=== PATIENT | male | born 2000 | race Caucasian/White ===

== ENCOUNTER 2024-08-29 04:05 | Emergency (ER) | payer SELFPAY ==
[2024-08-29] VITALS (25 sets, daily range): BP systolic 100–118; BP diastolic 44–55; PULSE 73–84; TEMP 37.7; O2SAT 92–97; BMI 19.8
--- NOTE | 2024-08-29 04:31 | ECG_ITS ---
[facility] Test Date: 2024-08-29 Pat Name: JV PETTY Department: Room: - Gender: Male Impression Printer: : 2000 Requested By: [id number] Order Number: [id number] Reading MD: BELGICA NOEL Measurements Intervals [place] Rate: 77 P: 50 MD: 142 QRS: 80 QRSD: 90 T: 38 QT: 372 QTc: 404 Interpretive Statements 1100 Sinus rhythm 9110 normal ECG No previous ECG available for comparison Electronically Signed On 08-29-2024 7:56:34 EST by BELGICA NOEL
--- NOTE | 2024-08-29 04:35 | ED.GENADUL1 ---
HPI HPI - General Adult General Chief complaint: Dizziness Stated complaint: cough fever bp low Time Seen by Provider: 08/29/24 04:19 Source: patient Mode of arrival: walk-in Limitations: no limitations History of Present Illness HPI narrative: . 24-year-old male to the emergency department with chief complaint of cough, fever, malaise. Symptoms been ongoing since . Reports that he had multiple episodes of near syncope. He reports that his blood pressure has been running lower than normal. 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 Related Data Home Medications ?Medication ?Instructions ?Recorded ?Confirmed carvedilol 25 mg tablet mg 08/29/24 doxazosin 2 mg tablet mg 08/29/24 ferric citrate 210 mg iron tablet 08/29/24 (Auryxia) furosemide 40 mg tablet mg 08/29/24 hydralazine 50 mg tablet mg 08/29/24 losartan 100 mg tablet mg 08/29/24 nifedipine 60 mg tablet,extended mg PO 08/29/24 release 24 hr sevelamer carbonate 800 mg tablet mg 08/29/24 Allergies Allergy/AdvReac Type Severity Reaction Status Date / Time No Known Drug Allergies Allergy Verified 08/29/24 04:13 Opioid HPI Opioid Management Most Recent Opioid Data: No Data to Display Review of Systems ROS Status of ROS 10 or more systems reviewed and unremarkable except as noted in history and below PFSH PFSH Social History Little interest or pleasure in doing things: not at all Feeling down, depressed, or hopeless: not at all Exam Narrative Exam Narrative: VITALS: I have reviewed the triage vital signs. GENERAL: Well developed, well appearing adult male in no acute distress. NEURO: Alert and oriented. Moves all extremities. Face is symmetric and expressive. EYES: PERRL. No scleral icterus or conjunctival injection. No discharge. HENT: Normocephalic, atraumatic. Hearing is grossly intact. Nares grossly patent and without discharge. Mucous membranes moist. NECK: No JVD. Patient moves neck without restriction. CARDIO: Rhythm regular. Normal rate. No murmur, rub, or gallop. Pulses equal bilaterally in the upper and lower extremity. No lower extremity edema. PULM: Lungs clear to auscultation in all momin. No wheezes, rales, or rhonchi. No conversational dyspnea. No splinting, stridor, or accessory muscle use. Dry cough. GI/: Abdomen is soft and non-tender. Normoactive bowel sounds. EXTREMITIES: Symmetric muscle bulk. No joint swelling. No clubbing, cyanosis, or deformity. Fistula. SKIN: Warm and dry. Normal turgor. No rash or lesions appreciated. PSYCH: Mood, affect, and interaction is appropriate to the setting. Constitutional Vital Signs, click to edit/add: Last Vital Signs Temp 99.9 F 08/29/24 04:10 Pulse 77 08/29/24 05:40 Resp 14 08/29/24 05:40 BP 110/52 08/29/24 05:30 Pulse Ox 94 L 08/29/24 05:40 O2 Del Method Room Air 08/29/24 04:10 Course Vital Signs Vital signs: Vital Signs Temperature 99.9 F 08/29/24 04:10 Pulse Rate 79 08/29/24 04:10 Respiratory Rate 18 08/29/24 04:10 Blood Pressure 118/55 08/29/24 04:10 Pulse Oximetry 97 08/29/24 04:10 Oxygen Delivery Method Room Air 08/29/24 04:10 Temperature 99.9 F 08/29/24 04:10 Pulse Rate 77 08/29/24 05:40 Respiratory Rate 14 08/29/24 05:40 Blood Pressure 110/52 08/29/24 05:30 Pulse Oximetry 94 L 08/29/24 05:40 Oxygen Delivery Method Room Air 08/29/24 04:10 Medical Decision Making MDM Narrative Medical decision making narrative: 24-year-old male to the emergency department with chief complaint of flulike illness. Has been ongoing since . He reports that his blood pressure has been running lower than normal. He reports that at dialysis yesterday was in the 90s systolic. He reports this is not typical for him. They did not take fluid off. He has been sick and has not had much intake per his report. 500 cc fluid boluses ordered. Basic labs are ordered. EKG and chest x-ray. COVID and flu testing. Patient agrees with this plan. CBC without major abnormality. Chemistry is reviewed. His renal function is at baseline for him. He has hypocalcemia, a liver function panel was added on to assess albumin level for adjusted calcium. No other major electrolyte abnormality. EKG without evidence of ischemia or arrhythmia. COVID and flu testing are negative. Care was signed out to Dr. Augustine with chest x-ray and adjusted calcium pending. Working diagnosis: Near syncope Flulike illness Medical Records Medical records reviewed: Yes I reviewed the patient's medical records Lab Data Lab results reviewed: Yes I reviewed the patient's lab results Labs: Lab Results 08/29/24 08/29/24 Range/Units 04:20 04:25 WBC 4.1 (4.0-11.0) 10^3/uL RBC 2.80 L (4.70-6.10) 10^6/uL Hgb 8.7 L (14.0-18.0) g/dL Hct 25.6 L (42.0-54.0) % MCV 91.4 (80.0-94.0) fL MCH 31.1 (25.9-34.0) pg MCHC 34.0 (29.9-35.2) g/dL RDW 12.4 (11.0-15.0) % Plt Count 78 L (150-450) 10^3/uL MPV 11.5 (9.5-13.5) fL Neut % (Auto) 48.2 (43.0-75.0) % Lymph % (Auto) 36.3 (20.5-60.0) % [place] % (Auto) 11.7 (1.7-12.0) % Eos % (Auto) 3.4 (0.9-7.0) % Baso % (Auto) 0.2 (0.2-2.0) % Neut # (Auto) 2.0 (1.4-6.5) 10^3/uL Lymph # (Auto) 1.5 (1.2-3.8) 10^3/uL [place] # (Auto) 0.5 (0.3-0.8) 10^3/uL Eos # (Auto) 0.1 (0.0-0.7) 10^3/uL Baso # (Auto) 0.0 (0.0-0.1) 10^3/uL Abs Immat Gran (auto) 0.01 (0.00-0.03) 10^3/uL Imm/Tot Granulo (auto) 0.2 (0.0-0.5) % Sodium 134 L (136-145) mmol/L Potassium 4.0 (3.5-5.1) mmol/L Chloride 98 (98-107) mmol/L Carbon Dioxide 32.2 H (21.0-32.0) mmol/L Anion Gap 7.8 BUN 20.0 H (7.0-18.0) mg/dL Creatinine 8.73 H* (0.70-1.30) mg/dL Est GFR ( Amer) 9 L (>=60 mL/min/1.73m^2) Est GFR (Non-Af Amer) 8 L (>=60 mL/min/1.73m^2) BUN/Creatinine Ratio 2.3 Glucose 98 (74-106) mg/dL Calcium 7.2 L (8.5-10.1) mg/dL Troponin I High Sens 25.6 (4.0-76.1) pg/mL Influenza Type A Ag Negative Influenza Type B Ag Negative SARS-CoV-2 Ag (CV2AG) Negative (NEGATIVE) Discharge Plan Discharge Chief Complaint: Dizziness Clinical Impression: Flu-like symptoms, Near syncope Patient Disposition: Still a Patient Prescriptions / Home Meds: No Action furosemide 40 mg tablet carvedilol 25 mg tablet nifedipine 60 mg tablet extended release 24hr PO hydralazine 50 mg tablet losartan 100 mg tablet doxazosin 2 mg tablet sevelamer carbonate 800 mg tablet Auryxia 210 mg iron tablet Print Language: Cypriot Referrals: Physician,Non-Staff, MD [Primary Care Provider] - 1 week
[2024-08-29 04:46] LABS: Basophils Percent Auto 0.2 % (0.2-2.0); Eosinophils Absolute Auto 0.1 10^3/uL (0.0-0.7); Eosinophils Percent Auto 3.4 % (0.9-7.0); Hematocrit 25.6 % (42.0-54.0); Hemoglobin 8.7 g/dL (14.0-18.0); Immature Granulocytes Abs Auto 0.01 10^3/uL (0.00-0.03); Immature Granulocytes Pct Auto 0.2 % (0.0-0.5); Lymphocytes Absolute Auto 1.5 10^3/uL (1.2-3.8); Lymphocytes Percent Auto 36.3 % (20.5-60.0); Mean Corpuscular Hemoglobin 31.1 pg (25.9-34.0); Mean Corpuscular Volume 91.4 fL (80.0-94.0); Mean Platelet Volume 11.5 fL (9.5-13.5); Monocytes Absolute Auto 0.5 10^3/uL (0.3-0.8); Monocytes Percent Auto 11.7 % (1.7-12.0); Neutrophils Percent Auto 48.2 % (43.0-75.0); Platelet Count 78 10^3/uL (150-450); Red Cell Distribution Width 12.4 % (11.0-15.0); White Blood Count 4.1 10^3/uL (4.0-11.0)
[2024-08-29 04:50] LABS: Influenza Virus A Antigen Negative; Influenza Virus B Antigen Negative; Internal Control Within Normal Limits
[2024-08-29] MEDS: 0.9 % SODIUM CHLORIDE 500 ML IV (04:54)
[2024-08-29 04:56] LABS: Anion Gap 7.8; BUN Creatinine Ratio 2.3; Calcium 7.2 mg/dL (8.5-10.1); Carbon Dioxide 32.2 mmol/L (21.0-32.0); Chloride 98 mmol/L (98-107); Estimated GFR (African America 9 (>=60 mL/min/1.73m^2); Estimated GFR (Non-African Ame 8 (>=60 mL/min/1.73m^2); Glucose 98 mg/dL (74-106); Sodium 134 mmol/L (136-145); Troponin I High Sensitivity 25.6 pg/mL (4.0-76.1)
[2024-08-29 05:18] LABS: Internal Control Within Normal Limits; SARS-CoV-2 Ag NEGATIVE (NEGATIVE)
[2024-08-29 06:42] LABS: Alanine Aminotransferase 34 U/L (16-63); Albumin Globulin Ratio 1.1; Albumin Level 3.5 g/dL (3.4-5.0); Alkaline Phosphatase 199 U/L (46-116); Aspartate Amino Transferase 34 U/L (15-37); Bilirubin Direct 0.1 mg/dL (0.0-0.2); Bilirubin Total 0.3 mg/dL (0.2-1.0); Globulin 3.1 g/dL; Total Protein 6.6 g/dL (6.4-8.2)
[2024-08-29] MEDS: CALCIUM GLUC IN NACL, ISO-OSM 1 GM/50 ML PLAST..BAG IV (07:04)
== END 2024-08-29 07:37 | disposition home or self-care (01) ==
PROVIDERS: Emergency Provider Student in an Organized Health Care Education/Training Program
DX: B34.9 Viral infection, unspecified (principal); J06.9 Acute upper respiratory infection, unspecified; R05.9 Cough, unspecified; E83.51 Hypocalcemia; R50.9 Fever, unspecified
CPT/HCPCS: 36415; 71045; 80048; 80076; 81001; 84484; 85025; 87804; 87811; 93005; 96365; 99285; J0613

== ENCOUNTER 2025-03-25 12:52 | Outpatient (REF) | payer MEDICARE, MEDICAID, SELFPAY ==
--- OUTSIDE RECORDS SUMMARY | 2025-03-25 12:56 | XMS_ITS | Encounter Summary ---
Author Organization [facility] Address [address] [place] [phone] Phone Care Team Providers Care Geometrician Name Role Phone Unavailable Primary Care Provider Unavailabl e Reason for Referral * Imaging (Routine) - Authorized Specialty Diagnoses / Procedures Referred By Jacy kearns Referred To Contact Radiology Diagnoses Pre-transplant evaluation for kidney transplant Procedures XR chest [place] [address] Department [place] [address] Phone: tel: fax: Referral ID Status Reason Start Date Expiration Date Visits Requested Visits Authorized [id number] Authorized Perform Procedure 03/24/2025 04/23/2026 1 1 * Cardiovascular (Routine) - Authorized Specialty Diagnoses / Procedures Referred By Jacy kearns Referred To Contact Diagnoses Pre-transplant evaluation for kidney transplant Procedures ECG 12 [place] [address] Department [place] [address] Phone: tel: fax: Referral ID Status Reason Start Date Expiration Date V isits Requested Visits Authorized [id number] Authorized 03/24/2025 03/24/2026 1 1 Encounter Details Date Type Department Care Team (Late st Contact Info) Description 03/24/2025 Telephone [facility] [address] [phone] Johanny Sparks, JC Social History Tobacco Use Types Packs/Day Years Used Date Smoking Tobacco: Never Passive Smoke Exposure: Current Smokeless Tobacco: Never Alcohol Use Standard Drinks/Week Comments Not Currently 0 (1 standard drink = 0.6 oz pur e alcohol) PHQ-2 Answer Date Recorded Patient Health Questionnaire-2 Score 0 04/01/2024 Hunger Vital Sign Answer Date Recorded Within the past 12 months, y ou worried that your food would run out before you got the money to buy more. Never true 12/30/19 24 Within the past 12 months, t he food you bought just didn't last and you didn't have money to get more. Never true 12/30/2023 Sex and Gender Information Value Date Recorded Sex Assigned at Not on file Legal Sex Male 9:09 AM EDT Gender Identity Not on file Sexual Orientation Not on file documented as of this encounter Miscellaneous Notes * Telephone Encounter - Johanny Sparks RN - 03/24/2025 5:[address] documented in this encounter Plan of Treatment Upcoming Encounters Date Type Department Care Team (Late st Contact Info) Description 03/29/2025 9:30 AM EDT Office Visit [facility] [address] [place] [address] [place] [phone] 03/29/2025 10:00 AM EDT Social Work [facility] [address] [facility] [address] [place] [phone] Crystal Oakes LCSW 03/31/2025 11:00 AM EDT Nurse Only [facility] [address] [place] [address] [place] [phone] 03/31/2025 11:30 AM EDT Office Visit [facility] [address] [facility] [address] [place] [phone] 04/05/2025 Hospital Encounter [facility] [address] [place] [address] [place] [address] Department of Surgery-Transplant [place], [place] [phone] 12/06/2029 6:00 AM EDT [place] [address] Department of Surgery-Transplant [place], [place] [id number] Scheduled Orders Name Type Priority Associated Diagnoses Orde r Schedule HLA Autocrossmatch Panel Lab Routine Pre-transplant evaluation for kidney transplant Expected: 03/24/2025 (Approximate), Expires: 03/24/2026 HLA Transplant Antibody Panel Lab Routine Pre-transplant evaluation for kidney transplant Expected: 03/24/2025 (Approximate), Expires: 03/24/2026 Coagulation Screen Lab Routine Pre-transplant evaluation for kidney transplant End stage renal disease (Multi) Expected: 03/24/2025 (Approximate), Expires: 03/24/2026 Comprehensive Metabolic Panel Lab Routine Pre-transplant evaluation for kidney transplant Expected: 03/24/2025 (Approximate), Expires: 03/24/2026 Urinalysis with Reflex Culture Lab Routine Pre-transplant evaluation for kidney transplant Surgical abdomen Expected: 03/24/2025 (Approximate), Expires: 03/24/2026 Hemoglobin A1C Lab Routine Pre-transplant evaluation for kidney transplant Encounter for screening for diabetes mellitus Expected: 03/24/2025 (Approximate), Expires: 03/24/2026 ECG 12 Lead ECG Routine Pre-transplant evaluation for kidney transplant Expected: 03/24/2025 (Approximate), Expires: 03/24/2026 XR chest 2 views Imaging Routine Pre-transplant evaluation for kidney transplant Expected: 03/24/2025, Expires: 03/24/2026 CBC and Auto Differential Lab Routine Pre-transplant evaluation for kidney transplant Expected: 03/24/2025 (Approximate), Expires: 03/24/2026 Type And Screen Is this order related to or an upcoming surgery? Yes; Where will this surgery/delivery be performed? [facility] What is the date of the surgery? 04/05/2025; Has this patient ever had a transfusion? No; Has t... Lab Routine Pre-transplant evaluation for kidney transplant Expected: 03/24/2025 (Approximate), Expires: 03/24/2026 Scheduled Procedures Name Priority Associated Diagnoses Date/Ti me TRANSPLANT, KIDNEY ESRD (end stage renal disease) (Multi) documented as of this encounter Visit Diagnoses Diagnosis Pre-transplant evaluation for kidney transplant Surgical abdomen Abdominal pain, unspecified site Encounter for screening for diabetes mellitus End stage renal disease (Multi) End stage renal disease documented in this encounter Additional Health Concerns Assessment Noted Time PHQ-9 Depression Total Score: 3 04/01/20 24 11:00 AM EDT A fall risk assessment has been complete d for the patient 12/30/2023 1:13 PM EDT documented as of this encounter
--- OUTSIDE RECORDS SUMMARY | 2025-03-25 12:56 | XMS_ITS | Encounter Summary ---
Author Organization [facility] Address [address] [place] [address] Phone Care Team Providers Care Gluer Machine Operator Name Role Phone Unavailable Primary Care Provider Unavailabl e Encounter Details Date Type Department Care Team (Late st Contact Info) Description 03/23/2025 Telephone [facility] [address] [place] [address] [place] [address] Johanny Sparks, JC Social History Tobacco Use [...] Encounter - Johanny Sparks RN - 03/24/2025 10:11 AM EDT Spoke with Trey on 03/24. We received a living donor kidney offer through [facility]. He was made aware he was identified as the primary recipient. Date of targeted surgery on 04/05. He reports he is feeling great and denies any medical concerns. Reports HD is going well. I let him know we will be working with OSH to coordinate date for pre op and will reach out to him soon with next steps. He expressed understanding. I encouraged him to reach back out to us should any concerns or questions arise. documented in this encounter Plan of Treatment Upcoming Encounters Date Type Department Care Team (Late st Contact Info) Description 03/29/2025 9:30 AM EDT Office Visit [facility] [address] [phone] 03/29/2025 10:00 AM EDT Social Work [facility] [address] [address] Crystal Oakes LCSW 03/31/2025 11:00 AM EDT Nurse Only [place] [address] [place] [address] [phone] 03/31/2025 11:30 AM EDT Office Visit [place] [address] [phone] 04/05/[address] [facility] [address] [place] [address] [place] [address] Department [place] [address] 12/06/2029 6:00 AM EDT [place] [address] Department [place] [address] Scheduled Procedures Name Priority Associated Diagnoses Date/Ti me TRANSPLANT, KIDNEY ESRD (end stage renal disease) (Multi) documented as of this encounter Visit Diagnoses Not on filedocumented in this encounter Additional Health Concerns Assessment Noted Time PHQ-9 Depression Total Score: 3 04/01/20 24 11:00 AM EDT A fall risk assessment has been complete d for the patient 12/30/2023 1:13 PM EDT documented as of this encounter
--- OUTSIDE RECORDS SUMMARY | 2025-03-25 12:56 | XMS_ITS | Encounter Summary ---
Author Organization [facility] Address [address] [place] [address] Phone Care Team Providers Care Legal Secretary Name Role Phone Unavailable Primary Care Provider Unavailabl e Encounter Details Date Type Department Care Team (Late st Contact Info) Description 12/30/2023 Lab Requisition [facility] [address] [place] [phone] [place] [address] Department of Surgery-[place] [phone] End stage renal disease (Multi) Social History Tobacco Use Types Packs/Day Years Used Date Smoking Tobacco: Never Passive Smoke Exposure: Current Smokeless Tobacco: Never Alcohol Use Standard Drinks/Week Comments Not Currently 0 (1 standard drink = 0.6 oz pur e alcohol) PHQ-2 Answer Date Recorded Patient Health Questionnaire-2 Score 0 01/01/2024 Hunger Vital Sign Answer Date Recorded Within [...] on file Sexual Orientation Not on file COVID-19 Exposure Response Date Recorded In the last 10 days, have yo u been in contact with someone who was confirmed or suspected to have Coronavirus/COVID-19? No / Unsure 12/30/2023 9:44 AM EDT documented as of this encounter Functional Status * Over the past 2 weeks, how often have you been bothered by any of the following problems? Question Answer Date of Assessment Author Patient Health Questionnaire -2 Score 0 01/01/2024 8:00 AM RUDYT Aracely Cyr LCSW * How difficult have these problems made it for you to do your work, take care of things at home, or get along with other people? Answer Date of Assessment Author Somewhat difficult 01/01/2024 8:00 AM EDT Aracely Cyr LCSW * Over the last 2 weeks, how often have you been bothered by any of the following problems? Question Answer Date of Assessment Author Feeling nervous, anxious, or on edge 0 01/01/2024 8:00 AM EDT Aracely Cyr LCSW Not being able to stop or co ntrol worrying 0 01/01/2024 8:00 AM EDT Aracely Cyr LCSW Worrying too much about diff erent things 0 01/01/2024 8:00 AM EDT Aracely Cyr LCSW Trouble relaxing 0 01/01/2024 8:00 AM EDT Aracely Meier LCSW Being so restless that it is hard to sit still 0 01/01/2024 8:00 AM Aracely Hansen LCSW Becoming easily annoyed or irritable 0 01/01/2024 8:00 AM EDT Aracely Cyr LCSW Feeling afraid as if somethi ng awful might happen 0 01/01/2024 8:00 AM EDT Aracely Cyr LCSW FAHAD-7 Total Score 0 01/01/2024 8:00 AM Aracely Hansen LCSW * Over the past 2 weeks, how often have you been bothered by any of the following problems? Question Answer Date of Assessment Author Little interest or pleasure in doing things Not at all 01/01/2024 8:00 AM EDT Rashaun Cyr LCSW Feeling down, depressed, or hopeless Not at all 01/01/2024 8:00 AM EDT Aracely Cyr LCSW Trouble falling or staying asleep, or sleeping too much Several days 01/01/2024 8:00 AM RUDYT Aracely Cyr LCSW Feeling tired or having little energy Nearly every day 01/01/2024 8:00 AM EDT Aracely Cyr LCSW Poor appetite or overeating Several days 01/01/2024 8:00 AM EDT Aracely Cyr LCSW Feeling bad about yourself - or that you are a failure or have let yourself or your family down Not at all 01/01/2024 8:00 AM EDT Aracely Cyr LCSW Trouble concentrating on things, such as reading the newspaper or watching television Not at all 01/01/2024 8:00 AM EDT Aracely Cyr LCSW Moving or speaking so slowly that other people could have noticed? Or the opposite - being so fidgety or restless that you have been moving around a lot more than usual. Not at all 01/01/2024 8:00 AM RUDYT Aracely Cyr LCSW Thoughts that you would be better off or hurting yourself in some way Not at all 01/01/2024 8:00 AM EDT Aracely yCr LCSW Patient Health Questionnaire-9 Score 5 01/01/2024 8:00 AM EDT Aracely Cyr LCSW documented as of this encounter Plan of Treatment Upcoming Encounters Date Type Department Care Team (Late st Contact Info) Description 03/29/2025 9:30 AM EDT Office [facility] [address] [phone] 03/29/2025 10:[address] [facility] [address] [address] Crystal Oakes LCSW 03/31/2025 11:00 AM EDT Nurse Only [facility] [address] [facility] [address] [place] [address] 03/31/2025 11:30 AM EDT Office [facility] [address] [facility] [address] [place] [address] 04/05/2025 Hospital Encounter [facility] [address] [place] [address] [place] [address] [facility] Department [place] [address] 12/06/2029 6:00 AM EDT [place] [address] [facility] Department of Surgery-Transplant [place], [place] [phone] Scheduled Procedures Name Priority Associated Diagnoses Date/Ti me TRANSPLANT, KIDNEY ESRD (end stage renal disease) (Multi) documented as of this encounter Procedures Procedure Name Priority Date/Time Associated Diagnosis Comments HLA PRA ANTIBODY SCREEN Routine 12/30/19 12:00 AM EDT End stage renal disease (Multi) HLA DNA TYPE PANEL Routine 12/30/2023 12 :00 AM EDT End stage renal disease (Multi) FLOW AUTOCROSSMATCH Routine 12/30/2023 1 2:00 AM EDT End stage renal disease (Multi) documented in this encounter Results * Flow Autocrossmatch (12/30/2023 12:00 AM EDT) Flow Autocrossmatch 12/31/2023 10:30 AM EDT HLA LAB HLA Results See Attached 12/31/2023 10:30 AM EDT HLA LAB Blood Venous blood specimen / Unknown 12/30/2023 12/30/2023 5:51 PM EDT Narrative HLA LAB - 12/31/2023 10:30 AM EDT Test performed at: [facility], 6th Floor [id number] [place] [id number] us Karis Newby MD LAB BLOOD ORDERABLES Final Result Performing Organization Address [facility] Co de Phone Number HLA LAB [id number] [place] [address] * HLA DNA Type Panel (12/30/2023 12:00 AM EDT) HLA-A,B,C High Resolution Typing 01/07/2024 2:27 PM EDT HLA LAB HLA-DRB1 High Resolution Typing 01/07/2024 2:27 PM EDT HLA LAB HLA-DQB1 High Resolution Typing 01/07/2024 2:27 PM EDT HLA LAB HLA-DPB1 High Resolution Typing 01/07/2024 2:27 PM EDT HLA LAB HLA Results See Attached 01/07/2024 2:27 PM EDT HLA LAB Blood Venous blood specimen / Unknown 12/30/2023 12/30/2023 5:51 PM EDT Narrative HLA LAB - 01/07/2024 2:27 PM EDT Test performed at: [facility], 6th Floor [address] [place] [id number] Karis Newby MD LAB BLOOD ORDERABLES Final Result Performing Organization Address [facility] Co de Phone Number [facility] [address] [place] [address] * HLA PRA Antibody Screen (12/30/2023 12:00 AM EDT) HLA Class I AB Screen, 01/01/2024 8:51 AM EDT HLA LAB HLA Class II AB Screen, 01/01/2024 8:51 AM EDT HLA LAB HLA Results See Attached 01/01/2024 8:51 AM EDT HLA LAB Blood Venous blood specimen / Unknown 12/30/2023 12/30/2023 5:51 PM EDT Narrative HLA LAB - 01/01/2024 8:51 AM EDT Test performed at: [facility], 6th Floor [address] [place] [address] us Karis Newby MD LAB BLOOD ORDERABLES Final Result [facility] [id number] [place] [address] documented in this encounter Visit Diagnoses Diagnosis End stage renal disease (Multi) End stage renal disease documented in this encounter Additional Health Concerns Assessment Noted Time A fall risk assessment has been complete d for the patient 12/30/2023 1:13 PM EDT documented as of this encounter
--- OUTSIDE RECORDS SUMMARY | 2025-03-25 12:56 | XMS_ITS | Encounter Summary ---
Author Organization [facility] Address [address] [place] [address] Phone Care Team Providers Care Enamel Finisher Name Role Phone Unavailable Primary Care Provider Unavailabl e Encounter Details Date Type Department Care Team (Late st Contact Info) Description 03/25/2025 Orders Only [facility] [address] [facility] Nas [address] [place] [address] [place] [address] Department of Surgery-Transplant [place] [id number] ESRD (end stage renal disease) (Multi) (Primary Dx) Social History Tobacco Use Types Packs/Day Years [...] on file documented as of this encounter Plan of Treatment Upcoming Encounters Date Type Department Care Team (Late st Contact Info) Description 03/29/2025 9:30 AM EDT Office Visit [facility] [address] [facility] [address] [place] [address] 03/29/2025 10:00 AM EDT Social Work [facility] [address] [facility] [address] [place] [address] Crystal Oakes LCSW 03/31/2025 11:00 AM EDT Nurse Only [facility] [address] [facility] [address] [place] [address] 03/31/2025 11:30 AM EDT Office Visit [facility] [address] [address] 04/05/2025 Hospital Encounter [facility] [address] [place] [address] [place] [address] Department [place] [address] 12/06/2029 6:00 AM EDT [place] [address] Department [place] [address] Scheduled Procedures Name Priority Associated Diagnoses Date/Ti me TRANSPLANT, KIDNEY ESRD (end stage renal disease) (Multi) documented as of this encounter Goals Goal Patient Goal Type Associated Problems Recent Progress Patient-Stated? Author Autogenerat ed Goal Care Plan Autogenerated Problem No [place] Salmeron documented as of this encounter Visit Diagnoses Diagnosis ESRD (end stage renal disease) (Multi)- Primary End stage renal disease ESRD (end stage renal disease) (Multi)- Primary End stage renal disease documented in this encounter Additional Health Concerns Active Problems Noted Date Diagnosed Date Autogenerated Problem 03/25/2025 Assessment Noted Time PHQ-9 Depression Total Score: 3 04/01/20 11:00 AM EDT A fall risk assessment has been complete d for the patient 12/30/2023 1:13 PM EDT documented as of this encounter
--- OUTSIDE RECORDS SUMMARY | 2025-03-25 12:56 | XMS_ITS | Encounter Summary ---
Author Organization [facility] Address [address] [place] [address] Phone Care Team Providers Care Vrt Mechanic Name Role Phone Unavailable Primary Care Provider Unavailabl e Encounter Details Date Type Department Care Team (Late st Contact Info) Description 01/26/2025 Lab Requisition [facility] [address] [place] [id number] [place] [address] Department of Surgery-[place] [phone] End stage renal disease (Multi) Social History [...] Description 03/29/2025 9:30 AM EDT Office Visit [facility] [address] [facility] [address] [place] [address] 03/29/2025 10:00 AM EDT Social Work [facility] [address] [address] Crystal Oakes LCSW 03/31/2025 11:00 AM EDT Nurse Only [facility] [address] [address] 03/31/2025 11:30 AM EDT Office Visit [facility] [address] [address] 04/05/2025 Hospital Encounter [facility] [address] [place] [address] [place] [address] Department [place] [address] 12/06/2029 6:00 AM EDT [place] [address] Department [place] [address] Scheduled Procedures Name Priority Associated Diagnoses Date/Ti me TRANSPLANT, KIDNEY ESRD (end stage renal disease) (Multi) documented as of this encounter Procedures Procedure Name Priority Date/Time Associated Diagnosis Comments HLA TRANSPLANT ANTIBODY PANEL Routine 01/25/2025 12:00 AM EDT End stage renal disease (Multi) FLOW AUTOCROSSMATCH Routine 01/25/2025 1 2:00 AM EDT End stage renal disease (Multi) documented in this encounter Results * Flow Autocrossmatch (01/25/2025 12:00 AM EDT) Flow Autocrossmatch 01/26/2025 3:48 PM EDT [facility] LAB HLA Results See Attached 01/26/2025 3:48 PM EDT [facility] LAB Blood Venous blood specimen / Unknown 01/25/2025 01/26/2025 9:12 AM EDT Narrative HLA LAB - 01/26/2025 3:48 PM EDT Test performed at: [facility]ocompatibility [facility] Immunogenetics [facility] ElisabethAnthonyTiki [facility], 6th Floor [address] [place], [place] [id number] Karis Newby MD LAB BLOOD ORDERABLES Final Result Performing Organization Address [facility]/ZIP Co de Phone Number [facility] [address] [place], [place] [id number] * HLA Transplant Antibody Panel (01/25/2025 12:00 AM EDT) [facility] HLA Class I SP AB ID, 01/31/2025 5:02 PM EDT [facility] HLA Class II SP AB ID, 01/31/2025 5:02 PM EDT [facility] HLA Results See Attached 01/31/2025 5:02 PM EDT [facility] Blood Venous blood specimen / Unknown 01/25/2025 01/26/2025 9:12 AM EDT Narrative HLA LAB - 01/31/2025 5:02 PM EDT Test performed at: [facility] ElisabethAnthonyT[facility], 6th Floor [address] [place] [address] Karis Newby MD LAB BLOOD ORDERABLES Final Result Performing Organization Address City/[facility]/ZIP Co de Phone Number [facility] [address] [place] [address] documented in this encounter Visit Diagnoses Diagnosis End stage renal disease (Multi) End stage renal disease documented in this encounter Additional Health Concerns Assessment Noted Time PHQ-9 Depression Total Score: 3 04/01/20 24 11:00 AM EDT A fall risk assessment has been complete d for the patient 12/30/2023 1:13 PM EDT documented as of this encounter
--- OUTSIDE RECORDS SUMMARY | 2025-03-25 12:56 | XMS_ITS ---
Author Organization [facility] Address [address] [place] [address] Phone Care Team Providers Care Chlorine Cells Operator Name Role Phone Unavailable Primary Care Provider Unavailabl e Transplant Episode Kidney Candidate [facility] ([place], [place]) - [facility] Center waitlisted on 03/08/2025 Marked as Active on 03/08/2025 Kidney CoordinatorLarissa Ha RN Phone: N/A Fax: N/A Email: N/A Scores Score Value Updated Exceptions/Reas ons CPRA Not available EPTS (Calc) 1 03/25/2025 [place] Organ Diagnosis Organ Primary Contributory Kidney Hypertensive Nephrosclerosis Care Team Name Role Phone Fax Email Larissa Ha RN Kidney Coordinator N/A N/A N/A Sarina Mcdaniel MD Referring Healthcare Facility Administrator [phone] N/A Events Pre-Transplant Referred: 01/06/2023 Evaluation began: 12/30/2023 Committee: 07/08/2024 UNOS qualified: 08/03/2021 Center waitlisted: 03/08/2025 Appointments (02/22/2025 - 04/24/2025) When With Visit Type Description 03/29/2025 Transplant - Connor Oakes Transplant Kidney Social Work EPV 03/29/2025 Transplant Transplant Kidne y Surgeon 03/31/2025 Transplant Transplant Kidne y Nurse Visit 03/31/2025 Transplant Transplant Kidne y Surgeon Dialysis History Dialysis History Start End Type Comments Center [facility] Dialysis Center Information Center Phone Fax Address [facility] [phone] [place] [address]
--- OUTSIDE RECORDS SUMMARY | 2025-03-25 12:56 | XMS_ITS | Encounter Summary ---
Author Organization [facility] Address [address] [place] [address] Phone Care Team Providers Care Reach Truck Operator Name Role Phone Unavailable Primary Care Provider Unavailabl e Encounter Details Date Type Department Care Team (Late st Contact Info) Description 03/11/2025 Lab Requisition [facility] [address] [place] [phone] [place] [address] Department of Surgery-[place] [phone] End stage renal disease (Multi) Social History [...] Description 03/29/2025 9:30 AM EDT Office Visit [facility] [address] [facility] [address] [place] [address] 03/29/2025 10:00 AM EDT Social Work [facility] [address] [address] Crystal Oakes LCSW 03/31/2025 11:00 AM EDT Nurse Only [facility] [address] [address] 03/31/2025 11:30 AM EDT Office Visit [facility] [address] [address] 04/05/2025 Hospital Encounter [facility] [address] [place] [address] [place] [address] Department [place] [address] 12/06/2029 6:00 AM EDT [place] [address] Department [place] [address] Scheduled Procedures Name Priority Associated Diagnoses Date/Ti me TRANSPLANT, KIDNEY ESRD (end stage renal disease) (Multi) documented as of this encounter Procedures Procedure Name Priority Date/Time Associated Diagnosis Comments HLA TRANSPLANT ANTIBODY PANEL Routine 12/29/2024 12:00 AM EDT End stage renal disease (Multi) documented in this encounter Results * HLA Transplant Antibody Panel (12/29/2024 12:00 AM EDT) HLA Class I SP AB ID, 03/11/2025 3:18 PM EDT HLA LAB HLA Class II SP AB ID, HD 03/11/2025 3:18 PM EDT HLA LAB HLA Results See Attached 03/11/2025 3:18 PM EDT HLA LAB Blood Venous blood specimen / Unknown 12/29/2024 03/11/2025 3:13 PM EDT Narrative HLA LAB - 03/11/2025 3:18 PM EDT Test performed at: [facility] Histocompatibility and Immunogenetics Laboratory [facility], 6th Floor [address] [place] [address] us Karis Newby MD LAB BLOOD ORDERABLES Final Result Performing Organization Address City/State/[facility] Co de Phone Number [facility] [phone] [place] [address] documented in this encounter Visit Diagnoses Diagnosis End stage renal disease (Multi) End stage renal disease documented in this encounter Additional Health Concerns Assessment Noted Time PHQ-9 Depression Total Score: 3 04/01/20 24 11:00 AM EDT A fall risk assessment has been complete d for the patient 12/30/2023 1:13 PM EDT documented as of this encounter
--- OUTSIDE RECORDS SUMMARY | 2025-03-25 12:56 | XMS_ITS | Encounter Summary ---
Author Organization [facility] Address [address] [place] [address] Phone Care Team Providers Care Web Content Writer Name Role Phone Unavailable Primary Care Provider Unavailabl e Reason for Visit * Reason Comments Appointment Schedule pre op Encounter Details Date Type Department Care Team (Late st Contact Info) Description 03/25/2025 Telephone [facility] [address] [facility] [address] [place] [address] Lyndsey Contreras Appointment (Schedule pre op) Social History Tobacco Use Types Packs/Day Years [...] Description 03/29/2025 9:30 AM EDT Office Visit [facility] [address] [facility] Nas [address] [place] [address] 03/29/2025 10:00 AM EDT Social Work [facility] [address] [facility] [address] [place] [address] Crystal Oakes LCSW 03/31/2025 11:00 AM EDT Nurse Only [facility] [address] [facility] [address] [place] [address] 03/31/2025 11:30 AM EDT Office Visit [facility] [address] [facility] [address] [place] [address] 04/05/2025 Hospital Encounter [facility] [address] [place] [address] [place] [address] Department [place] [address] 12/06/2029 6:00 AM EDT [place] [address] Department [place] [address] Scheduled Procedures Name Priority Associated Diagnoses Date/Ti me TRANSPLANT, KIDNEY ESRD (end stage renal disease) (Multi) documented as of this encounter Goals Goal Patient Goal Type Associated Problems Recent Progress Patient-Stated? Author Autogenerat ed Goal Care Plan Autogenerated Problem No [place] Salmer[place] documented as of this encounter Visit Diagnoses Not on filedocumented in this encounter Additional Health Concerns Active Problems Noted Date Diagnosed Date Autogenerated Problem 03/25/2025 Assessment Noted Time PHQ-9 Depression Total Score: 3 04/01/20 11:00 AM EDT A fall risk assessment has been complete d for the patient 12/30/2023 1:13 PM EDT documented as of this encounter
--- OUTSIDE RECORDS SUMMARY | 2025-03-25 12:56 | XMS_ITS | Clinical Summary ---
Author Organization [facility] Address [address] [place] [address] Phone Care Team Providers Care Clinical Data Assistant Name Role Phone Unavailable Primary Care Provider Unavailabl e Allergies Active Allergy Reactions Criticality Noted Date Comments Midazolam Agitation 12/30/2023 Medications Coreg 25 mg tablet Take 1 tablet (25 mg) by mouth twice a day. 08/07/2023 Active docusate sodium (Colace) 100 mg capsule Take 1 capsule (100 mg) by mouth twice a day. 01/29/2023 Active doxazosin (Cardura) 2 mg tablet Take 1 tablet (2 mg) by mouth once daily. 04/26/2022 Active Auryxia 210 mg iron tablet Take 2 tablets (420 mg) by mouth 3 times a day. 09/25/2022 Active Lasix 40 mg tablet Take 1 tablet (40 mg) by mouth twice a day. 02/06/2022 Active hydrALAZINE (Apresoline) 50 mg tablet Take 1 tablet (50 mg) by mouth 3 times a day. 04/28/2023 Active losartan (Cozaar) 100 mg tablet Take 1 tablet (100 mg) by mouth once daily. 02/06/2022 Active NIFEdipine XL 60 mg 24 hr tablet Take 2 tablets (120 mg) by mouth once daily in the morning. Take before meals. Active omeprazole (PriLOSEC) [address] capsule Take 1 capsule (20 mg) by mouth once daily. Active polyethylene glycol (Glycolax, Miralax) 17 gram packet Take 17 g by mouth once daily. Active predniSONE (Deltasone) 5 mg tablet Take 1 tablet (5 mg) by mouth once daily. 02/06/2022 Active Renvela 800 mg tablet Take 4 tablets (3,200 mg) by mouth 3 times daily (morning, midday, late afternoon). 11/08/2022 Active Active Problems Problem Noted Date Diagnosed Date ESRD (end stage renal disease) (Multi) Encounters Date Type Department Care Team Description 03/25/2025 Orders Only [facility], [place] [address] [phone] Aftab Galdamez MD ESRD (end stage renal disease) ([facility]) (Primary Dx) 03/25/2025 Telephone [facility] [place] [address] [phone] Lyndsey Contreras Appointment (Schedule pre op) 03/24/2025 Telephone [facility] [place] [address] [phone] Johanny Sparks RN 03/23/2025 Telephone [facility] [place] [address] [phone] Johanny Sparks RN 03/11/2025 [facility] [address] [place] [address] Karis Riggins MD End stage renal disease ([facility]) 03/10/2025 Telephone [facility] [place] [address] [phone] Francoise Rodriguez 03/09/2025 Documentation [facility] [place] [address] [phone] Larissa Ha, RN Next Review 03/08/2025 Documentation [facility] [place] [address] [phone] Corwin Quarles RN 03/08/2025 Documentation [facility] [place] [address] [place] [address] [place] [address] Johanny Sparks, JC 03/08/2025 Documentation [facility] [place] [address] [facility] [address] [place] [address] Connie Pires, JC Waitlist Status Update 03/02/2025 Documentation [facility] [place] [address] [phone] Connie Pires, RN Kidney Eval; Follow-up 02/24/2025 Telephone [facility] [place] [address] [facility] [address] [place] [address] Connie Pires, JC Follow-up; Committee Review 02/17/2025 Documentation [facility] [address] [facility] [address] [place] [address] [employer] (Selection ) 02/17/2025 Documentation [facility] [place] [address] [address] Yuimko Darby, PharmD 01/26/2025 Lab Requisition [facility] [address] [place] [address] Karis Riggins MD End stage renal disease (Multi) 01/25/2025 11:50 AM EDT Nurse Only [facility] [place] [address] [address] 01/25/2025 11:30 AM EDT Social Work [facility] [place] [address] [facility] [address] [place] [address] Mariel Hall LSW 01/25/2025 Documentation [facility] [place] [address] [address] Connie Pires, RN Kidney Eval (Kidney Patient Summary for Selection) 01/25/2025 Orders Only [facility] [place] [address] [place] [address] Larissa Ha, RN Pre-transplant evaluation for kidney transplant; End stage renal disease (Multi); Encounter for therapeutic drug level monitoring; Other specified abnormal findings of blood chemistry 01/25/2025 Travel from Last 3 Months Immunizations Immunization Administration Dates Next Due Hepatitis B vaccine, 18yrs a nd older(HEPLISAV) 01/09/2022,10/10/2021,09/05/2021,2021 Social History Tobacco Use Types Packs/Day Years Used Date Smoking Tobacco: Never Passive Smoke Exposure: Current Smokeless Tobacco: Never Tobacco Cessation:Counseling Given: Not Answered Alcohol Use Standard Drinks/Week Comments Not Currently [...] on file Sexual Orientation Not on file Last Filed Vital Signs Vital Sign Reading Time Taken Comments Blood Pressure 97/50 12/30/2023 1:11 PM EDT Pulse 80 12/30/2023 1:11 PM EDT Temperature 36.6 C (97.9 F) 12/30/2023 1:11 PM EDT Respiratory Rate - - Oxygen Saturation 98% 12/30/2023 1:11 PM EDT Inhaled Oxygen Concentration - - Weight 52.3 kg (115 lb 3.2 oz) 12/30/2023 1:11 P M EDT Height 170.2 cm (5' 7 ) 12/30/2023 1:11 PM EDT Body Mass Index 18.04 12/30/2023 1:11 PM EDT Plan of Treatment Upcoming Encounters Date Type Department Care Team (Late st Contact Info) Description 03/29/2025 9:30 AM EDT Office Visit [facility] [place] [address] [phone] 03/29/2025 10:00 AM EDT Social Work [facility] [place] [address] [phone] Crystal Oakes LCSW 03/31/2025 11:00 AM EDT Nurse Only [facility] [place] [address] [phone] 03/31/2025 11:30 AM EDT Office Visit [facility] [place] [address] [address] 04/05/2025 Hospital Encounter [facility] [place] [address] [place] [address] [place] [address] [place] [address] 12/06/2029 6:00 AM EDT [place] [address] Department [place] [address] Scheduled Procedures Name Priority Associated Diagnoses Date/Ti me TRANSPLANT, KIDNEY ESRD (end stage renal disease) (Multi) Health Maintenance Due Date Last Done Comments Medicare Annual Wellness Visit (AWV) 2002 MMR Vaccines (1 of 1 - Standard series) 2003 HPV Vaccines (1 - Male 3-dose series) 2017 Meningococcal B Vaccine (3 of 3 - Trumenba SCDM 3-Dose Series) 06/27/2018 02/01/2018, 12/26/2017 DTaP/Tdap/Td Vaccines (1 - Tdap) 2024 COVID-19 Vaccine (1 - 2024-25 season) 2025 Influenza Vaccine (#1) 2025 Lipid Panel 01/25/2030 01/25/2025, 12/30/2023 Zoster Vaccines (1 of 2) 2052 Meningococcal Vaccine Aged Out 12/27/2017 No jess preet eligible based on patient's age to complete this topic Pneumococcal Vaccine: Pediatrics and At-Risk Adult Patients Aged Out 12/27/2017 No longer eligible based on patient's age to complete this topic Hepatitis B Vaccines Completed 01/09/2022, 10/10/2021, 09/05/2021, Additional history exists HIV Screening Completed 01/25/2025, 12/30/2023 Hepatitis C Screening Completed 01/25/2025, 024 HIB Vaccines Aged Out No longer eligi ble based on patient's age to complete this topic Hepatitis A Vaccines Aged Out No long er eligible based on patient's age to complete this topic IPV Vaccines Aged Out No longer eligi ble based on patient's age to complete this topic Rotavirus Vaccines Aged Out No longer eligible based on patient's age to complete this topic Goals Goal Patient Goal Type Associated Problems Recent Progress Patient-Stated? Author Autogenerat ed Goal Care Plan Autogenerated Problem No [place] Procedures Procedure Name Priority Date/Time Associated Diagnosis Comments HLA AUTOCROSSMATCH PANEL Routine 01/25/2025 12:16 PM EDT Pre-transplant evaluation for kidney transplant VARICELLA ZOSTER ANTIBODY, IGG Routine 01/25/2025 12:16 PM EDT Pre-transplant evaluation for kidney transplant LIPID PANEL NON-FASTING Routine 01/26/20 12:16 PM EDT Pre-transplant evaluation for kidney transplant End stage renal disease (Multi) SYPHILIS SCREENING WITH REFLEX Routine 01/25/2025 12:16 PM EDT Pre-transplant evaluation for kidney transplant DRUG PROFILE 9, BLOOD W/ REFLEX TO CONFIRMATION Routine 01/25/2025 12:16 PM EDT Pre-transplant evaluation for kidney transplant End stage renal disease (Multi) Encounter for therapeutic drug level monitoring CYTOMEGALOVIRUS IGG Routine 01/25/2025 1 2:16 PM EDT Pre-transplant evaluation for kidney transplant ABORH Routine 01/25/2025 12:16 PM EDT Pre-transplant evaluation for kidney transplant CESAR-RUBIO VIRUS ANTIBODY PANEL Routine 01/25/2025 12:16 PM EDT Pre-transplant evaluation for kidney transplant CREATININE Routine 01/25/2025 12:16 PM EDT Pre-transplant evaluation for kidney transplant NICOTINE AND METABOLITES,S Routine 01/25/2025 12:16 PM EDT Pre-transplant evaluation for kidney transplant HEPATIC FUNCTION PANEL Routine 12:16 PM EDT Pre-transplant evaluation for kidney transplant PHOSPHORUS Routine 01/25/2025 12:16 PM EDT Pre-transplant evaluation for kidney transplant C-PEPTIDE Routine 01/25/2025 12:16 PM EDT Pre-transplant evaluation for kidney transplant HEPATITIS B CORE ANTIBODY, TOTAL Routine 01/25/2025 12:16 PM EDT Pre-transplant evaluation for kidney transplant PROTIME-INR Routine 01/25/2025 12:16 PM EDT Pre-transplant evaluation for kidney transplant End stage renal disease (Multi) AMYLASE Routine 01/25/2025 12:16 PM EDT Pre-transplant evaluation for kidney transplant CBC Routine 01/25/2025 12:16 PM EDT Pre-transplant evaluation for kidney transplant HEMOGLOBIN A1C Routine 01/25/2025 12:16 PM EDT Pre-transplant evaluation for kidney transplant End stage renal disease (Multi) Other specified abnormal findings of blood chemistry HEPATITIS B SURFACE ANTIBODY Routine 01/25/2025 12:16 PM EDT Pre-transplant evaluation for kidney transplant HEPATITIS B SURFACE ANTIGEN Routine 01/25/2025 12:16 PM EDT Pre-transplant evaluation for kidney transplant HEPATITIS C ANTIBODY Routine 01/25/2025 12:16 PM EDT Pre-transplant evaluation for kidney transplant HIV 1/2 ANTIGEN/ANTIBODY SCREEN WIH REFLEX TO CONFIRMATION Routine 01/25/2025 12:16 PM EDT Pre-transplant evaluation for kidney transplant T-SPOT TB Routine 01/25/2025 12:16 PM EDT Pre-transplant evaluation for kidney transplant BLOOD UREA NITROGEN Routine 01/25/2025 1 2:16 PM EDT Pre-transplant evaluation for kidney transplant FLOW AUTOCROSSMATCH Routine 01/25/2025 1 2:00 AM EDT End stage renal disease (Multi) HLA TRANSPLANT ANTIBODY PANEL Routine 01/25/2025 12:00 AM EDT End stage renal disease (Multi) HLA TRANSPLANT ANTIBODY PANEL Routine 12/29/2024 12:00 AM EDT End stage renal disease (Multi) from Last 3 Months Results * HLA Autocrossmatch Panel (01/25/2025 12:16 PM EDT) [facility] HLA Class I SP AB ID, HD 02/01/2025 12:55 PM EDT HLA LAB HLA Class II SP AB ID, HD 02/01/2025 12:55 PM EDT HLA LAB Flow Autocrossmatch 02/01/2025 12:55 PM EDT HLA LAB HLA Results Collection only 02/01/2025 12:55 PM EDT HLA LAB Blood Venous blood specimen / Unknown Venipuncture / Unknown 01/25/2025 12:16 PM EDT 01/25/2025 12:18 PM EDT Narrative HLA LAB - 02/01/2025 12:55 PM EDT Test performed at: [facility] Histocompatibility [facility] Immunogenetics Laboratory [address] [facility], 6th Floor [address] [place] [address] Test performed at: [facility] [address] [facility], 6th Floor [address] [place] [address] David Magana MD LAB BLOOD ORDERABLES Final Resul t Performing Organization Address City/[facility]/ZIP Co de Phone Number [facility] [address] [place] [address] * Syphilis Screen with Reflex (01/25/2025 12:16 PM EDT) [facility] Syphilis Total Ab Nonreactive Nonreactive LAB CHEMISTRY METHOD 01/25/2025 3:51 PM EDT [facility] Comment: No significant level of Treponema pallidum antibody detected. Repeat testing in 2 to 4 weeks may be considered if early infection or incubating syphilis infection is suspected. Blood Venous blood specimen / Unknown Venipuncture / Unknown 01/25/2025 12:16 PM EDT 01/25/2025 2:48 PM EDT us David Magana MD LAB BLOOD ORDERABLES Final Resul t Performing Organization Address City/[facility]/ZIP Co de Phone Number [facility] [address] [phone] * T-Spot TB (01/25/2025 12:16 PM EDT) [facility] T-SPOT. TB Interpretation Negative Negative 01/27/2025 6:42 PM EDT [facility] Comment: A negative test result does not exclude the possibility of exposure to or infection with Mycobacterium tuberculosis (M. tuberculosis). Patients with recent exposure to TB infected individuals exhibiting a negative T-SPOT.TB result should be considered for retesting within 6 weeks or if other relevant clinical symptoms indicate. Results from T-SPOT.TB testing must be used in conjunction with each individual's epidemiological history, current medical status, and results of other diagnostic evaluations. The T-SPOT.TB test is qualitative and results are reported as positive, borderline, or negative, given that the test controls perform as expected. In line with the Centers for Disease Control and Prevention's 2010 recommendation to report quantitative measurements alongside the qualitative result, the laboratory provides spot counts for informational purposes only. The T-SPOT.TB test should not be interpreted as a quantitative test. Panel A Spot Count 1 2024 6:42 PM EDT [facility] Panel B Spot Count 0 2024 6:42 PM EDT [facility] NIL(NEG) Control Spot Count Passed 01/27/2025 6:42 PM EDT [facility] POS Control Spot Count Passed 01/27/2025 6:42 PM EDT [facility] Comment: For additional information, please refer to http://education.BookitNow!/faq/WPT963 (This link is being provided for informational/ educational purposes only.) Blood Venous blood specimen / Unknown Venipuncture / Unknown 01/25/2025 12:16 PM EDT 01/25/2025 2:33 PM EDT us David Magana MD LAB BLOOD ORDERABLES Final Resul t [facility] [address] [facility] [place], [place] [phone] * Nicotine and Metabolites,S (01/25/2025 12:16 PM EDT) [facility] Nicotine Blood Quantitative <5 ng/mL 01/29/2025 9:43 PM EDT [facility] ([facility]) Comment: INTERPRETIVE INFORMATION: Nicotine and Metabolites, Serum or Plasma, Quantitative Methodology: Quantitative Liquid Chromatography-Tandem Mass Spectrometry Positive cutoff: 5 ng/mL For medical purposes only; not valid for forensic use. This test is designed to evaluate recent use of nicotine-containing products. Passive and active exposure cannot be discriminated definitively, although a cutoff of 10 ng/mL cotinine is frequently used for surgery qualification purposes. For smoking cessation programs or compliance testing, the absence of expected drug(s) and/or drug metabolite(s) may indicate non-compliance, inappropriate timing of specimen collection relative to drug administration, poor drug absorption, or limitations of testing. This test cannot distinguish between use of tobacco and purified nicotine products. The concentration value must be greater than or equal to the cutoff to be reported as positive. This test was developed and its performance characteristics determined by [facility]. It has not been cleared or approved by the [place] Food and Drug Administration. This test was performed in a CLIA certified laboratory and is intended for clinical purposes. Performed By: [facility] [address] [place] [address] Expressive Art Therapist: Nate Jaimes MD, PhD CLIA Number: [id number] Cotinine Blood Quantitative <5 ng/mL 01/29/2025 9:43 PM EDT [facility] ([facility]) Blood Venous blood specimen / Unknown Venipuncture / Unknown 01/25/2025 12:16 PM EDT 01/25/2025 4:09 PM EDT us David Magana MD LAB BLOOD ORDERABLES Final Resul t [facility] ([facility]) [address] [place] [address] * Lipid Panel Non-Fasting (01/25/2025 12:16 PM EDT) [facility] Cholesterol 150 0 - 199 mg/dL LAB CHEMISTRY METHOD 01/25/2025 3:09 PM EDT [facility] Comment: Age Desirable Borderline High High 0-19 Y 0 - 169 170 - 199 >/= 200 20-24 Y 0 - 189 190 - 224 >/= 225 >24 Y 0 - 199 200 - 239 >/= 240 All ranges are based on fasting samples. Specific therapeutic targets will vary based on patient-specific cardiac risk. Pediatric guidelines reference:Pediatrics 2011, 128(S5).Adult guidelines reference: NCEP ATPIII Guidelines,AMAURY 2001, 258:2486-97 Venipuncture immediately after or during the administration of Metamizole may lead to falsely low results. Testing should be performed immediately prior to Metamizole dosing. HDL-Cholesterol 32.8 mg/dL LAB CHEMISTRY METHOD 01/25/2025 3:09 PM EDT [facility] Comment: Age Very Low Low Normal High 0-19 Y < 35 < 40 40-45 ---- 20-24 Y ---- < 40 >45 ---- >24 Y ---- < 40 40-60 >60 Cholesterol/HDL Ratio 4.6 LAB CHEMISTRY METHOD 01/25/2025 3:09 PM EDT [facility] Comment: Ref Values Desirable < 3.4 High Risk > 5.0 Non-HDL Cholesterol 117 0 - 149 mg/dL LAB CHEMISTRY METHOD 01/25/2025 3:09 PM EDT [facility] Comment: Age Desiable Borderline High High Very High 0-19 Y 0 - 119 120 - 144 >/= 145 >/= 160 20-24 Y 0 - 149 150 - 189 >/= 190 ---- >24 Y 30 MG/DL ABOVE LDL CHOLESTEROL GOAL Blood Venous blood specimen / Unknown Venipuncture / Unknown 01/25/2025 12:16 PM EDT 01/25/2025 2:48 PM EDT us David Magana MD LAB BLOOD ORDERABLES Final Resul t Performing Organization Address [facility] de Phone Number [facility] [address] [place] [phone] * Hepatitis C Antibody (01/25/2025 12:16 PM EDT) [facility] Hepatitis C Anitbody Nonreactive Nonreactive LAB IMMUNOASSAY METHOD 01/25/2025 5:03 PM EDT [facility] Comment:Results from patient s taking biotin supplements or receiving high-dose biotin therapy should be interpreted with caution due to possible interference with this test. Providers may contact their local laboratory for further information. Blood Venous blood specimen / Unknown Venipuncture / Unknown 01/25/2025 12:16 PM EDT 01/25/2025 2:35 PM EDT us David Magana MD LAB BLOOD ORDERABLES Final Resul t Performing Organization Address [facility] de Phone Number [facility] [id number] [place] [phone] * Cesar-Rubio Virus Antibody Panel (01/25/2025 12:16 PM EDT) Pathologist [facility] EBV VCA, IgG Negative Negative LAB CHEMISTRY METHOD 01/25/2025 6:12 PM EDT [facility] EBV VCA, IgM Negative Negative LAB CHEMISTRY METHOD 01/25/2025 6:12 PM EDT [facility] EBV Early Antigen Antibody, IgG Negative Negative LAB CHEMISTRY METHOD 01/25/2025 6:12 PM EDT [facility] EBV Nuclear Antigen Antibody, IgG Negative Negative LAB CHEMISTRY METHOD 01/25/2025 6:12 PM EDT [facility] Blood Venous blood specimen / Unknown Venipuncture / Unknown 01/25/2025 12:16 PM EDT 01/25/2025 2:48 PM EDT Narrative [facility] - 01/25/2025 6:12 PM EDT EBV INTERPRETATION CHART PRIMARY ACUTE VCA-IGG: +/- VCA-IGM: +/- EA-IGG: +/- NA-IGG: - LATE ACUTE VCA-IGG: + VCA-IGM: +/- EA-IGG: +/- NA-IGG: +/- RECOVERING VCA-IGG: + VCA-IGM: - EA-IGG: + NA-IGG: - PREVIOUS INFECTION VCA-IGG: + VCA-IGM: - EA-IGG: - NA-IGG: +/- us David Magana MD LAB BLOOD ORDERABLES Final Resul t Performing Organization Address City/[facility] Co de Phone Number [facility] [address] [place] [phone] * Hepatitis B Core Antibody, Total (01/25/2025 12:16 PM EDT) Hepatitis B Core Antibody; Total Nonreactive Nonreactive LAB IMMUNOASSAY METHOD 01/25/2025 5:03 PM EDT [facility] Blood Venous blood specimen / Unknown Venipuncture / Unknown 01/25/2025 12:16 PM EDT 01/25/2025 2:35 PM EDT us David Magana MD LAB BLOOD ORDERABLES Final Resul t Performing Organization Address City/[facility] Co de Phone Number [facility] [address] [place] [phone] * Abo/Rh (01/25/2025 12:16 PM EDT) ABO TYPE A 01/25/2025 4:0 9 PM EDT [facility] Rh TYPE POS 01/25/2025 4:0 9 PM EDT [facility] Blood Venous blood specimen / Unknown Venipuncture / Unknown 01/25/2025 12:16 PM EDT 01/25/2025 2:40 PM EDT us David Magana MD LAB BLOOD BANK TEST ORDERABLES F inal Result Performing Organization Address City/[facility]/ZIP Co de Phone Number [facility] [id number] [place] [address] * (ABNORMAL) Creatinine (01/25/2025 12:16 PM EDT) Creatinine 11.84(H) 0.50 - 1.30 mg/dL LAB CHEMISTRY METHOD 01/25/2025 3:09 PM EDT [facility] eGFR 6(L) >60 mL/min/1. 73m*2 LAB CHEMISTRY METHOD 01/25/2025 3:09 PM EDT [facility] Comment: Calculations of estimated GFR are performed using the 2020 CKD-EPI Study Refit equation without the race variable for the IDMS-Traceable creatinine methods. https://jasn.asnjournals.org/content/early/ASN.1328119829 Blood Venous blood specimen / Unknown Venipuncture / Unknown 01/25/2025 12:16 PM EDT 01/25/2025 2:48 PM EDT us David Magana MD LAB BLOOD ORDERABLES Final Resul t Performing Organization Address City/[facility]/ZIP Co de Phone Number [facility] [address] [phone] * Drug Screen 9 Panel, Blood with Reflex to Confirmation (01/25/2025 12:16 PM EDT) Amphetamine Screen, S/P Negative 01/27/2025 10:15 PM EDT [facility] ([facility]) Comment: Presumptively Negative by immunoassay. Testing by mass spectrometry is available on request. Interpretive Information: Amphetamines Screen, S/P Methodology: Immunoassay Positive Cutoff: 20 ng/mL Methamphetamine Screen, S/P Negative 01/27/2025 10:15 PM EDT [facility] ([facility]) Comment: Presumptively Negative by immunoassay. Testing by mass spectrometry is available on request. Interpretive Information: Methamphetamine Screen, S/P Methodology: Immunoassay Positive Cutoff: 20 ng/mL Benzodiazepine Screen, S/P Negative 01/27/2025 10:15 PM EDT [facility] ([facility]) Comment: Presumptively Negative by immunoassay. Testing by mass spectrometry is available on request. Interpretive Information: Benzodiazepines Screen, S/P Methodology: Immunoassay Positive Cutoff: 50 ng/mL Buprenorphine Screen, S/P Negative 01/27/2025 10:15 PM EDT [facility] ([facility] [facility]) Comment: Presumptively Negative by immunoassay. Testing by mass spectrometry is available on request. Interpretive Information: Buprenorphine Screen, S/P Methodology: Immunoassay Positive Cutoff: 1 ng/mL Cannabinoids Screen, S/P Negative 01/27/2025 10:15 PM EDT [facility] ([employer] [place] [employer] [facility]) Comment: Presumptively Negative by immunoassay. Testing by mass spectrometry is available on request. Interpretive Information: Carboxy-THC Screen, S/P Methodology: Immunoassay Positive Cutoff: 20 ng/mL This test does not distinguish between the delta-8 and delta-9 forms of Carboxy-THC or their metabolites. Cocaine Screen Screen, S/P Negative 01/27/2025 10:15 PM EDT [facility] ([employer] [facility]) Comment: Presumptively Negative by immunoassay. Testing by mass spectrometry is available on request. Interpretive Information: Cocaine Screen, S/P Methodology: Immunoassay Positive Cutoff: 20 ng/mL Methadone Screen, S/P Negative 01/27/2025 10:15 PM EDT [facility] ([facility]) Comment: Presumptively Negative by immunoassay. Testing by mass spectrometry is available on request. Interpretive Information: Methadone Screen, S/P Methodology: Immunoassay Positive Cutoff: 25 ng/mL Oxycodone Screen, S/P Negative 01/27/2025 10:15 PM EDT [facility] ([employer] [facility] [employer] [facility]) Comment: Presumptively Negative by immunoassay. Testing by mass spectrometry is available on request. Interpretive Information: Oxycodone/Oxymorphone Screen, S/P Methodology: Immunoassay Positive Cutoff: 20 ng/mL Phencyclidine Screen, S/P Negative 01/27/2025 10:[address] [facility] ([employer] [facility]) Comment: Presumptively Negative by immunoassay. Testing by mass spectrometry is available on request. Interpretive Information: Phencyclidine Screen, S/P Methodology: Immunoassay Positive Cutoff: 10 ng/mL Opiate Screen, S/P Negative 2024 10:[address] [facility] ([employer] [facility]) Comment: Presumptively Negative by immunoassay. Testing by mass spectrometry is available on request. Interpretive Information: Opiates Screen, S/P Methodology: Immunoassay Positive Cutoff: 20 ng/mL Drug Screen Comment S/P See Note 01/27/2025 10:[address] [facility] ([employer] [facility]) Comment: Interpretive Information: Drug Screen with Reflex to Quant S/P Presumptive negative results for drug(s) and/or drug metabolite(s) may indicate non-compliance, inappropriate timing of specimen collection relative to drug administration, poor drug absorption, or limitations of testing. The concentration at which the screening test can detect a drug or metabolite varies within a drug class. For medical purposes only; not valid for forensic use. This test was developed and its performance characteristics determined by [employer]. It has not been cleared or approved by the [place] Food and Drug Administration. This test was performed in a CLIA certified laboratory and is intended for clinical purposes. Performed By: [employer] [address] [place] [id number] Expressive Art Therapist: Nate Jaimes MD, PhD CLIA Number: [id number] Barbiturate Screen, S/P Negative 01/27/2025 10:[address] [facility] ([employer] [facility]) Comment: Presumptively Negative by immunoassay. Testing by mass spectrometry is available on request. Interpretive Information: Barbiturates Screen, S/P Methodology: Immunoassay Positive Cutoff: 50 ng/mL Blood Venous blood specimen / Unknown Venipuncture / Unknown 01/25/2025 12:16 PM EDT 01/25/2025 4:05 PM EDT David Magana MD LAB BLOOD ORDERABLES Final Resul t [facility] ([facility]) [address] [place] [address] * (ABNORMAL) C-Peptide (01/25/2025 12:16 PM EDT) C-Peptide 14.5(H) 0.7 - 3.9 ng/mL LAB IMMUNOASSAY METHOD 01/25/2025 3:35 PM EDT [facility] Blood Venous blood specimen / Unknown Venipuncture / Unknown 01/25/2025 12:16 PM EDT 01/25/2025 2:34 PM EDT us David Magana MD LAB BLOOD ORDERABLES Final Resul t Performing Organization Address [facility] de Phone Number [facility] [address] [place] [address] * HIV 1/2 Antigen/Antibody Screen with Reflex to Confirmation (01/25/2025 12:16 PM EDT) Pathologist [facility] HIV 1/2 Antigen/Antibo dy Screen with Reflex to Confirmation Nonreactive Nonreactive LAB IMMUNOASSAY METHOD 01/25/2025 5:32 PM EDT [facility] Blood Venous blood specimen / Unknown Venipuncture / Unknown 01/25/2025 12:16 PM EDT 01/25/2025 5:32 PM EDT Narrative [facility] - 01/25/2025 5:32 PM EDT HIV Ag/Ab screen is performed using the Siemens AtellHihoCoder HIV Ag/Ab Combo assay which detects the presence of HIV p24 antigen as well as antibodies to HIV-1 (Group M and O) and HIV-2. No laboratory evidence of HIV infection. If acute HIV infection is suspected, consider testing for HIV RNA by PCR (viral load). us David Magana MD LAB BLOOD ORDERABLES Final Resul t Performing Organization Address [facility] Co de Phone Number [facility] [id number] [place] [phone] * (ABNORMAL) Hepatitis B Surface Antibody (01/25/2025 12:16 PM EDT) Pathologist [facility] Hepatitis B Surface Antibody >1,000.0( H) <10.0 mIU/mL LAB IMMUNOASSAY METHOD 01/25/2025 4:49 PM EDT [facility] Comment: Interpretive Criteria: <10 mIU/mL Nonreactive >=10 mIU/mL Reactive Biotin interference may cause falsely decreased results. Patients taking a Biotin dose of up to 5 mg/day should refrain from taking Biotin for 24 hours before sample collection. Providers may contact their local laboratory for further information. Blood Venous blood specimen / Unknown Venipuncture / Unknown 01/25/2025 12:16 PM EDT 01/25/2025 2:35 PM EDT us David Magana MD LAB BLOOD ORDERABLES Final Resul t Performing Organization Address [facility] de Phone Number [facility] [address] [place] [address] * Hepatitis B Surface Antigen (01/25/2025 12:16 PM EDT) Pathologist [facility] Hepatitis B Surface Antigen Nonreactive Nonreactive LAB IMMUNOASSAY METHOD 01/25/2025 4:42 PM EDT [facility] Comment: Biotin interference may cause falsely decreased results. Patients taking a Biotin dose of up to 5 mg/day should refrain from taking Biotin for 24 hours before sample collection. Providers may contact their local laboratory for further information. Blood Venous blood specimen / Unknown Venipuncture / Unknown 01/25/2025 12:16 PM EDT 01/25/2025 2:35 PM EDT us David Magana MD LAB BLOOD ORDERABLES Final Resul t Performing Organization Address [facility] de Phone Number [facility] [address] [place] [phone] * Cytomegalovirus IgG (01/25/2025 12:16 PM EDT) Pathologist [facility] Cytomegalovirus IgG Nonreactive Nonreactive LAB IMMUNOASSAY METHOD 4:57 PM EDT [facility] Blood Venous blood specimen / Unknown Venipuncture / Unknown 01/25/2025 12:16 PM EDT 01/25/2025 2:36 PM EDT us David Magana MD LAB BLOOD ORDERABLES Final Resul t Performing Organization Address [facility]/ZIP Co de Phone Number [facility] [address] [place] [address] * Protime-INR (01/25/2025 12:16 PM EDT) Protime 11.5 9.8 - 12.4 seconds LAB COAGULATION METHOD 01/25/2025 4:38 PM EDT [facility] INR 1.0 0.9 - 1.1 LAB COAGULATION METHOD 01/25/2025 4:38 PM EDT [facility] Blood Venous blood specimen / Unknown Venipuncture / Unknown 01/25/2025 12:16 PM EDT 01/25/2025 4:08 PM EDT David Magana MD LAB BLOOD ORDERABLES Final Resul t Performing Organization Address City/[facility]/ZIP Co de Phone Number [facility] [address] [place] [phone] * (ABNORMAL) CBC (01/25/2025 12:16 PM EDT) WBC 5.6 4.4 - 11.3 x10*3/uL LAB HEMATOLOGY METHOD 01/25/2025 4:32 PM EDT [facility] nRBC 0.0 0.0 - 0.0 /100 WBCs LAB HEMATOLOGY METHOD 01/25/2025 4:32 PM EDT [facility] RBC 3.87(L) 4.50 - 5.90 x10*6/uL LAB HEMATOLOGY METHOD 01/25/2025 4:32 PM EDT [facility] Hemoglobin 12.8(L) 13.5 - 17.5 g/dL LAB HEMATOLOGY METHOD 01/25/2025 4:32 PM EDT [facility] Hematocrit 39.5(L) 41.0 - 52.0 % LAB HEMATOLOGY METHOD 01/25/2025 4:32 PM EDT [facility] MCV 102(H) 80 - 100 fL LAB HEMATOLOGY METHOD 01/25/2025 4:32 PM EDT [facility] MCH 33.1 26.0 - 34.0 pg LAB HEMATOLOGY METHOD 01/25/2025 4:32 PM EDT [facility] MCHC 32.4 32.0 - 36.0 g/dL LAB HEMATOLOGY METHOD 01/25/2025 4:32 PM EDT [facility] RDW 17.1(H) 11.5 - 14.5 % LAB HEMATOLOGY METHOD 01/25/2025 4:32 PM EDT [facility] Platelets 162 150 - 450 x10*3/uL LAB HEMATOLOGY METHOD 01/25/2025 4:32 PM EDT [facility] Blood Venous blood specimen / Unknown Venipuncture / Unknown 01/25/2025 12:16 PM EDT 01/25/2025 4:07 PM EDT us David Magana MD LAB BLOOD ORDERABLES Final Resul t [facility] [address] [place] [address] * Varicella Zoster Antibody, IgG (01/25/2025 12:16 PM EDT) Varicella Zoster, IgG Negative Negative LAB CHEMISTRY METHOD 01/25/2025 6:12 PM EDT [facility] Varicella Zoster, IgG Index 0.4 <=0.8 AI LAB CHEMISTRY METHOD 01/25/2025 6:12 PM EDT [facility] Blood Venous blood specimen / Unknown Venipuncture / Unknown 01/25/2025 12:16 PM EDT 01/25/2025 2:48 PM EDT Narrative [facility] - 01/25/2025 6:12 PM EDT NEGATIVE: No IgG antibodies specific to VZV detected. It is likely that the patient has not had a previous exposure to VZV through infection or vaccination. Alternatively, the patient may have been exposed to VZV but a failure to respond may indicate immunodeficiency. EQUIVOCAL:Equivocal results; obtain additional sample for retesting. POSITIVE: IgG antibody to VZV detected. This may indicate that the patient was exposed to VZV through infection or vaccination. The interpretation of serological tests should take into account the immunological status of the patient. Test results for patients, including immunocompromised patients, neonates, and pediatric patients, reflect their capacity to respond immunologically to the virus as well as their exposure to the pathogen. Patients treated with IVIG may demonstrate altered results in serological assays. us David Magana MD LAB BLOOD ORDERABLES Final Resul t Performing Organization Address City/[facility] Co de Phone Number [facility] [address] [place] [address] * (ABNORMAL) Blood Urea Nitrogen (01/25/2025 12:16 PM EDT) Urea Nitrogen 54(H) 6 - 23 mg/dL LAB CHEMISTRY METHOD 01/25/2025 3:09 PM EDT [facility] Blood Venous blood specimen / Unknown Venipuncture / Unknown 01/25/2025 12:16 PM EDT 01/25/2025 2:48 PM EDT us David Magana MD LAB BLOOD ORDERABLES Final Resul t Performing Organization Address [facility] de Phone Number [facility] [address] [place] [phone] * Phosphorus (01/25/2025 12:16 PM EDT) Phosphorus 3.9 2.5 - 4.9 mg/dL LAB CHEMISTRY METHOD 01/25/2025 3:09 PM EDT [facility] Blood Venous blood specimen / Unknown Venipuncture / Unknown 01/25/2025 12:16 PM EDT 01/25/2025 2:48 PM EDT us David Magana MD LAB BLOOD ORDERABLES Final Resul t Performing Organization Address [facility] Co de Phone Number [facility] [address] [place] [phone] * Hemoglobin A1C (01/25/2025 12:16 PM EDT) Hemoglobin A1C 4.7 See comment % 025 5:01 PM EDT [facility] Estimated Average Glucose 88 Not Established mg/dL 01/25/2025 5:01 PM EDT [facility] Blood Venous blood specimen / Unknown Venipuncture / Unknown 01/25/2025 12:16 PM EDT 01/25/2025 4:07 PM EDT Narrative [facility] - 01/25/2025 5:01 PM EDT Diagnosis of Diabetes-Adults Non-Diabetic: < or = 5.6% Increased risk for developing diabetes: 5.7-6.4% Diagnostic of diabetes: > or = 6.5% us David Magana MD LAB BLOOD ORDERABLES Final Resul t Performing Organization Address [facility] de Phone Number [facility] [address] [place] [address] * Amylase (01/25/2025 12:16 PM EDT) Pathologist [facility] Amylase 100 29 - 103 U/L LAB CHEMISTRY METHOD 01/25/2025 3:09 PM EDT [facility] Blood Venous blood specimen / Unknown Venipuncture / Unknown 01/25/2025 12:16 PM EDT 01/25/2025 2:48 PM EDT us David Magana MD LAB BLOOD ORDERABLES Final Resul t Performing Organization Address [facility] de Phone Number [facility] [address] [place], [place] [phone] * (ABNORMAL) Hepatic Function Panel (01/25/2025 12:16 PM EDT) Albumin 5.2(H) 3.4 - 5.0 g/dL LAB CHEMISTRY METHOD 01/25/2025 3:09 PM EDT [facility] Bilirubin, Total 0.5 0.0 - 1.2 mg/dL LAB CHEMISTRY METHOD 01/25/2025 3:09 PM EDT [facility] Bilirubin, Direct 0.1 0.0 - 0.3 mg/dL LAB CHEMISTRY METHOD 01/25/2025 3:09 PM EDT [facility] Alkaline Phosphatase 282(H) 33 - 120 U/L LAB CHEMISTRY METHOD 01/25/2025 3:09 PM EDT [facility] ALT 18 10 - 52 U/L LAB CHEMISTRY METHOD 01/25/2025 3:09 PM EDT [facility] Comment:Patients treated wit h Sulfasalazine may generate falsely decreased results for ALT. AST 15 9 - 39 U/L LAB CHEMISTRY METHOD 01/25/2025 3:09 PM EDT [facility] Total Protein 8.1 6.4 - 8.2 g/dL LAB CHEMISTRY METHOD 01/25/2025 3:09 PM EDT [facility] Blood Venous blood specimen / Unknown Venipuncture / Unknown 01/25/2025 12:16 PM EDT 01/25/2025 2:48 PM EDT David Magana MD LAB BLOOD ORDERABLES Final Resul t [facility] [address] [place] [address] * HLA Transplant Antibody Panel (01/25/2025 12:00 AM EDT) Only the most recent of2 resultswithin the time period is included. [facility] HLA Class I SP AB ID, 01/31/2025 5:02 PM EDT [facility] HLA Class II SP AB ID, HD 01/31/2025 5:02 PM EDT [facility] HLA Results See Attached 01/31/2025 5:02 PM EDT [facility] Blood Venous blood specimen / Unknown 01/25/2025 01/26/2025 9:12 AM EDT Narrative [facility] - 01/31/2025 5:02 PM EDT Test performed at: [facility] Histocompatibility and Immunogenetics Laboratory [facility], 6th Floor [address] [place] [address] us Karis Newby MD LAB BLOOD ORDERABLES Final Result Performing Organization Address [facility] Co de Phone Number [facility] [address] [place] [address] * Flow [employer] (01/25/2025 12:00 AM EDT) Flow [employer] 01/26/2025 3:48 PM EDT [facility] HLA Results See Attached 01/26/2025 3:48 PM EDT [facility] Blood Venous blood specimen / Unknown 01/25/2025 01/26/2025 9:12 AM EDT Narrative [facility] - 01/26/2025 3:48 PM EDT Test performed at: [facility] Histocompatibility and Immunogenetics Laboratory [facility], 6th Floor [id number] [place] [phone] us Karis Newby MD LAB BLOOD ORDERABLES Final Result Performing Organization Address [facility] de Phone Number [facility] [address] [place] [address] from Last 3 Months Additional Health Concerns Active Problems Noted Date Diagnosed Date Autogenerated Problem 03/25/2025 Insurance MEDICARE PART A AND B MEDICAID [address] [place] [id number] MEDICARE PART A AND B MEDICAID [address] [place] [id number] MEDICARE PART A AND B MEDICAID
--- OUTSIDE RECORDS SUMMARY | 2025-03-25 13:01 | XMS_ITS | CCD ---
Author Organization [facility] CliniSyak Care Team Providers Care Policy Cancellation Clerk Name Role Phone REDD WATTS Attending Unavailable INOCENCIO AVENDANO Referring Unavailable JUAN ALBERTO, INOCENCIO Ybarra Primary Care Unavailable FRACISCO ALANIZ Attending Unavailable TEETEE, HERI Referring Unavailable JUAN ALBERTO, INOCENCIO Ybarra Primary Care Unavailable Inocencio Avendano Primary Care Provider Inocencio Avendano Primary Care Provider [phone] Francisca CARBONE, Nino Primary Care Provider Casey III DO, W. Don Unavailable Jose Ramon Mcdaniel MDna Unavailable [phone] THANHSKE, W. DON Referring Unavailable CRASKE, W. DON Admitting Unavailable KALLASH, MAHMOUD Primary Care Unavailable Inocencio Avendano MD Primary Care Provider Fauser [employer] ENGINEER, Nyoka Helga Unavailable KALLASH, MAHMOUD Admitting Unavailable CRASKE, W. DON Attending Unavailable KALLASH, MAHMOUD Referring Unavailable KALLASH, MAHMOUD Primary Care Unavailable FAUSER, NYOKA HELGA Attending Unavailable WNINOCENCIO VILLALOBOS Primary Care Unavailable FAUSER, NYOKA HELGA Admitting Unavailable CRASKE, W. DON Attending Unavailable FAUSER, NYOKA HELGA Referring Unavailable INOCENCIO AVENDANO Primary Care Unavailable Inocencio Avendano Primary Care Provider Inocencio Avendano Primary Care Provider Inocencio Avendano Primary Care Provider Casey PENA DO, W. Don Unavailable Souleymane Mcdaniel MDapna Unavailable Inocencio Avendano MD Primary Care Provider [phone] Fauser [facility], [place] Helga Unavailable TANO FITZPATRICK Attending Unavailable WNEK, INOCENCIO R Primary Care Unavailable MARY PRICE Attending Unavailable WNEK, INOCENCIO Ybarra Primary Care Unavailable LEEANN DAVIDSON Attending Unavailable WNEK, INOCENCIO R Primary Care Unavailable WNEK, INOCENCIO R Primary Care Unavailable MARILU GONZALEZ Attending Unavailable WNEK, INOCENCIO Ybarra Primary Care Unavailable KAMADANA, SARINA Referring Unavailable WNEK, INOCENCIO R Primary Care Unavailable KAMADANA, SARINA Referring Unavailable JAYNA ANDERSON Admitting Unavailab le WNEK, INOCENCIO MEDEIROS Primary Care Unavailable JAYCE HERMAN Attending Unavailable SYSTEM, PROVIDER NOT IN Referring Unavaila ble AKTRAVIS LUNA Consulting Unavaila ble Unavailable Primary Care Provider Unavailivania Peña III, DO, W. Don Unavailable Fauser [facility], [facility] Helga Unavailable JUAN ALBERTO, Inocencio Ybarra Primary Care Physician [phone] Tanesha Hendrickson Unavailable Unavailable CONNOR ESCOBAR Referring Unavailable NON STAFF Primary Care Provider UnavailBennie Cohen MD Attending Provider Garrett Acosta MD Attending Provider Arturo Piedra MD Attending Provider NO FAMILY, PHYSICIAN Primary Care Provider Unava ilable Garrett Acosta Attending Unavailable NON STAFF Primary Care Unavailable Garrett Acosta Admitting Unavailable Arturo Piedra Attending Unavailable NO FAMILY, PHYSICIAN Primary Care Unavailable Arturo Piedra Admitting Unavailable Allergies Allergy Classification Reported Allergen(s) Allergy Type Date of Onset Reaction(s) Facility Benzodiazepines (5 sources) Midazolam Drug Allergy 8 Other (See Comments) [employer] (20 sources) Midazolam; Translations: [MIDAZOLAM] Drug Allergy 8 Other (See Comments), Agitation [facility]- [place], [place] (1 source) Midazolam Drug Allergy 5 [facility] Repository Medications Current Medications Medication Drug Class(es) Dates Sig (Normalized) Sig (Original) calcium acetate 667 mg oral capsule (17 sources) take 3 capsules by mouth three times daily at mealtime calcium acetate,phosphat bind, (PHOSLO) 667 mg capsule Take 3 (three) capsules (2,001 mg total) by mouth 3 (three) times a day with meals . Active take 3 capsules by [facility] three times daily before mealtime calcium acetate 667 MG TABS Take 3 capsules by mouth 3 times daily (before meals) 0 Active carvedilol 25 mg oral tablet (20 sources) alpha-Adrenergic Serina, beta-Adrenergic Serina Start: 03-15-2025 take 1 tablet by mouth twice daily Carvedilol 25 mg tablet Active 25 MG PO Twice daily March 15, 2025 12:00am Complies with drug therapy Start: 08-07-2023 take 1 tablet by long twice daily Coreg 25 mg tablet Take 1 tablet (25 mg) by mouth twice a day. 08/07/2023 Active Start: 05-01-2023 End: 05-01-2023 carvediloL (COREG) tablet 25 mg Start: 05-01-2023 End: 05-31-2023 take 1 tablet by mouth twice daily carvediloL (COREG) 12.5 MG tablet Take 1 (one) tablet (12.5 mg total) by mouth 2 (two) times a day . 60 tablet 05/01/2023 Active Start: 04-30-2023 End: 05-01-2023 take 12.5 mg by mouth twice daily at mealtime 12.5 mg, Oral, 2 times daily, First dose on Fri04/30/23 at 0900 Give carvedilol with food to reduce risk of hypotension / dizziness. Separate from admin of LEONIDES inhibitors by two hours. Start: 04-23-2023 End: 04-24-2023 take 12.5 mg by mouth twice daily at mealtime 12.5 mg, Oral, 2 times daily, First dose on Fri04/23/23 at 0230 Give carvedilol with food to reduce risk of hypotension / dizziness. Separate from admin of LEONIDES inhibitors by two hours. Start: 05-26-2018 take 1 tablet by long th twice daily carvedilol 3.125 mg oral tablet Take 1 tablet by mouth twice daily. Start Date: 10/30/18 Status: Ordered Repeat number: 1 Start: 05-26-2018 take 2 tablets by mo [facility] twice daily carvedilol (COREG) 3.125 MG tablet Take 6.25 mg by mouth 2 times daily 0 05/26/2018 Active End: 05-01-2023 take 1 tablet by mouth twice daily carvediloL (COREG) 6.25 MG tablet Take 1 (one) tablet (6.25 mg total) by mouth 2 (two) times a day . 0 05/01/2023 Discontinued (Reorder (Suppress CancelRx Message to Pharmacy)) cholecalciferol 0.01 mg oral capsule (7 sources) Vitamin D Start: 08-14-2022 End: 08-13-2023 Vitamin D, Cholecalciferol, 10 MCG (400 UNIT) CAPS Take 0.75 mcg by mouth every 7 days 0 08/14/2022 08/13/2023 Active End: 12-11-2020 take 1 tablet by mouth once daily Cholecalciferol (VITAMIN D3) 5000 units TABS Take 1 tablet by mouth daily 0 12/11/2020 Discontinued (LIST CLEANUP) clonidine 0.2 mg/24 hr transdermal film, extended release (1 source) Start: 10-30-2018 clonidine 0.2 mg/24 hr transdermal film, extended release Refills(s) 0 Start Date: 10/30/18 Status: Ordered Repeat number: 1 clonidine 0.3 mg/24 hr transdermal film, extended release (1 source) Start: 10-30-2018 apply 1 dose transdermal route every week clonidine 0.3 mg/24 hr transdermal film, extended release Place 1 Patch on skin once a week. Start Date: 10/30/18 Status: Ordered Repeat number: 1 D 1000 intl units oral tablet (2 sources) Start: 10-30-2018 take 1 tablet by long th once daily D 1000 intl units oral tablet TAKE 1 TABLET BY MOUTH DAILY Start Date: 10/30/18 Status: Ordered Repeat number: 1 Start: 10-30-2018 take 1 tablet by long th once daily D 1000 intl units oral tablet 1,000 International_Unit = 1 tab(s), Oral, Daily, # 30 tab(s), Refills(s) 0 Start Date: 10/30/18 Status: Ordered Quantity: 30.0 Unit: tab(s) Repeat number: 1 docusate sodium 100 mg oral capsule (20 sources) Start: 01-29-2023 take 1 capsule by mouth twice daily docusate sodium (Colace) 100 mg capsule Take 1 capsule (100 mg) by mouth twice a day. 01/29/2023 Active Start: 10-30-2018 DOCUSATE SOD C AP 100MG 10/30/18 2:27:00 AM EDT, DOCUSATE SOD CAP 100MG Start Date: 10/30/18 Status: Ordered Repeat number: 1 Start: 03-10-2018 take 1 capsule by mo ut once daily docusate sodium (COLACE) 100 MG capsule Take 100 mg by mouth daily 0 03/10/2018 Active doxazosin 4 mg oral tablet (8 sources) alpha-Adrenergic Serina Start: 05-01-2023 End: 05-01-2023 doxazosin (CARDURA) tablet 4 mg Start: 05-01-2023 End: 05-31-2023 take 1 tablet by mouth once daily doxazosin (CARDURA) 4 MG tablet Take 1 (one) tablet (4 mg total) by mouth nightly . 30 tablet 05/01/2023 3:06 PM EDT 05/01/2023 Active Start: 04-26-2022 End: 05-01-2023 take 1 tablet by mouth once daily doxazosin (Cardura) 2 mg tablet Take 1 tablet (2 mg) by mouth once daily. 04/26/2022 Active [id number] 0.3 ml EPINEPHrine 1 mg/ml auto-injector (10 sources) alpha-Adrenergic Agonist, beta-Adrenergic Agonist, Catecholamine EPINEPHrine (EPIPEN) 0.3 mg/0.3 mL AtIn Inject 0.3 mL (0.3 mg total) into the shoulder, thigh, or buttocks once Inject 0.3 mL (0.3 mg total) into the mid-thigh as needed for severe allergic reaction. . Active ergocalciferol 1.25 mg oral capsule (15 sources) Provitamin D2 Compound Start: 07-30-2021 ergocalciferol (ERGOCALCIFEROL) 1,250 mcg (50,000 unit) capsule Take 1 (one) capsule (50,000 Units total) by mouth over 168 hr . 07/30/2021 Active Start: 07-30-2021 End: 09-06-2022 take 1 capsule by mouth every week ergocalciferol (ERGOCALCIFEROL) 1.25 MG (97484 UT) capsule Take 1,250 mcg by mouth once a week 0 07/30/2021 09/06/2022 Discontinued (LIST CLEANUP) furosemide 40 mg oral tablet (20 sources) Loop Diuretic Start: 02-06-2022 End: 04-24-2023 take 1 tablet by mouth twice daily Lasix 40 mg tablet Take 1 tablet (40 mg) by mouth twice a day. 02/06/2022 Active Start: 09-14-2018 End: 05-01-2023 take 1 tablet by mouth once daily Lasix 40 mg Tab 40 mg = 1 tab(s), Oral, Daily, # 30 tab(s), Refills(s) 0 Start Date: 10/30/18 Status: Ordered Quantity: 30.0 Unit: tab(s) Repeat number: 1 Start: 09-14-2018 furosemide (LA SIX) 40 MG tablet Take 60 mg by mouth daily 0 09/14/2018 Active ketoconazole 20 mg/ml medicated shampoo (1 source) Azole Antifungal Start: 12-17-2018 ketoconazole Top 2% Shampoo 1 rebekah, Topical, Once, 120 mL, Refill(s) 0, [facility] Start Date: 12/17/18 Status: Ordered Quantity: 120.0 Unit: mL Repeat number: 1 labetalol (NORMODYNE;TRANDATE) 20 MG/4ML injection syringe (1 source) Start: 12-10-2019 labetalol (NORMODYNE;TRANDATE) 20 MG/4ML injection syringe labetalol (NORMODYNE;TRANDATE) injection syringe 20 mg (2 sources) Start: 12-11-2019 labetalol (NORMODYNE;TRANDATE) injection syringe 20 mg Start: 12-11-2019 labetalol (NOR MODYNE;TRANDATE) injection syringe 20 mg minoxidil 2.5 mg oral tablet (7 sources) Arteriolar Vasodilator Start: 10-09-2018 End: 12-11-2020 take 1 tablet by mouth twice daily minoxidil 2.5 mg oral tablet Take 1 tablet by mouth twice daily. Start Date: 10/30/18 Status: Ordered Repeat number: 1 mycophenolate mofetil 250 mg oral capsule (7 sources) Start: 10-30-2018 take 3 capsules by mouth twice daily mycophenolate mofetil 250 mg oral capsule TAKE 3 CAPSULES BY MOUTH TWICE DAILY Start Date: 10/30/18 Status: Ordered Repeat number: 1 Start: 10-27-2018 End: 12-11-2020 take 1 tablet by mouth twice daily mycophenolate (CELLCEPT) 500 MG tablet Take 500 mg by mouth 2 times daily 0 10/27/2018 12/11/2020 Discontinued (LIST CLEANUP) omeprazole 20 mg delayed release oral capsule (19 sources) Proton Pump Inhibitor take 1 capsule by mouth once daily omeprazole (PRILOSEC) 20 MG capsule Take 1 (one) capsule (20 mg total) by mouth daily . Active Orthotics and shoe lift (1 source) Start: 12-17-2018 Orthotics and shoe lift Orthotics and shoe lift, Evaluate and treat as needed, Print Requisition, Supply Start Date: 12/17/18 Status: Ordered Repeat number: 1 Indications: Unequal limb length (acquired), right tibia; Flat foot [pes planus] (acquired), right foot; Acacia-Bobs or shoe inserts (1 source) Start: 12-24-2018 Acacia-Bobs or shoe inserts Acacia-Bobs or shoe inserts, Evaluate and treat for leg length discrepancy, Print Requisition, Supply Start Date: 12/24/18 Status: Ordered Repeat number: 1 Indications: Unequal limb length (acquired), unspecified tibia and fibula; penicillin v potassium 500 mg oral tablet (12 sources) Start: 09-06-2022 End: 09-16-2022 take 1 tablet by mouth at bedtime penicillin v potassium (VEETID) 500 MG tablet Take 1 tablet by mouth in the morning and at bedtime for 10 days 20 tablet 0 09/06/2022 09/16/2022 Active Start: 10-30-2018 End: 04-23-2023 take 1 tablet by mouth twice daily penicillin V potassium 250 mg Tab TAKE 1 TABLET BY MOUTH TWICE DAILY Start Date: 10/30/18 Status: Ordered Repeat number: 1 End: 03-08-2022 penicillin v potassium (VEET ID) 500 MG tablet Take 250 mg by mouth 2 times daily 0 03/08/2022 Discontinued (LIST CLEANUP) predniSONE 5 mg oral tablet (20 sources) Start: 03-22-2025 take 1 tablet by mouth once daily Prednisone 5 mg tablet Active 5 MG PO Daily March 22, 2025 12:00am Complies with drug therapy Start: 02-06-2022 End: 05-01-2023 take 5 mg by mouth once daily 5 mg, Oral, Daily, First dose on Fri04/30/23 at 0900 Start: 10-23-2018 take 3 tablets by mo [facility] once daily predniSONE 10 mg oral tablet 30 mg = 3 tab(s), TAKE 3 TABLETS BY MOUTH daily on friday, friday and friday Start Date: 10/30/18 Status: Ordered Repeat number: 1 Start: 10-23-2018 take 5 mg by mouth once daily predniSONE (DELTASONE) 10 MG tablet Take 5 mg by mouth daily 0 10/23/2018 Active take 0.5 tablet by [facility] once daily predniSONE (DELTASONE) 10 MG tablet Take 0.5 (one-half) tablet (5 mg total) by mouth daily . Active raNITIdine 150 mg oral tablet (7 sources) Histamine-2 Receptor Antagonist Start: 10-30-2018 take 1 tablet by mouth once daily ranitidine 150 mg oral tablet TAKE 1 TABLET BY MOUTH DAILY Start Date: 10/30/18 Status: Ordered Repeat number: 1 End: 12-11-2020 take 1 tablet by mouth once daily raNITIdine HCl (RANITIDINE 150 MAX STRENGTH PO) Take 1 tablet by mouth daily 0 12/11/2020 Discontinued (LIST CLEANUP) take 1 tablet by long once daily raNITIdine HCl (RANITIDINE 150 MAX STRENGTH PO) Take 1 tablet by mouth daily 0 Active sevelamer carbonate 800 mg oral tablet (4 sources) Phosphate Binder Start: 03-22-2025 take 3 tablets by mouth three to four times daily Sevelamer Carbonate 800 mg tablet Active 2400 MG PO 3 to 4 times per day March 22, 2025 12:00am Complies with drug therapy Start: 04-30-2023 End: 05-01-2023 take 1600 mg by mouth three times daily at mealtime 1,600 mg, Oral, 3 times daily with meals, First dose on Fri04/30/23 at 0800 DO NOT CRUSH OR CHEW. Start: 11-08-2022 take 4 tablets by mo [facility] three times daily Renvela 800 mg tablet Take 4 tablets (3,200 mg) by mouth 3 times daily (morning, midday, late afternoon). 11/08/2022 Active Sucralfate (7 sources) Aluminum Complex Start: 10-30-2018 take 10 mL by mouth four times daily at mealtime Carafate Oral Susp Take 10 mL by mouth 4 times daily with meals. Start Date: 10/30/18 Status: Ordered Repeat number: 1 Start: 08-04-2018 End: 12-11-2020 take 1000 mg by mouth four times daily sucralfate (CARAFATE) 1 GM/10ML suspension Take 1,000 mg by mouth 4 times daily 0 08/04/2018 12/11/2020 Discontinued (LIST CLEANUP) vancomycin 125 mg oral capsule (3 sources) Glycopeptide Antibacterial Start: 04-30-2023 End: 05-11-2023 take 1 capsule by mouth four times daily vancomycin (VANCOCIN) 125 MG capsule Take 1 (one) capsule (125 mg total) by mouth 4 (four) times a day for 10 days . 40 capsule 0 05/01/2023 05/11/2023 Active Completed/Discontinued Medications Medication Drug Class(es) Dates Sig (Normalized) Sig (Original) acetaminophen 325 mg oral tablet (20 sources) Start: 04-23-2023 End: 04-24-2023 take 1 tablet by mouth every four hours as needed for headache and pain 650 mg, Oral, Every 4 hours PRN, headaches, mild pain, fever 100.4 F or greater, infusion related reactions, Starting on Fri04/23/23 at 0111 Start: 03-14-2017 take 225 mg by mouth every four hours as needed acetaminophen (TYLENOL) 160 mg/5 mL solution Take 225 mg by mouth every 4 (four) hours as needed . 03/14/2017 Active aluminum hydroxide 40 mg/ml / magnesium hydroxide 40 mg/ml / simethicone 4 mg/ml oral suspension (2 sources) Start: 04-30-2023 End: 05-01-2023 take 30 mL by mouth every four hours as needed 30 mL, Oral, Every 4 hours PRN, indigestion, Starting on Fri04/30/23 at 0328 Start: 04-23-2023 End: 04-24-2023 take 30 mL by mouth every four hours as needed 30 mL, Oral, Every 4 hours PRN, indigestion, Starting on Fri04/23/23 at 0114 bisacodyl 10 mg rectal suppository (1 source) Stimulant Laxative Start: 04-23-2023 End: 04-24-2023 take 10 mg rectal route once daily as needed for constipation 10 mg, Rectal, Daily PRN, constipation, Starting on Fri04/23/23 at 0114 Try oral medications first for constipation. Try rectal medication if oral meds are ineffective, not tolerated, or not ordered. calcitriol 0.88300 mg oral capsule (2 sources) Vitamin D3 Analog Start: 04-30-2023 End: 05-01-2023 calcitrioL (ROCALTROL) capsu le 0.5 mcg Start: 04-23-2023 End: 04-24-2023 calcitrioL (ROCALTROL) capsu le 0.25 mcg cloNIDine hydrochloride 0.1 mg oral tablet (15 sources) Central alpha-2 Adrenergic Agonist Start: 12-11-2020 End: 12-11-2020 cloNIDine (CATAPRES) tablet 0.1 mg Start: 12-10-2019 End: 12-10-2019 cloNIDine (CATAPRES) tablet 0.2 mg Start: 10-27-2018 End: 04-23-2023 apply 1 dose transdermal route every week cloNIDine (CATAPRES) 0.2 MG/24HR PTWK Place 1 patch onto the skin once a week 0 10/27/2018 01/07/2022 Discontinued (LIST CLEANUP) cyproheptadine hydrochloride 4 mg oral tablet (2 sources) End: 08-16-2021 cyproheptadine (PERIACTIN) 4 mg tablet Take 8 mg by mouth 2 (two) times a day . 0 08/16/2021 Discontinued (Patient's Request) docusate sodium 50 mg / sennosides, detention 8.6 mg oral tablet (1 source) Start: 04-23-2023 End: 04-24-2023 take 1 tablet by mouth twice daily 1 tablet, Oral, 2 times daily, First dose on Fri04/23/23 at 0900 NOT for abdominal surgery patients. &nbsp ;Hold for loose stools. Do Not Crush or Chew if administering orally due to bitter taste. May be crushed if given via tube. doxycycline hyclate 100 mg oral capsule (1 source) Tetracycline-cla ss Drug Start: 10-30-2018 take 1 capsule by mouth once doxycycline hyclate 100 mg Cap 100 mg = 1 cap(s), Oral, q12hr, Take one capsule by mouth every twelve hours for ten days, # 20 cap(s), Refills(s) 0 Start Date: 10/30/18 Status: Ordered Quantity: 20.0 Unit: cap(s) Repeat number: 1 30 ml eculizumab 10 mg/ml injection (2 sources) Complement Inhibitor End: 08-16-2021 eculizumab (Soliris) 10 mg/ml Soln injection Infuse 120 mL into a venous catheter every 14 (fourteen) days . 0 08/16/2021 Discontinued (Patient's Request) 1 ml epoetin ashley 67555 unt/ml injection (4 sources) Erythropoiesis-s timulating Agent Start: 04-30-2023 End: 04-30-2023 epoetin ashley (PROCRIT) 10,000 unit/mL injection - ADS Override Pull Start: 04-30-2023 End: 05-01-2023 epoetin ashley (PROCRIT) injec tion 10,000 Units End: 08-16-2021 inject 2000 [IU] by subcutaneous injection every week epoetin ashley (EPOGEN,PROCRIT) 2,000 unit/mL injection Inject 2,000 Units under the skin once a week . 0 08/16/2021 Discontinued (Patient's Request) 2 ml fentaNYL 0.05 mg/ml injection (2 sources) Opioid Agonist Start: 12-11-2019 End: 12-11-2019 fentaNYL (SUBLIMAZE) injection 50 mcg ferric citrate 1000 mg oral tablet (4 sources) Start: 04-30-2023 End: 05-01-2023 ferric citrate (AURYXIA) tablet 420 mg Start: 04-23-2023 End: 04-24-2023 ferric citrate (AURYXIA) tab let 420 mg Start: 09-25-2022 take 2 tablets by mo uth three times daily Auryxia 210 mg iron tablet Take 2 tablets (420 mg) by mouth 3 times a day. 09/25/2022 Active ferrous sulfate 325 mg oral tablet (3 sources) End: 08-16-2021 take 1 tablet by mouth twice daily ferrous sulfate 325 (65 FE) MG tablet Take 325 mg by mouth 2 (two) times a day . 0 08/16/2021 Discontinued (Patient's Request) take 1 tablet by long th once daily at breakfast ferrous sulfate (IRON 325) 325 (65 Fe) M G tablet Take 325 mg by mouth daily (with breakfast) 0 Active 1 ml heparin sodium, porcine 5000 unt/ml injection (1 source) Unfractionated Heparin, Anti-coagulant Start: 04-23-2023 End: 04-24-2023 inject 5000 [IU] by subcutaneous injection every eight hours 5,000 Units, Subcutaneous, Every 8 hours scheduled, First dose on Fri04/23/23 at 0600 Notify physician if patient refuses. hydrALAZINE hydrochloride 50 mg oral tablet (16 sources) Arteriolar Vasodilator Start: 04-30-2023 hydrALAZINE (APRESOLINE) injection 20 mg Start: 04-28-2023 End: 05-01-2023 take 1 tablet by mouth three times daily hydrALAZINE (Apresoline) 50 mg tablet Take 1 tablet (50 mg) by mouth 3 times a day. 04/28/2023 Active Start: 01-25-2022 End: 04-24-2023 take 25 mg by mouth three times daily 25 mg, Oral, 3 times daily, First dose on Fri04/23/23 at 0230 Start: 12-11-2019 End: 12-11-2019 hydrALAZINE (APRESOLINE) inj ection 20 mg HYDROmorphone hydrochloride 2 mg oral tablet (2 sources) Opioid Agonist Start: 04-23-2023 End: 04-24-2023 take 2-4 mg by mouth every four hours as needed 2-4 mg, Oral, Every 4 hours PRN (may repeat), moderate to severe pain, Starting on Fri04/23/23 at 0115 Initiate with 2 mg oral every 4 hours prn moderate to severe pain. For unrelieved pain, may repeat 2 mg within 60 minutes of initial dose. If pain is RELIEVED after repeat dose, change to 4 mg every 4 hours prn moderate to severe pain. If pain is UNrelieved after repeat dose, or patient requires dose reduction, call physician. Start: 04-23-2023 End: 04-24-2023 take 0.25-0.5 mg intravenously every three hours as needed 0.25-0.5 mg, Intravenous, Every 3 hours PRN (may repeat), moderate to severe pain, Starting on Fri04/23/23 at 0114 Initiate with 0.25 mg IV every 3 hours prn moderate to severe pain. For unrelieved pain, may repeat 0.25 mg within 30 minutes of initial dose. If pain is RELIEVED after repeat dose, change to 0.5 mg every 3 hours prn moderate to severe pain. If pain is UNrelieved after repeat dose, or patient requires dose reduction, call physician. May use IV for breakthrough pain or if unable to tolerate enteral routes. hyoscyamine sulfate 0.125 mg sublingual tablet (20 sources) Start: 04-23-2023 End: 04-24-2023 take 125 ug under the tongue three times daily before mealtime 125 mcg, Sublingual, 3 times daily before meals, First dose on Fri04/23/23 at 0730 Start: 10-30-2018 take 1 tablet by [facility] four times daily as needed for muscle spasms Levsin 0.125 mg oral tablet 0.125 mg = 1 tab(s), Oral, QID, PRN for spasm, # 40 tab(s), Refills(s) 0 Start Date: 10/30/18 Status: Ordered Quantity: 40.0 Unit: tab(s) Repeat number: 1 Start: 03-10-2018 End: 03-08-2022 hyoscyamine (ANASPAZ;LEVSIN) [address] 0.125 mg under the tongue 3 times daily as needed 0 03/10/2018 03/08/2022 Discontinued (LIST CLEANUP) hyoscyamine (LEV SIN/SL) 0.[address] 1 (one) tablet (0.125 mg total) under the tongue 3 (three) times a day before meals Not taking . Active 4 ml labetalol hydrochloride 5 mg/ml cartridge (20 sources) beta-Adrenergic Serina Start: 05-01-2023 End: 05-01-2023 labetaloL (NORMODYNE) injection 10 mg Start: 01-07-2022 labetalol (NOR MODYNE;TRANDATE) injection 10 mg Start: 10-30-2018 take 1 tablet by long twice daily labetalol 200 mg Tab 200 mg = 1 tab(s), Oral, BID, # 60 tab(s), Refills(s) 0 Start Date: 10/30/18 Status: Ordered Quantity: 60.0 Unit: tab(s) Repeat number: 1 Start: 07-11-2018 take 2 tablets by mo [facility] twice daily labetalol (NORMODYNE) 200 MG tablet Take 400 mg by mouth 2 times daily 0 07/11/2018 Active take 400 mg by mouth twice daily labetalol HCl (LABETALOL ORAL) Take 400 mg by mouth 2 (two) times a day . Active losartan potassium 100 mg oral tablet (20 sources) Angiotensin 2 Receptor Serina Start: 04-23-2023 End: 04-24-2023 take 100 mg by mouth once daily 100 mg, Oral, Daily, First dose on Fri04/23/23 at 1200 Start: 02-06-2022 End: 05-01-2023 take 1 tablet by mouth once daily losartan (Cozaar) 100 mg tablet Take 1 tablet (100 mg) by mouth once daily. 02/06/2022 Active Start: 08-10-2018 losartan (COZA AR) 100 MG tablet Take 50 mg by mouth daily 0 08/10/2018 Active Start: 08-10-2018 take 1 tablet by long once daily losartan (COZAAR) 100 MG tablet Take 100 mg by mouth daily 0 08/10/2018 Active take 1 tablet by long once daily losartan (COZAAR) 50 MG tablet Take 1 (one) tablet (50 mg total) by mouth daily . Active magnesium hydroxide 80 mg/ml oral suspension (1 source) Start: 04-23-2023 End: 04-24-2023 take 2400 mg by mouth once daily as needed for constipation 2,400 mg (30 mL), Oral, Daily PRN, constipation, Starting on Fri04/23/23 at 0114 If no bowel movement in 24 hours after Sennosides (SENNA) administration. melatonin 5 mg oral tablet (5 sources) Start: 04-30-2023 End: 05-01-2023 take 5 mg by mouth once daily as needed for sleep 5 mg, Oral, Nightly PRN, Sleep, Starting on Fri04/30/23 at 0328 Start: 04-23-2023 End: 04-24-2023 take 5 mg by mouth once daily as needed for sleep 5 mg, Oral, Nightly PRN, Sleep, Starting on Fri04/23/23 at 0114 If still awake in 1 hour proceed to trazodone (Desyrel) End: 08-16-2021 melatonin 5 mg Tab Take by m outh daily . 0 08/16/2021 Discontinued (Patient's Request) take 5 mg by mouth once daily me latonin 3 MG TABS tablet Take 5 mg by mouth daily 0 Active 2 ml metoclopramide 5 mg/ml prefilled syringe (1 source) Dopamine-2 Receptor Antagonist Start: 12-11-2019 End: 12-11-2019 metoclopramide (REGLAN) injection 10 mg Start: 12-11-2019 End: 12-11-2019 metoclopramide (REGLAN) inje ction 10 mg metOLazone 2.5 mg oral tablet (6 sources) Thiazide-like Diuretic Start: 04-14-2018 End: 12-11-2020 take 1 tablet by mouth once daily metolazone (ZAROXOLYN) 2.5 MG tablet Take 2.5 mg by mouth daily 0 04/14/2018 12/11/2020 Discontinued (LIST CLEANUP) 1 ml morphine sulfate 2 mg/ml prefilled syringe (1 source) Opioid Agonist Start: 04-30-2023 End: 05-01-2023 take 4 mg intravenously every four hours as needed 4 mg, Intravenous, Every 4 hours PRN, moderate to severe pain, Starting on Fri04/30/23 at 0330 naloxone (NARCAN) injection 0.1 mg (2 sources) Start: 04-30-2023 End: 05-01-2023 naloxone (NARCAN) injection 0.1 mg Start: 04-23-2023 End: 04-24-2023 naloxone (NARCAN) injection 0.1 mg 24 hr NIFEdipine 60 mg extended release oral tablet (20 sources) Dihydropyridine Calcium Channel Serina Start: 04-30-2023 End: 05-01-2023 take 60 mg by mouth once daily 60 mg, Oral, Daily, First dose on Fri04/30/23 at 0900 DO NOT CRUSH OR CHEW. Start: 04-23-2023 End: 04-24-2023 take 60 mg by mouth twice daily 60 mg, Oral, 2 times d aily, First dose on Fri04/23/23 at 0230 DO NOT CRUSH OR CHEW. Start: 11-01-2021 take 1 tablet by long at bedtime NIFEdipine (PROCARDIA XL) 30 MG extended release tablet Take 30 mg by mouth in the morning and at bedtime 0 11/01/2021 Active Start: 10-30-2018 NIFEdipine 30 mg oral tablet, extended release Refills(s) 0 Start Date: 10/30/18 Status: Ordered Repeat number: 1 Start: 09-09-2018 End: 12-11-2020 take 4 tablets by mouth once daily NIFEdipine (PROCARDIA XL) 30 MG extended release tablet Take 120 mg by mouth daily 0 09/09/2018 12/11/2020 Discontinued (LIST CLEANUP) take 1 tablet by [facility] twice daily NIFEdipine (PROCARDIA XL) 60 MG 24 hr tablet Take 1 (one) tablet (60 mg total) by mouth 2 (two) times a day . Active take 2 tablets by mo [facility] once daily before mealtime NIFEdipine XL 60 mg 24 hr tablet Take 2 tablets (120 mg) by mouth once daily in the morning. Take before meals. Active nitroglycerin 0.4 mg sublingual tablet (1 source) Nitrate Vasodilator Start: 04-30-2023 End: 05-01-2023 0.4 mg, Sublingual, Every 5 min PRN, chest pain, Starting on Fri04/30/23 at 0328 For chest pain. May give up to 3 doses. Call physician for chest pain unrelieved by Nitroglycerin, or recurrent chest pain. DO NOT CRUSH OR CHEW. ondansetron 4 mg disintegrating oral tablet (2 sources) Serotonin-3 Receptor Antagonist Start: 04-30-2023 End: 05-01-2023 take 1 tablet by mouth every six hours as needed for nausea and vomiting 4 mg, Oral, Every 6 hours PRN, nausea, vomiting, Starting on Fri04/30/23 at 0328 Orally disintegrating tablet: Open blister pack and place tablet on the tongue; tablet is formulated to dissolve on the tongue without water; do not split tablet. Formulation requires tablet remain in sealed package until immediately prior to dose being administered. Start: 12-10-2019 End: 12-10-2019 ondansetron (ZOFRAN) injecti on 4 mg ondansetron (ZOFRAN-ODT) disintegrating tablet 4 mg (1 source) Start: 04-23-2023 End: 04-24-2023 take 1 tablet by mouth every six hours as needed for nausea and vomiting ondansetron (ZOFRAN-ODT) disintegrating tablet 4 mg pantoprazole 40 mg delayed release oral tablet (2 sources) Proton Pump Inhibitor Start: 04-30-2023 End: 05-01-2023 take 40 mg by mouth once daily 40 mg, Oral, Daily, First dose on Fri04/30/23 at 0900 DO NOT CRUSH OR CHEW. Start: 04-23-2023 End: 04-24-2023 pantoprazole (PROTONIX) inje ction 40 mg piperacillin 3000 mg / tazobactam 375 mg injection (1 source) Penicillin-class Antibacterial, beta Lactamase Inhibitor Start: 04-23-2023 End: 04-24-2023 piperacillin-tazobactam (ZOSYN) IVPB 3.375 g (premix) polyethylene glycol 3350 07368 mg powder for oral solution (20 sources) Osmotic Laxative Start: 03-10-2018 End: 03-08-2022 take 17 g by mouth once daily as needed Polyethylene Glycol 3350-GRX POWD Take 17 g by mouth daily as needed 0 03/10/2018 12/11/2020 Discontinued (LIST CLEANUP) promethazine hydrochloride 25 mg oral tablet (12 sources) Phenothiazine Start: 04-30-2023 End: 05-01-2023 take 1 tablet by mouth every six hours as needed for nausea 25 mg, Oral, Every 6 hours PRN, nausea, Starting on Fri04/30/23 at 0328 Start: 04-23-2023 End: 04-24-2023 take 1 tablet by mouth every six hours as needed for nausea 25 mg, Oral, Every 6 hours PRN, nausea, Starting on Fri04/23/23 at 0110 sennosides, detention 8.6 mg oral tablet (2 sources) Start: 04-30-2023 End: 05-01-2023 take 1 tablet by mouth twice daily as needed for constipation 8.6 mg (1 tablet), Oral, 2 times daily PRN, constipation, Starting on Fri04/30/23 at 0328 Start: 04-23-2023 End: 04-24-2023 take 1 tablet by mouth twice daily as needed for constipation 8.6 mg (1 tablet), Oral, 2 times daily PRN, constipation, Starting on Fri04/23/23 at 0114 simethicone 80 mg chewable tablet (12 sources) Start: 04-30-2023 End: 05-01-2023 take 80 mg by mouth four times daily as needed 80 mg, Oral, 4 times daily PRN, flatulence, Starting on Fri04/30/23 at 0327 Start: 04-23-2023 End: 04-24-2023 take 80 mg by mouth four times daily as needed 80 mg, Oral, 4 times daily PRN, flatulence, Starting on Fri04/23/23 at 0110 take 1.2 mL by mouth four times daily as needed simethicone (MYLICON) 40 mg/0.6 mL drops Take 1.2 mL (80 mg total) by mouth 4 (four) times a day as needed . Active take 80 mg by mouth four times daily as needed simethicone (MYLICON) 40 mg/0.6 mL drops Take 80 mg by mouth 4 (four) times a day as needed . 0 Active Simethicone 40 MG/0.6ML LIQD (6 sources) Start: 03-10-2018 End: 12-11-2020 take 80 mg by mouth every six hours as needed Simethicone 40 MG/0.6ML LIQD Take 80 mg by mouth every 6 hours as needed 0 03/10/2018 12/11/2020 Discontinued (LIST CLEANUP) Start: 03-10-2018 take 80 mg by mouth every six hours as needed Simethicone 40 MG/0.6ML LIQD Take 80 mg by mouth every 6 hours as needed 0 03/10/2018 Active Sodium Chloride (5 sources) Start: 04-30-2023 End: 05-01-2023 sodium chloride (PF) (NS) fl ush 5 mL Start: 04-24-2023 End: 04-24-2023 sodium chloride 0.9% (NS) clovis cipriano 200 mL Start: 04-23-2023 End: 04-24-2023 sodium chloride 0.9% (NS) Start: 04-23-2023 End: 04-24-2023 sodium chloride (PF) (NS) fl ush 5 mL Start: 12-11-2019 End: 12-11-2019 0.9 % sodium chloride bolus sodium polystyrene sulfonate 250 mg/ml oral suspension (6 sources) End: 12-11-2020 sodium polystyrene (KAYEXALATE) 15 GM/60ML suspension Take 15 g by mouth once 0 12/11/2020 Discontinued (LIST CLEANUP) traZODone hydrochloride 50 mg oral tablet (1 source) Serotonin Reuptake Inhibitor Start: 04-23-2023 End: 04-24-2023 take 50 mg by mouth once daily as needed for sleep 50 mg, Oral, Nightly PRN, sleep, Starting on Fri04/23/23 at 0114 To be administered 1 hour after melatonin if still awake. & nbsp;May repeat x 1 dose in 30 minutes if still awake. Problems Active Problems Problem Classification Problem Date Documented Date Episodic/Chronic Acquired foot deformities (1 source) Acquired pes planus 12-17-2018 Episodic Chronic kidney disease (14 sources) End stage renal failure on dialysis; Translations: [End stage renal disease] Onset: 08-16-2021 08-16-2021 Chronic Conditions associated with dizziness or vertigo (1 source) Postural dizziness; Translations: [Dizziness and giddiness] Episodic Essential hypertension (10 sources) Benign essential hypertension; Translations: [Essential (primary) hypertension] Chronic Fluid and electrolyte disorders (1 source) Hyperkalemia; Translations: [Hyperkalemia] Onset: 04-22-2023 Episodic Genitourinary symptoms and ill-defined conditions (1 source) History of renal failure; Translations: [History of chronic renal failure] Episodic Headache; including migraine (1 source) Headache; Translations: [Intractable headache, unspecified chronicity pattern, unspecified headache type] Episodic Hypertension with complications and secondary hypertension (3 sources) Hypertensive urgency ; Translations: [Hypertension secondary to other renal disorders] Onset: 04-29-2023 Chronic Noninfectious gastroenteritis (1 source) Noninfective gastroenteritis and colitis, unspecified; Translations: [Noninfective gastroenteritis and colitis, unspecified] Onset: 04-22-2023 Episodic Other acquired deformities (1 source) Scoliosis deformity of spine; Translations: [Scoliosis, unspecified] Chronic Other acquired deformities (1 source) Leg length inequality 12-17-2018 Episodic Other circulatory disease (2 sources) Arteriovenous fistula aneurysm; Translations: [Other specified complication of vascular prosthetic devices, implants and grafts, initial encounter] 10-22-2024 Chronic Other inflammatory condition of skin (1 source) Seborrheic dermatitis of scalp 12-17-2018 Episodic Other non-traumatic joint disorders (2 sources) Knee pain; Translations: [Pain in right knee] Episodic Other non-traumatic joint disorders (1 source) Chronic pain; Translations: [Pain in left shoulder] Episodic Other nutritional; endocrine; and metabolic disorders (1 source) Other symptoms and signs concerning food and fluid intake; Translations: [Other symptoms and signs concerning food and fluid intake] Onset: 04-29-2023 Episodic Other screening for suspected conditions (not mental disorders or infectious disease) (1 source) No current problems or disability 12-23-2013 Episodic Regional enteritis and ulcerative colitis (5 sources) Crohn's disease of ileum; Translations: [Crohn's disease of small intestine without complications] Onset: 04-23-2023 04-23-2023 Chronic Residual codes; unclassified (9 sources) History of cardiovascular surgery; Translations: [Other specified postprocedural states] Onset: 09-18-2021 Episodic Residual codes; unclassified (1 source) Altered mental status; Translations: [Altered mental status, unspecified] Episodic Spondylosis; intervertebral disc disorders; other back problems (1 source) Chronic low back pain; Translations: [Low back pain] Episodic Unclassified (2 sources) kidney eval follow up Onset: 08-09-2024 Past or Other Problems Problem Classification Problem Date Documented Date Episodic/Chronic Abdominal pain (9 sources) Periumbilical pain; Translations: [Periumbilical pain] Onset: 04-22-2023 Episodic Mood disorders (1 source) Mood disorders Onset: 01-01-2024 01-01-2024 Nephritis; nephrosis; renal sclerosis (9 sources) Rapidly progressive glomerulonephritis; Translations: [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] Onset: 08-16-2021 08-16-2021 Episodic Other lower respiratory disease (3 sources) Dyspnea; Translations: [Shortness of breath] Onset: 07-30-2022 Episodic Other lower respiratory disease (2 sources) Shortness of breath; Translations: [Shortness of breath] Onset: 07-30-2022 Episodic Other upper respiratory infections (2 sources) Streptococcal sore throat; Translations: [Streptococcal pharyngitis] Onset: 09-06-2022 Episodic Unclassified (3 sources) Onset: 12-30-2023 12-30-2023 Results Test Name Value Interpretation Reference Range Facility ABO and Rh group panel (Bld) on 01-25-2025 ABO group Nom (Bld) A Normal [facility] Comment on above: Performed By: #### 3 4530-6 #### LUCINA Sotelo ([id number]) [facility] ([facility]) [address] [place], [place] [id number] D Ag Ql (Bld) Positive Normal [facility] Comment on above: Performed By: #### 3 4530-6 #### LUCINA Sotelo ([id number]) [facility] ([facility]) [address] [place] [address]55 Amylaseon 01-25-2025 Amylase [Catalytic activity/Vol] 100 U/L Normal 29-103 [facility] Comment on above: Performed By: #### 1 798-8 #### LUCINA Sotelo ([id number]) [facility] ([facility]) [address] [place] [address] [id number] C peptideon 01-25-2025 C peptide [Mass/Vol] 14.5 ng/mL High 0.7-3.9 [facility] Comment on above: Performed By: #### 1 986-9 #### LUCINA Sotelo ([id number]) [facility] ([facility]) [address] [place] [address] 49946 CBC panel Auto (Bld)on 01-25 Erythrocyte distribution width (RBC) [Ratio] 17.1 % High 11.5-14.5 [facility] Comment on above: Performed By: #### 1 798-8 #### LUCINA Sotelo ([id number]) [facility] ([facility]) [address] [place] [address] 40213 Hematocrit (Bld) [Volume fraction] 39.5 % Low 41.0-52.0 [facility] Comment on above: Performed By: #### 1 798-8 #### LUCINA Sotelo ([id number]) [facility] ([facility]) [address] [place] [address] 74940 Hemoglobin (Bld) [Mass/Vol] 12.8 g/dL Low 13.5-17.5 [facility] Comment on above: Performed By: #### 1 798-8 #### LUCINA Sotelo ([id number]) [facility] ([facility]) [address] [place] [address] 42423 MCH (RBC) [Entitic mass] 33.1 pg Normal 26.0-34.0 [facility] Comment on above: Performed By: #### 1 798-8 #### LUCINA Sotelo ([id number]) [facility] ([facility]) [address] [place] [address] 71561 MCHC (RBC) [Mass/Vol] 32.4 g/dL Normal 32.0-36.0 [facility] Comment on above: Performed By: #### 1 798-8 #### LUCINA Sotelo ([id number]) [facility] ([facility]) [address] [place] [address] 36529 MCV (RBC) [Entitic vol] 102 fL High 80-100 [facility] Comment on above: Performed By: #### 1 798-8 #### LUCINA Sotelo ([id number]) [facility] ([facility]) [address] [place] [address] 00703 Nucleated RBC/100 WBC (Bld) [Ratio] 0.0 /100 WBCs Normal 0.0-0.0 [facility] Comment on above: Performed By: #### 1 798-8 #### LUCINA Sotelo ([id number]) [facility] ([facility]) [address] [place] [address] Platelets (Bld) [#/Vol] 162 x10*3/uL Normal 150-450 [facility] Comment on above: Performed By: #### 1 798-8 #### LUCINA Sotelo ([id number]) [facility] ([facility]) [address] [place] [address] RBC (Bld) [#/Vol] 3.87 x10*6/uL Low 4.50-5.90 [facility] Comment on above: Performed By: #### 1 798-8 #### LUCINA Sotelo ([id number]) [facility] ([facility]) [id number] [place] [address] 61237 WBC (Bld) [#/Vol] 5.6 x10*3/uL Normal 4.4-11.3 [facility] Comment on above: Performed By: #### 1 798-8 #### LUCINA Sotelo ([id number]) [facility] ([facility]) [id number] [place] [address] 52353 Coagulation tissue factor in ducedon 01-25-2025 PT Coag (PPP) [Time] 11.5 s Normal 9.8-12.4 [facility] Comment on above: Performed By: #### 1 798-8 #### LUCINA Sotelo ([id number]) [facility] ([facility]) [id number] [place] [address] 58777 Creatinineon 01-25-2025 Creatinine [Mass/Vol] 11.84 mg/dL High 0.50-1.30 [facility] Comment on above: Performed By: #### 2 160-0 #### LUCINA Sotelo ([id number]) [facility] ([facility]) [id number] [place] [address] 83694 Creatinine [Mass/Vol]on 01-05 Glomerular filtration rate/1.73 sq M.predicted 6 mL/min/1.73m*2 Low >60 [facility] Comment on above: Result Comment: Calc ulations of estimated GFR are performed using the 2020 CKD-EPI Study Refit equation without the race variable for the IDMS-Traceable creatinine methods. https://jasn.asnjournals.org/content/early//ASN.8426180 988 Performed By: #### 2 160-0 #### LUCINA Sotelo ([id number]) [facility] ([facility]) [address] [place] [address] Cytomegalovirus Ab.IgG avidi tyon 01-25-2025 CMV IgG avidity IA [Ratio] Non-Reactive Normal Nonreactive [facility] Comment on above: Performed By: #### 1 798-8 #### LUCINA Sotelo ([id number]) [facility] ([facility]) [address] [place] [address] DRUG PROFILE 9, BLOOD W/ REF ROBERTA TO CONFIRMATIONon 01-25-2025 Amphetamines Screen Ql Negative Normal [facility] Comment on above: Result Comment: Pres umptively Negative by immunoassay. Testing by mass spectrometry is available on request. Interpretive Information: Amphetamines Screen, S/P Methodology: Immunoassay Positive Cutoff: 20 ng/mL Performed By: #### 2 160-0 #### LUCINA Sotelo ([id number]) [facility] ([facility]) [address] [place] [address] Annotation comment [Interpretation] Narrative See Note Normal [facility] Comment on above: Result Comment: Inte rpretive Information: Drug Screen with Reflex to Quant [...] developed and its performance characteristics determined by [facility]. It has not been cleared or approved by the [place] Food and Drug Administration. This test was performed in a CLIA certified laboratory and is intended for clinical purposes. Performed By: [facility] [address] [place] [address] Regional Engineer: Nate Jaimes MD, PhD CLIA Number: [id number] Performed By: #### 2 160-0 #### LUCINA Sotelo ([id number]) [facility] ([facility]) [address] [place] [address] Barbiturates Screen Ql Negative [facility] Comment on above: Result Comment: Pres umptively Negative by immunoassay. Testing by mass spectrometry is available on request. Interpretive Information: Barbiturates Screen, S/P Methodology: Immunoassay Positive Cutoff: 50 ng/mL Performed By: #### 2 160-0 #### LUCINA Sotelo ([id number]) [facility] ([facility]) [address] [place] [address] Benzodiazepines Screen Ql Negative [facility] Comment on above: Result Comment: Pres umptively Negative by immunoassay. Testing by mass spectrometry is available on request. Interpretive Information: Benzodiazepines Screen, S/P Methodology: Immunoassay Positive Cutoff: 50 ng/mL Performed By: #### 2 160-0 #### LUCINA Sotelo ([id number]) [facility] ([facility]) [address] [place] [address] Buprenorphine [Mass/Vol] Negative [facility] Comment on above: Result Comment: Pres umptively Negative by immunoassay. Testing by mass spectrometry is available on request. Interpretive Information: Buprenorphine Screen, S/P Methodology: Immunoassay Positive Cutoff: 1 ng/mL Performed By: #### 2 160-0 #### LUCINA Sotelo ([id number]) [facility] ([facility]) [address] [place] [address] Cannabinoids Screen Ql Negative [facility] Comment on above: Result Comment: Pres umptively Negative by immunoassay. Testing by mass spectrometry is available on request. Interpretive Information: Carboxy-THC Screen, S/P Methodology: Immunoassay Positive Cutoff: 20 ng/mL This test does not distinguish between the delta-8 and delta-9 forms of Carboxy-THC or their metabolites. Performed By: #### 2 160-0 #### LUCINA Sotelo ([id number]) [facility] ([facility]) [address] [place] [address] Cocaine Screen Ql Negative Normal [facility] Comment on above: Result Comment: Pres umptively Negative by immunoassay. Testing by mass spectrometry is available on request. Interpretive Information: Cocaine Screen, S/P Methodology: Immunoassay Positive Cutoff: 20 ng/mL Performed By: #### 2 160-0 #### LUCINA MONTGOMERYER L ([id number]) [facility] ([facility]) [address] [place] [address] Methadone Screen Ql Negative Normal [facility] Comment on above: Result Comment: Pres umptively Negative by immunoassay. Testing by mass spectrometry is available on request. Interpretive Information: Methadone Screen, S/P Methodology: Immunoassay Positive Cutoff: 25 ng/mL Performed By: #### 2 160-0 #### LUCINA BELTRÁNMOTZER L ([id number]) [facility] [place] [address] Methamphetamine Ql Negative Normal [facility] Comment on above: Result Comment: Pres umptively Negative by immunoassay. Testing by mass spectrometry is available on request. Interpretive Information: Methamphetamine Screen, S/P Methodology: Immunoassay Positive Cutoff: 20 ng/mL Performed By: #### 2 160-0 #### LUCINA BELTRÁNMOTZER L ([id number]) [facility] ([facility]) [address] [place] [address] Opiates Screen Ql Negative [facility] Comment on above: Result Comment: Pres umptively Negative by immunoassay. Testing by mass spectrometry is available on request. Interpretive Information: Opiates Screen, S/P Methodology: Immunoassay Positive Cutoff: 20 ng/mL Performed By: #### 2 160-0 #### LUCINA BELTRÁNMOTZER L ([id number]) [facility] ([facility]) [address] [place], [place] [id number] oxyCODONE Ql Negative [facility] Comment on above: Result Comment: Pres umptively Negative by immunoassay. Testing by mass spectrometry is available on request. Interpretive Information: Oxycodone/Oxymorphone Screen, S/P Methodology: Immunoassay Positive Cutoff: 20 ng/mL Performed By: #### 2 160-0 #### LUCINA Sotelo ([id number]) [facility] ([facility]) [address] [place] [address] Phencyclidine Screen Ql Negative Normal [facility] Comment on above: Result Comment: Pres umptively Negative by immunoassay. Testing by mass spectrometry is available on request. Interpretive Information: Phencyclidine Screen, S/P Methodology: Immunoassay Positive Cutoff: 10 ng/mL Performed By: #### 2 160-0 #### LUCINA Sotelo ([id number]) [facility] ([facility]) [address] [place] [address] ESMER-RUBIO VIRUS ANTIBODY PANELon 01-25-2025 EBV capsid IgG IA Qn (S) Negative Normal Negative [facility] Comment on above: Order Comment: EBV I NTERPRETATION CHARTPRIMARY ACUTEVCA-IGG: +/-VCA-IGM: +/-EA-IGG: +/-NA-IGG: -LATE ACUTEVCA-IGG: +VCA-IGM: +/-EA-IGG: +/-NA-IGG: +/-RECOVERINGVCA-IGG: +VCA-IGM: -EA-IGG: +NA-IGG: -PREVIOUS INFECTIONVCA-IGG: +VCA-IGM: -EA-IGG: -NA-IGG: +/- Performed By: #### 1 798-8 #### LUCINA Sotelo ([id number]) [facility] ([facility]) [address] [place] [address] EBV capsid IgM IA Qn (S) Negative Normal Negative [facility] Comment on above: Order Comment: EBV I NTERPRETATION CHARTPRIMARY ACUTEVCA-IGG: +/-VCA-IGM: +/-EA-IGG: +/-NA-IGG: -LATE ACUTEVCA-IGG: +VCA-IGM: +/-EA-IGG: +/-NA-IGG: +/-RECOVERINGVCA-IGG: +VCA-IGM: -EA-IGG: +NA-IGG: -PREVIOUS INFECTIONVCA-IGG: +VCA-IGM: -EA-IGG: -NA-IGG: +/- Performed By: #### 1 798-8 #### LUCINA Sotelo ([id number]) [facility] ([facility]) [address] [place] [address] EBV early IgG Ql (S) Negative Normal Negative [facility] Comment on above: Order Comment: EBV I NTERPRETATION CHARTPRIMARY ACUTEVCA-IGG: +/-VCA-IGM: +/-EA-IGG: +/-NA-IGG: -LATE ACUTEVCA-IGG: +VCA-IGM: +/-EA-IGG: +/-NA-IGG: +/-RECOVERINGVCA-IGG: +VCA-IGM: -EA-IGG: +NA-IGG: -PREVIOUS INFECTIONVCA-IGG: +VCA-IGM: -EA-IGG: -NA-IGG: +/- Performed By: #### 1 798-8 #### LUCINA Sotelo ([id number]) [facility] ([facility]) [address] [place] [address] EBV nuclear Ab Ql (S) Negative Normal Negative [facility] Comment on above: Order Comment: EBV I NTERPRETATION CHARTPRIMARY ACUTEVCA-IGG: +/-VCA-IGM: +/-EA-IGG: +/-NA-IGG: -LATE ACUTEVCA-IGG: +VCA-IGM: +/-EA-IGG: +/-NA-IGG: +/-RECOVERINGVCA-IGG: +VCA-IGM: -EA-IGG: +NA-IGG: -PREVIOUS INFECTIONVCA-IGG: +VCA-IGM: -EA-IGG: -NA-IGG: +/- Performed By: #### 1 798-8 #### LUCINA Sotelo ([id number]) [facility] ([facility]) [address] [place], [place] [id number] FLOW AUTOCROSSMATCHon 2024 FLOW AUTOCROSSMATCH Normal [facility] Comment on above: Order Comment: Test performed at:[facility] HospitalHist[facility] and Immunogenetics LaboratorySt. [facility], [address] [place] [address] Performed By: #### 2 160-0 #### LUCINA Sotelo ([id number]) [facility] ([facility]) [address] [place] [address] HLA RESULTS See Attached Normal [facility] Comment on above: Order Comment: Test performed at:[facility] and Immunogenetics LaboratoryW.[facility], [address] [place] [address] Performed By: #### 2 160-0 #### LUCINA Sotelo ([id number]) [facility] ([facility]) [address] [place] [address] HIV 1+2 Ab+HIV1 p24 Agon HIV 1+2 Ab+HIV1 p24 Ag IA Ql Non-Reactive Normal Nonreactive [facility] Comment on above: Order Comment: HIV A g/Ab screen is performed using the Siemens AtellCytomedix HIV Ag/Ab Combo assay which detects the presence of HIV p24 antigen as well as antibodies to HIV-1 (Group M and O) and HIV-2.No laboratory evidence of HIV infection. If acute HIV infection is suspected, consider testing for HIV RNA by PCR (viral load). Performed By: #### 1 798-8 #### LUCINA Sotelo ([id number]) [facility] ([facility]) [address] [place] [address] HLA AUTOCROSSMATCH PANELon 0 01-25-2025 FLOW AUTOCROSSMATCH Normal [facility] Comment on above: Order Comment: Test performed at:[facility] HospitalHistosteward health care system and Immunogenetics LaboratoryW.[facility], [address] [place], [place] [id number] performed at:[facility] Immunogenetics LaboratoryAnthonySaint [facility]ph[facility], [address] [place] [address] Performed By: #### 2 160-0 #### LUCINA Sotelo ([id number]) [facility] ([facility]) [address] [place] [address] HLA RESULTS Collection only Normal [facility] Comment on above: Order Comment: Test performed at:[facility] Laboratory.[facility], [address] [place] [address]Megg performed at:[facility] Immunogenetics LaboratoryAnthonySaint Alph[facility], [address] [place], [place] [address] Performed By: #### 2 160-0 #### LUCINA MONTGOMERYER L ([id number]) [facility] ([facility]) [address] [place] [address] HLA-A+B+C (class I) Ab (S) Normal [facility] Comment on above: Order Comment: Test performed at:[facility] Immunogenetics LaboratoryAnthonySaint [facility], [address] [place], [place] [address]Test performed at:[facility] Immunogenetics LaboratoryAnthonySaint [facility], [address] [place], [place] [address] Performed By: #### 2 160-0 #### LUCINA Sotelo ([id number]) [facility] ([facility]) [address] [place] [address] HLA-DP+DQ+DR (class II) Ab (S) Normal [facility] Comment on above: Order Comment: Test performed at:[facility] Immunogenetics LaboratoryAnthonySaint [facility], [address] [place] [address]Wxoi performed at:[facility] Immunogen[facility] LaboratoryAnthonySaint [facility], [address] [place], [place] [address] Performed By: #### 2 160-0 #### LUCINA MONTGOMERYER L ([id number]) [facility] ([facility]) [address] [place] [address] HLA TRANSPLANT ANTIBODY HO[place] 01-25-2025 HLA-A+B+C (class I) Ab (S) Normal [facility] Comment on above: Order Comment: Test performed at:[facility] Laboratory.[facility], [address] [place] [address] Performed By: #### 2 160-0 #### LUCINA Sotelo ([id number]) [facility] ([facility]) [address] [place] [address] HLA-DP+DQ+DR (class II) Ab (S) Normal [facility] Comment on above: Order Comment: Test performed at:[facility] HospitalHistocompatibility and Immunogenetics LaboratoryIs[facility], [address] [place] [address] Performed By: #### 2 160-0 #### LUCINA Sotelo ([id number]) [facility] ([facility]) [address] [place] [address] HbA1c (Bld) [Mass fraction]o n 01-25-2025 Average glucose Estimated from glycated hemoglobin (Bld) [Mass/Vol] 88 mg/dL Normal Not Established [facility] Comment on above: Order Comment: Diagn osis of Eydeudpm-WtwesqOgk-Vxqeeezu: < or = 5.6%Increased risk for developing diabetes: 5.7-6.4%Diagnostic of diabetes: > or = 6.5% Performed By: #### 1 798-8 #### LUCINA Sotelo ([id number]) [facility] ([facility]) [address] [place] [address] Hemoglobin A1c/Hemoglobin.to aurelio 01-25-2025 HbA1c (Bld) [Mass fraction] 4.7 % Normal See comment [facility] Comment on above: Order Comment: Diagn osis of Bzfpccir-KnrgjqNdq-Wbhglnke: < or = 5.6%Increased risk for developing diabetes: 5.7-6.4%Diagnostic of diabetes: > or = 6.5% Performed By: #### 1 798-8 #### LUCINA Sotelo ([id number]) [facility] ([facility]) [address] [place] [address] Hepatic function 2000 panelo n 01-25-2025 Albumin BCP dye [Mass/Vol] 5.2 g/dL High 3.4-5.0 [facility] Comment on above: Performed By: #### 2 4325-3 #### LUCINA Sotelo ([id number]) [facility] ([facility]) [address] [place] [address] ALP [Catalytic activity/Vol] 282 U/L High 33-120 [facility] Comment on above: Performed By: #### 2 4325-3 #### LUCINA Sotelo ([id number]) [facility] ([facility]) [address] [place] [address] ALT With P-5'-P [Catalytic activity/Vol] 18 U/L Normal 10-52 [facility] Comment on above: Result Comment: Dalia ents treated with Sulfasalazine may generate falsely decreased results for ALT. Performed By: #### 2 4325-3 #### LUCINA Sotelo ([id number]) [facility] ([facility]) [address] [place] [address] AST With P-5'-P [Catalytic activity/Vol] 15 U/L Normal 9-39 [facility] Comment on above: Performed By: #### 2 4325-3 #### LUCINA Sotelo ([id number]) [facility] ([facility]) [address] [place] [address] Bilirubin [Mass/Vol] 0.5 mg/dL Normal 0.0-1.2 [facility] Comment on above: Performed By: #### 2 5-3 #### LUCINA Sotelo ([id number]) [facility] ([facility]) [address] [place] [address] Bilirubin.direct [Mass/Vol] 0.1 mg/dL Normal 0.0-0.3 [facility] Comment on above: Performed By: #### 2 4325-3 #### LUCINA Sotelo ([id number]) [facility] ([facility]) [address] [place] [address] Protein [Mass/Vol] 8.1 g/dL Normal 6.4-8.2 [facility] Comment on above: Performed By: #### 2 5-3 #### LUCINA Sotelo ([id number]) [facility] ([facility]) [address] [place], [place] [address] Hepatitis B virus core Abon 01-25-2025 HBV core Ab Ql (S) Non-Reactive Normal Nonreactive [facility] Comment on above: Performed By: #### 1 798-8 #### LUCINA Sotelo ([id number]) [facility] ([facility]) [address] [place], [place] [address] Hepatitis B virus surface Ab on 01-25-2025 HBV surface Ab Qn (S) >1000.0 High <10.0 [facility] Comment on above: Result Comment: Inte rpretive Criteria: <10 mIU/mL Nonreactive >=10 mIU/mL Reactive Biotin interference may cause falsely decreased results. Patients taking a Biotin dose of up to 5 mg/day should refrain from taking Biotin for 24 hours before sample collection. Providers may contact their local laboratory for further information. Performed By: #### 1 798-8 #### LUCINA Sotelo ([id number]) [facility] ([facility]) [address] [place], [place] [address] Hepatitis B virus surface Ag on 01-25-2025 HBV surface Ag IA Ql Non-Reactive Normal Nonreactive [facility] Comment on above: Result Comment: Biot in interference may cause falsely decreased results. Patients taking a Biotin dose of up to 5 mg/day should refrain from taking Biotin for 24 hours before sample collection. Providers may contact their local laboratory for further information. Performed By: #### 1 798-8 #### LUCINA Sotelo ([id number]) [facility] ([facility]) [address] [place], [place] [address] Hepatitis C virus Abon 01-25 HCV Ab Ql (S) Non-Reactive Normal Nonreactive [facility] Comment on above: Result Comment: Resu lts from patients taking biotin supplements or receiving high-dose biotin therapy should be interpreted with caution due to possible interference with this test. Providers may contact their local laboratory for further information. Performed By: #### 1 798-8 #### LUCINA Sotelo ([id number]) [facility] ([facility]) [address] [place] [address] LIPID PANEL NON-FASTINGon Cholesterol [Mass/Vol] 150 mg/dL Normal 0-199 [facility] Comment on above: Result Comment: Age Desirable Borderline High High 0-19 [...] be performed immediately prior to Metamizole dosing. Performed By: #### L IPIN #### LUCINA Sotelo ([id number]) [facility] ([facility]) [address] [place] [address] Cholesterol in HDL [Mass/Vol] 32.8 mg/dL Normal [facility] Comment on above: Result Comment: Age Very Low Low Normal High 0-19 Y < 35 < 40 40-45 ---- 20-24 Y ---- < 40 >45 ---- >24 Y ---- < 40 40-60 >60 Performed By: #### L IPIN #### LUCINA Sotelo ([id number]) [facility] ([facility]) [address] [place] [address] CHOLESTEROL/HDL RATIO 4.6 Normal [facility] Comment on above: Result Comment: Ref Values Desirable < 3.4 High Risk > 5.0 Performed By: #### L IPIN #### LUCINA Sotelo ([id number]) [facility] ([facility]) [address] [place] [address] NON-HDL CHOLESTEROL 117 mg/dL Normal 0-149 [facility] Comment on above: Result Comment: Age Desiable Borderline High High Very High 0-19 Y 0 - 119 120 - 144 >/= 145 >/= 160 20-24 Y 0 - 149 150 - 189 >/= 190 ---- >24 Y 30 MG/DL ABOVE LDL CHOLESTEROL GOAL Performed By: #### L IPIN #### LUCINA Sotelo ([id number]) [facility] ([facility]) [address] [place] [address] M. tuberculosis stim IFN-g a nd spot count panel (Bld)on 01-25-2025 Gamma interferon negative control spot count (Bld) [#] Passed [facility] Comment on above: Performed By: #### 2 160-0 #### LUCINA Sotelo ([id number]) [facility] ([facility]) [address] [place] [address]18 M. tuberculosis stim IFN-g CFP10 Ag spot count (Bld) [#] 0 [facility] Comment on above: Performed By: #### 2 160-0 #### LUCINA Sotelo ([id number]) [facility] ([facility]) [address] [place] [address]9959 M. tuberculosis stim IFN-g ESAT-6 Ag spot count (Bld) [#] 1 [facility] Comment on above: Performed By: #### 2 160-0 #### LUCINA Sotelo ([id number]) [facility] ([facility]) [address] [place] [address]1519 M. tuberculosis stim IFN-g Ql (Bld) [Interp] Negative Normal Negative [facility] Comment on above: Result Comment: A negative test result does not [...] not be interpreted as a quantitative test. Performed By: #### 2 160-0 #### LUCINA Sotelo ([id number]) [facility] ([facility]) [address] [place], [place] [address] Mitogen stimulated gamma interferon positive control spot count (Bld) [#] Passed [facility] Comment on above: Result Comment: For additional information, please refer to http://education.SheZoom/faq/ZSS520 (This link is being provided for informational/ educational purposes only.) Performed By: #### 2 160-0 #### LUCINA Sotelo ([id number]) [facility] ([facility]) [address] [place], [place] [address] NICOTINE AND METABOLITES,Son 01-25-2025 Cotinine [Mass/Vol] <5 Normal [facility] Comment on above: Performed By: #### 2 160-0 #### LUCINA Sotelo ([id number]) [facility] ([facility]) [address] [place], [place] [address] Nicotine [Mass/Vol] <5 Normal [facility] Comment on above: Result Comment: INTE RPRETIVE INFORMATION: Nicotine and Metabolites, Serum or Plasma, [...] developed and its performance characteristics determined by [facility]. It has not been cleared or approved by the [place] Food and Drug Administration. This test was performed in a CLIA certified laboratory and is intended for clinical purposes. Performed By: [facility] [address] [place] [address] Regional Engineer: Nate Jaimes MD, PhD CLIA Number: [id number] Performed By: #### 2 160-0 #### LUCINA Sotelo ([id number]) [facility] ([facility]) [address] [place] [address] PT Coag (PPP) [Time]on 01-25 INR Coag (PPP) [Relative time] 1.0 Normal 0.9-1.1 [facility] Comment on above: Performed By: #### 1 798-8 #### LUCINA Sotelo ([id number]) [facility] ([facility]) [address] [place] [address] Phosphateon 01-25-2025 Phosphate [Mass/Vol] 3.9 mg/dL Normal 2.5-4.9 [facility] Comment on above: Performed By: #### 2 777-1 #### LUCINA Sotelo ([id number]) [facility] ([facility]) [address] [place] [address] Treponema pallidum Ab.IgG+Ig Mon 01-25-2025 T. pallidum IgG+IgM IA Ql (S) Non-Reactive Normal Nonreactive [facility] Comment on above: Result Comment: No s ignificant level of Treponema pallidum antibody detected. Repeat testing in 2 to 4 weeks may be considered if early infection or incubating syphilis infection is suspected. Performed By: #### 4 7236-5 #### LUCINA Sotelo ([id number]) [facility] ([facility]) [address] [place] [address] Urea nitrogenon 01-25-2025 Urea nitrogen [Mass/Vol] 54 mg/dL High 6-23 [facility] Comment on above: Performed By: #### 3 094-0 #### LUCINA Sotelo ([id number]) [facility] ([facility]) [address] [place] [address] VZV IgG IA Ql (S)on 01-26-20 25 VARICELLA ZOSTER IGG INDEX 0.4 AI Normal <=0.8 [facility] Comment on above: Order Comment: NEGAT ERICK: No IgG antibodies specific to VZV detected.It is likely that the patient has not had aprevious exposure to VZV through infectionor vaccination. Alternatively, the patient may have beenexposed to VZV but a failure to respond may indicateimmunodeficiency.EQUIVOCAL:Equivocal results; obtain additional sample for retesting.POSITIVE: IgG antibody to VZV detected. This may indicate thatthe patient was exposed to VZV through infection orvaccination. The interpretation of serological tests shouldtake into account the immunological status of the patient. Testresults for patients, including immunocompromised patients, neonates,and pediatric patients, reflect their capacity to respondimmunologically to the virus as well as their exposure to thepathogen. Patients treated with IVIG may demonstrate alteredresults in serological assays. Performed By: #### 2 160-0 #### LUCINA Sotelo ([id number]) [facility] ([facility]) [address] [place] [address] Varicella zoster virus Ab.Ig Tre 01-25-2025 VZV IgG IA Ql (S) Negative Normal Negative [facility] Comment on above: Order Comment: NEGAT ERICK: No IgG antibodies specific to VZV detected.It is likely that the patient has not had aprevious exposure to VZV through infectionor vaccination. Alternatively, the patient may have beenexposed to VZV but a failure to respond may indicateimmunodeficiency.EQUIVOCAL:Equivocal results; obtain additional sample for retesting.POSITIVE: IgG antibody to VZV detected. This may indicate thatthe patient was exposed to VZV through infection orvaccination. The interpretation of serological tests shouldtake into account the immunological status of the patient. Testresults for patients, including immunocompromised patients, neonates,and pediatric patients, reflect their capacity to respondimmunologically to the virus as well as their exposure to thepathogen. Patients treated with IVIG may demonstrate alteredresults in serological assays. Performed By: #### 2 160-0 #### LUCINA Sotelo ([id number]) [facility] ([facility]) [address] [place], [place] [address] HLA TRANSPLANT ANTIBODY [place] 12-29-2024 HLA RESULTS See Attached Normal [facility] Comment on above: Order Comment: Test performed at:[facility] LaboratoryAnthonySaint [facility], [address] [place] [address] Performed By: #### 2 160-0 #### LUCINA Sotelo ([id number]) [facility] ([facility]) [address] [place] [address] HLA-A+B+C (class I) Ab (S) Normal [facility] Comment on above: Order Comment: Test performed at:[facility] Immunogen[facility] LaboratoryAnthony[facility], [address] [place] [address] Performed By: #### 2 160-0 #### LUCINA Sotelo ([id number]) [facility] ([facility]) [address] [place] [address] HLA-DP+DQ+DR (class II) Ab (S) Normal [facility] Comment on above: Order Comment: Test performed at:[facility] LaboratoryAnthony[facility], [address] [place] [address] Performed By: #### 2 160-0 #### LUCINA Sotelo ([id number]) [facility] ([facility]) [address] [place] [address] TRANSTHORACIC ECHO (TTE) [facility] 08-09-2024 TRANSTHORACIC ECHO (TTE) [facility], [address] [place] [address] and TRANSTHORACIC ECHOCARDIOGRAM REPORT Patient Name: JV Fountain Physician: [id number] Ana Cartagena MD Study Date: 08/09/2024 Ordering Provider: [id number] CONNOR NEWBY MRN/PID: [id number] Fellow: Nurse: Date of /Age: 11 2000 Managed Services Consultant: Johanny puckett RDCS Gender assigned at Additional Staff: : Height: 170.18 cm Admit Date: Weight: 52.16 kg Admission Status: Outpatient BSA / BMI: 1.60 m2 / 18.01 kg/m2 Blood Pressure: 103/63 mmHg Department Location: [facility] Non Invasive Study Type: TRANSTHORACIC ECHO (TTE) COMPLETE Diagnosis/ICD: Encounter for other preprocedural examination-Z01.818 Indication: Pre transplant evaluation for kidney transplant CPT Code: Echo Complete w Full Doppler-35206 Patient History: Pertinent History: ESRD, HTN. Study Detail: The following Echo studies were performed: 2D, M-Mode, Doppler and color flow. PHYSICIAN INTERPRETATION: Left Ventricle: Left ventricular ejection fraction is normal, calculated by Feliz's biplane at 66%. There is mild eccentric left ventricular hypertrophy. There are no regional left ventricular wall motion abnormalities. The left ventricular cavity size is normal. There is normal septal and normal posterior left ventricular wall thickness. Spectral Doppler shows a normal pattern of left ventricular diastolic filling. Left Atrium: The left atrium is mildly dilated. Right Ventricle: The right ventricle is normal in size. There is normal right ventricular global systolic function. Right Atrium: The right atrium is normal in size. Aortic Valve: The aortic valve is probably trileaflet. The aortic valve dimensionless index is 0.95. There is no evidence of aortic valve regurgitation. The peak instantaneous gradient of the aortic valve is 13 mmHg. The mean gradient of the aortic valve is 6 mmHg. Mitral Valve: The mitral valve is normal in structure. The peak instantaneous gradient of the mitral valve is 7 mmHg. There is trace mitral valve regurgitation. Tricuspid Valve: The tricuspid valve is structurally normal. There is trace tricuspid regurgitation. The Doppler estimated RVSP is within normal limits at 32.5 mmHg. Pulmonic Valve: The pulmonic valve is structurally normal. There is mild pulmonic valve regurgitation. Pericardium: Trivial to small pericardial effusion. Aorta: The aortic root is normal. Systemic Veins: The inferior vena cava appears normal in size, with IVC inspiratory collapse greater than 50%. In comparison to the previous echocardiogram(s): There are no prior studies on this patient for comparison purposes. No prior echocardiogram available for comparison. CONCLUSIONS: 1. Left ventricular ejection fraction is normal, calculated by Feliz's biplane at 66%. 2. There is normal right ventricular global systolic function. 3. The left atrium is mildly dilated. 4. Right ventricular systolic pressure is within normal limits. 5. No prior echocardiogram available for comparison. QUANTITATIVE DATA SUMMARY: 2D MEASUREMENTS: Normal Ranges: Ao Root d: 2.90 cm (2.0-3.7cm) LAs: 3.41 cm (2.7-4.0cm) RVIDd: 2.58 cm (0.9-3.6cm) IVSd: 0.93 cm (0.6-1.1cm) LVPWd: 0.98 cm (0.6-1.1cm) LVIDd: 5.20 cm (3.9-5.9cm) LVIDs: 3.43 cm LV Mass Index: 118 g/m2 LVEDV Index: 66 ml/m2 LV % FS 34.1 % LEFT ATRIUM: Normal Ranges: LA Vol A4C: 62.4 ml (22+/-6mL/m2) LA Vol A2C: 58.0 ml LA Vol BP: 60.7 ml LA Vol Index A4C: 39.1ml/m2 LA Vol Index A2C: 36.3 ml/m2 LA Vol Index BP: 38.0 ml/m2 LA Area A4C: 20.1 cm2 LA Area A2C: 19.2 cm2 LA Major [place] A4C: 5.5 cm LA [place] A2C: 5.4 cm RIGHT ATRIUM: Normal Ranges: RA Vol A4C: 48.1 ml (8.3-19.5ml) RA Vol Index A4C: 30.1 ml/m2 RA Area A4C: 16.3 cm2 RA Major [place] A4C: 4.7 cm AORTA MEASUREMENTS: Normal Ranges: Ao Sinus, d: 3.20 cm (2.1-3.5cm) Asc Ao, d: 2.70 cm (2.1-3.4cm) LV SYSTOLIC FUNCTION: Normal Ranges: EF-A4C View: 63 % (>=55%) EF-A2C View: 70 % EF-Biplane: 66 % LV EF Reported: 66 % LV DIASTOLIC FUNCTION: Normal Ranges: MV Peak E: 1.35 m/s (0.7-1.2 m/s) MV Peak A: 0.50 m/s (0.42-0.7 m/s) E/A Ratio: 2.70 (1.0-2.2) MV e' 0.130 m/s (>8.0) MV lateral e' 0.16 m/s MV medial e' 0.10 m/s MV A Dur: 107.27 msec E/e' Ratio: 10.42 (<8.0) MV DT: 172 msec (150-240 msec) PulmV Sys Phong: 42.45 cm/s PulmV Wills Phong: 60.20 cm/s PulmV S/D Phong: 0.71 PulmV A Revs Phong: 19.86 cm/s PulmV A Revs Dur: 107.27 msec MITRAL VALVE: Normal Ranges: MV Vmax: 1.31 m/s (<=1.3m/s) MV peak P.9 mmHg (<5mmHg) MV mean P.3 mmHg (<2mmHg) MV VTI: 35.02 cm (10-13cm) MV DT: 172 msec (150-240msec) AORTIC VALVE: Normal Ranges: AoV Vmax: 1.82 m/s (<=1.7m/s) AoV Peak P.3 mmHg (<20mmHg) AoV Mean P.1 mmHg (1.7-11.5mmHg) LVOT Max Phong: 1.81 m/s (<=1.1m/s) AoV V (more content not included)... Normal [facility] Study Interpretation of outs annemarie studyon 01-15-2024 Outside images for comparison or treatment purposes, not interpreted by Radiologists. IMAGING CBC with Diffon 07-13-2023 Abs. Basophil 0.01 k/uL Normal 0.00-0.20 [facility] Comment on above: Performed By: #### C DPSB, LIP #### [facility] [address] [place] [address] Valuer: Aftab So MD Abs.Imm.Granulocyte 0.01 k/uL Normal 0.00-0.30 [facility] Comment on above: Performed By: #### C JERMAINE CP, LIP #### [facility] [address] [place] [address] Valuer: Aftab So MD Abs.Neutrophil (Seg) 5.04 k/uL Normal 2.1-6.5 [facility] Comment on above: Performed By: #### C DP CP, LIP #### [facility] [address] [place], [place] [phone] Valuer: Aftab So MD Basophils/100 WBC (Bld) 0 % Normal 0-2 [facility] Comment on above: Performed By: #### C DP, CP, LIP #### [facility] [address] [place] [phone] Valuer: Aftab So MD Eosinophils (Bld) [#/Vol] 0.05 10*3/uL Normal 0.00-0.40 [facility] Comment on above: Performed By: #### C DP, CP, LIP #### [facility] [address] [place] [address] Valuer: Aftab So MD Eosinophils/100 WBC (Bld) 1 % Normal 0-5 [facility] Comment on above: Performed By: #### C DP, CP, LIP #### [facility] [address] [place] [phone] Valuer: Aftab So MD Erythrocyte distribution width (RBC) [Ratio] 14.8 % Normal 12.1-15.2 [facility] Comment on above: Performed By: #### C DP, CP, LIP #### [facility] [address] [place] [address] Valuer: Aftab So MD Hematocrit (Bld) [Volume fraction] 30.8 % Low 41.0-53.0 [facility] Comment on above: Performed By: #### C DP, CP, LIP #### [facility] [address] [place] [address] Valuer: Aftab So MD Hemoglobin (Bld) [Mass/Vol] 9.8 g/dL Low 13.5-17.5 [facility] Comment on above: Performed By: #### C DP, CP, LIP #### [facility] [address] [place], [place] [phone] Valuer: Aftab So MD Immature granulocytes/100 WBC (Bld) 0 % Normal 0-5 [facility] Comment on above: Performed By: #### C DP, CP, LIP #### [facility] [address] [place] [phone] Valuer: Aftab So MD Lymphocytes (Bld) [#/Vol] 0.82 10*3/uL Low 1.00-4.80 [facility] Comment on above: Performed By: #### C DP, CP, LIP #### [facility] [address] [place] [address] Valuer: Aftab So MD Lymphocytes/100 WBC (Bld) 13 % Normal 13-44 [facility] Comment on above: Performed By: #### C DP, CP, LIP #### [facility] [address] [place] [phone] Valuer: Aftab So MD MCH (RBC) [Entitic mass] 30.2 pg Normal 26.0-34.0 [facility] Comment on above: Performed By: #### C DP, CP, LIP #### [facility] [address] [place] [phone] Valuer: Aftab So MD MCHC (RBC) [Mass/Vol] 31.8 g/dL Normal 31.0-37.0 [facility] Comment on above: Performed By: #### C DP, CP, LIP #### [facility] [address] [place] [address] Valuer: Aftab So MD MCV (RBC) [Entitic vol] 94.8 fL Normal 80.0-100.0 [facility] Comment on above: Performed By: #### C DP, CP, LIP #### [facility] [address] [place] [phone] Valuer: Aftab So MD Monocytes (Bld) [#/Vol] 0.50 10*3/uL Normal 0.00-1.00 [facility] Comment on above: Performed By: #### C DP, CP, LIP #### [facility] [address] [place] [address] Valuer: Aftab So MD Monocytes/100 WBC (Bld) 8 % Normal 5-9 [facility] Comment on above: Performed By: #### C DP, CP, LIP #### [facility] [address] [place] [address] Valuer: Aftab So MD Neutrophil (Seg) 78 % High 39-75 [facility] Comment on above: Performed By: #### C DP, CP, LIP #### [facility] [address] [place] [phone] Valuer: Aftab So MD Platelet mean volume (Bld) [Entitic vol] 9.6 fL Normal 6.0-12.0 [facility] Comment on above: Performed By: #### C DP, CP, LIP #### [facility] [address] [place] [address] Valuer: Aftab So MD Platelets (Bld) [#/Vol] 146 10*3/uL Normal 140-450 [facility] Comment on above: Performed By: #### C DP, CP, LIP #### [facility] [address] [place] [address] Valuer: Aftab So MD RBC (Bld) [#/Vol] 3.25 10*6/uL Low 4.50-5.90 [facility] Comment on above: Performed By: #### C DP, CP, LIP #### [facility] [address] [place] [address] Valuer: Aftab So MD WBC (Bld) [#/Vol] 6.4 10*3/uL Normal 4.5-13.5 [facility] Comment on above: Performed By: #### C DP, CP, LIP #### [facility] [address] [place] [address] Valuer: Aftab So MD Comp Metabolic Profon 2023 Albumin [Mass/Vol] 4.7 g/dL Normal 3.5-5.2 [facility] Comment on above: Performed By: #### C DP, CP, LIP #### [facility] [address] [place] [address] Valuer: Aftab So MD Alkaline Phos 90 U/L Normal 40-129 [facility] Comment on above: Performed By: #### C DP, CP, LIP #### [facility] [address] [place] [address] Valuer: Aftab So MD ALT [Catalytic activity/Vol] 10 U/L Normal 5-41 [facility] Comment on above: Performed By: #### C DP, CP, LIP #### [facility] [address] [place] [address] Valuer: Aftab So MD Anion gap [Moles/Vol] 14 mmol/L Normal 9-17 [facility] Comment on above: Performed By: #### C DP, CP, LIP #### [facility] [address] [place] [address] Valuer: Aftab So MD AST [Catalytic activity/Vol] 10 U/L Normal <40 [facility] Comment on above: Performed By: #### C DP, CP, LIP #### [facility] [address] [place] [address] Valuer: Aftab So MD Bilirubin [Mass/Vol] 0.4 mg/dL Normal 0.3-1.2 [facility] Comment on above: Performed By: #### C DP, CP, LIP #### [facility] [address] [place], [place] [phone] Valuer: Aftab So MD BUN/CRE Ratio 7 Low 9-20 [facility] Comment on above: Performed By: #### C DP, CP, LIP #### [facility] [address] [place], [place] [phone] Valuer: Aftab So MD Calcium [Mass/Vol] 9.4 mg/dL Normal 8.6-10.4 [facility] Comment on above: Performed By: #### C DP, CP, LIP #### [facility] [address] [place], [place] [phone] Valuer: Aftab So MD Chloride [Moles/Vol] 98 mmol/L Normal 98-107 [facility] Comment on above: Performed By: #### C DP, CP, LIP #### [facility] [address] [place], [place] [phone] Valuer: Aftab So MD CO2 [Moles/Vol] 22 mmol/L Normal 20-31 [facility] Comment on above: Performed By: #### C DP, CP, LIP #### [facility] [address] [place], [place] [phone] Valuer: Aftab So MD Creatinine [Mass/Vol] 10.0 mg/dL Critically high 0.7-1.2 [facility] Comment on above: Performed By: #### C DP, CP, LIP #### [facility] [address] [place], [place] [phone] Valuer: Aftab So MD GFR/1.73 sq M.predicted among non-blacks MDRD (S/P/Bld) [Vol rate/Area] 7 mL/min/{1.73_m2} Low >60 [facility] Comment on above: Result Comment: These results are not intended for use in patients <18 years of age. eGFR results are calculated without a race factor using the 2020 CKD-EPI equation. Careful clinical correlation is recommended, particularly when comparing to results calculated using previous equations. The CKD-EPI equation is less accurate in patients with extremes of muscle mass, extra-renal metabolism of creatine, excessive creatine ingestion, or following therapy that affects renal tubular secretion. Performed By: #### C DP CP, LIP #### [facility] [address] [place] [address] Valuer: Aftab So MD Glucose [Mass/Vol] 103 mg/dL High 70-99 [facility] Comment on above: Performed By: #### C DP CP, LIP #### [facility] [address] [place] [address] Valuer: Aftab So MD Potassium [Moles/Vol] 5.5 mmol/L High 3.7-5.3 [facility] Comment on above: Performed By: #### C DP CP, LIP #### [facility] [address] [place] [address] Valuer: Aftab So MD Protein [Mass/Vol] 6.7 g/dL Normal 6.4-8.3 [facility] Comment on above: Performed By: #### C DP CP, LIP #### [facility] [address] [place] [address] Valuer: Aftab So MD Sodium [Moles/Vol] 134 mmol/L Low 135-144 [facility] Comment on above: Performed By: #### C DP CP, LIP #### [facility] [address] [place] [address] Valuer: Aftab So MD Urea nitrogen [Mass/Vol] 67 mg/dL High 6-20 [facility] Comment on above: Performed By: #### C DP, CP, LIP #### [facility] [address] [place] [address] Valuer: Aftab So MD Drug Scr, Abuse, Uron 2023 Amphetamine(s),Ur Negative Normal NEG [facility] Comment on above: Result Comment: (Positive cutoff 1000 ng/mL) Performed By: #### B MP #### [facility] [address] [place] [address] Valuer: Aftab So MD Barbiturate(s),Ur Negative Normal NEG [facility] Comment on above: Result Comment: (Positive cutoff 200 ng/mL) Performed By: #### B MP #### [facility] [address] [place] [address] Valuer: Aftab So MD Benzodiazepine(s) Negative Normal NEG [facility] Comment on above: Result Comment: (Positive cutoff 200 ng/mL) Performed By: #### B MP #### [facility] [address] [place] [address] Valuer: Aftab So MD Cannabinoid(s),Ur Negative Normal NEG [facility] Comment on above: Result Comment: (Positive cutoff 50 ng/mL) Performed By: #### B MP #### [facility] [address] [place] [address] Valuer: Aftab So MD Cocaine Metabolite Negative Normal NEG [facility] Comment on above: Result Comment: (Positive cutoff 300 ng/mL) Performed By: #### B MP #### [facility] [address] [place] [address] Valuer: Aftab So MD Fentanyl, Urine Negative Normal NEG [facility] Comment on above: Result Comment: (Positive cutoff 5 ng/ml) Performed By: #### B MP #### [facility] [address] [place] [address] Valuer: Aftab So MD Interpretive Info Assay provides medic al screening only. The absence of expected drug(s) and/or Normal [facility] Comment on above: Result Comment: meta bolite(s) may indicate diluted or adulterated urine, limitations of testing or timing of collection. Testing for legal purposes should be confirmed by another method. To request confirmation of test result, please call the lab within 7 days of sample submission. Performed By: #### B MP #### [facility] [address] [place] [address] Valuer: Aftab So MD Methadone Ql (U) Negative Normal NEG [facility] Comment on above: Result Comment: (Positive cutoff 300 ng/mL) Performed By: #### B MP #### [facility] [address] [place] [address] Valuer: Aftab So MD Opiate(s), Ur Negative Normal NEG [facility] Comment on above: Result Comment: (Positive cutoff 300 ng/mL) Performed By: #### B MP #### [facility] [address] [place] [address] Valuer: Aftab So MD Oxycodone, Urine Negative Normal NEG [facility] Comment on above: Result Comment: (Positive cutoff 100 ng/mL) Performed By: #### B MP #### [facility] [address] [place] [address] Valuer: Aftab So MD Phencyclidine, Ur Negative Normal NEG [facility] Comment on above: Result Comment: (Positive cutoff 25 ng/mL) Performed By: #### B MP #### [facility] [address] [place] [address] Valuer: Aftab So MD Lipaseon 07-13-2023 Lipase [Catalytic activity/Vol] 44 U/L Normal 13-60 [facility] Comment on above: Performed By: #### C DP, CP, LIP #### [facility] [address] [place], [place] [phone] Valuer: Aftab So MD Urinalysis, Routineon 2023 Bilirubin, SemiQt,Ur Negative Normal NEG [facility] Comment on above: Performed By: #### B MP #### [facility] [address] [place], [place] [phone] Valuer: Aftab So MD Blood, Urine TRACE Abnormal NEG [facility] Comment on above: Performed By: #### B MP #### [facility] [address] [place], [place] [phone] Valuer: Aftab So MD Clarity (U) Clear Normal CLEAR [facility] Comment on above: Performed By: #### B MP #### [facility] [address] [place] [address] Valuer: Aftab So MD Color (U) Yellow Normal YEL [facility] Comment on above: Performed By: #### B MP #### [facility] [address] [place], [place] [phone] Valuer: Aftab So MD Comment Normal [facility] Comment on above: Performed By: #### B MP #### [facility] [address] [place], [place] [phone] Valuer: Aftab So MD Glucose Ql (U) Negative Normal NEG [facility] Comment on above: Performed By: #### B MP #### [facility] [address] [place], [place] [phone] Valuer: Aftab So MD Ketones Ql (U) Negative Normal NEG [facility] Comment on above: Performed By: #### B MP #### [facility] [address] [place], [place] [address] Valuer: Aftab So MD Leukocyte esterase Test strip Ql (U) Negative Normal NEG [facility] Comment on above: Performed By: #### B MP #### [facility] [address] [place] [address] Valuer: Aftab So MD Nitrite,Ur Negative Normal NEG [facility] Comment on above: Performed By: #### B MP #### [facility] [address] [place], [place] [phone] Valuer: Aftab So MD PH,Ur 8.0 Normal 5.0-8.0 [facility] Comment on above: Performed By: #### B MP #### [facility] [address] [place] [address] Valuer: Aftab So MD Protein Ql (U) 3+ mg/dL Abnormal NEG [facility] Comment on above: Performed By: #### B MP #### [facility] [address] [place] [address] Valuer: Aftab So MD Spec. Tolar,Ur 1.015 Normal 1.005-1.030 [facility] Comment on above: Performed By: #### B MP #### [facility] [address] [place] [address] Valuer: Aftab So MD Urobilinogen,Ur Normal Normal 0.0-1.0 [facility] Comment on above: Performed By: #### B MP #### [facility] [address] [place] [address] Valuer: Aftab So MD Urinalysis,Microon 4 ----- Normal [facility] Comment on above: Performed By: #### B MP #### [facility] [address] [place], [place] [phone] Valuer: Aftab So MD Amorphous sediment LM Ql (Urine sed) 1+ Abnormal NONE [facility] Comment on above: Performed By: #### B MP #### [facility] [address] [place] [phone] Valuer: Aftab So MD Bacteria RARE Abnormal NONE [facility] Comment on above: Performed By: #### B MP #### [facility] [address] [place] [phone] Valuer: Aftab So MD Epithelial cells LM Ql (Urine sed) 0 TO 2 Normal [facility] Comment on above: Performed By: #### B MP #### [facility] [address] [place] [phone] Valuer: Aftab So MD Urine RBC's 2 TO 5 Normal 0-2 [facility] Comment on above: Performed By: #### B MP #### [facility] [address] [place] [phone] Valuer: Aftab So MD Urine WBC's 0 TO 2 Normal 0 [facility] Comment on above: Performed By: #### B MP #### [facility] [address] [place] [phone] Valuer: Aftab So MD Renal function 2000 panelOrd ered By: Sara Morris on 05-01-2023 Albumin [Mass/Vol] 3.4 g/dL 3.2 - 5.2 g/dL [facility] Anion gap [Moles/Vol] 12 mmol/L 10 - 20 mmol/L [facility] Calcium [Mass/Vol] 9.1 mg/dL 8.4 - 10. 2 mg/dL [facility] Chloride [Moles/Vol] 104 mmol/L 98 - 10 8 mmol/L [facility] Creatinine [Mass/Vol] 8.52 mg/dL High 0.50 - 1.30 mg/dL [facility] GFR/1.73 sq M.predicted CKD-EPI (S/P/Bld) [Vol rate/Area] 8 Low - PINF [facility] Comment on above: Estimated GFR was ca lculated using the 2020 CKD-EPI creatinine equation. Glucose [Mass/Vol] 97 mg/dL 65 - 99 mg/dL [facility] HCO3 [Moles/Vol] 28 mmol/L 21 - 32 mmol/L [facility] Interpretation and review of laboratory results Abnormal [facility] Phosphate [Mass/Vol] 5.3 mg/dL High 2.7 - 4 .5 mg/dL [facility] Potassium [Moles/Vol] 4.3 mmol/L 3.5 - 5.1 mmol/L [facility] Sodium [Moles/Vol] 140 mmol/L 135 - 145 mmol/L [facility] Urea nitrogen [Mass/Vol] 25 mg/dL 8 - 25 mg/dL [facility] Urea nitrogen/Creatinine [Mass ratio] 2.9 mg/mg Low 10.0 - 20.0 [facility] has implemented the eGFR calculation approach that does not have a coefficient for race that conforms to the NKF-ASN Task Force Recommendations. [facility] CBC Auto Differentialon 04-07 Basophils (Bld) [#/Vol] 0.04 10*3/uL [facility] Basophils/100 WBC (Bld) 0.7 % [facility] Eosinophils (Bld) [#/Vol] 0.05 10*3/uL [facility] Eosinophils/100 WBC (Bld) 0.9 % [facility] Erythrocyte distribution width (RBC) [Entitic vol] 14.7 % 11.6 - 14.8 % [facility] Hematocrit (Bld) [Volume fraction] 29.6 % Low 41.0 - 53.0 % [facility] Hemoglobin (Bld) [Mass/Vol] 9.1 g/dL Low 13.5 - 17.5 g/dL [facility] Immature granulocytes (Bld) [#/Vol] 0.01 10*3/uL [facility] Immature granulocytes/100 WBC (Bld) 0.20 % [facility] Comment on above: The IG parameter is the percentage of metamyelocytes, myelocytes and promyelocytes. An immature granulocyte count (IG) of 1% or more suggests the possibility of infection, an IG count of 3% is very likely related to an infection. Interpretation and review of laboratory results Abnormal [facility] Lymphocytes (Bld) [#/Vol] 1.53 10*3/uL [facility] Lymphocytes/100 WBC (Bld) 26.3 % [facility] MCH (RBC) [Entitic mass] 30.5 pg 26.0 - 34.0 pg [facility] MCHC (RBC) [Mass/Vol] 30.7 g/dL Low 31.0 - 37.0 g/dL [facility] MCV (RBC) [Entitic vol] 99.3 fL 80.0 - 100.0 fL [facility] Monocytes (Bld) [#/Vol] 0.50 10*3/uL [facility] Monocytes/100 WBC (Bld) 8.6 % [facility] Neutrophils (Bld) [#/Vol] 3.69 10*3/uL [facility] Neutrophils/100 WBC (Bld) 63.3 % [facility] Nucleated RBC (Bld) [#/Vol] 0.00 10*3/uL [facility] Nucleated RBC/100 WBC (Bld) [Ratio] 0.0 % [facility] Platelet mean volume (Bld) [Entitic vol] 10.2 fL 9.4 - 12.4 fL [facility] Platelets (Bld) [#/Vol] 135 10*3/uL Low [facility] RBC (Bld) [#/Vol] 2.98 10*6/uL Low [facility] WBC (Bld) [#/Vol] 5.82 10*3/uL [facility] CBC with Diffon 04-30-2023 Abs. Basophil 0.02 k/uL Normal 0.00-0.20 [facility] Comment on above: Performed By: #### LIZA Madrigal CDP, CP #### [facility] [address] [place] [phone] Valuer: Aftab So MD Abs.Imm.Granulocyte 0.00 k/uL Normal 0.00-0.30 [facility] Comment on above: Performed By: #### LIZA Madrigal CDP, CP #### [facility] [address] [place] [phone] Valuer: Aftab So MD Abs.Neutrophil (Seg) 4.28 k/uL Normal 2.1-6.5 [facility] Comment on above: Performed By: #### LIZA Madrigal CDP, CP #### [facility] [address] [place] [address] Valuer: Aftab So MD Basophils/100 WBC (Bld) 0 % Normal 0-2 [facility] Comment on above: Performed By: #### L D, ADY DE JESUS, CP #### [facility] [address] [place] [address] Valuer: Aftab So MD Eosinophils (Bld) [#/Vol] 0.08 10*3/uL Normal 0.00-0.40 [facility] Comment on above: Performed By: #### L Braeden, ADY DE JESUS, CP #### [facility] [address] [place] [phone] Valuer: Aftab So MD Eosinophils/100 WBC (Bld) 1 % Normal 0-5 [facility] Comment on above: Performed By: #### L LIZA Deras CDP, CP #### [facility] [address] [id number] Valuer: Aftab So MD Erythrocyte distribution width (RBC) [Ratio] 14.5 % Normal 12.1-15.2 [facility] Comment on above: Performed By: #### L LIZA Deras CDP, CP #### [facility] [address] [place] [address] Valuer: Aftab So MD Hematocrit (Bld) [Volume fraction] 30.8 % Low 41.0-53.0 [facility] Comment on above: Performed By: #### L LIZA Deras CDP, CP #### [facility] [address] [id number] Valuer: Aftab So MD Hemoglobin (Bld) [Mass/Vol] 9.8 g/dL Low 13.5-17.5 [facility] Comment on above: Performed By: #### L LIZA Deras CDP, CP #### [facility] [address] [place] [address] Valuer: Aftab So MD Immature granulocytes/100 WBC (Bld) 0 % Normal 0-5 [facility] Comment on above: Performed By: #### L LIZA Deras CDP, CP #### [facility] [address] [place] [address] Valuer: Aftab So MD Lymphocytes (Bld) [#/Vol] 1.31 10*3/uL Normal 1.20-5.20 [facility] Comment on above: Performed By: #### LIZA Madrigal CDP, CP #### [facility] [address] [place] [address] Valuer: Aftab So MD Lymphocytes/100 WBC (Bld) 21 % Normal 13-44 [facility] Comment on above: Performed By: #### LIZA Madrigal CDP, CP #### [facility] [address] [place] [address] Valuer: Aftab So MD MCH (RBC) [Entitic mass] 30.2 pg Normal 26.0-34.0 [facility] Comment on above: Performed By: #### L LIZA Deras CDP, CP #### [facility] [address] [place] [address] Valuer: Aftab So MD MCHC (RBC) [Mass/Vol] 31.8 g/dL Normal 31.0-37.0 [facility] Comment on above: Performed By: #### L LIZA Deras CDP, CP #### [facility] [address] [place] [address] Valuer: Aftab So MD MCV (RBC) [Entitic vol] 94.8 fL Normal 80.0-100.0 [facility] Comment on above: Performed By: #### LIZA Madrigal CDP, CP #### [facility] [address] [place] [address] Valuer: Aftab So MD Monocytes (Bld) [#/Vol] 0.52 10*3/uL Normal 0.00-1.00 [facility] Comment on above: Performed By: #### L LIZA Deras CDP, CP #### [facility] [address] [place] [address] Valuer: Aftab So MD Monocytes/100 WBC (Bld) 8 % Normal 5-9 [facility] Comment on above: Performed By: #### LIZA Madrigal CDP, CP #### [facility] [address] [place] [address] Valuer: Aftab So MD Neutrophil (Seg) 69 % Normal 39-75 [facility] Comment on above: Performed By: #### LIZA Madrigal CDP, CP #### [facility] [address] [place] [address] Valuer: Aftab So MD Platelet mean volume (Bld) [Entitic vol] 10.2 fL Normal 6.0-12.0 [facility] Comment on above: Performed By: #### LIZA Madrigal CDP, CP #### [facility] [address] [place] [address] Valuer: Aftab So MD Platelets (Bld) [#/Vol] 134 10*3/uL Low 140-450 [facility] Comment on above: Performed By: #### LIZA Madrigal CDP, CP #### [facility] [address] [place] [address] Valuer: Aftab So MD RBC (Bld) [#/Vol] 3.25 10*6/uL Low 4.50-5.90 [facility] Comment on above: Performed By: #### L LIZA Deras CDP, CP #### [facility] [address] [place], [place] [phone] Valuer: Aftab So MD WBC (Bld) [#/Vol] 6.2 10*3/uL Normal 4.5-13.5 [facility] Comment on above: Performed By: #### L D, LIZA CDP, CP #### [facility] [address] [place], [place] [id number] Valuer: Aftab So MD Comp Metabolic Profon 2022 Albumin [Mass/Vol] 4.5 g/dL Normal 3.5-5.2 [facility] Comment on above: Performed By: #### L Braeden, ADY DE JESUS, CP #### [facility] [address] [place], [place] [phone] Valuer: Aftab So MD Alkaline Phos 72 U/L Normal 40-129 [facility] Comment on above: Performed By: #### L Braeden, ADY DE JESUS, CP #### [facility] [address] [place], [place] [phone] Valuer: Aftab So MD ALT [Catalytic activity/Vol] 7 U/L Normal 5-41 [facility] Comment on above: Performed By: #### L Braeden, ADY DE JESUS, CP #### [facility] [address] [place], [place] [id number] Valuer: Aftab So MD Anion gap [Moles/Vol] 13 mmol/L Normal 9-17 [facility] Comment on above: Performed By: #### L Braeden, ADY DE JESUS, CP #### [facility] [address] [place], [place] [phone] Valuer: Aftab So MD AST [Catalytic activity/Vol] 7 U/L Normal <40 [facility] Comment on above: Performed By: #### L D, LIZA CDP, CP #### [facility] [address] [place], [place] [phone] Valuer: Aftab So MD Bilirubin [Mass/Vol] 0.4 mg/dL Normal 0.3-1.2 [facility] Comment on above: Performed By: #### L LIZA Deras CDP, CP #### [facility] [address] [place], [place] [phone] Valuer: Aftab So MD Calcium [Mass/Vol] 9.2 mg/dL Normal 8.6-10.4 [facility] Comment on above: Performed By: #### L LIZA Deras CDP, CP #### [facility] [address] [place] [address] Valuer: Aftab So MD Chloride [Moles/Vol] 103 mmol/L Normal 98-107 [facility] Comment on above: Performed By: #### L LIZA Deras CDP, CP #### [facility] [address] [place] [address] Valuer: Aftab So MD CO2 [Moles/Vol] 23 mmol/L Normal 20-31 [facility] Comment on above: Performed By: #### L LIZA Deras CDP, CP #### [facility] [address] [place] [address] Valuer: Aftab So MD Creatinine [Mass/Vol] 10.9 mg/dL Critically high 0.7-1.2 [facility] Comment on above: Performed By: #### L LIZA Deras CDP, CP #### [facility] [address] [place] [address] Valuer: Aftab So MD GFR/1.73 sq M.predicted among non-blacks MDRD (S/P/Bld) [Vol rate/Area] 6 mL/min/{1.73_m2} Low >60 [facility] Comment on above: Result Comment: These results are not intended for use in patients <18 years of age. eGFR results are calculated without a race factor using the 2020 CKD-EPI equation. Careful clinical correlation is recommended, particularly when comparing to results calculated using previous equations. The CKD-EPI equation is less accurate in patients with extremes of muscle mass, extra-renal metabolism of creatine, excessive creatine ingestion, or following therapy that affects renal tubular secretion. Performed By: #### LIZA Madrigal CDP, CP #### [facility] [address] [place] [address] Valuer: Aftab So MD Glucose [Mass/Vol] 90 mg/dL Normal 70-99 [facility] Comment on above: Performed By: #### LIZA Madrigal CDP, CP #### [facility] [address] [place], [place] [phone] Valuer: Aftab So MD Potassium [Moles/Vol] 6.0 mmol/L Critically high 3.7-5.3 [facility] Comment on above: Performed By: #### LIZA Madrigal CDP, CP #### [facility] [address] [place] [address] Valuer: Aftab So MD Protein [Mass/Vol] 6.6 g/dL Normal 6.4-8.3 [facility] Comment on above: Performed By: #### LIZA Madrigal CDP, CP #### [facility] [address] [place] [address] Valuer: Aftab So MD Sodium [Moles/Vol] 139 mmol/L Normal 135-144 [facility] Comment on above: Performed By: #### LIZA Madrigal CDP, CP #### [facility] [address] [place], [place] [phone] Valuer: Aftab So MD Urea nitrogen [Mass/Vol] 34 mg/dL High 6-20 [facility] Comment on above: Performed By: #### L D, LIZA, CDP, CP #### [facility] [address] [place] [address] Valuer: Aftab So MD Comprehensive metabolic 2000 panelOrdered By: Mias Rodrigues on 04-30-2023 Albumin [Mass/Vol] 3.5 g/dL 3.2 - 5.2 g/dL [facility] ALP [Catalytic activity/Vol] 69 U/L Low 75 - 270 U/L [facility] ALT [Catalytic activity/Vol] 13 U/L Low 14 - 65 U/L [facility] Anion gap [Moles/Vol] 11 mmol/L 10 - 20 mmol/L [facility] AST [Catalytic activity/Vol] U/L 0-50 U/L U/L [facility] Bilirubin [Mass/Vol] 0.4 mg/dL 0.0 - 1 .3 mg/dL [facility] Calcium [Mass/Vol] 8.8 mg/dL 8.4 - 10. 2 mg/dL [facility] Chloride [Moles/Vol] 109 mmol/L High 98 - 10 8 mmol/L [facility] Creatinine [Mass/Vol] 12.00 mg/dL Critically high 0.50 - 1.30 mg/dL [facility] GFR/1.73 sq M.predicted CKD-EPI (S/P/Bld) [Vol rate/Area] 6 Low - PINF [facility] Comment on above: Estimated GFR was ca lculated using the 2020 CKD-EPI creatinine equation. Glucose [Mass/Vol] 91 mg/dL 65 - 99 mg/dL [facility] HCO3 [Moles/Vol] 26 mmol/L 21 - 32 mmol/L [facility] Interpretation and review of laboratory results Abnormal [facility] Potassium [Moles/Vol] 6.0 mmol/L High 3.5 - 5.1 mmol/L [facility] Protein [Mass/Vol] 6.4 g/dL 6.0 - 8.0 g/dL [facility] Sodium [Moles/Vol] 140 mmol/L 135 - 145 mmol/L [facility] Urea nitrogen [Mass/Vol] 38 mg/dL High 8 - 25 mg/dL [facility] Urea nitrogen/Creatinine [Mass ratio] 3.2 mg/mg Low 10.0 - 20.0 [facility] has implemented the eGFR calculation approach that does not have a coefficient for race that conforms to the NKF-ASN Task Force Recommendations. [facility] Gastrointestinal pathogens D NA and RNA panel MARLEE+non-probe (Stl)Ordered By: Rhea Arboleda on 04-30-2023 Adenovirus 40+41 DNA MARLEE+non-probe Ql (Stl) Not detected Not Detected [facility] Astrovirus subtypes 1-8 RNA MARLEE+non-probe Ql (Stl) Not detected Not Detected [facility] C. cayetanensis DNA MARLEE+non-probe Ql (Stl) Not detected Not Detected [facility] C. coli+jejuni+upsalien sis DNA MARLEE+non-probe Ql (Stl) Not detected Not Detected [facility] C. difficile toxin A+B tcdA+tcdB genes MARLEE+non-probe Ql (Stl) Detected Abnormal Not Detected [facility] Comment on above: Toxigenic C. diffici le detected in stool. Correlation of test results with patient clinical symptoms is suggested. Young children <3 years of age have an asymptomatic carriage rate as high as 40%. NOTE: C.dif is highly contagious and inpatients should be in contact plus isolation. Outpatients should use robust hand-washing and contact precautions until symptoms subside. Cryptosporidium sp DNA MARLEE+non-probe Ql (Stl) Not detected Not Detected [facility] E. coli enteroaggregative Xu plasmid aggR+aatA genes MARLEE+non-probe Ql (Stl) Not detected Not Detected [facility] E. coli enteropathogenic eae gene MARLEE+non-probe Ql (Stl) Not detected Not Detected [facility] E. coli enterotoxigenic ltA+st1a+st1b genes MARLEE+non-probe Ql (Stl) Not detected Not Detected [facility] E. coli stx1+stx2 genes MARLEE+non-probe Ql (Stl) Not detected Not Detected [facility] E. histolytica DNA MARLEE+non-probe Ql (Stl) Not detected Not Detected [facility] G. lamblia DNA MARLEE+non-probe Ql (Stl) Not detected Not Detected [facility] Interpretation and review of laboratory results Abnormal [facility] Norovirus genogroup I+II RNA MARLEE+non-probe Ql (Stl) Not detected Not Detected [facility] P. shigelloides DNA MARLEE+non-probe Ql (Stl) Not detected Not Detected [facility] Rotavirus A RNA MARLEE+non-probe Ql (Stl) Not detected Not Detected [facility] S. enterica+bongori DNA MARLEE+non-probe Ql (Stl) Not detected Not Detected [facility] Sapovirus genogroups I+II+IV+V RNA MARLEE+non-probe Ql (Stl) Not detected Not Detected [facility] Shigella species+EIEC invasion plasmid antigen H ipaH gene MARLEE+non-probe Ql (Stl) Not detected Not Detected [facility] V. cholerae DNA MARLEE+non-probe Ql (Stl) Not detected Not Detected [facility] V. cholerae+parahaemoly ticus+vulnificus DNA MARLEE+non-probe Ql (Stl) Not detected Not Detected [facility] Y. enterocolitica DNA MARLEE+non-probe Ql (Stl) Not detected Not Detected [facility] Results of PCR testi ng for stool pathogens must be taken into clinical context when making treatment decisions. Most gastrointestinal infections due to common bacterial and viral causes are self-limited in nature and do not require antimicrobial therapy. The use of antimicrobial therapy must be carefully weighed against unintended and potentially harmful consequences. The role of antimicrobial therapy depends on the implicated pathogen. In general, antimicrobial agents are only used to treat parasitic infections as well as select bacterial infections. [facility] Lactate Dehydrogenaseon 04-07 LDH [Catalytic activity/Vol] 142 U/L Normal 135-225 [facility] Comment on above: Performed By: #### L LIZA Deras CDP, CP #### [facility] [address] [place] [address] Valuer: Aftab So MD Troponinon 04-30-2023 Troponin, High Sens 26 ng/L High 0-22 [facility] Comment on above: Result Comment: High Sensitivity Troponin values cannot be compared with other Troponin methodologies. Performed By: #### L LIZA Deras CDP, CP #### [facility] [address] [place] [address] Valuer: Aftab So MD Basic Metabolic Profon 04-29 Anion gap [Moles/Vol] 15 mmol/L Normal 9-17 [facility] Comment on above: Performed By: #### B C #### [facility] [address] [place], [place] [phone] Valuer: Aftab So MD BUN/CRE Ratio 3 Low 9-20 [facility] Comment on above: Performed By: #### B C #### [facility] [address] [place], [place] [id number] Valuer: Aftab So MD Calcium [Mass/Vol] 9.5 mg/dL Normal 8.6-10.4 [facility] Comment on above: Performed By: #### B C #### [facility] [address] [place], [place] [id number] Valuer: Aftab So MD Chloride [Moles/Vol] 100 mmol/L Normal 98-107 [facility] Comment on above: Performed By: #### B C #### [facility] [address] [place], [place] [phone] Valuer: Aftab So MD CO2 [Moles/Vol] 24 mmol/L Normal 20-31 [facility] Comment on above: Performed By: #### B C #### [facility] [address] [place], [place] [id number] Valuer: Aftab So MD Creatinine [Mass/Vol] 10.0 mg/dL Critically high 0.7-1.2 [facility] Comment on above: Performed By: #### B C #### [facility] [address] [place], [place] [phone] Valuer: Aftab So MD GFR/1.73 sq M.predicted among non-blacks MDRD (S/P/Bld) [Vol rate/Area] 7 mL/min/{1.73_m2} Low >60 [facility] Comment on above: Result Comment: These results are not intended for use in patients <18 years of age. eGFR results are calculated without a race factor using the 2020 CKD-EPI equation. Careful clinical correlation is recommended, particularly when comparing to results calculated using previous equations. The CKD-EPI equation is less accurate in patients with extremes of muscle mass, extra-renal metabolism of creatine, excessive creatine ingestion, or following therapy that affects renal tubular secretion. Performed By: #### B C #### [facility] [address] [place] [address] Valuer: Aftab So MD Glucose [Mass/Vol] 106 mg/dL High 70-99 [facility] Comment on above: Performed By: #### B C #### [facility] [address] [place], [place] [id number] Valuer: Aftab So MD Potassium [Moles/Vol] 5.6 mmol/L High 3.7-5.3 [facility] Comment on above: Performed By: #### B C #### [facility] [address] [place] [address] Valuer: Aftab So MD Sodium [Moles/Vol] 139 mmol/L Normal 135-144 [facility] Comment on above: Performed By: #### B C #### [facility] [address] [place] [address] Valuer: Aftab So MD Urea nitrogen [Mass/Vol] 30 mg/dL High 6-20 [facility] Comment on above: Performed By: #### B C #### [facility] [address] [place], [place] [id number] Valuer: Aftab So MD CBC with Diffon 04-29-2023 Abs. Basophil 0.01 k/uL Normal 0.00-0.20 [facility] Comment on above: Performed By: #### B C #### [facility] [address] [place], [place] [id number] Valuer: Aftab So MD Abs.Imm.Granulocyte 0.02 k/uL Normal 0.00-0.30 [facility] Comment on above: Performed By: #### B C #### [facility] [address] [place] [address] Valuer: Aftab So MD Abs.Neutrophil (Seg) 4.54 k/uL Normal 2.1-6.5 [facility] Comment on above: Performed By: #### B C #### [facility] [address] [place], [place] [phone] Valuer: Aftab So MD Basophils/100 WBC (Bld) 0 % Normal 0-2 [facility] Comment on above: Performed By: #### B C #### [facility] [address] [place] [address] Valuer: Aftab So MD Eosinophils (Bld) [#/Vol] 0.03 10*3/uL Normal 0.00-0.40 [facility] Comment on above: Performed By: #### B C #### [facility] [address] [place] [address] Valuer: Aftab oS MD Eosinophils/100 WBC (Bld) 1 % Normal 0-5 [facility] Comment on above: Performed By: #### B C #### [facility] [address] [place] [address] Valuer: Aftab So MD Erythrocyte distribution width (RBC) [Ratio] 14.5 % Normal 12.1-15.2 [facility] Comment on above: Performed By: #### B C #### [facility] [address] [place] [address] Valuer: Aftab So MD Hematocrit (Bld) [Volume fraction] 34.6 % Low 41.0-53.0 [facility] Comment on above: Performed By: #### B C #### [facility] [address] [place] [address] Valuer: Aftab So MD Hemoglobin (Bld) [Mass/Vol] 10.9 g/dL Low 13.5-17.5 [facility] Comment on above: Performed By: #### B C #### [facility] [address] [place] [address] Valuer: Aftab So MD Immature granulocytes/100 WBC (Bld) 0 % Normal 0-5 [facility] Comment on above: Performed By: #### B C #### [facility] [address] [place] [address] Valuer: Aftab So MD Lymphocytes (Bld) [#/Vol] 1.13 10*3/uL Low 1.20-5.20 [facility] Comment on above: Performed By: #### B C #### [facility] [address] [place] [address] Valuer: Aftab So MD Lymphocytes/100 WBC (Bld) 18 % Normal 13-44 [facility] Comment on above: Performed By: #### B C #### [facility] [address] [place] [address] Valuer: Aftab So MD MCH (RBC) [Entitic mass] 29.6 pg Normal 26.0-34.0 [facility] Comment on above: Performed By: #### B C #### [facility] [address] [place] [address] Valuer: Aftab So MD MCHC (RBC) [Mass/Vol] 31.5 g/dL Normal 31.0-37.0 [facility] Comment on above: Performed By: #### B C #### [facility] [address] [place] [address] Valuer: Aftab So MD MCV (RBC) [Entitic vol] 94.0 fL Normal 80.0-100.0 [facility] Comment on above: Performed By: #### B C #### [facility] [address] [place], [place] [phone] Valuer: Aftab So MD Monocytes (Bld) [#/Vol] 0.44 10*3/uL Normal 0.00-1.00 [facility] Comment on above: Performed By: #### B C #### [facility] [address] [place] [address] [phone] Valuer: Aftab So MD Monocytes/100 WBC (Bld) 7 % Normal 5-9 [facility] Comment on above: Performed By: #### B C #### [facility] [address] [place] [address] [phone] Valuer: Aftab So MD Neutrophil (Seg) 74 % Normal 39-75 [facility] Comment on above: Performed By: #### B C #### [facility] [address] [place] [address] [phone] Valuer: Aftab So MD Platelet mean volume (Bld) [Entitic vol] 10.3 fL Normal 6.0-12.0 [facility] Comment on above: Performed By: #### B C #### [facility] [address] [place] [address] ([phone] Valuer: Aftab So MD Platelets (Bld) [#/Vol] 166 10*3/uL Normal 140-450 [facility] Comment on above: Performed By: #### B C #### [facility] [address] [place] [address] [phone] Valuer: Aftab So MD RBC (Bld) [#/Vol] 3.68 10*6/uL Low 4.50-5.90 [facility] Comment on above: Performed By: #### B C #### [facility] [address] [place] [address] ([phone] Valuer: Aftab So MD WBC (Bld) [#/Vol] 6.2 10*3/uL Normal 4.5-13.5 [facility] Comment on above: Performed By: #### B C #### [facility] [address] [place], [place] [phone] Valuer: Aftab So MD Lactic Acidon 04-29-2023 Lactate [Moles/Vol] 0.7 mmol/L Normal 0.5-2.2 [facility] Comment on above: Performed By: #### B C #### [facility] [address] [place], [place] [phone] Valuer: Aftab So MD Lipaseon 04-29-2023 Lipase [Catalytic activity/Vol] 35 U/L Normal 13-60 [facility] Comment on above: Performed By: #### B C #### [facility] [address] [place], [place] [phone] Valuer: Aftab So MD Liver Profileon 04-29-2023 Albumin [Mass/Vol] 5.3 g/dL High 3.5-5.2 [facility] Comment on above: Performed By: #### B C #### [facility] [address] [place], [place] [id number] Valuer: Aftab So MD Alkaline Phos 83 U/L Normal 40-129 [facility] Comment on above: Performed By: #### B C #### [facility] [address] [place], [place] [id number] Valuer: Aftab So MD ALT [Catalytic activity/Vol] 8 U/L Normal 5-41 [facility] Comment on above: Performed By: #### B C #### [facility] [address] [place], [place] [id number] Valuer: Aftab So MD AST [Catalytic activity/Vol] 12 U/L Normal <40 [facility] Comment on above: Performed By: #### B C #### [facility] [address] [place], [place] [phone] Valuer: Aftab So MD Bilirubin [Mass/Vol] 0.4 mg/dL Normal 0.3-1.2 [facility] Comment on above: Performed By: #### B C #### [facility] [address] [place], [place] [id number] Valuer: Aftab So MD Bilirubin, Indirect Can not be calculated Normal 0.0-1 .0 [facility] Comment on above: Performed By: #### B C #### [facility] [address] [place], [place] [id number] Valuer: Aftab So MD Bilirubin.indirect [Mass/Vol] mg/dL Normal <0.3 [facility] Comment on above: Performed By: #### B C #### [facility] [address] [place], [place] [id number] Valuer: Aftab So MD Protein [Mass/Vol] 7.5 g/dL Normal 6.4-8.3 [facility] Comment on above: Performed By: #### B C #### [facility] [address] [place], [place] [id number] Valuer: Aftab So MD CBC panel Auto (Bld)on 04-24 Erythrocyte distribution width (RBC) [Entitic vol] 14.6 % 11.6 - 14.8 % [facility] Hematocrit (Bld) [Volume fraction] 29.0 % Low 41.0 - 53.0 % [facility] Hemoglobin (Bld) [Mass/Vol] 9.0 g/dL Low 13.5 - 17.5 g/dL [facility] Interpretation and review of laboratory results Abnormal [facility] MCH (RBC) [Entitic mass] 30.5 pg 26.0 - 34.0 pg [facility] MCHC (RBC) [Mass/Vol] 31.0 g/dL 31.0 - 37.0 g/dL [facility] MCV (RBC) [Entitic vol] 98.3 fL 80.0 - 100.0 fL [facility] Nucleated RBC (Bld) [#/Vol] 0.00 10*3/uL [facility] Nucleated RBC/100 WBC (Bld) [Ratio] 0.0 % [facility] Platelet mean volume (Bld) [Entitic vol] 9.9 fL 9.4 - 12.4 fL [facility] Platelets (Bld) [#/Vol] 143 10*3/uL Low [facility] RBC (Bld) [#/Vol] 2.95 10*6/uL Low [facility] WBC (Bld) [#/Vol] 6.32 10*3/uL [facility] Hemoglobin and Hematocrit pa sixto (Bld)on 04-24-2023 Hematocrit (Bld) [Volume fraction] 30.1 % Low 41.0 - 53.0 % [facility] Hemoglobin (Bld) [Mass/Vol] 9.5 g/dL Low 13.5 - 17.5 g/dL [facility] Interpretation and review of laboratory results Abnormal [facility] Lipaseon 04-24-2023 Lipase [Catalytic activity/Vol] 73 U/L 73 - 393 U/L [facility] Lipase [Catalytic activity/V ol]on 04-24-2023 Interpretation and review of laboratory results Normal [facility] Renal function 2000 panelon 04-24-2023 Albumin [Mass/Vol] 3.6 g/dL 3.2 - 5.2 g/dL [facility] Anion gap [Moles/Vol] 17 mmol/L 10 - 20 mmol/L [facility] Calcium [Mass/Vol] 9.0 mg/dL 8.4 - 10. 2 mg/dL [facility] Chloride [Moles/Vol] 102 mmol/L 98 - 10 8 mmol/L [facility] Creatinine [Mass/Vol] 8.82 mg/dL High 0.50 - 1.30 mg/dL [facility] GFR/1.73 sq M.predicted CKD-EPI (S/P/Bld) [Vol rate/Area] 8 Low - PINF [facility] Comment on above: Estimated GFR was ca lculated using the 2020 CKD-EPI creatinine equation. Glucose [Mass/Vol] 103 mg/dL High 65 - 99 mg/dL [facility] HCO3 [Moles/Vol] 23 mmol/L 21 - 32 mmol/L [facility] Interpretation and review of laboratory results Abnormal [facility] Phosphate [Mass/Vol] 5.9 mg/dL High 2.7 - 4 .5 mg/dL [facility] Potassium [Moles/Vol] 5.0 mmol/L 3.5 - 5.1 mmol/L [facility] Sodium [Moles/Vol] 137 mmol/L 135 - 145 mmol/L [facility] Urea nitrogen [Mass/Vol] 27 mg/dL High 8 - 25 mg/dL [facility] Urea nitrogen/Creatinine [Mass ratio] 3.1 mg/mg Low 10.0 - 20.0 [facility] has implemented the eGFR calculation approach that does not have a coefficient for race that conforms to the NKF-ASN Task Force Recommendations. [facility] APTTon 04-23-2023 aPTT Coag (Bld) [Time] 30 s [facility] Basic metabolic 2000 panelon 04-23-2023 Anion gap [Moles/Vol] 15 mmol/L 10 - 20 mmol/L [facility] Calcium [Mass/Vol] 9.3 mg/dL 8.4 - 10. 2 mg/dL [facility] Chloride [Moles/Vol] 104 mmol/L 98 - 10 8 mmol/L [facility] Creatinine [Mass/Vol] 12.40 mg/dL Critically high 0.50 - 1.30 mg/dL [facility] GFR/1.73 sq M.predicted CKD-EPI (S/P/Bld) [Vol rate/Area] 5 Low - PINF [facility] Comment on above: Estimated GFR was ca lculated using the 2020 CKD-EPI creatinine equation. Glucose [Mass/Vol] 129 mg/dL High 65 - 99 mg/dL [facility] HCO3 [Moles/Vol] 25 mmol/L 21 - 32 mmol/L [facility] Interpretation and review of laboratory results Abnormal [facility] Potassium [Moles/Vol] 5.2 mmol/L High 3.5 - 5.1 mmol/L [facility] Sodium [Moles/Vol] 139 mmol/L 135 - 145 mmol/L [facility] Urea nitrogen [Mass/Vol] 35 mg/dL High 8 - 25 mg/dL [facility] Urea nitrogen/Creatinine [Mass ratio] 2.8 mg/mg Low 10.0 - 20.0 [facility] has implemented the eGFR calculation approach that does not have a coefficient for race that conforms to the NKF-ASN Task Force Recommendations. [facility] CBC Auto Differentialon 04-06 Basophils (Bld) [#/Vol] 0.06 10*3/uL [facility] Basophils/100 WBC (Bld) 0.8 % [facility] Eosinophils (Bld) [#/Vol] 0.06 10*3/uL [facility] Eosinophils/100 WBC (Bld) 0.8 % [facility] Erythrocyte distribution width (RBC) [Entitic vol] 14.5 % 11.6 - 14.8 % [facility] Hematocrit (Bld) [Volume fraction] 28.6 % Low 41.0 - 53.0 % [facility] Hemoglobin (Bld) [Mass/Vol] 8.8 g/dL Low 13.5 - 17.5 g/dL [facility] Immature granulocytes (Bld) [#/Vol] 0.02 10*3/uL [facility] Immature granulocytes/100 WBC (Bld) 0.30 % [facility] Comment on above: The IG parameter is the percentage of metamyelocytes, myelocytes and promyelocytes. An immature granulocyte count (IG) of 1% or more suggests the possibility of infection, an IG count of 3% is very likely related to an infection. Interpretation and review of laboratory results Abnormal [facility] Lymphocytes (Bld) [#/Vol] 2.38 10*3/uL [facility] Lymphocytes/100 WBC (Bld) 30.9 % [facility] MCH (RBC) [Entitic mass] 30.0 pg 26.0 - 34.0 pg [facility] MCHC (RBC) [Mass/Vol] 30.8 g/dL Low 31.0 - 37.0 g/dL [facility] MCV (RBC) [Entitic vol] 97.6 fL 80.0 - 100.0 fL [facility] Monocytes (Bld) [#/Vol] 0.68 10*3/uL [facility] Monocytes/100 WBC (Bld) 8.8 % [facility] Neutrophils (Bld) [#/Vol] 4.50 10*3/uL [facility] Neutrophils/100 WBC (Bld) 58.4 % [facility] Nucleated RBC (Bld) [#/Vol] 0.00 10*3/uL [facility] Nucleated RBC/100 WBC (Bld) [Ratio] 0.0 % [facility] Platelet mean volume (Bld) [Entitic vol] 10.3 fL 9.4 - 12.4 fL [facility] Platelets (Bld) [#/Vol] 176 10*3/uL [facility] RBC (Bld) [#/Vol] 2.93 10*6/uL Low [facility] ealt WBC (Bld) [#/Vol] 7.70 10*3/uL [facility] [Mass/Vol]on 04-23-2023 Interpretation and review of laboratory results Normal [facility] CRP, Inflammationon 04-23-20 CRP [Mass/Vol] mg/L NINF - 10.0 mg/L [facility] ESR Westergren method (Bld) [Velocity]Ordered By: Va Leonard on 04-23-2023 ESR (Bld) [Velocity] [facility] Interpretation and review of laboratory results Normal [facility] HbA1c (Bld) [Mass fraction]O rdered By: Christopher Dang on 04-23-2023 Average glucose Estimated from glycated hemoglobin (Bld) [Mass/Vol] 103 mg/dL 68 - 114 mg/dL [facility] Interpretation and review of laboratory results Normal [facility] Normal: 4.0% - 5.6% Increased risk for diabetes: 5.7% - 6.4% Diabetes: >= 6.5% Pediatrics: No established reference range Estimated average glucose: 68-114 mg/dL [facility] Hemoglobin [id number] By: Anette Dang on 04-23-2023 HbA1c (Bld) [Mass fraction] 5.2 % 4.0 - 5.6 % [facility] Hemoglobin and Hematocrit pa sixto (Bld)on 04-23-2023 Hematocrit (Bld) [Volume fraction] 29.2 % Low 41.0 - 53.0 % [facility] Hemoglobin (Bld) [Mass/Vol] 9.0 g/dL Low 13.5 - 17.5 g/dL [facility] Interpretation and review of laboratory results Abnormal [facility] Hepatic function 2000 panelo n 04-23-2023 Albumin [Mass/Vol] 3.7 g/dL 3.2 - 5.2 g/dL [facility] ALP [Catalytic activity/Vol] 74 U/L Low 75 - 270 U/L [facility] ALT [Catalytic activity/Vol] 15 U/L 14 - 65 U/L [facility] AST [Catalytic activity/Vol] 6 U/L 0-50 U/L [facility] Bilirubin [Mass/Vol] 0.3 mg/dL 0.0 - 1 .3 mg/dL [facility] Bilirubin.conjugated [Mass/Vol] 0.1 mg/dL 0.0 - 0.4 mg/dL [facility] Interpretation and review of laboratory results Abnormal [facility] Protein [Mass/Vol] 6.7 g/dL 6.0 - 8.0 g/dL [facility] INR Coag (PPP) [Relative chacho e]on 04-23-2023 Interpretation and review of laboratory results Abnormal [facility] PT Coag (PPP) [Time] 16.1 s High [facility] During the induction phase of oral anticoagulation, the INR may not reflect the anticoagulation status of the patient. Therapeutic ranges for INR's are: Most clinical situations: INR 2.0-3.0 Mechanical Prosthetic Valve: INR 2.5-3.5 Critical: INR >5.0 [facility] Lipid 1996 panelon Cholesterol [Mass/Vol] 96 mg/dL Low 100 - 199 mg/dL [facility] Comment on above: National Cholesterol Education Program Guidelines: Cholesterol Desirable: <200 mg/dL Borderline High: 200-239 mg/dL High: greater than or equal to 240 mg/dL Cholesterol in HDL [Mass/Vol] 28 mg/dL Low 40 - 59 mg/dL [facility] Comment on above: National Cholesterol Education Program Guidelines: HDL Cholesterol Low: <40 mg/dL Near Optimal: 40-59 mg/dL High: greater than or equal to 60 mg/dL Cholesterol in LDL [Mass/Vol] 51 mg/dL 10 - 130 mg/dL [facility] Comment on above: National Cholesterol Education Program Guidelines: LDL Cholesterol Optimal: <100 mg/dL Near Optimal/above Optimal: 100-129 mg/dL Borderline High: 130-159 mg/dL High: 160-189 mg/dL Very High: greater than or equal to 190 mg/dL Cholesterol non HDL [Mass/Vol] 68 mg/dL [facility] Comment on above: National Cholesterol Education Program Guidelines: NON HDL Cholesterol Desirable: <130 mg/dL Borderline High: 130-159 mg/dL High: 160-189 mg/dL Very High: > or = 190 mg/dL Cholesterol.total/Ch olesterol in HDL [Mass ratio] 3.4 {ratio} ratio [facility] Comment on above: Males Cholesterol/HD L Ratio: Average risk: 5.0 1/2 average risk: 3.4 2 x average risk: 9.6 Interpretation and review of laboratory results Abnormal [facility] Triglyceride [Mass/Vol] 86 mg/dL 30 - 150 mg/dL [facility] Comment on above: National Cholesterol Education Program Guidelines: Triglyceride Normal: <150 mg/dL Borderline High: 150-199 mg/dL High: 200-499 mg/dL Very High: greater than or equal to 500 mg/dL Magnesiumon 04-23-2023 Magnesium [Mass/Vol] 2.7 mg/dL High 1.6 - 2 .4 mg/dL [facility] Magnesium [Mass/Vol]on 04-23 Interpretation and review of laboratory results Abnormal [facility] No Panel Informationon 04-23 [facility] PT/INRon 04-23-2023 INR Coag (PPP) [Relative time] 1.3 {INR} High 0.8 - 1.1 [facility] Phosphate [Mass/Vol]Ordered By: Misa Rodrigues on 04-23-2023 Interpretation and review of laboratory results Abnormal [facility] PhosphorusOrdered By: Misa Rodrigues on 04-23-2023 Phosphate [Mass/Vol] 6.6 mg/dL High 2.7 - 4 .5 mg/dL [facility] TSH DL <= 0.005 mIU/L Qnon 1 Interpretation and review of laboratory results Normal [facility] TSH Qn 1.68 m[IU]/L [facility] aPTT Coag (Bld) [Time]on Interpretation and review of laboratory results Normal [facility] Therapeutic range fo r APTT's is 68 - 104 seconds [facility] Basic Metabolic Profon 04-22 Anion gap [Moles/Vol] 14 mmol/L Normal 03-23 [facility] Comment on above: Performed By: #### B MP #### [facility] [address] [place] [address] Valuer: Aftab So MD BUN/CRE Ratio 3 Low 03-26 [facility] Comment on above: Performed By: #### B MP #### [facility] [address] [place] [address] Valuer: Aftab So MD Calcium [Mass/Vol] 10.0 mg/dL Normal 8.6-10.4 [facility] Comment on above: Performed By: #### B MP #### [facility] [address] [place], [place] [id number] Valuer: Aftab So MD Chloride [Moles/Vol] 97 mmol/L Low 98-107 [facility] Comment on above: Performed By: #### B MP #### [facility] [address] [place], [place] [id number] Valuer: Aftab So MD CO2 [Moles/Vol] 25 mmol/L Normal 20-31 [facility] Comment on above: Performed By: #### B MP #### [facility] [address] [place], [place] [id number] Valuer: Aftab So MD Creatinine [Mass/Vol] 11.5 mg/dL Critically high 0.7-1.2 [facility] Comment on above: Performed By: #### B MP #### [facility] [address] [place] [address] Valuer: Aftab So MD GFR/1.73 sq M.predicted among non-blacks MDRD (S/P/Bld) [Vol rate/Area] 6 mL/min/{1.73_m2} Low >60 [facility] Comment on above: Result Comment: These results are not intended for use in patients <18 years of age. eGFR results are calculated without a race factor using the 2020 CKD-EPI equation. Careful clinical correlation is recommended, particularly when comparing to results calculated using previous equations. The CKD-EPI equation is less accurate in patients with extremes of muscle mass, extra-renal metabolism of creatine, excessive creatine ingestion, or following therapy that affects renal tubular secretion. Performed By: #### B MP #### [facility] [address] [place] [address] Valuer: Aftab So MD Glucose [Mass/Vol] 118 mg/dL High 70-99 [facility] Comment on above: Performed By: #### B MP #### [facility] [address] [place] [address] Valuer: Aftab So MD Potassium [Moles/Vol] 4.7 mmol/L Normal 3.7-5.3 [facility] Comment on above: Performed By: #### B MP #### [facility] [address] [place] [address] Valuer: Aftab So MD Sodium [Moles/Vol] 136 mmol/L Normal 135-144 [facility] Comment on above: Performed By: #### B MP #### [facility] [address] [place] [address] Valuer: Aftab So MD Urea nitrogen [Mass/Vol] 32 mg/dL High 6-20 [facility] Comment on above: Performed By: #### B MP #### [facility] [address] [place] [address] Valuer: Aftab So MD CBC with Diffon 04-22-2023 Abs. Basophil 0.01 k/uL Normal 0.00-0.20 [facility] Comment on above: Performed By: #### B MP #### [facility] [address] [place] [address] Valuer: Aftab So MD Abs.Imm.Granulocyte 0.01 k/uL Normal 0.00-0.30 [facility] Comment on above: Performed By: #### B MP #### [facility] [address] [place] [address] Valuer: Aftab So MD Abs.Neutrophil (Seg) 8.00 k/uL High 2.1-6.5 [facility] Comment on above: Performed By: #### B MP #### [facility] [address] [place] [address] Valuer: Aftab So MD Basophils/100 WBC (Bld) 0 % Normal 0-2 [facility] Comment on above: Performed By: #### B MP #### [facility] [address] [place], [place] [id number] Valuer: Aftab So MD Eosinophils (Bld) [#/Vol] 0.04 10*3/uL Normal 0.00-0.40 [facility] Comment on above: Performed By: #### B MP #### [facility] [address] [place], [place] [id number] Valuer: Aftab So MD Eosinophils/100 WBC (Bld) 0 % Normal 0-5 [facility] Comment on above: Performed By: #### B MP #### [facility] [address] [place], [place] [id number] Valuer: Aftab So MD Erythrocyte distribution width (RBC) [Ratio] 14.3 % Normal 12.1-15.2 [facility] Comment on above: Performed By: #### B MP #### [facility] [address] [place], [place] [id number] Valuer: Aftab So MD Hematocrit (Bld) [Volume fraction] 34.5 % Low 41.0-53.0 [facility] Comment on above: Performed By: #### B MP #### [facility] [address] [place], [place] [id number] Valuer: Aftab So MD Hemoglobin (Bld) [Mass/Vol] 10.9 g/dL Low 13.5-17.5 [facility] Comment on above: Performed By: #### B MP #### [facility] [address] [place], [place] [id number] Valuer: Aftab So MD Immature granulocytes/100 WBC (Bld) 0 % Normal 0-5 [facility] Comment on above: Performed By: #### B MP #### [facility] [address] [place] [address] Valuer: Aftab So MD Lymphocytes (Bld) [#/Vol] 1.37 10*3/uL Normal 1.20-5.20 [facility] Comment on above: Performed By: #### B MP #### [facility] [address] [place] [address] Valuer: Aftab So MD Lymphocytes/100 WBC (Bld) 14 % Normal 13-44 [facility] Comment on above: Performed By: #### B MP #### [facility] [address] [place] [address] Valuer: Aftab So MD MCH (RBC) [Entitic mass] 29.5 pg Normal 26.0-34.0 [facility] Comment on above: Performed By: #### B MP #### [facility] [address] [place] [address] Valuer: Aftab So MD MCHC (RBC) [Mass/Vol] 31.6 g/dL Normal 31.0-37.0 [facility] Comment on above: Performed By: #### B MP #### [facility] [address] [place] [address] Valuer: Aftab So MD MCV (RBC) [Entitic vol] 93.2 fL Normal 80.0-100.0 [facility] Comment on above: Performed By: #### B MP #### [facility] [address] [place] [address] Valuer: Aftab So MD Monocytes (Bld) [#/Vol] 0.49 10*3/uL Normal 0.00-1.00 [facility] Comment on above: Performed By: #### B MP #### [facility] [address] [place] [address] Valuer: Aftab So MD Monocytes/100 WBC (Bld) 5 % Normal 5-9 [facility] Comment on above: Performed By: #### B MP #### [facility] [address] [place] [address] Valuer: Aftab So MD Neutrophil (Seg) 81 % High 39-75 [facility] Comment on above: Performed By: #### B MP #### [facility] [address] [place] [address] Valuer: Aftab So MD Platelet mean volume (Bld) [Entitic vol] 10.6 fL Normal 6.0-12.0 [facility] Comment on above: Performed By: #### B MP #### [facility] [address] [place] [address] Valuer: Aftab So MD Platelets (Bld) [#/Vol] 201 10*3/uL Normal 140-450 [facility] Comment on above: Performed By: #### B MP #### [facility] [address] [place] [address] Valuer: Aftab So MD RBC (Bld) [#/Vol] 3.70 10*6/uL Low 4.50-5.90 [facility] Comment on above: Performed By: #### B MP #### [facility] [address] [place] [address] Valuer: Aftab So MD WBC (Bld) [#/Vol] 9.9 10*3/uL Normal 4.5-13.5 [facility] Comment on above: Performed By: #### B MP #### [facility] [address] [place] [address] Valuer: Aftab So MD CT ABDOMEN PELVIS WO CONTRAS Ton 04-22-2023 CT ABDOMEN PELVIS WO CONTRAST EXAMINATION: CT ABDOMEN PELVIS WO CONTRAST, 04/22/2023 2:03 PM PDT HISTORY: mid abdominal pain COMPARISON: None. TECHNIQUE: CT scan of the abdomen and pelvis was performed without IV contrast. CT dose reduction technique was used, including Automated Exposure Control. FINDINGS: Lung: No significant finding. Liver: No significant finding. Gallbladder: No significant finding. Spleen: No significant finding. Pancreas: No significant finding. Adrenal glands: No significant finding. Kidneys, ureters and bladder: No renal/urinary tract calculi. Circumferential bladder wall thickening. Bowel: Noncontrast exam. Normal appendix is visualized. The terminal ileum appears thickened and edematous with adjacent small amount of free peritoneal fluid, for example series 2 image 67 through 81 Peritoneum/retroperitoneu m: As above. Lymph nodes: No significant finding. Vessels: No significant finding. Body wall: No significant finding. Reproductive: No significant finding. Bones: No significant finding. IMPRESSION: Noncontrasted exam with suspected terminal ileitis and associated free peritoneal fluid in the pelvis. Visualized normal appearing appendix. Bladder wall thickening, correlate for cystitis. Interpreted by: Ramon Cain MD Signed by: Ramon aCin MD 04/22/23 Final result Normal [facility] Comp Metabolic Profon 2022 Albumin [Mass/Vol] 4.8 g/dL Normal 3.5-5.2 [facility] Comment on above: Performed By: #### B MP #### [facility] [address] [place] [address] Valuer: Aftab So MD Alkaline Phos 77 U/L Normal 40-129 [facility] Comment on above: Performed By: #### B MP #### [facility] [address] [place] [address] Valuer: Aftab So MD ALT [Catalytic activity/Vol] 9 U/L Normal 5-41 [facility] Comment on above: Performed By: #### B MP #### [facility] [address] [place] [address] Valuer: Aftab So MD Anion gap [Moles/Vol] 16 mmol/L Normal 9-17 [facility] Comment on above: Performed By: #### B MP #### [facility] [address] [place], [place] [id number] Valuer: Aftab So MD AST [Catalytic activity/Vol] 9 U/L Normal <40 [facility] Comment on above: Performed By: #### B MP #### [facility] [address] [place], [place] [id number] Valuer: Aftab So MD Bilirubin [Mass/Vol] 0.3 mg/dL Normal 0.3-1.2 [facility] Comment on above: Performed By: #### B MP #### [facility] [address] [place] [address] Valuer: Aftab So MD BUN/CRE Ratio 3 Low 9-20 [facility] Comment on above: Performed By: #### B MP #### [facility] [address] [place] [address] Valuer: Aftab So MD Calcium [Mass/Vol] 9.5 mg/dL Normal 8.6-10.4 [facility] Comment on above: Performed By: #### B MP #### [facility] [address] [place], [place] [id number] Valuer: Aftab So MD Chloride [Moles/Vol] 96 mmol/L Low 98-107 [facility] Comment on above: Performed By: #### B MP #### [facility] [address] [place] [address] Valuer: Aftab So MD CO2 [Moles/Vol] 23 mmol/L Normal 20-31 [facility] Comment on above: Performed By: #### B MP #### [facility] [address] [place], [place] [id number] Valuer: Aftab So MD Creatinine [Mass/Vol] 11.1 mg/dL Critically high 0.7-1.2 [facility] Comment on above: Performed By: #### B MP #### [facility] [address] [place], [place] [id number] Valuer: Aftab So MD GFR/1.73 sq M.predicted among non-blacks MDRD (S/P/Bld) [Vol rate/Area] 6 mL/min/{1.73_m2} Low >60 [facility] Comment on above: Result Comment: These results are not intended for use in patients <18 years of age. eGFR results are calculated without a race factor using the 2020 CKD-EPI equation. Careful clinical correlation is recommended, particularly when comparing to results calculated using previous equations. The CKD-EPI equation is less accurate in patients with extremes of muscle mass, extra-renal metabolism of creatine, excessive creatine ingestion, or following therapy that affects renal tubular secretion. Performed By: #### B MP #### [facility] [address] [place], [place] [id number] Valuer: Aftab So MD Glucose [Mass/Vol] 100 mg/dL High 70-99 [facility] Comment on above: Performed By: #### B MP #### [facility] [address] [place], [place] [id number] Valuer: Aftab So MD Potassium [Moles/Vol] 6.2 mmol/L Critically high 3.7-5.3 [facility] Comment on above: Performed By: #### B MP #### [facility] [address] [place], [place] [id number] Valuer: Aftab So MD Protein [Mass/Vol] 7.1 g/dL Normal 6.4-8.3 [facility] Comment on above: Performed By: #### B MP #### [facility] [address] [place] [address] Valuer: Aftab So MD Sodium [Moles/Vol] 135 mmol/L Normal 135-144 [facility] Comment on above: Performed By: #### B MP #### [facility] [address] [place] [address] Valuer: Aftab So MD Urea nitrogen [Mass/Vol] 30 mg/dL High - [facility] Comment on above: Performed By: #### B MP #### [facility] [address] [place] [address] Valuer: Aftab So MD Outside [facility] Correspo ndenceon 01-23-2023 Outside [facility] Correspondence [id number]:12 7 Normal [facility] Telephoneon 12-17-2022 Telephone [phone] Anette Petty 2000 M Date Provider Department Center 12/17/2022 NICHOLE BURNETT None No family history on file Normal [facility] RAD - MISCon 09-14-2022 RAD - MIS [id number]:12 7 Normal [facility] Cult, Bloodon 09-12-2022 Cult, Blood Specimen Description .BLOOD Special Requests 20ML LFA Culture NO GROWTH 6 DAYS Report Status FINAL 09/12/2022 [facility] Comment on above: Performed By: #### B MP #### [facility] [address] [place] [address] Valuer: Aftab So MD Cult,Bloodon 09-12-2022 Cult,Blood Specimen Description .BLOOD Special Requests 20ML LAC Culture NO GROWTH 6 DAYS Report Status FINAL 09/12/2022 [facility] Comment on above: Performed By: #### B C #### [facility] [address] [place] [address] Valuer: Aftab So MD COVID-19, Rapidon 09-06-2022 SARS-CoV-2 (COVID-19) RdRp gene MARLEE+probe Ql (Resp) Not detected Not Detected [facility] Comment on above: Rapid NAAT: The specimen is NEGATIVE for SARS-CoV-2, the novel coronavirus associated with COVID-19. The ID NOW COVID-19 assay is designed to detect the virus that causes COVID-19 in patients with signs and symptoms of infection who are suspected of COVID-19. An individual without symptoms of COVID-19 and who is not shedding SARS-CoV-2 virus would expect to have a negative (not detected) result in this assay. Negative results should be treated as presumptive and, if inconsistent with clinical signs and symptoms or necessary for patient management, should be tested with an alternative molecular assay. Negative results do not preclude SARS-CoV-2 infection and should not be used as the sole basis for patient management decisions. Fact sheet for Healthcare Providers: https://www.fda.gov/media/486761/download Fact sheet for Patients: https://www.fda.gov/media/176823/download Methodology: Isothermal Nucleic Acid Amplification Specimen Description .NASOPHARYNGEAL SWAB [facility] Flu A/B Ag Detectionon 09-06 Flu A Ag Detection Negative Normal NEG [facility] Comment on above: Result Comment: for Influenza A Antigen Performed By: #### B MP #### [facility] [address] [place] [address] Valuer: Aftab So MD Flu B Ag Detection Negative Normal NEG [facility] Comment on above: Result Comment: for Influenza B Antigen. Performed By: #### B MP #### [facility] [address] [place] [address] Valuer: Aftab So MD Rapid influenza A/B antigens on 09-06-2022 FLUAV Ag Ql (Unsp spec) Negative NEGATIVE [facility] Comment on above: for Influenza A Anti gen FLUBV Ag Ql (Unsp spec) Negative NEGATIVE [facility] Comment on above: for Influenza B Anti gen. [facility] [id number] 09-06-2022 SARS-CoV-2 (COVID-19) RNA MARLEE+probe Ql (Unsp spec) Not detected Normal NOTIDT [facility] Comment on above: Result Comment: Rapid NAAT: The specimen is NEGATIVE for SARS-CoV-2, the novel coronavirus associated with COVID-19. The ID NOW COVID-19 assay is designed to detect the virus that causes COVID-19 in patients with signs and symptoms of infection who are suspected of COVID-19. An individual without symptoms of COVID-19 and who is not shedding SARS-CoV-2 virus would expect to have a negative (not detected) result in this assay. Negative results should be treated as presumptive and, if inconsistent with clinical signs and symptoms or necessary for patient management, should be tested with an alternative molecular assay. Negative results do not preclude SARS-CoV-2 infection and should not be used as the sole basis for patient management decisions. Fact sheet for Healthcare Providers: https://www.fda.gov/media/594083/download Fact sheet for Patients: https://www.fda.gov/media/354035/download Methodology: Isothermal Nucleic Acid Amplification Performed By: #### B MP #### [facility] [address] [place] [address] Valuer: Aftab So MD Strep Gr A Direct Agon 09-06 Strep Gr A Direct Ag Positive Abnormal NEG [facility] Comment on above: Result Comment: for Group A Streptococci Performed By: #### B MP #### [facility] [address] [place] [address] Valuer: Aftab So MD Source .THROAT SWAB Normal [facility] Comment on above: Performed By: #### B MP #### [facility] [address] [place] [address] Valuer: Aftab So MD Strep Screen Group A Throato n 09-06-2022 Interpretation and review of laboratory results Abnormal [facility] S. pyogenes Ag Ql (Throat) Positive Abnormal NEGATIVE [facility] Comment on above: for Group A Streptoc occi Source .THROAT SWAB [facility] XR CHEST (2 VW)on 09-06-2022 XR CHEST (2 VW) EXAM: XR CHEST (2 VW ) HISTORY: Reason for exam:->fever COMPARISON: 07/30/2022 IMPRESSION: FINDINGS/IMPRESSION: 1. Normal sized heart. 2. Clear lungs. Interpreted by: Walter Champion Jr., MD Signed by: Walter Champion Jr., MD 09/06/22 Final result [facility] FINDINGS/IMPRESSION: 1. Normal sized heart. 2. Clear lungs. [facility] RIS CONSOLIDATED EXAM: XR CHEST (2 VW ) HISTORY: Reason for exam:->fever COMPARISON: 07/30/2022 [facility] RIS CONSOLIDATED Walter Champion Jr., MD - 09/06/2022 EXAM: XR CHEST (2 VW) HISTORY: Reason for exam:->fever COMPARISON: 07/30/2022 IMPRESSION: FINDINGS/IMPRESSION: 1. Normal sized heart. 2. Clear lungs. [employer] Work Phone: Radiology Study observation (narrative) [employer] Phone: XR CHEST (2 VW)Ordered By: Braeden Champion on 09-06-2022 [employer] Phone: RAD - MISCon 08-03-2022 RAD - MISC [id number]:12 7 Normal [facility] XR CHEST (2 VW)on 07-30-2022 XR CHEST (2 VW) EXAM: XR CHEST (2 VW ) HISTORY: Shortness of breath COMPARISON: Portable chest 03/08/2022 IMPRESSION: FINDINGS/IMPRESSION: 1. Normal sized heart. 2. Clear lungs. Interpreted by: Walter Champion Jr., MD Signed by: Walter Champion Jr., MD 07/30/22 Final result [facility] FINDINGS/IMPRESSION: 1. Normal sized heart. 2. Clear lungs. [facility] RIS CONSOLIDATED EXAM: XR CHEST (2 VW ) HISTORY: Shortness of breath COMPARISON: Portable chest 03/08/2022 PN RIS CONSOLIDATED Walter Champion Jr., MD - 07/30/2022 EXAM: XR CHEST (2 VW) HISTORY: Shortness of breath COMPARISON: Portable chest 03/08/2022 IMPRESSION: FINDINGS/IMPRESSION: 1. Normal sized heart. 2. Clear lungs. [employer] Work Phone: Radiology Study observation (narrative) [employer] Phone: XR CHEST (2 VW)Ordered By: Braeden Champion on 07-30-2022 [employer] Work Phone: Telephoneon 07-16-2022 Telephone [phone] Anette Petty 2000 M Date Provider Department Center 07/16/2022 TAI LAINEZ TXP None No family history on file Reason for Visit and Comments: Referral - Kidney Txp [[id number]] Normal [facility] Outside Hospital Correspo ndenceon 06-15-2022 Outside [facility] Correspondence [id number]:12 7 Normal [facility] RAD - MISCon 03-16-2022 RAD - MISC [id number]#[id number]:12 7 Normal [facility] Basic Metabolic Panelon 09-0 Anion gap [Moles/Vol] 12 mmol/L 9 - 17 mmol/L [employer] Calcium [Mass/Vol] 10.1 mg/dL 8.6 - 10. 4 mg/dL [employer] Chloride [Moles/Vol] 98 mmol/L 98 - 10 7 mmol/L [employer] CO2 [Moles/Vol] 28 mmol/L 20 - 31 mmol/L [employer] Creatinine [Mass/Vol] 5.75 mg/dL Critically high 0.7 - 1.2 mg/dL [employer] GFR Non- Pediatric GFR requires additional information. Refer to NKDEP website for calculator. 60 - PINF mL/min [facility] GFR/1.73 sq M.predicted MDRD (S/P/Bld) [Vol rate/Area] [facility] Comment on above: Average GFR for <20 years old not available. Chronic Kidney Disease: <60 mL/min/1.73sq m Kidney failure: <15 mL/min/1.73sq m eGFR calculated using average adult body mass. Additional eGFR calculator available at: http://www.[employer]/multiple_crcl_2012.htm Glucose [Mass/Vol] 144 mg/dL High 70 - 99 mg/dL [facility] Potassium [Moles/Vol] 3.5 mmol/L Low 3.7 - 5.3 mmol/L [facility] Sodium [Moles/Vol] 138 mmol/L 135 - 144 mmol/L [facility] Urea nitrogen (BldV) [Mass/Vol] 37 mg/dL High 6 - 20 mg/dL [facility] Urea nitrogen/Creatinine (Bld) [Mass ratio] 6 Low 9 - 20 [facility] Brain Natriuretic Peptideon 03-08-2022 Natriuretic peptide B (Bld) [Mass/Vol] 388 pg/mL High NINF - 300 pg/mL [facility] Comment on above: An age-independent cutoff point of 300 pg/ml has a 98% negative predictive value excluding acute heart failure. CBC with Auto Differentialon 03-08-2022 Absolute Eos # 0.20 [facility] Absolute Lymph # 1.20 [facility] Absolute [place] # 0.50 [facility] RS [facility] Basophils (Bld) [#/Vol] 0.00 10*3/uL [facility] Basophils/100 WBC (Bld) 1 % 0 - 2 % [facility] Differential Type YES [facility] Eosinophils/100 WBC (Bld) 3 % 0 - 5 % [facility] Hematocrit (Bld) [Volume fraction] 36.1 % Low 41 - 53 % [facility] Hemoglobin (Bld) [Mass/Vol] 11.9 g/dL Low 13.5 - 17.5 g/dL [facility] Interpretation and review of laboratory results Abnormal [facility] Lymphocytes/100 WBC (Bld) 16 % 13 - 44 % [facility] MCH (RBC) [Entitic mass] 30.2 pg 26 - 34 pg [facility] MCHC (RBC) [Mass/Vol] 32.9 g/dL 31 - 37 g/dL [facility] MCV (RBC) [Entitic vol] 91.6 fL 80 - 100 fL [facility] Monocytes/100 WBC (Bld) 7 % 5 - 9 % [facility] Platelet distribution width (Bld) [Ratio] 15.7 % High 12.1 - 15.2 % [facility] Platelets (Bld) [#/Vol] 157 10*3/uL [facility] RBC (Bld) [#/Vol] 3.94 10*6/uL Low 4.5 - 5.9 m/uL [facility] Segmented neutrophils/100 WBC (Bld) 73 % 39 - 75 % [facility] Segs Absolute 5.50 [facility] WBC (Bld) [#/Vol] 7.4 10*3/uL [facility] No Panel Informationon 03-08 Interpretation and review of laboratory results Abnormal [facility] XR CHEST PORTABLEon 03-08-20 22 Negative chest. [facility] RIS CONSOLIDATED EXAM: XR CHEST TESFAYE BLE HISTORY: Reason for exam:->Shortness of breath 21-year-old male shortness of breath. Dialysis patient. COMPARISON: Chest 11/03/2021. TECHNIQUE: AP portable chest 1105 hours. FINDINGS: Heart size normal. Lungs clear. Bony thorax and upper abdomen normal. [facility] RIS CONSOLIDATED Walter Champion Jr., MD - 03/08/2022 EXAM: XR CHEST PORTABLE HISTORY: Reason for exam:->Shortness of breath 21-year-old male shortness of breath. Dialysis patient. COMPARISON: Chest 11/03/2021. TECHNIQUE: AP portable chest 1105 hours. FINDINGS: Heart size normal. Lungs clear. Bony thorax and upper abdomen normal. IMPRESSION: Negative chest. [facility] [employer] Work Phone: Radiology Study observation (narrative) [facility] [employer] Work Phone: XR CHEST PORTABLEOrdered By: Walter Champion on 03-08-2022 [facility] [employer] Work Phone: CBC with Auto Differentialon 01-07-2022 Absolute Eos # 0.10 [facility] Absolute Lymph # 1.20 [facility] SECO URS [facility] Absolute [place] # 0.60 [facility] [employer] Basophils (Bld) [#/Vol] 0.10 10*3/uL [facility] Basophils/100 WBC (Bld) 1 % 0 - 2 % [facility] Differential Type YES [facility] Eosinophils/100 WBC (Bld) 2 % 0 - 5 % [facility] Hematocrit (Bld) [Volume fraction] 41.3 % 41 - 53 % [facility] Hemoglobin (Bld) [Mass/Vol] 13.5 g/dL 13.5 - 17.5 g/dL [facility] Interpretation and review of laboratory results Abnormal [facility] Lymphocytes/100 WBC (Bld) 16 % 13 - 44 % [facility] MCH (RBC) [Entitic mass] 29.7 pg 26 - 34 pg [facility] MCHC (RBC) [Mass/Vol] 32.7 g/dL 31 - 37 g/dL [facility] MCV (RBC) [Entitic vol] 90.9 fL 80 - 100 fL [facility] Monocytes/100 WBC (Bld) 8 % 5 - 9 % [facility] Platelet distribution width (Bld) [Ratio] 15.5 % High 12.1 - 15.2 % [facility] Platelets (Bld) [#/Vol] 198 10*3/uL [facility] RBC (Bld) [#/Vol] 4.55 10*6/uL 4.5 - 5.9 m/uL [facility] [employer] Segmented neutrophils/100 WBC (Bld) 73 % 39 - 75 % [facility] Segs Absolute 5.60 [facility] WBC (Bld) [#/Vol] 7.6 10*3/uL [facility] CT HEAD WO CONTRASTon 2021 No acute intracranial abnormality. [facility] CONSOLIDATED EXAM: CT HEAD WO CON TRAST COMPARISON: 12/10/2019. CLINICAL INFORMATION: Hypertensive episode, altered mental status. TECHNIQUE: Axial noncontrast images were obtained through the brain and reconstructed using brain and bone algorithms with sagittal and coronal reconstructions. Dose reduction techniques were achieved by using automated exposure control and/or adjustment of mA and/or kV according to patient size and/or use of iterative reconstruction technique. FINDINGS: BRAIN: No intracranial hemorrhage. No extra-axial collection. No mass or mass effect. No midline shift. Zamudio-white matter differentiation is preserved. CSF: Ventricles and sulci appropriate for age. Cavum septum pellucidum again noted, normal variant. ORBITS: Visualized orbital structures are unremarkable. SINUSES AND MASTOID AIR CELLS: Paranasal sinuses are clear. Mastoid air cells are clear. BONES: No acute osseous abnormality. SOFT TISSUES: Unremarkable. [facility] CONSOLIDATED Eric Hager MD - 01/07/2022 EXAM: CT HEAD WO CONTRAST COMPARISON: 12/10/2019. CLINICAL INFORMATION: Hypertensive episode, altered mental status. TECHNIQUE: Axial noncontrast images were obtained through the brain and reconstructed using brain and bone algorithms with sagittal and coronal reconstructions. Dose reduction techniques were achieved by using automated exposure control and/or adjustment of mA and/or kV according to patient size and/or use of iterative reconstruction technique. FINDINGS: BRAIN: No intracranial hemorrhage. No extra-axial collection. No mass or mass effect. No midline shift. Zamudio-white matter differentiation is preserved. CSF: Ventricles and sulci appropriate for age. Cavum septum pellucidum again noted, normal variant. ORBITS: Visualized orbital structures are unremarkable. SINUSES AND MASTOID AIR CELLS: Paranasal sinuses are clear. Mastoid air cells are clear. BONES: No acute osseous abnormality. SOFT TISSUES: Unremarkable. IMPRESSION: No acute intracranial abnormality. [facility] Work Phone: Radiology Study observation (narrative) [facility] Work Phone: CT HEAD WO CONTRASTOrdered B y: Eric Hager on 01-07-2022 [employer] Work Phone: Comprehensive Metabolic Pane israel 01-07-2022 Albumin [Mass/Vol] 5 g/dL 3.5 - 5.2 g/dL [employer] ALP (Bld) [Catalytic activity/Vol] 133 U/L High 40 - 129 U/L [employer] [facility] ALT [Catalytic activity/Vol] 8 U/L 5 - 41 U/L [employer] [facility] Anion gap [Moles/Vol] 11 mmol/L 9 - 17 mmol/L [employer] [facility] AST [Catalytic activity/Vol] 11 U/L <40 [employer] Bilirubin [Mass/Vol] 0.47 mg/dL 0.30 - 1.20 mg/dL [employer] [facility] Calcium [Mass/Vol] 10.1 mg/dL 8.6 - 10. 4 mg/dL [employer] [facility] Chloride [Moles/Vol] 96 mmol/L Low 98 - 10 7 mmol/L [employer] [facility] CO2 [Moles/Vol] 30 mmol/L 20 - 31 mmol/L [employer] [facility] Creatinine [Mass/Vol] 3.56 mg/dL High 0.70 - 1.20 mg/dL [employer] Free PSA/Total PSA [Mass fraction] 7.8 g/dL 6.4 - 8.3 g/dL [facility] [employer] GFR Non- Pediatric GFR requires additional information. Refer to NKDEP website for calculator. >60 mL/min [employer] GFR/1.73 sq M.predicted MDRD (S/P/Bld) [Vol rate/Area] [facility] [employer] Comment on above: Average GFR for <20 years old not available. Chronic Kidney Disease: <60 mL/min/1.73sq m Kidney failure: <15 mL/min/1.73sq m eGFR calculated using average adult body mass. Additional eGFR calculator available at: http://www.[employer]Stuff.com/multiple_crcl_2012.htm Glucose [Mass/Vol] 103 mg/dL High 70 - 99 mg/dL [employer] Interpretation and review of laboratory results Abnormal [facility] Potassium [Moles/Vol] 4.2 mmol/L 3.7 - 5.3 mmol/L [facility] Sodium [Moles/Vol] 137 mmol/L 135 - 144 mmol/L [facility] Urea nitrogen (BldV) [Mass/Vol] 20 mg/dL 6 - 20 mg/dL [facility] [employer] Urea nitrogen/Creatinine (Bld) [Mass ratio] 6 Low [facility] EKG Rhythm Stripon [facility] US HEMODIALYSIS ACCESSon HEMODIALYSIS ACCESS Patient Info Name: JV PETTY Age: 21 years : 2000 Gender: Male Exam Date: 10/18/2021 1:19 PM Patient Status: Outpatient Morning Show Host: Michelle Locke, CARLOS, RDMS (AB), RVT Referring Physician: BOWEN BAR ; Indications N18.6 - End stage renal disease Procedure Description 81231 Duplex scan of hemodialysis access using B-mode, color, and spectral Doppler. Conclusions * Patent arteriovenous fistula in the right upper extremity. Measurements listed below. Measurements Name Value Flow Volume Arterial Inflow 1,323 ml/min AVF Prox Outflow 143 ml/min AVF Mid Outflow 1,294 ml/min AVF Distal Outflow 1,450 ml/min Measurements Name Value Velocity Inflow Artery Velocity 269 cm/s AVF Anastomosis Velocity 474 cm/s AVF Prox Velocity 520 cm/s AVF Mid Velocity 104 cm/s AVF Distal Velocity 126 cm/s Measurements Name Value AP Inflow Artery AP 5.3 mm AVF Anastomosis AP 6.9 mm AVF Prox AP 3.2 mm AVF Mid AP 7.2 mm AVF Distal AP 7.5 mm Measurements Name Value Depth AVF Prox Depth 3.7 mm AVF Mid Depth 2.4 mm AVF Distal Depth 3.9 mm Access: Fistula Inflow Artery: Brachial Outflow Vein: Cephalic Laterality: Right Risk Factors Patient has a history of hypertension and tobacco use-previous. . Report Signatures Finalized by Chandan Barnhart MD on 10/18/2021 02:46 PM [facility] HEMODIALYSIS ACCESS Patient Info Name: JV PETTY Age: 21 years : 2000 Gender: Male Exam Date: 10/18/2021 1:19 PM Patient Status: Outpatient Morning Show Host: Michelle Locke, CARLOS, RDMS (AB), RVT Referring Physician: BOWEN BAR ; Indications N18.6 - End stage renal disease Procedure Description 64744 Duplex scan of hemodialysis access using B-mode, color, and spectral Doppler. Conclusions * Patent arteriovenous fistula in the right upper extremity. Measurements listed below. Measurements Name Value Flow Volume Arterial Inflow 1,323 ml/min AVF Prox Outflow 143 ml/min AVF Mid Outflow 1,294 ml/min AVF Distal Outflow 1,450 ml/min Measurements Name Value Velocity Inflow Artery Velocity 269 cm/s AVF Anastomosis Velocity 474 cm/s AVF Prox Velocity 520 cm/s AVF Mid Velocity 104 cm/s AVF Distal Velocity 126 cm/s Measurements Name Value AP Inflow Artery AP 5.3 mm AVF Anastomosis AP 6.9 mm AVF Prox AP 3.2 mm AVF Mid AP 7.2 mm AVF Distal AP 7.5 mm Measurements Name Value Depth AVF Prox Depth 3.7 mm AVF Mid Depth 2.4 mm AVF Distal Depth 3.9 mm Access: Fistula Inflow Artery: Brachial Outflow Vein: Cephalic Laterality: Right Risk Factors Patient has a history of hypertension and tobacco use-previous. . Report Signatures Finalized by Chandan Barnhart MD on 10/18/2021 02:46 PM Dictated by: CHANDAN BARNHART on FriOct 18, 2021 2:50:04 PM EDT Transcribed by: CHANDAN BARNHART on FriOct 18, 2021 2:50:04 PM EDT Finalized by: CHANDAN BARNHART on FriOct 18, 2021 2:50:04 PM EDT Normal [facility] COVID-19, MOLECULARon 2021 SARS-CoV-2 (COVID-19) RNA MARLEE+probe Ql (Unsp spec) Not detected Normal Not Detected [facility] Comment on above: Result Comment: This test was performed under the FDA's Emergency Use Authorization (EUA). Testing was performed using the Marcie SARS-CoV-2 RT-PCR assay on the [employer] Marcie 6800 System. This test has not been approved for use in asymptomatic patients and its performance in this patient population has not been evaluated. Negative results do not rule out the presence of SARS-CoV-2/COVID-19. Fact sheets for this EUA can be found at the following links: For Healthcare Providers: https://www.fda.gov/media/727470/download For Patients: https://www.fda.gov/media/315226/download Performed By: #### L [id number] #### [facility] [address] [place] [address] Clifford Blunt M.D. [id number] PREOPERATIVE MAPPING FOR HEMODIALYSIS ACCESS;BILATERALon 08-16-2021 US PREOPERATIVE MAPPING FOR HEMODIALYSIS ACCESS;BILATERAL Patient Info Name: JV PETTY Age: 21 years : 2000 Gender: Male Exam Date: 08/16/2021 12:07 PM Patient Status: Outpatient Morning Show Host: Edilia North RDMS, RVT Referring Physician: NINO ESPINOSA ; Indications - CKD (chronic kidney disease) stage 4, GFR 15-29 ml/min ([facility]) N18.4 - Chronic kidney disease, stage 4 (severe) Procedure Description 20663 Duplex scan of arterial inflow and venous outflow for preoperative vessel assessment prior to creation of hemodialysis access using B-mode, color and spectral Doppler ; bilateral study. Conclusions * RIGHT. * Right upper extremity arteries and veins are patent with measurements as listed. * The right brachial artery measures 3.0 mm distal at the elbow and 3.8 mm prox. in the upper arm. The right mid brachial artery velocity is 124 cm/sec. * The right radial artery measures 2.2 mm prox at the elbow and 1.9 mm distal at the wrist. The right radial artery mid velocity is 83 cm/sec. * LEFT. * Left upper extremity arteries and veins are patent with measurements as listed. * The left brachial artery measures 3.2 mm distal at the elbow and 3.3 mm prox. in the upper arm. The velocity of the mid left brachial artery is 125 cm/sec. * The left radial artery measures 1.7 mm prox at the elbow and 1.9 mm distal at the wrist. The left radial artery mid velocity is 62 cm/sec. Recommendations * Adequately sized bilateral basilic veins for a primary AVF creation. Measurements Name Value Right Vein AP Right Prox Arm Basilic AP 4.8 mm Right Distal Arm Basilic AP 4.5 mm Measurements Name Value Right Vein AP Right Prox Arm Cephalic AP 3.7 mm Right Distal Arm Cephalic AP 2.9 mm Right Prox Forearm Cephalic AP 1.8 mm Right Distal Forearm Cephalic AP 1.7 mm Name Value Left Vein AP Left Prox Arm Basilic AP 4.6 mm Left Distal Arm Basilic AP 4.1 mm Name Value Left Vein AP Left Prox Arm Cephalic AP 0.8 mm Left Distal Arm Cephalic AP 1.3 mm Left Prox Forearm Cephalic AP 1.1 mm Left Distal Forearm Cephalic AP 1.2 mm Risk Factors Patient has a history of hypertension. CKD stage 4. port right. . Report Signatures Finalized by Chanadn Barnhart MD on 08/16/2021 01:42 PM [facility] PREOPERATIVE MAPPING FOR HEMODIALYSIS ACCESS;BILATERAL Patient Info Name: JV PETTY Age: 21 years : 2000 Gender: Male Exam Date: 08/16/2021 12:07 PM Patient Status: Outpatient Morning Show Host: Edilia North RDMS, RVT Referring Physician: NINO ESPINOSA ; Indications - CKD (chronic kidney disease) stage 4, GFR 15-29 ml/min ([facility]) N18.4 - Chronic kidney disease, stage 4 (severe) Procedure Description 49325 Duplex scan of arterial inflow and venous outflow for preoperative vessel assessment prior to creation of hemodialysis access using B-mode, color and spectral Doppler ; bilateral study. Conclusions * RIGHT. * Right upper extremity arteries and veins are patent with measurements as listed. * The right brachial artery measures 3.0 mm distal at the elbow and 3.8 mm prox. in the upper arm. The right mid brachial artery velocity is 124 cm/sec. * The right radial artery measures 2.2 mm prox at the elbow and 1.9 mm distal at the wrist. The right radial artery mid velocity is 83 cm/sec. * LEFT. * Left upper extremity arteries and veins are patent with measurements as listed. * The left brachial artery measures 3.2 mm distal at the elbow and 3.3 mm prox. in the upper arm. The velocity of the mid left brachial artery is 125 cm/sec. * The left radial artery measures 1.7 mm prox at the elbow and 1.9 mm distal at the wrist. The left radial artery mid velocity is 62 cm/sec. Recommendations * Adequately sized bilateral basilic veins for a primary AVF creation. Measurements Name Value Right Vein AP Right Prox Arm Basilic AP 4.8 mm Right Distal Arm Basilic AP 4.5 mm Measurements Name Value Right Vein AP Right Prox Arm Cephalic AP 3.7 mm Right Distal Arm Cephalic AP 2.9 mm Right Prox Forearm Cephalic AP 1.8 mm Right Distal Forearm Cephalic AP 1.7 mm Name Value Left Vein AP Left Prox Arm Basilic AP 4.6 mm Left Distal Arm Basilic AP 4.1 mm Name Value Left Vein AP Left Prox Arm Cephalic AP 0.8 mm Left Distal Arm Cephalic AP 1.3 mm Left Prox Forearm Cephalic AP 1.1 mm Left Distal Forearm Cephalic AP 1.2 mm Risk Factors Patient has a history of hypertension. CKD stage 4. port right. . Report Signatures Finalized by Chandan Barnhart MD on 08/16/2021 01:42 PM Dictated by: CHANDAN BARNHART on Teri Aug 16, 2021 1:42:53 PM EST Transcribed by: CHANDAN BARNHART on Teri Aug 16, 2021 1:42:53 PM EST Finalized by: CHANDAN BARNHART on [facility] Aug 16, 2021 1:42:53 PM EST Normal [facility] Renal Function Panelon 08-01 Albumin [Mass/Vol] 3.6 g/dL Normal 3.4-5.2 [facility] Calcium [Mass/Vol] 8.9 mg/dL Normal 8-10.5 [facility] Chloride [Moles/Vol] 101 mmol/L Normal 98-110 [facility] CO2 [Moles/Vol] 29 mmol/L Normal 21-30 [facility] Creatinine [Mass/Vol] 5.93 mg/dL Critically high 0.5-1.[address] [facility] Glucose [Mass/Vol] 101 mg/dL Normal 60-115 [facility] Phosphate [Mass/Vol] 6.2 mg/dL High 2.5-4.7 [facility] Potassium [Moles/Vol] 4.8 mmol/L Normal 3.6-4.[address] [facility] Sodium [Moles/Vol] 136 mmol/L Normal 135-145 [facility] Urea nitrogen [Mass/Vol] 49 mg/dL Critically high 5-[address] [facility] Renal Function Panelon 07-31 Albumin [Mass/Vol] 3.5 g/dL Normal 3.4-5.2 [facility] Calcium [Mass/Vol] 8.9 mg/dL Normal 8-10.5 [facility] Chloride [Moles/Vol] 101 mmol/L Normal 98-110 [facility] CO2 [Moles/Vol] 27 mmol/L Normal 21-30 [facility] Creatinine [Mass/Vol] 4.59 mg/dL Critically high 0.5-1.[address] [facility] Glucose [Mass/Vol] 101 mg/dL Normal 60-115 [facility] Phosphate [Mass/Vol] 5.9 mg/dL High 2.5-4.7 [facility] Potassium [Moles/Vol] 4.7 mmol/L Normal 3.6-4.[address] [facility] Sodium [Moles/Vol] 136 mmol/L Normal 135-145 [facility] Urea nitrogen [Mass/Vol] 34 mg/dL High 5-[address] [facility] Hepatitis B Surface Ab, Toni ton 07-30-2021 Hep B Surface Ab Result Negative Normal [facility] Hepatitis B Surface Ab, Quant <8.[address] [facility] HepB Surface Ab Interpretation Individual is not considered immune to HBV infection. Normal [facility] Hepatitis Profileon 07-30-19 Hepatitis A Ab, IgM Negative Normal [facility] Hepatitis B Core Ab Negative Normal [facility] Hepatitis B Surface, Ag Negative Normal NEG [facility] Hepatitis C Antibody Negative Normal [facility] Renal Function Panelon 07-30 Albumin [Mass/Vol] 3.5 g/dL Normal 3.4-5.2 [facility] Calcium [Mass/Vol] 8.6 mg/dL Normal 8-10.5 [facility] Chloride [Moles/Vol] 99 mmol/L Normal 98-110 [facility] CO2 [Moles/Vol] 29 mmol/L Normal 21-30 [facility] Creatinine [Mass/Vol] 6.68 mg/dL Critically high 0.5-1.[address] [facility] Glucose [Mass/Vol] 105 mg/dL Normal 60-115 [facility] Phosphate [Mass/Vol] 7.1 mg/dL High 2.5-4.7 [facility] Potassium [Moles/Vol] 4.5 mmol/L Normal 3.6-4.9 [facility] Sodium [Moles/Vol] 135 mmol/L Normal 135-145 [facility] Urea nitrogen [Mass/Vol] 67 mg/dL Critically high 5-[address] [facility] Renal Function Panelon 07-29 Albumin [Mass/Vol] 3.5 g/dL Normal 3.4-5.2 [facility] Calcium [Mass/Vol] 8.7 mg/dL Normal 8-10.5 [facility] Chloride [Moles/Vol] 99 mmol/L Normal 98-110 [facility] CO2 [Moles/Vol] 26 mmol/L Normal -30 [facility] Creatinine [Mass/Vol] 6.09 mg/dL Critically high 0.5-1.2 [facility] Glucose [Mass/Vol] 103 mg/dL Normal 60-115 [facility] Phosphate [Mass/Vol] 6.8 mg/dL High 2.5-4.7 [facility] Potassium [Moles/Vol] 4.7 mmol/L Normal 3.6-4.[address] [facility] Sodium [Moles/Vol] 134 mmol/L Low 135-145 [facility] Urea nitrogen [Mass/Vol] 56 mg/dL Critically high 5-[address] [facility] Renal Function Panelon 07-28 Albumin [Mass/Vol] 3.5 g/dL Normal 3.4-5.2 [facility] Calcium [Mass/Vol] 8.8 mg/dL Normal 8-10.5 [facility] Chloride [Moles/Vol] 98 mmol/L Normal 98-110 [facility] CO2 [Moles/Vol] 27 mmol/L Normal 21-30 [facility] Creatinine [Mass/Vol] 6.92 mg/dL Critically high 0.5-1.2 [facility] Glucose [Mass/Vol] 108 mg/dL Normal 60-115 [facility] Phosphate [Mass/Vol] 7.6 mg/dL High 2.5-4.7 [facility] Potassium [Moles/Vol] 4.6 mmol/L Normal 3.6-4.[address] [facility] Sodium [Moles/Vol] 132 mmol/L Low 135-145 [facility] Urea nitrogen [Mass/Vol] 76 mg/dL Critically high 5-[address] [facility] XR CHEST - PA AND LATERALon 07-28-2021 XR CHEST - PA AND LATERAL REASON FOR EXAM: requirement for new dialysis patient TECHNIQUE: XR CHEST - PA AND LATERAL COMPARISON: November 2018. FINDINGS: TUBES/LINES: Dialysis catheter at the [facility] [place]. LUNGS/PLEURA: Normal lung volumes. Lungs clear. No pneumothorax. Trace effusions. HEART AND MEDIASTINUM: Normal BONES AND SOFT TISSUES: Normal. UPPER ABDOMEN: Normal. IMPRESSION: 1. Dialysis catheter in satisfactory position. 2. Trace effusions. Interpreted by: Samy Echavarria DO Signed by: Samy Echavarria DO on 07/28/2021 5:35 AM Normal [facility] K Priorityon 07-27-2021 Potassium [Moles/Vol] 5.3 mmol/L High 3.6-4.[address] [facility] Phosphoruson 07-27-2021 Phosphorus Requested test cance lled by physician/unit Normal 2.5-4.[address] [facility] Renal Function Panelon 07-27 Albumin [Mass/Vol] 3.4 g/dL Normal 3.4-5.2 [facility] Calcium [Mass/Vol] 8.6 mg/dL Normal 8-10.5 [facility] Chloride [Moles/Vol] 104 mmol/L Normal 98-110 [facility] CO2 [Moles/Vol] 21 mmol/L Normal 21-30 [facility] Creatinine [Mass/Vol] 6.81 mg/dL Critically high 0.5-1.[address] [facility] Glucose [Mass/Vol] 139 mg/dL High 60-115 [facility] Phosphate [Mass/Vol] 8.1 mg/dL High 2.5-4.7 [facility] Comment on above: Result Comment: Spec imen hemolyzed, interpret with caution Potassium [Moles/Vol] 5.7 mmol/L High 3.6-4.[address] [facility] Comment on above: Result Comment: Spec imen hemolyzed, interpret with caution Sodium [Moles/Vol] 133 mmol/L Low 135-145 [facility] Urea nitrogen [Mass/Vol] 89 mg/dL Critically high 5-[address] [facility] Comment on above: Result Comment: Spec imen hemolyzed, interpret with caution APTTon 07-26-2021 aPTT Coag (Bld) [Time] 30 s Normal 24-[address] [facility] Comment on above: Performed By: #### A PTT #### Performed at [employer], [facility], [place] [address] CBC Auto Diff Reflex Manualo n 07-26-2021 Absolute Basophils 0.0 10*3/uL Normal [facility] Absolute Eosinophils 0.2 10*3/uL Normal [facility] Absolute Immature Granulocytes 0.0 10*3/uL Normal [facility] Absolute Lymphocytes 2.0 10*3/uL Normal [facility] Absolute Monocytes 0.6 10*3/uL Normal [facility] Absolute Neutrophils 5.1 10*3/uL Normal [facility] Automated Absolute Neutrophil 5.1 10*3/mm3 Normal [facility] Comment on above: Result Comment: Auto mated Absolute Neutrophil Count (ANC) is directly measured using a hematology instrument. ANC determined from manual differential cell count may differ. No [facility] reference range has been validated for this assay. Basophil 0.6 % Normal 0.2-1.[address] [facility] Comment No reference range established for absolute counts. Normal [facility] Differential Type Automated Normal [facility] Eosinophil 1.9 % Normal 0.2-8.[address] [facility] Immature Granulocytes 0.3 % Normal [facility] Lymphocyte 25.6 % Normal 9.0-51.[address] [facility] MCH 29.9 pg Normal 26.0-34.[address] [facility] MCHC 33.5 % Normal 31.0-37.[address] [facility] MCV 89.3 fL Normal 80.0-100.[address] [facility] Monocyte 7.2 % Normal 4.0-13.[address] [facility] MPV 10.4 fL Normal 9.3-13.[address] [facility] Neutrophil 64.4 % Normal 40.8-78.[address] [facility] Platelet Count 175 10*3/uL Normal 142-508 [facility] RBC 3.8 10*6/uL Low 4.5-5.[address] [facility] RDW 13.1 % Normal 10-14.[address] [facility] WBC 7.9 10*3/uL Normal 4.5-13.[address] [facility] Coag Source B[place] 2021 Coag Source PIV Normal [facility] Comment on above: Performed By: #### S COAGB ####Performed at [address] [address] Ferritinon 07-26-2021 Ferritin [Mass/Vol] 274 ng/mL Normal 31-294 [facility] Fibrinogenon 07-26-2021 Fibrinogen 388 mg/dL Normal 170-[address] [facility] Comment on above: Performed By: #### F IBR ####Performed at [facility], [address] [place] [id number] IR TUNNELLED CVC PLACEMENT 5 YEARS OLD AND OLDERon 07-26-2021 IR TUNNELLED CVC PLACEMENT 5 YEARS OLD AND OLDER For all OUTPATIENT orders please call [phone] in addition to placing order. The on-call interventional radiologist must be contacted regarding scheduling of ALL EMERGENT and AFTER-HOURS and WEEKEND procedure requests. RADIOLOGIST WILL REVIEW AND PROTOCOL THE PROCEDURE NEEDED. STUDY: IR TUNNELLED CVC PLACEMENT 5 YEARS OLD AND OLDER 07/26/2021 2:57 PM REASON FOR EXAM: Jv has CKD stage 4-5. he is planned to start dialysis this weekend. . PROCEDURE: Tunneled right internal jugular hemodialysis catheter placement PREOPERATIVE DIAGNOSIS: CKD POSTOPERATIVE DIAGNOSIS: Same ANESTHESIA: Provided by the anesthesiology service. LOCAL ANESTHESIA: 1% lidocaine with epinephrine. SOCCER COMMENTATOR: Lety Kurtz. ASSISTANTS: Addie Tomlin. SPECIMENS: None. ESTIMATED BLOOD LOSS: Less than 5 mLs. COMPLICATIONS: None. COMPARISON IMAGING: Chest radiograph 11/08/2018. TECHNIQUE/FINDINGS: The potential benefits and risks of the procedure were described in detail to the patient's parent and written informed consent was obtained. The site was marked, and a timeout was performed per protocol. The right neck was prepped and draped in the usual sterile fashion. All elements of maximum sterile barrier technique were utilized. Ultrasound evaluation of the right internal jugular vein confirmed the presence of a patent, normal-appearing vessel. The skin was infiltrated with lidocaine and a small incision was made. Under direct sonographic visualization, a 18-gauge needle was advanced into the vessel. A J-wire and subsequently the peel-away sheath was advanced under fluoroscopic observation. The wire tip was positioned at the superior cavoatrial junction and was removed and measured for length. Next, the skin overlying the right upper chest wall was infiltrated with lidocaine and a small incision was made. The catheter was tunneled through the right upper chest wall to the incision in the neck. The catheter was then placed through the peel-away sheath. The catheter tip position in the right atrium near the superior cavoatrial junction was confirmed with fluoroscopy. The catheter was flushed and locked with 1000 unit/ml heparin in each lumen. The catheter was sutured to the skin. The neck incision was closed with a single absorbable suture and covered with Dermabond. Insertion checklist was completed in real-time and interventions occurred as needed. Line position is confirmed and this line is ready for use. SECUREMENT: 3-0 Prolene at the catheter insertion site. CATHETER: 12.5-S[place] Arabian 24-cm hemodialysis catheter IMPRESSION: Placement of a tunneled hemodialysis catheter via the right internal jugular vein. The line is ready for use. I, Lety Kurtz, have supervised the procedure and/or image review, and agree with the above interpretation and report. Interpreted by: Lety Kurtz MD Sweeney, Ashley, MD Signed by: Lety Kurtz MD on 07/26/2021 4:28 PM [address] [facility] Iron and TIBCon 07-26-2021 Iron Unable to perform du e to hemolysis, please recollect. Normal 65-[address] [facility] Iron Saturation Unable to perform du e to hemolysis, please recollect. Normal 15-[address] [facility] TIBC Unable to perform du e to hemolysis, please recollect. Normal 250-[address] [facility] K Priorityon 07-26-2021 Potassium [Moles/Vol] 5.3 mmol/L High 3.6-4.[address] [facility] Potassium [Moles/Vol] 5.7 mmol/L High 3.6-4.[address] [facility] Comment on above: Result Comment: No v isible hemolysis LYT,GLU,BUN,CREA,CA,MG,PHOSo n 07-26-2021 Calcium [Mass/Vol] 5.3 mg/dL Critically low 8-10.5 [facility] Chloride [Moles/Vol] 118 mmol/L High 98-110 [facility] CO2 [Moles/Vol] 14 mmol/L Low 21-30 [facility] Creatinine [Mass/Vol] 4.16 mg/dL Critically high 0.5-1.[address] [facility] Glucose [Mass/Vol] 88 mg/dL Normal 60-115 [facility] Magnesium [Mass/Vol] 1.3 mg/dL Low 1.5-2.4 [facility] Phosphate [Mass/Vol] 3.8 mg/dL Normal 2.5-4.7 [facility] Potassium [Moles/Vol] 3.8 mmol/L Normal 3.6-4.9 [facility] Sodium [Moles/Vol] 136 mmol/L Normal 135-145 [facility] Urea nitrogen [Mass/Vol] 56 mg/dL Critically high 5-[address] [facility] Calcium [Mass/Vol] 8.8 mg/dL Normal 8-10.5 [facility] Chloride [Moles/Vol] 103 mmol/L Normal 98-110 [facility] CO2 [Moles/Vol] 22 mmol/L Normal 21-30 [facility] Creatinine [Mass/Vol] 6.28 mg/dL Critically high 0.5-1.[address] [facility] Glucose [Mass/Vol] 95 mg/dL Normal 60-115 [facility] Magnesium [Mass/Vol] 2.3 mg/dL Normal 1.5-2.4 [facility] Phosphate [Mass/Vol] 6.5 mg/dL High 2.5-4.7 [facility] [facility] Potassium [Moles/Vol] 4.7 mmol/L Normal 3.6-4.9 [facility] Sodium [Moles/Vol] 133 mmol/L Low 135-145 [facility] Urea nitrogen [Mass/Vol] 83 mg/dL Critically high 5-[address] [facility] PTH with Calciumon 2 Calcium [Mass/Vol] 8.8 mg/dL Normal 8-10.5 [facility] Parathyroid Hormone 134 pg/mL High 10-65 [facility] Potassiumon 07-26-2021 Potassium [Moles/Vol] 6.5 mmol/L Critically high 3.6-4.[address] [facility] Prothrombin Timeon 2 INR Coag (PPP) [Relative time] 1.0 {INR} Normal [facility] Comment on above: Result Comment: INR value is best utilized in evaluation of patients on warfarin therapy. Performed By: #### P T ####Performed at [address] [address] PT Coag (PPP) [Time] 13.1 s Normal 12.4-14.7 [facility] Comment on above: Performed By: #### P T ####Performed at [address] [address] Rapid SARS-COV-2, Molecular, POCTon 07-26-2021 SARS-CoV-2 (COVID-19) RNA MARLEE+probe Ql (Unsp spec) Normal NODT [facility] Comment on above: Result Comment: Not Detected A result of Not Detected from patients with symptom onset beyond the acute phase of infection should be treated as presumptive and, if clinically indicated, confirmed with an alternative assay. Renal Function Panelon 07-26 Albumin [Mass/Vol] 3.5 g/dL Normal 3.4-5.2 [facility] Calcium [Mass/Vol] 8.8 mg/dL Normal 8-10.5 [facility] Chloride [Moles/Vol] 104 mmol/L Normal 98-110 [facility] CO2 [Moles/Vol] 24 mmol/L Normal 21-30 [facility] Creatinine [Mass/Vol] 6.26 mg/dL Critically high 0.5-1.[address] [facility] Glucose [Mass/Vol] 115 mg/dL Normal 60-115 [facility] Phosphate [Mass/Vol] 6.1 mg/dL High 2.5-4.7 [facility] Comment on above: Result Comment: Spec imen hemolyzed, interpret with caution Potassium [Moles/Vol] 6.2 mmol/L Critically high 3.6-4.[address] [facility] Comment on above: Result Comment: Spec imen hemolyzed, interpret with caution Sodium [Moles/Vol] 133 mmol/L Low 135-145 [facility] Urea nitrogen [Mass/Vol] 83 mg/dL Critically high 5-[address] [facility] Comment on above: Result Comment: Spec imen hemolyzed, interpret with caution Urinalysis, Completeon 07-26 Appearance (U) Clear Normal [facility] Bilirubin Ql (U) Negative Normal NEG [facility] Glucose Ql (U) Negative Normal NEG [facility] Ketones Ql (U) Negative Normal NEG [facility] Leukocyte esterase Test strip Ql (U) Negative Normal NEG [facility] Microscopic, Urine Microscopic Normal [facility] Nitrite Ql (U) Negative Normal NEG [facility] Occult Blood Negative Normal NEG [facility] pH (U) 6.0 [pH] Normal 4.5-8.[address] [facility] Protein Ql (U) > or = [address] Ab[address] [facility] Specific Tolar, Urine 1.009 Normal 1.007-1.[address] [facility] Specimen Color Straw Normal [facility] Urobilinogen (U) [Mass/Vol] Negative Normal <1.[address] [facility] Source Clean catch midstrea m urine Normal [facility] Vitamin D 25 Hydroxyon 07-26 Vitamin D 25 Hydroxy 11 ng/mL Low 30-120 [facility] Comment on above: Result Comment: (NOTE) <21 ng/mL considered deficient 21-29 ng/mL considered insufficient 30-120 ng/mL considered sufficient >120 ng/mL considered high Ranges are based on Endocrine Society criteria. Vitamin D 25 Hydroxy Duplicate Order Normal 30-[address] [facility] Comment on above: Performed By: #### A PTT #### Performed at [employer], [place] [address] POCT Urinalysis, Strip Onlyo n 07-19-2021 Appearance (U) Clear Normal [facility] Bilirubin, Urine Strip Negative Normal NEG [facility] Glucose, Urine Strip Negative Normal NEG [facility] Ketone, Urine Strip Negative Normal NEG [facility] Leukocyte esterase, Ur Strip Negative Normal NEG [facility] Nitrite, Urine Strip Negative Normal NEG [facility] Occult blood, Urine Strip Trace, Intact Abnormal NEG [facility] pH, Urine Strip 5.5 Normal 4.5-8.0 [facility] Protein, Urine Strip > or = 300 Abnormal NEG [facility] Specific Tolar, Urine Strip 1.020 Normal 1.007-1.[address] [facility] Specimen Color Yellow Normal [facility] Urobilinogen 0.2 Flo U/dL Normal <1.1 [facility] CBC Auto DifferentialOrdered By: Arturo Etienne on 12-11-2020 Absolute Eos # 0.10 [employer] [facility] Work Phone: Absolute Immature Granulocyte NOT REPORTED [employer] Work Phone: Absolute Lymph # 1.80 [employer] [facility] Work Phone: Absolute [place]ave # 0.60 [employer] [facility] Work Phone: Basophils (Bld) [#/Vol] 0.00 10*3/uL [employer] Work Phone: Basophils/100 WBC (Bld) 1 % 0 - 2 % [employer] Work Phone: Differential Type YES [employer] [facility] Work Phone: Eosinophils/100 WBC (Bld) 1 % 0 - 5 % [employer] Work Phone: Hematocrit (Bld) [Volume fraction] 35.3 % Low 41 - 53 % [employer] Work Phone: Hemoglobin.gastroint estinal spec 1 Ql (Stl) 12.1 g/dL Low 13.5 - 17.5 g/dL [employer] Phone: Immature Granulocytes NOT REPORTED 0 % [employer] Work Phone: Interpretation and review of laboratory results Abnormal [employer] Phone: Lymphocytes/100 WBC (Bld) 22 % 13 - 44 % [employer] Work Phone: MCH (RBC) [Entitic mass] 31.5 pg 25 - 35 pg [employer] Phone: MCHC (RBC) [Mass/Vol] 34.4 g/dL 31 - 37 g/dL [employer] Phone: MCV (RBC) [Entitic vol] 91.3 fL 78 - 102 fL [employer] Work Phone: Monocytes/100 WBC (Bld) 7 % 5 - 9 % [employer] Phone: NRBC Automated NOT REPORTED per 100 WBC [employer] [facility] Work Phone: Platelet distribution width (Bld) [Ratio] 13.1 % 12.1 - 15.2 % [employer] Phone: Platelet Estimate NOT REPORTED [employer] Phone: Platelet mean volume (Bld) [Entitic vol] NOT REPORTED 6.0 - 12.0 fL [employer] Phone: Platelets (Bld) [#/Vol] 199 10*3/uL [employer] Phone: RBC (Bld) [#/Vol] 3.86 10*6/uL Low 4.5 - 5.9 m/uL [employer] Phone: RBC (Bld) [#/Vol] NOT REPORTED [employer] Phone: Segmented neutrophils/100 WBC (Bld) 69 % 39 - 75 % [employer] Work Phone: Segs Absolute 5.70 [employer] Work Phone: WBC (Bld) [#/Vol] 8.3 10*3/uL [employer] Phone: WBC (Bld) [#/Vol] NOT REPORTED [employer] Phone: [employer] Phone: Comprehensive Metabolic Pane lOrdered By: Arturo Etienne on 12-11-2020 Albumin [Mass/Vol] 4.5 g/dL 3.5 - 5.2 g/dL [employer] Phone: Albumin/Globulin Ratio NOT REPORTED [employer] Phone: ALP (Bld) [Catalytic activity/Vol] 98 U/L 40 - 129 U/L [employer] Phone: ALT [Catalytic activity/Vol] 14 U/L 5 - 41 U/L [employer] Phone: Anion gap [Moles/Vol] 12 mmol/L 9 - 17 mmol/L [employer] Phone: AST [Catalytic activity/Vol] 21 U/L <40 [employer] Phone: Bilirubin [Mass/Vol] 0.11 mg/dL Low 0.30 - 1.20 mg/dL [employer] Phone: Calcium [Mass/Vol] 9.3 mg/dL 8.6 - 10. 4 mg/dL [employer] Phone: Chloride [Moles/Vol] 104 mmol/L 98 - 10 7 mmol/L [employer] Phone: CO2 [Moles/Vol] 23 mmol/L 20 - 31 mmol/L [employer] Phone: Creatinine [Mass/Vol] 3.2 mg/dL High 0.70 - 1.20 mg/dL [employer] Phone: Free PSA/Total PSA [Mass fraction] 7.3 g/dL 6.4 - 8.3 g/dL [employer] Phone: GFR NOT REPORTED >60 mL/min [employer] Phone: GFR Non- Pediatric GFR requires additional information. Refer to NKDEP website for calculator. >60 mL/min [employer] Phone: GFR/1.73 sq M.predicted MDRD (S/P/Bld) [Vol rate/Area] [employer] Phone: Comment on above: Average GFR for <20 years old not available. Chronic Kidney Disease: <60 mL/min/1.73sq m Kidney failure: <15 mL/min/1.73sq m eGFR calculated using average adult body mass. Additional eGFR calculator available at: http://www.Atieva/multiple_crcl_2012.htm GFR/1.73 sq M.predicted MDRD (S/P/Bld) [Vol rate/Area] NOT REPORTED [employer] Phone: Glucose [Mass/Vol] 132 mg/dL High 70 - 99 mg/dL [employer] Phone: Interpretation and review of laboratory results Abnormal [employer] Phone: Potassium [Moles/Vol] 4.3 mmol/L 3.7 - 5.3 mmol/L [employer] Phone: Sodium [Moles/Vol] 139 mmol/L 135 - 144 mmol/L [employer] Phone: Urea nitrogen (BldV) [Mass/Vol] 58 mg/dL High 6 - 20 mg/dL [employer] Phone: Urea nitrogen/Creatinine (Bld) [Mass ratio] 18 [employer] Phone: [employer] Phone: LipaseOrdered By: Arturo haas on 12-11-2020 Lipase [Catalytic activity/Vol] 50 U/L 13 - 60 U/L [facility] Work Phone: [facility] Work Phone: Microscopic UrinalysisOrdere d By: Arturo Etienne on 12-11-2020 - [facility] Work Phone: Amorphous, UA NOT REPORTED None [facility] Work Phone: Bacteria, UA NOT REPORTED None [facility] Work Phone: Casts UA NOT REPORTED /LPF [facility] Work Phone: Crystals, UA NOT REPORTED None /HPF [facility] Work Phone: Epithelial Cells UA 0 TO 2 /HPF [facility] Work Phone: Mucus, UA NOT REPORTED None [facility] Work Phone: Other Observations UA NOT REPORTED NOT REQ. [facility] Work Phone: RBC, UA 0 TO 2 [facility] Work Phone: Renal Epithelial, UA NOT REPORTED 0 /HPF [facility] Work Phone: Trichomonas, UA NOT REPORTED None [facility] Work Phone: WBC, UA NOT REPORTED 0 /HPF [facility] Work Phone: Yeast, UA NOT REPORTED None [facility] Work Phone: [facility] Work Phone: UrinalysisOrdered By: Tabatha Etienne on 12-11-2020 Bilirubin Urine Negative NEGATIVE [facility] Work Phone: Color, UA YELLOW YELLOW [facility] Work Phone: Glucose, Ur Negative NEGATIVE [facility] Work Phone: Interpretation and review of laboratory results Abnormal [facility] Work Phone: Ketones Ql (U) Negative NEGATIVE [facility] Work Phone: Leukocyte esterase Test strip Ql (U) Negative NEGATIVE [employer] Work Phone: Nitrite, Urine Negative NEGATIVE [employer] Work Phone: pH, UA 5.0 [employer] Work Phone: Protein, UA 2+ Abnormal NEGATIVE [employer] Work Phone: Specific Tolar, UA 1.020 [employer] Phone: Turbidity UA CLEAR CLEAR [employer] Work Phone: Urinalysis Comments [employer] Work Phone: Urine Hgb TRACE Abnormal NEGATIVE [employer] Phone: Urobilinogen, Urine Normal Normal [employer] Work Phone: [employer] Work Phone: No Panel InformationOrdered By: Ranjan Augustin on 11-24-2020 No acute bilateral k nee abnormality or prominent degenerative change. [employer] Work Phone: EXAM: XR KNEE RIGHT (MIN 4 VIEWS), XR KNEE LEFT (MIN 4 VIEWS) HISTORY: M25.561 M25.562. Pain in both knees, unspecified chronicity. COMPARISON: None. TECHNIQUE: Erect AP, lateral, oblique, and patellar views of both knees. FINDINGS: No fracture, dislocation, or significant degenerative change is seen. No joint effusion or calcification is apparent. No erosive or destructive changes are seen. Residual epiphyseal densities are present. No focal soft tissue swelling is seen. There are overlying artifactual densities present bilaterally. [employer] Work Phone: [place], [facility] Incoming Radiant Results From [employer] - 11/24/2020 4:05 PM EDT EXAM: XR KNEE RIGHT (MIN 4 VIEWS), XR KNEE LEFT (MIN 4 VIEWS) HISTORY: M25.561 M25.562. Pain in both knees, unspecified chronicity. COMPARISON: None. TECHNIQUE: Erect AP, lateral, oblique, and patellar views of both knees. FINDINGS: No fracture, dislocation, or significant degenerative change is seen. No joint effusion or calcification is apparent. No erosive or destructive changes are seen. Residual epiphyseal densities are present. No focal soft tissue swelling is seen. There are overlying artifactual densities present bilaterally. IMPRESSION: No acute bilateral knee abnormality or prominent degenerative change. [employer] Phone: [employer] Phone: XR SHOULDER LEFT (MIN 2 VIEW S)Ordered By: Ranjan Augustin on 11-24-2020 No bilateral shoulde r acute abnormality or prominent degenerative change. [employer] Phone: EXAM: XR SHOULDER LE FT (3 VIEWS), XR SHOULDER RIGHT (3 VIEWS): HISTORY: M25.512. G89.29. M 25.511. bilateral chronic shoulder pain. COMPARISON: None. TECHNIQUE: AP, external rotation, and scapular Y views of both shoulders. FINDINGS: No fracture or dislocation is seen. No prominent degenerative changes noted. No bursal or soft tissue calcifications are apparent. Residual proximal humeral epiphyseal densities are present and appear symmetrical. [employer] Phone: [place], pn Incoming Radiant Results From [employer] - 11/24/2020 4:05 PM EDT EXAM: XR SHOULDER LEFT (3 VIEWS), XR SHOULDER RIGHT (3 VIEWS): HISTORY: M25.512. G89.29. M 25.511. bilateral chronic shoulder pain. COMPARISON: None. TECHNIQUE: AP, external rotation, and scapular Y views of both shoulders. FINDINGS: No fracture or dislocation is seen. No prominent degenerative changes noted. No bursal or soft tissue calcifications are apparent. Residual proximal humeral epiphyseal densities are present and appear symmetrical. IMPRESSION: No bilateral shoulder acute abnormality or prominent degenerative change. [employer] Phone: [employer] Phone: XR SPINE ENTIRE (2-3 VIEWS)O rdered By: Ranjan Augustin on 11-24-2020 No acute cervical, dorsal, or lumbar osseous abnormality or degenerative change. Mild lumbar curvature of 5 degrees is present without prominent scoliotic curvature. [employer] Phone: EXAM: XR SPINE ENTIR E (2-3 VIEWS) HISTORY: M41.9. Scoliosis, unspecified scoliosis-type, unspecified spinal region. Chronic low back pain, unspecified back pain laterally. M54.5. G89.29. COMPARISON: None. TECHNIQUE: Erect AP and lateral views of the cervical, dorsal, and lumbar spine with 7 images. FINDINGS: No fracture or subluxation is seen. No prominent degenerative changes are noted. Dorsal pedicles appear intact. There is a mild lumbar tilted curvature, convex left of 5 degrees from superior endplate of T11 to the inferior endplate of L4. Prominent scoliotic curvature is not suggested. There is mild straightening of the cervical curve. Lumbar curve appears maintained. [employer] Phone: [place], [facility] Incoming Radiant Results From [employer] - 11/24/2020 4:17 PM EDT EXAM: XR SPINE ENTIRE (2-3 VIEWS) HISTORY: M41.9. Scoliosis, unspecified scoliosis-type, unspecified spinal region. Chronic low back pain, unspecified back pain laterally. M54.5. G89.29. COMPARISON: None. TECHNIQUE: Erect AP and lateral views of the cervical, dorsal, and lumbar spine with 7 images. FINDINGS: No fracture or subluxation is seen. No prominent degenerative changes are noted. Dorsal pedicles appear intact. There is a mild lumbar tilted curvature, convex left of 5 degrees from superior endplate of T11 to the inferior endplate of L4. Prominent scoliotic curvature is not suggested. There is mild straightening of the cervical curve. Lumbar curve appears maintained. IMPRESSION: No acute cervical, dorsal, or lumbar osseous abnormality or degenerative change. Mild lumbar curvature of 5 degrees is present without prominent scoliotic curvature. [employer] Phone: [employer] Phone: POCT Urinalysis, Strip Onlyo n 08-30-2020 Appearance (U) Clear Normal [facility] Bilirubin, Urine Strip Negative Normal NEG [facility] Glucose, Urine Strip Negative [facility] Ketone, Urine Strip Negative Normal NEG [facility] Leukocyte esterase, Ur Strip Negative Normal NEG [facility] Nitrite, Urine Strip Negative Normal NEG [facility] Occult blood, Urine Strip Trace, Lysed Abnormal NEG [facility] pH, Urine Strip 5.5 Normal 4.5-8.0 [facility] Protein, Urine Strip Trace Abnormal NEG [facility] Specific Tolar, Urine Strip 1.015 Normal 1.007-1.[address] [facility] Specimen Color Yellow Normal [facility] Urobilinogen 0.2 Flo U/dL Normal <1.1 [facility] CBC Auto Differentialon -0 -2019 Basophils (Bld) [#/Vol] 0.10 10*3/uL [place] Basophils/100 WBC (Bld) 1 % 0 - 2 % [place] Differential Type YES [place] Eosinophils (Bld) [#/Vol] 0.20 10*3/uL [place] Eosinophils/100 WBC (Bld) 3 % 0 - 5 % [place] Erythrocyte distribution width (RBC) [Ratio] 13.2 % 12.1 - 15.2 % [place] Hematocrit (Bld) [Volume fraction] 36.7 % Low 41 - 53 % [place] Hemoglobin (Bld) [Mass/Vol] 12.4 g/dL Low 13.5 - 17.5 g/dL [place] Interpretation and review of laboratory results Abnormal [place] Lymphocytes (Bld) [#/Vol] 2.00 10*3/uL [place] Lymphocytes/100 WBC (Bld) 24 % 13 - 43 % [place] MCH (RBC) [Entitic mass] 31.1 pg 25 - 35 pg [place] MCHC (RBC) [Mass/Vol] 33.7 g/dL 31 - 37 g/dL [place] MCV (RBC) [Entitic vol] 92.3 fL 78 - 102 fL [place] Monocytes (Bld) [#/Vol] 0.80 10*3/uL [place] Monocytes/100 WBC (Bld) 10 % High 5 - 9 % [place] Platelet mean volume (Bld) [Entitic vol] NOT REPORTED 6 - 12 fL [place] Platelets (Bld) [#/Vol] NOT REPORTED [place] Platelets (Bld) [#/Vol] 211 10*3/uL [place] RBC (Bld) [#/Vol] 3.97 10*6/uL Low 4.5 - 5.9 m/uL [place] RBC morphology finding Nom (Bld) NOT REPORTED [place] Segmented neutrophils/100 WBC (Bld) 62 % 41 - 76 % [place] Segs Absolute 5.30 [place] WBC (Bld) [#/Vol] NOT REPORTED per 100 WBC [place] WBC (Bld) [#/Vol] 8.4 10*3/uL [place] WBC Morphology NOT REPORTED [place], [place] CT Head WO Contraston 2019 [place], pn Incoming Radiant Results From [employer] - 12/10/2019 11:37 PM EDT EXAMINATION: CT HEAD WO CONTRAST HISTORY: Has a code stroke or stroke alert been called?->No COMPARISON: October 30, 2018 TECHNIQUE: CT examination of the head without IV contrast. Dose reduction techniques were achieved by using automated exposure control and/or adjustment of mA and/or kV according to patient size and/or use of iterative reconstruction technique. FINDINGS: Cavum septum pellucidum demonstrated. The structures of the posterior fossa and supratentorial space are otherwise developmentally normal. Zamudio/white matter differentiation is preserved throughout. No evident skull fracture, hemorrhage or acute ischemia. No midline shift or mass. Normal size of the ventricles and sulci for age. Normal orbits. Pneumatized portions of the skull are clear. IMPRESSION: 1. No acute intracranial abnormality. 2. Cavum septum pellucidum noted. [place] EXAMINATION: CT HEAD WO CONTRAST HISTORY: Has a code stroke or stroke alert been called?->No COMPARISON: October 30, 2018 TECHNIQUE: CT examination of the head without IV contrast. Dose reduction techniques were achieved by using automated exposure control and/or adjustment of mA and/or kV according to patient size and/or use of iterative reconstruction technique. FINDINGS: Cavum septum pellucidum demonstrated. The structures of the posterior fossa and supratentorial space are otherwise developmentally normal. Zamudio/white matter differentiation is preserved throughout. No evident skull fracture, hemorrhage or acute ischemia. No midline shift or mass. Normal size of the ventricles and sulci for age. Normal orbits. Pneumatized portions of the skull are clear. [place] 1. No acute intracra nial abnormality. 2. Cavum septum pellucidum noted. [place] Comprehensive Metabolic Pane israel 12-10-2019 Albumin [Mass/Vol] 3.9 g/dL 3.2 - 4.5 g/dL [place] Albumin/Globulin [Mass ratio] NOT REPORTED [place] ALP [Catalytic activity/Vol] 141 U/L 52 - 171 U/L [place] ALT [Catalytic activity/Vol] 12 U/L 5 - 41 U/L [place] Anion gap [Moles/Vol] 8 mmol/L Low 9 - 17 mmol/L [place] AST [Catalytic activity/Vol] 20 U/L <40 [place] Bilirubin Ql (U) 0.17 mg/dL Low 0.3 - 1.2 mg/dL [place] Bun/Cre Ratio 13 [place] Calcium [Mass/Vol] 9.4 mg/dL 8.4 - 10. 2 mg/dL [place] Chloride [Moles/Vol] 108 mmol/L High 98 - 10 7 mmol/L [place] CO2 [Moles/Vol] 23 mmol/L 20 - 31 mmol/L [place] Creatinine [Mass/Vol] 1.56 mg/dL High 0.7 - 1.2 mg/dL [place] GFR NOT REPORTED >60 mL/min [place] GFR Non- Pediatric GFR requires additional information. Refer to NKDEP website for calculator. >60 mL/min [place] GFR/1.73 sq M predicted among non-blacks MDRD (S/P/Bld) [Vol rate/Area] [place] Comment on above: Average GFR for <20 years old not available. Chronic Kidney Disease: <60 mL/min/1.73sq m Kidney failure: <15 mL/min/1.73sq m eGFR calculated using average adult body mass. Additional eGFR calculator available at: http://www.Atieva/multiple_crcl_2012.htm GFR/1.73 sq M predicted among non-blacks MDRD (S/P/Bld) [Vol rate/Area] NOT REPORTED [place] Glucose [Mass/Vol] 88 mg/dL 60 - 100 mg/dL [place] Interpretation and review of laboratory results Abnormal [place] Potassium [Moles/Vol] 5.2 mmol/L High 3.6 - 4.9 mmol/L [place] Protein [Mass/Vol] 6.5 g/dL 6 - 8 g/dL [place] Sodium [Moles/Vol] 139 mmol/L 135 - 144 mmol/L [place] Urea nitrogen [Mass/Vol] 21 mg/dL High 5 - 18 mg/dL [place] Otheron 12-10-2019 Immature granulocytes (Bld) [#/Vol] NOT REPORTED [place] Vital Signs Date Time Vital Sign Value Performing Clinician Faci lity 03-22-2025 14:50-0400 Diastolic blood pressure 62 mm[Hg] [facility] 03-22-2025 14:50-0400 Heart rate 63 /min [facility] 03-22-2025 14:50-0400 Respiratory rate 16 /min [facility] 03-22-2025 14:50-0400 SaO2% (BldA) [Mass fraction] 97 % [facility] 03-22-2025 14:50-0400 Systolic blood pressure 116 mm[Hg] [facility] 03-22-2025 14:10-0400 Inhaled oxygen flow rate 2 L/min [facility] 03-22-2025 13:13-0400 Body height 175.26 cm [facility] 03-22-2025 13:13-0400 Body weight 58.96 kg [facility] 03-15-2025 12:46-0400 Body height 175.26 cm [facility] 03-15-2025 12:46-0400 Body mass index (BMI) [Ratio] 19.2 kg/m2 [facility] 03-15-2025 12:46-0400 Body temperature 98.2 [degF] [facility] 03-15-2025 12:46-0400 Body weight 58.96 kg [facility] 03-15-2025 12:46-0400 Diastolic blood pressure 62 mm[Hg] [facility] 03-15-2025 12:46-0400 Heart rate 76 /min [facility] 03-15-2025 12:46-0400 Respiratory rate 16 /min [facility] [facility] 03-15-2025 12:46-0400 SaO2% (BldA) [Mass fraction] 98 % [facility] 03-15-2025 12:46-0400 Systolic blood pressure 108 mm[Hg] [facility] 12-30-2023 13:11-0400 Body height 170.2 cm Liliana Padilla MD Work Phone: [facility] 12-30-2023 13:11-0400 Body mass index (BMI) [Ratio] 18.04 kg/m2 Liliana Padilla MD Work Phone: [facility] 12-30-2023 13:11-0400 Body temperature 97.9 [degF] Liliana Padilla MD Work Phone: [facility] 12-30-2023 13:11-0400 Body weight 52.25 kg Liliana Padilla MD Work Phone: [facility] 12-30-2023 13:11-0400 Diastolic blood pressure 50 mm[Hg] Liliana Padilla MD Work Phone: [facility] 12-30-2023 13:11-0400 Heart rate 80 /min Liliana Padilla MD Work Phone: [facility] 12-30-2023 13:11-0400 SaO2% (BldA) [Mass fraction] 98 % Liliana Padilla MD Work Phone: [facility] 12-30-2023 13:11-0400 Systolic blood pressure 97 mm[Hg] Liliana Padilla MD Work Phone: [facility] 12-30-2023 13:10-0400 Body height 170.2 cm Eleanor Tatum MD Work Phone: [facility] 12-30-2023 13:10-0400 Body mass index (BMI) [Ratio] 18.04 kg/m2 Eleanor Tatum MD Work Phone: [facility] 12-30-2023 13:10-0400 Body temperature 97.9 [degF] Eleanor Tatum MD Work Phone: [facility] 12-30-2023 13:10-0400 Body weight 52.25 kg Eleanor Tatum MD Work Phone: [facility] 12-30-2023 13:10-0400 Diastolic blood pressure 50 mm[Hg] Eleanor Tatum MD Work Phone: [facility] 12-30-2023 13:10-0400 Heart rate 80 /min Eleanor Tatum MD Work Phone: [facility] 12-30-2023 13:10-0400 SaO2% (BldA) [Mass fraction] 98 % Eleanor Tatum MD Work Phone: [facility] 12-30-2023 13:10-0400 Systolic blood pressure 97 mm[Hg] Eleanor Tatum MD Work Phone: [facility] 05-01-2023 08:39-0400 Respiratory rate 18 /min Jayce Herman MD Work Phone: [facility] 05-01-2023 07:24-0400 Body temperature 99.39 [degF] Jayce Herman MD Work Phone: [facility] 05-01-2023 07:24-0400 Diastolic blood pressure 100 mm[Hg] Jayce Herman MD Work Phone: [facility] 05-01-2023 07:24-0400 Heart rate 88 /min Jayce Herman MD Work Phone: [facility] 05-01-2023 07:24-0400 SaO2% (BldA) [Mass fraction] 95 % Jayce Herman MD Work Phone: [facility] 05-01-2023 07:24-0400 Systolic blood pressure 187 mm[Hg] Jayce Herman MD Work Phone: [facility] 04-30-2023 14:00-0400 Body height 175.3 cm Jayce Herman MD Work Phone: [facility] 04-30-2023 14:00-0400 Body mass index (BMI) [Ratio] 18.95 kg/m2 Jayce Herman MD Work Phone: [facility] 04-30-2023 14:00-0400 Body weight 58.2 kg Jayce Herman MD Work Phone: [facility] 04-24-2023 15:00-0400 Diastolic blood pressure 76 mm[Hg] Brian Dietz MD Work Phone: [facility] 04-24-2023 15:00-0400 Systolic blood pressure 149 mm[Hg] Brian Dietz MD Work Phone: [facility] 04-24-2023 12:23-0400 Body temperature 98.49 [degF] Brian Dietz MD Work Phone: [facility] 04-24-2023 12:23-0400 Heart rate 71 /min Brian Dietz MD Work Phone: [facility] 04-24-2023 12:23-0400 Respiratory rate 16 /min Brian Dietz MD Work Phone: [facility] 04-24-2023 12:23-0400 SaO2% (BldA) [Mass fraction] 94 % Brian Dietz MD Work Phone: [facility] 04-23-2023 01:23-0400 Body height 175.3 cm Brian Dietz MD Work Phone: [facility] 04-23-2023 01:23-0400 Body mass index (BMI) [Ratio] 18.43 kg/m2 Brian Dietz MD Work Phone: [facility] 04-23-2023 01:23-0400 Body weight 56.6 kg Brian Dietz MD Work Phone: [facility] 09-06-2022 13:56-0500 Body height 170.2 cm Marilu Gonzalez MD Work Phone: [facility] 09-06-2022 13:56-0500 Body mass index (BMI) [Ratio] 21.18 kg/m2 Marilu Gonzalez MD Work Phone: [facility] 09-06-2022 13:56-0500 Body temperature 98.6 [degF] Marilu Gonzalez MD Work Phone: [facility] [employer] 09-06-2022 13:56-0500 Body weight 61.33 kg Marilu Gonzalez MD Work Phone: [facility] 09-06-2022 13:56-0500 Diastolic blood pressure 69 mm[Hg] Marilu Gonzalez MD Work Phone: [facility] [employer] 09-06-2022 13:56-0500 Heart rate 90 /min Marilu Gonzalez MD Work Phone: [facility] [employer] 09-06-2022 13:56-0500 Respiratory rate 18 /min Marilu Gonzalez MD Work Phone: [facility] [employer] 09-06-2022 13:56-0500 SaO2% (BldA) [Mass fraction] 99 % Marilu Gonzalez MD Work Phone: [facility] [employer] 09-06-2022 13:56-0500 Systolic blood pressure 136 mm[Hg] Marilu Gonzalez MD Work Phone: [facility] [employer] 03-08-2022 12:34-0400 Diastolic blood pressure 85 mm[Hg] Tano Fitzpatrick MD Work Phone: [facility] [employer] 03-08-2022 12:34-0400 Heart rate 75 /min Tano Fitzpatrick MD Work Phone: [facility] [employer] 03-08-2022 12:34-0400 Respiratory rate 16 /min Tano Fitzpatrick MD Work Phone: [facility] [employer] 03-08-2022 12:34-0400 SaO2% (BldA) [Mass fraction] 100 % Tano Fitzpatrick MD Work Phone: [facility] [employer] 03-08-2022 12:34-0400 Systolic blood pressure 133 mm[Hg] Tano Fitzpatrick MD Work Phone: [facility] [employer] 03-08-2022 10:52-0400 Body height 170.2 cm Tano Fitzpatrick MD Work Phone: [facility] [employer] 03-08-2022 10:52-0400 Body mass index (BMI) [Ratio] 20.83 kg/m2 Tano Fitzpatrick MD Work Phone: [facility] [employer] 03-08-2022 10:52-0400 Body temperature 98.1 [degF] Tano Fitzpatrick MD Work Phone: [facility] [employer] 03-08-2022 10:52-0400 Body weight 60.33 kg Tano Fitzpatrick MD Work Phone: [facility] [employer] 02-08-2022 13:47-0400 Diastolic blood pressure 81 mm[Hg] Mary Price MD Work Phone: [facility] 02-08-2022 13:47-0400 SaO2% (BldA) [Mass fraction] 93 % Mary Price MD Work Phone: [facility] [employer] 02-08-2022 13:47-0400 Systolic blood pressure 139 mm[Hg] Mary Price MD Work Phone: [facility] [employer] 02-08-2022 13:43-0400 Respiratory rate 20 /min Mary Price MD Work Phone: [facility] 02-08-2022 13:36-0400 Body height 167.6 cm Mary Price MD Work Phone: [facility] [employer] 02-08-2022 13:36-0400 Body mass index (BMI) [Ratio] 24.21 kg/m2 Mary Price MD Work Phone: [facility] [employer] 02-08-2022 13:36-0400 Body temperature 98.01 [degF] Mary Price MD Work Phone: [facility] [employer] 02-08-2022 13:36-0400 Body weight 68.04 kg Mary Price MD Work Phone: [facility] [employer] 02-08-2022 13:36-0400 Heart rate 73 /min Mary Price MD Work Phone: [facility] [employer] 01-07-2022 14:00-0400 Diastolic blood pressure 86 mm[Hg] Marilu Gonzalez MD Work Phone: [facility] [employer] 01-07-2022 14:00-0400 Heart rate 75 /min Marilu Gonzalez MD Work Phone: [facility] [employer] 01-07-2022 14:00-0400 Respiratory rate 16 /min Marilu Gonzalez MD Work Phone: [facility] 01-07-2022 14:00-0400 SaO2% (BldA) [Mass fraction] 99 % Marilu Gonzalez MD Work Phone: [facility]ITAL[facility] [employer]) [facility] 01-07-2022 14:00-0400 Systolic blood pressure 149 mm[Hg] Marilu Gonzalez MD Work Phone: [facility] 01-07-2022 13:17-0400 Body temperature 98.6 [degF] Marilu Gonzalez MD Work Phone: [facility] 09-18-2021 12:45-0400 Body height 172.7 cm Nyoka Fauser [employer] Work Phone: [facility] 09-18-2021 12:45-0400 Body mass index (BMI) [Ratio] 19.01 kg/m2 Nyoka Fauser [employer] Work Phone: [facility] 09-18-2021 12:45-0400 Body weight 56.7 kg Nyoka Fauser [employer] Work Phone: [facility] 09-18-2021 12:45-0400 Diastolic blood pressure 95 mm[Hg] Nyoka Fauser [employer] Work Phone: [facility] 09-18-2021 12:45-0400 Heart rate 79 /min Nyoka Fauser [employer] Work Phone: [facility] 09-18-2021 12:45-0400 Systolic blood pressure 159 mm[Hg] Nyoka Fauser [employer] Work Phone: [facility] 08-16-2021 13:28-0500 Diastolic blood pressure 68 mm[Hg] Elisabeth Fioreske III, DO Work Phone: [facility] 08-16-2021 13:28-0500 Systolic blood pressure 113 mm[Hg] WTiki Wadee III, DO Work Phone: [facility] 08-16-2021 13:19-0500 Body height 172.7 cm Elisabeth Peña III, DO Work Phone: [facility] 08-16-2021 13:19-0500 Body mass index (BMI) [Percentile] Per age and sex 2.91 % Elisabeth Peña III, DO Work Phone: [facility] 08-16-2021 13:19-0500 Body mass index (BMI) [Ratio] 18.4 kg/m2 Elisabeth Peña III, DO Work Phone: [facility] 08-16-2021 13:19-0500 Body weight 54.88 kg Elisabeth Peña III, DO Work Phone: [facility] 08-16-2021 13:19-0500 Heart rate 89 /min Elisabeth Peña III, DO Work Phone: [facility] 12-11-2020 23:42-0400 Diastolic blood pressure 100 mm[Hg] Arturo Etienne DO Work Phone: [employer] Work Phone: 12-11-2020 23:42-0400 Systolic blood pressure 182 mm[Hg] Arturo Etienne DO Work Phone: [employer] Work Phone: 12-11-2020 22:48-0400 Heart rate 57 /min Arturo Etienne DO Work Phone: [employer] Work Phone: 12-11-2020 22:48-0400 Respiratory rate 18 /min Arturo Etienne DO Work Phone: [employer] Work Phone: 12-11-2020 22:48-0400 SaO2% (BldA) [Mass fraction] 100 % Arturo Etienne DO Work Phone: [employer] Phone: 12-11-2020 22:16-0400 Body temperature 98.1 [degF] Arturo Etienne DO Work Phone: [employer] Phone: 12-11-2020 22:16-0400 Body weight 58.06 kg Arturo Jaimie TERRY Work Phone: [employer] Work Phone: 12-11-2019 03:06-0400 BP Diastolic 99 mm[Hg] [employer] [place] , [place] 12-11-2019 03:06-0400 BP Systolic 158 mm[Hg] [employer] [place] , [place] 12-11-2019 03:06-0400 Pulse (Heart Rate) 78 /min [facility] [employer] [place], [place] 12-11-2019 03:06-0400 Pulse Oximetry 98 % [facility] [employer] , [place] 12-11-2019 03:06-0400 Respiratory Rate 12 /min [facility] [address] [place], [place] 12-10-2019 22:29-0400 Body Temperature 98.2 [degF] [facility], [place] 12-10-2019 22:29-0400 Body weight 56.34 kg [facility] [address] [facility], [place] Encounters Encounter Date Encounter Type Care Provider Facility Start: 03-22-2025 End: 03-22-2025 Admission to same day surgery center Arturo Piedra MD -Interventional Radiology Work Phone: Start: 03-22-2025 End: 03-22-2025 ambulatory NON STAFF [facility] Work Phone: Start: 03-16-2025 End: 03-16-2025 Departed Referred Garrett Acosta MD -[facility] Work Phone: Start: 03-16-2025 End: 03-16-2025 ambulatory NON STAFF [facility] Work Phone: Start: 03-15-2025 End: 03-15-2025 ambulatory NON STAFF [facility] Work Phone: Start: 03-15-2025 End: 03-15-2025 Patient encounter procedure Arturo Piedra MD -[facility] Work Phone: Start: 01-28-2025 Non-patient / Non-visit Garrett Acosta MD -[facility] Work Phone: Start: 01-25-2025 End: 01-25-2025 ambulatory [facility] Start: 12-28-2024 Non-patient / Non-visit Bennie granger MD -[facility] Work Phone: Start: 12-27-2024 End: 12-28-2024 Pre-admission assessment Paul Carroll [facility] Start: 10-22-2024 End: 10-22-2024 Transcribe Orders Lynsey Ha [facility] Work Phone: [facility] Comment on above: 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) Start: 08-09-2024 End: 08-09-2024 ambulatory [facility] Start: 08-09-2024 End: 08-09-2024 Encounter for other preprocedural examination [facility] Start: 04-01-2024 End: 04-01-2024 ambulatory [facility] Start: 01-15-2024 End: 01-15-2024 Subsequent hospital visit by physician Rad External Film EF RAD EXTERNAL [employer] Comment on above: Arrived Start: 12-30-2023 End: 12-30-2023 Office outpatient new 60 minutes Liliana Padilla MD Work Phone: [facility] Comment on above: Pre-transplant evalu ation for kidney transplant (Primary Dx) ESRD (end stage zeb l disease) (Multi) (Primary Dx) Start: 12-30-2023 End: 12-30-2023 Patient encounter status Liliana Padilla MD Work Phone: [facility] Work Phone: Start: 07-13-2023 End: 07-13-2023 Emergency department patient visit LEEANN LETY [facility] Start: 04-30-2023 End: 05-01-2023 Evaluation and management of inpatient Generic [facility] Work Phone: [facility] Start: 04-29-2023 End: 04-30-2023 Emergency department patient visit MARY PRICE [facility] Start: 04-23-2023 End: 04-24-2023 Subsequent hospital visit by physician Generic [facility] Work Phone: [facility] Start: 04-22-2023 End: 04-23-2023 [facility] Start: 02-06-[facility]23 ambulatory Facility[facility] Start: 09-06-2022 End: 09-06-2022 Emergency department patient visit [facility] Start: 09-06-2022 End: 09-06-2022 Emergency department patient visit Marilu Gonzalez MD Work Phone: [facility] ED Comment on above: Acute streptococcal pharyngitis (Primary Dx) Start: 07-30-2022 End: 08-02-2022 ambulatory [facility] Start: 07-30-2022 End: 08-01-2022 Subsequent hospital visit by physician [facility] Additional Xray At [facility] Radiology Comment on above: Shortness of breath Start: 03-08-2022 End: 03-08-2022 Emergency department patient visit Tano Fitzpatrick MD Work Phone: [facility] ED Comment on above: Shortness of breath (Primary Dx); Chronic renal failure, stage 5 (HCC) Start: 02-08-2022 End: 02-08-2022 Emergency department patient visit Mary Price MD Work Phone: [facility] ED Comment on above: Postural dizziness w ith near syncope (Primary Dx) Start: 01-07-2022 End: 01-07-2022 Emergency department patient visit Marilu Gonzalez MD Work Phone: [facility] ED Comment on above: Episode of hypertens ion (Primary Dx); Altered mental status, unspecified altered mental status type Start: 10-18-2021 End: 10-18-2021 ambulatory [facility] Start: 09-18-2021 End: 09-18-2021 ambulatory [facility] Start: 09-18-2021 End: 09-18-2021 Postop follow up visit related to original px Bowen Bar [employer] Work Phone: [facility] Comment on above: S/P arteriovenous (A V) fistula creation; Hypertension, unspecified type; ESRD (end stage renal disease) on dialysis (HCC) Start: 08-27-2021 End: 08-27-2021 ambulatory [facility] Start: 08-16-2021 End: 08-16-2021 Office outpatient new 45 minutes Nino Espinosa MD Work Phone: [facility] Comment on above: ESRD (end stage zeb l disease) on dialysis (HCC) (Primary Dx); RPGN (rapidly progressive glomerulonephritis) Start: 08-16-2021 End: 08-16-2021 Orders Only Lauren Benitez RN [facility] Comment on above: Encounter for prepro cedure screening laboratory testing for COVID-19 (Primary Dx) ESRD (end stage zeb l disease) on dialysis (HCC) (Primary Dx); RPGN (rapidly progressive glomerulonephritis); Essential hypertension, benign Start: 08-16-2021 Patient encounter status Lauren Benitez RN [facility] Start: 07-27-2021 Chart abstracting Nunu Souza RN O [facility] Start: 12-11-2020 End: 12-12-2020 Emergency department patient visit Arturo Etienne DO Work Phone: [facility] ED Comment on above: Periumbilical abdomi nal pain (Primary Dx) Start: 11-24-2020 End: 11-26-2020 Subsequent hospital visit by physician [facility] Additional Xray At [facility] Rad[facility] Comment on above: Pain in both knees, unspecified chronicity Chronic left shoulde r pain Scoliosis, unspecifi ed scoliosis type, unspecified spinal region; Chronic low back pain, unspecified back pain laterality, unspecified whether sciatica present Start: 12-10-2019 End: 12-11-2019 Emergency department patient visit Tano Fitzpatrick Work Phone: [facility] ED Comment on above: Intractable headache , unspecified chronicity pattern, unspecified headache type (Primary Dx); Hypertensive urgency; History of chronic renal failure Start: 10-30-2018 End: 10-30-2018 Patient encounter procedure FRACISCO CORBIN [facility] Start: 12-12-2017 End: 12-12-2017 Patient encounter procedure REDD M STEFANIE [facility] Procedures Date Procedure Procedure Detail Performing Clinician Start: 03-22-2025 Angiography Start: 04-01-2024 Follow-up visit Follow-up CONNOR ALLEN Start: 01-15-2024 Study Interpretation of outside study Connor Newby MD Work Phone: Start: 12-30-2023 Lipid 1996 panel - S veronica or Plasma Liliana Padilla MD Work Phone: Start: 05-01-2023 Renal function panel May Torres [employer] Work Phone: Start: 04-30-2023 Iadna-dna/rna gi pth gn multiplex probe tq 6-11 Sheree Coates MD Work Phone: Start: 04-30-2023 Comprehensive metabo lic panel Jayna Anderson MD Work Phone: Start: 04-24-2023 Renal function panel Oral Dover MD Work Phone: Start: 04-24-2023 Assay of lipase Brian Dietz MD Work Phone: Start: 04-23-2023 Blood count hematocrit Teagan Jha [employer] Work Phone: Start: 04-23-2023 Basic metabolic pane l calcium total Clifford Jackson Creasap MD Work Phone: Start: 04-23-2023 Lipid panel Clifford Ramirez MD Work Phone: Start: 09-06-2022 Iaadiadoo influenza Nas Gonzalez MD Work Phone: Start: 09-06-2022 COVID-19, RAPID Marilu Gonzalez MD Work Phone: Start: 09-06-2022 Radiologic exam ches t 2 views Marilu Gonzalez MD Work Phone: Start: 07-30-2022 Radiologic exam ches t 2 views Sarina Mcdaniel MD Work Phone: Start: 03-08-2022 Radiologic exam ches t single view Tano Fitzpatrick MD Work Phone: Start: 03-08-2022 Ecg routine ecg w/le ast 12 lds w/i&r Tano Fitzpatrick MD Work Phone: Start: 03-08-2022 Basic metabolic pane l calcium total Tano Fitzpatrick MD Work Phone: Start: 01-07-2022 Ct head/brain w/o co ntrast material Marilu Gonzalez MD Work Phone: Start: 01-07-2022 Comprehensive metabo lic panel Marilu Gonzalez MD Work Phone: Start: 01-07-2022 Rhythm ecg 1-3 leads w/interpretation & report Unknown Provider Result Start: 07-26-2021 Blood count hemoglobin Start: 12-11-2020 Urinalysis microscopic only Arturo Etienne DO Work Phone: Start: 12-11-2020 Urnls dip stick/tabl et rgnt auto w/o microscopy Arturo Etienne DO Work Phone: Start: 12-11-2020 Ecg routine ecg w/le ast 12 lds w/i&r Arturo Etienne DO Work Phone: Start: 12-11-2020 End: 12-11-2020 Comprehensive metabolic panel Arturo E Jaimie DO Work Phone: Start: 11-24-2020 End: 11-24-2020 Radiologic exam knee complete 4/more views Ranjan Augustin MD Work Phone: Start: 02-09-2020 Microalbumin [Mass/v olume] in Urine by Test strip Bowen Willamsr [employer] Work Phone: Start: 12-10-2019 Ct head/brain w/o co ntrast material Veselin Nanette Work Phone: Start: 12-10-2019 Blood count complete auto&auto difrntl wbc Veselin Nanette Work Phone: Start: 12-10-2019 Comprehensive metabo lic panel Veselin Nanette Work Phone: Plan of Treatment Date Care Activity Detail Author Start: 2052 Zoster Vaccines (1 of 2) Zoste r Vaccines (1 of 2) [facility] Start: 12-06-2029 Evaluation and manag ement of inpatient 12/06/2029 6:00 AM EDT [place] [id number] Department [place] [address] [facility] Work Phone: Start: 12-29-2028 Lipid panel Lipid Panel [facility] Start: 03-22-2025 [facility] Start: 03-07-2025 Influenza vaccination Influenz a Vaccine (Season Ended) [facility] Start: 05-01-2024 Urine screening for protein eGFR - Kidney Disease [facility] Start: 04-01-2024 End: 04-01-2024 Social Work 04/01/2024 10:00 AM EDT Social Work [facility] [address] [place] [id number] Aracely Cyr LCSW [facility] Start: 03-07-2024 COVID-19 Vaccine ( season) COVID-19 Vaccine ( season) [facility] Start: 03-07-2024 Influenza vaccination [facility] Start: 02-05-2024 End: 02-05-2024 Patient encounter procedure [facility] Start: 01-29-2024 End: 01-29-2024 Patient encounter procedure 01/29/2024 11:00 AM EDT Appointment [facility] [address] [place] [id number] [facility] Start: 01-20-2024 End: 01-20-2024 Nutrition therapy 01/20/2024 11:00 AM EDT Nutrition [facility] [address] [place] [facility] [address] [place] [address] Savanah Ruvalcaba, LAWANDA, LD [facility] Start: 03-07-2023 COVID-19 Vaccine ( season) COVID-19 Vaccine ( season) [facility] Start: 03-07-2022 Influenza vaccination Flu vaccine (# 1) [facility] Start: 02-04-2022 Influenza vaccination Flu vaccine (# 1) [facility] Start: 12-11-2021 Creatinine measurement Creatinine mo [facility] [employer] Phone: Start: 12-11-2021 Potassium monitoring Potassium monit [facility] [employer] Phone: Start: 10-19-2021 End: 09-18-2022 Ultrasound hemodialysis access Ultrasound hemodialysis access Vascular Ultrasound Routine S/P arteriovenous (AV) fistula creation ESRD (end stage renal disease) on dialysis (HCC) Expected: 10/19/2021, Expires: 09/18/2022 [employer] Work Phone: Comment on above: Expected: 10/19/2021 , Expires: 09/18/2022 Start: 10-18-2021 End: 10-18-2021 Follow-up encounter 10/18/2021 Follow-Up Cardiology Bowen Bar, SMALL [employer] ENGINEER [address] [place] [address] [facility] Start: 10-18-2021 End: 10-18-2021 Patient encounter procedure 10/18/2021 Appointment Cardiology Bowen Bar, [employer] ENGINE[employer] [address], [place] [id number] [facility] Start: 08-28-2021 End: 08-16-2022 Basic metabolic 2000 panel - Serum or Plasma Basic metabolic panel Lab Routine ESRD (end stage renal disease) on dialysis (HCC) RPGN (rapidly progressive glomerulonephritis) Essential hypertension, benign Expected: 08/28/2021, Expires: 08/16/2022 [facility] Comment on above: Expected: 08/28/2021 , Expires: 08/16/2022 Start: 08-28-2021 End: 08-16-2022 Complete blood count with white cell differential, manual CBC and differential Lab Routine ESRD (end stage renal disease) on dialysis (HCC) RPGN (rapidly progressive glomerulonephritis) Essential hypertension, benign Expected: 08/28/2021, Expires: 08/16/2022 [facility] Comment on above: Expected: 08/28/2021 , Expires: 08/16/2022 Start: 08-28-2021 End: 08-16-2022 INR in Platelet poor plasma by Coagulation assay PT/INR Lab Routine ESRD (end stage renal disease) on dialysis (HCC) RPGN (rapidly progressive glomerulonephritis) Essential hypertension, benign Expected: 08/28/2021, Expires: 08/16/2022 [facility] Work Phone: Comment on above: Expected: 08/28/2021 , Expires: 08/16/2022 Start: 08-28-2021 Subsequent hospital visit by physician 08/28/2021 Hospital Encounter Elisabeth Peña III, DO [address] [place] [address] [facility] Start: 08-24-2021 End: 08-16-2022 SARS-CoV-2 (COVID-19) RdRp gene [Presence] in Respiratory specimen by MARLEE with probe detection COVID-19, Molecular Microbiology Routine Encounter for preprocedure screening laboratory testing for COVID-19 Expected: 08/24/2021, Expires: 08/16/2022 [facility] Work Phone: Comment on above: Expected: 08/24/2021 , Expires: 08/16/2022 Start: 08-24-2021 End: 08-24-2021 Patient encounter procedure 08/24/2021 Office Visit Lab Elisabeth Peña III, DO [address] [place] [address] [facility] Start: 08-06-2021 End: 08-06-2021 Patient encounter procedure [facility] Start: 2021 DTaP/Tdap/Td vaccine (1 - Tdap) DTaP/Tdap/Td vaccine (1 - Tdap) [facility] [employer] Start: 2021 Hepatitis B vaccine (1 of 3 - Risk Recombivax 3-dose series) Hepatitis B vaccine (1 of 3 - Risk Recombivax 3-dose series) [facility] Start: 2021 Urine screening for protein CKD: Urine Protein Screening [facility] Start: 03-07-2021 Influenza vaccination [employer] Start: 02-08-2021 Microalbumin measure ment, urine, quantitative Urine Microalbumin [facility] Start: 12-09-2020 Creatinine measurement Creatinine mo [employer] Phone: Start: 12-09-2020 Potassium monitoring Potassium monit [employer] Phone: Start: 2020 Hepatitis C screening Hepatitis C Sc reening [facility] Start: 03-07-2020 Influenza vaccination Flu vacc ine (Season Ended) [employer] Start: 10-31-2019 Creatinine measurement Creatinine mo [employer] Start: 10-31-2019 Potassium monitoring Potassium monit [facility] [place], [place] Start: 2018 Meningococcal (ACWY) vaccine (2 - 2-dose series) Meningococcal (ACWY) vaccine (2 - 2-dose series) [place] Start: 02-21-2018 Pneumococcal Vaccine : Ped or At-Risk (2 of 4 - PPSV23) Pneumococcal Vaccine: Ped or At-Risk (2 of 4 - PPSV23) [facility] Start: 2017 HIV screening [facility] Start: 2017 HPV Vaccines (1 - Ma le 3-dose series) HPV Vaccines (1 - Male 3-dose series) [facility] Start: 2015 Varicella vaccination Varicell a Vaccines (1 of 2 - 13+ 2-dose series) [facility] Start: 2014 COVID-19 Vaccine (1) COVID-19 Vaccin e (1) [facility] Work Phone: Start: 2014 Depression Screen Depression Screen [facility] Start: 2014 Depression screening using PHQ-9 (Patient Health Questionnaire 9) score [facility] Start: 2013 HPV vaccine (1 - Mal e 2-dose series) HPV vaccine (1 - Male 2-dose series) [facility] Start: 2013 Vaccination for rita n papillomavirus [facility] Start: 2012 Microalbumin measure ment, urine, quantitative Urine Microalbumin [facility] Start: 2012 Urine screening for protein Urine (micro)albumin/creatini ne ratio - Kidney Disease [facility] Start: 2009 DTaP/Tdap/Td vaccine (1 - Tdap) DTaP/Tdap/Td vaccine (1 - Tdap) [place] Start: 2009 DTaP/Tdap/Td Vaccine s (1 - Tdap) DTaP/Tdap/Td Vaccines (1 - Tdap) [facility] Start: 2008 Pneumococcal Vaccine : Ped or At-Risk (1 of 4 - PCV13) Pneumococcal Vaccine: Ped or At-Risk (1 of 4 - PCV13) [facility] Start: 2007 COVID-19 Vaccine (1) COVID-19 Vaccin e (1) [facility] Start: 2006 Hearing Screening (#1) Hearing Maritza pardo (#1) [facility] Start: 2005 History and physical examination, annual for health maintenance Wellness Visit [facility] Start: 2005 Medicare Wellness Visit Medicare Wel lness Visit [facility] Start: 2005 Well Child Visit (WC V) - Annual Well Child Visit (WCV) - Annual [facility] Start: 2003 Hepatitis A vaccine (1 of 2 - 2-dose series) Hepatitis A vaccine (1 of 2 - 2-dose series) [place] Start: 2003 Measles,Mumps,Rubell a (MMR) vaccine (1 of 2 - Standard series) Measles,Mumps,Rubella (MMR) vaccine (1 of 2 - Standard series) [place] Start: 2003 MMR Vaccines (1 of 1 - Standard series) MMR Vaccines (1 of 1 - Standard series) [facility] Start: 2003 Varicella vaccine (1 of 2 - 2-dose childhood series) Varicella vaccine (1 of 2 - 2-dose childhood series) [facility] [employer] Start: 2002 COVID-19 Vaccine (#1) COVID-19 Vacci ne (#1) [facility] [employer] Start: 2002 Polio vaccine (1 of 3 - 4-dose series) Polio vaccine (1 of 3 - 4-dose series) [place] Start: 2002 Hepatitis B vaccine (1 of 3 - 3-dose primary series) Hepatitis B vaccine (1 of 3 - 3-dose primary series) [place] Start: 2002 Hepatitis C screening Hepatitis C sc shyla [employer] Phone: Start: 2002 Medicare Annual Well ness Visit Medicare Annual Wellness Visit (AWV) [facility] Start: 2002 Tetanus vaccination Tetanus: Every 1 0yrs [facility] End: 01-07-2022 Culture, Blood 1 [employer] Phone: Comment on above: One Time for 1 Occur rences starting 01/07/2022 until 01/07/2022 End: 09-06-2022 Culture, Blood 1 [employer] Work Phone: Comment on above: One Time for 1 Occur rences starting 09/06/2022 until 09/06/2022 End: 01-07-2022 Culture, Blood 2 [employer] Work Phone: Comment on above: One Time for 1 Occur rences starting 01/07/2022 until 01/07/2022 End: 09-06-2022 Culture, Blood 2 [employer] Work Phone: Comment on above: One Time for 1 Occur rences starting 09/06/2022 until 09/06/2022 EKG 12 lead [employer] [place] EKG 12 Lead EKG 12 Lead ECG STAT 03/08/2022 11:17 AM EDT [employer] Work Phone: FISTULA ARTERIOVENOUS FISTULA AR TERIOVENOUS ESRD (end stage renal disease) on dialysis (HCC) RPGN (rapidly progressive glomerulonephritis) [facility] Main OR End: 04-23-2023 Gastrointestinal pathogens DNA and RNA panel - Stool by MARLEE with non-probe detection Stool/GI PCR Panel Microbiology Routine Once for 1 Occurrences starting 04/23/2023 until 04/23/2023 [facility] Work Phone: Comment on above: Once for 1 Occurrenc es starting 04/23/2023 until 04/23/2023 Patient Education Fistulogram Kn [facility] Work Phone: End: 01-07-2022 POCT Blood Occult Stool POCT Blood Occult Stool Point of Care Testing STAT One Time for 1 Occurrences starting 01/07/2022 until 01/07/2022 [employer] Work Phone: Comment on above: One Time for 1 Occur rences starting 01/07/2022 until 01/07/2022 End: 12-11-2020 US ABDOMEN COMPLETE US ABDOMEN COMPLETE Imaging Routine Once for 1 Occurrences starting 12/11/2020 until 12/11/2020 [employer] Work Phone: Comment on above: Once for 1 Occurrenc es starting 12/11/2020 until 12/11/2020 Immunizations Immunization Date Immunization Notes Care Provider Tejinder lutz 12-27-2017 meningococcal vaccin e of unknown formulation and unknown serogroups Tano Nanette [place], [place] Payers Date Payer Category Payer Self-pay 2023 Unknown [employer] GISE[employer] [id number] 2023-Present [address] [place] [address] [id number] 2022 Medicare [id number]. [id number] 2022 Medicare [id number] 2021 Medicaid [id number]. [id number] 2014 Unknown [id number] 2014 Unknown [employer] [facility] MEDICAID xxxxxxxxxxx 2014-Present [phone] CLAIMS DEPARTMENT [address] [place] [address] xxxxxxxxxxx [id number] 2014 Unknown [id number] 2002 Unknown [id number] [id number]0 2002 Unknown [id number] 2.16.840.1.480057.3.579.2.903 2002 Unknown [id number] 2.16.840.1.064286.3.579.2.903 2002 Unknown [id number] 2.16.840.1.614660.3.579.2.903 2002 Unknown [id number] 2.16.840.1.547110.3.579.2.356 2002 Unknown [id number] 2.16.840.1.602082.3.579.2.174 2002 Unknown [id number] 2.16.840.1.360158.3.579.2.174 2002 Unknown [id number] 2.16.840.1.867713.3.579.2.174 2002 Unknown [id number] 2.16.840.1.672505.3.579.2.174 2002 Unknown [id number] 2.16.840.1.662681.3.579.2.174 2002 Unknown [id number] 2.16.840.1.356497.3.579.2.174 2002 Unknown [id number] 2.16.840.1.780868.3.579.2.903 2002 Unknown [id number] 2.16.840.1.924971.3.579.2.1245 2002 Unknown [id number] 2.16.840.1.447170.3.579.2.1245 2002 Unknown [id number] 2.16.840.1.413906.3.579.2.1245 2002 Unknown [id number] 2.16.840.1.046489.3.579.2.1245 2002 Unknown [id number] 2.16.840.1.589706.3.579.2.1245 1983 Unknown [id number] 2.16.840.1.867079.3.579.2.479 1983 Unknown [id number] 2.16.840.1.708312.3.579.2.479 Unknown [id number] Unknown [id number] 2.16.840.1.701587.3.579.2.531 Unknown [id number] 2.16.840.1.519884.3.579.2.531 Social History Date Type Detail Facility Start: 12-10-2019 End: 03-22-2025 Tobacco smoking status NHIS Never smoker [facility] Start: 12-10-2019 End: 09-06-2022 Alcohol intake Current non-drinker of alcohol (finding) [employer] Start: 2002 Sex Assigned At Not on file [employer] Start: 01-05-2024 End: 01-15-2024 Exposure to SARS-CoV-2 (event) Unable to assess [employer] Start: 12-10-2019 End: 02-05-2022 Tobacco use and exposure Never used [employer] Start: 09-08-2021 End: 12-30-2023 Exposure to SARS-CoV-2 (event) Not sure [employer] Tobacco smoking stat [facility] Tobacco smoking consumption unknown [facility] Start: 08-16-2021 End: 04-30-2023 Alcohol intake Lifetime non-drinker (finding) [facility] Start: 08-16-2021 End: 09-06-2022 History SDOH Alcohol Frequency 1 [facility] Start: 09-06-2022 History SDOH Alcohol Std Drinks 0 [facility] [employer] Work Phone: Start: 04-30-2023 End: 12-30-2023 History of Social function [facility] Start: 04-30-2023 End: 12-30-2023 Tobacco use panel [facility] Start: 10-18-2021 Gender identity Identifies as male gender (finding) [facility] Start: 10-18-2021 Sexual orientation Heterosexual (finding) [facility] History of tobacco use Passive smoker [facility] Work Phone: Start: 12-30-2023 Alcoholic beverage intake Ex-drinker (finding) [facility] Work Phone: (I/We) worried michelle er (my/our) food would run out before (I/we) got money to buy more. Never true [facility] Work Phone: Tobacco Household tobacc o concerns: No. [facility] Tobacco smoking status [facility] Start: 06-06-2011 Sex Male (finding) [facility] Start: 2002 Sex Assigned At Male [facility] Medical Equipment Procedure Code Equipment Code Equipment Origin al Text Equipment Identifier Dates Hemostat 2 X 4in Surg[employer]el Snow [employer] - Sn/[id number] Start: 08-28-2021 Kit 14.5fr 24cm Cath Std Hemodialysis [employer] - [id number], [id number] FDA Start: 10-19-2021 Clinical Notes 12-11-2020 to 03-15-2025 Note Date & Type Note Facility 03-15-2025 Evaluation note Diagnosis Onset Date Resolution S/P arteriovenous (AV) fistula creation acute March 15, 2025 12:03pm [facility] Work Phone: 1(351) 132-255406-25-2024 History of Present illness Narrative* Eleanor Tatum MD - 12/30/2023 1:00 PM EDT Images from the original note were not included. Chief Complaint: Patient presents for kidney transplant evaluation History of Present Illness: Jv Petty is a 23 y.o. male presents with ESRD from HTN. He is accompanied to clinic today by his mother and 2 younger brothers. He is currently on dialysisand has been for the past couple years via right upper extremity AV fistula. Gets dialysis Friday and Fridays and has no issues with it. Is making a small amount of urine. He appears thin on exam. States he is able to walk into clinic without issue. However states he is not able to walk up a flight of stairs secondary to fatigue. Denies any chest pain or shortness of breath. Denies any open wounds or history of diabetes. During our interview today, although the patient appeared interested, his mother who was is presentas his support was sleeping throughout the interview. When the younger children became disruptive during the interview it was the patient who redirected them. The mother intermittently woke up throughout the discussion but had no involvement. Hemodialysis: Via right upper extremity AV fistula. Friday, Friday, Friday. ROS: oliguric, no urinary retention/hematuria/recurrent UTIs/nephrolithiasis. Disease Etiology: hypertensive nephropathy. Disease Complications: dyslipidemia and hypertension. Past Medical History: Hypertension End-stage renal disease Past Surgical History: Right upper extremity AV fistula Review of Systems: Cardiac: Denies chest pain, palpitations : Normal urine output. Denies history of gross hematuria, nephrolithiasis, urinary retention, or recurrent UTIs. Vascular: Denies personal or familial history of DVT/PE. No active claudication or non-healing LE wounds. Functional Status: Cannot walk up a flight of stairs Transfusions: Yes. Prior transplant: Not applicable Family History: Mother: Knee disease and hypertension Physical Exam: Gen: A+OX3; NAD-cachectic and poor hygiene on exam HEENT: PERRL, sclera anicteric, MMM Cardiac: RRR Chest: Normal inspiratory effort Abdomen: S/NT/ND. Ext: No LE edema Vascular: 2+ palpable femoral pulses Psychiatric: Normal mood, affect Assessment/Plan: - The patient is a possible candidate for kidney transplantation. - Routine age/gender based screening -Genetic testing -Recommend nutrition eval for malnutrition -I am concerned about his psychosocial stability and support. Although family was present, there was minimal engagement. Do not believe mother would be able to serve as a support. Appreciate psych and social evaluation. Transplant Education: I had a discussion with this patient regarding 1 year graft and patient survival statistics following renal transplantation for both living and donor allograft recipients. [facility] to National data readily available for review on https://www.SRTR.org. The patient also had attended the kidney transplant education class provided by the transplant institute. The difference between allograft function was discussed comparing living donor, KDPI 0-85%, and >85% kidneys. Further discussion included: -The transplant selection committee process. -The need for lifelong immunosuppressive therapy, and the side effects of these medications including the risk of infections, cancer, and lymphoma. -The wait list time approximately is 5 years or more for donor transplants and the statistical superiority of a living donor. -Using identified donors with risk criteria for transmission of infection -The possibility of utilizing donors with known HCV antibody and/or JEANNIE positivity and post-transplant treatment/surveillance protocol -Potential transmission of infectious disease from any donors, as well as living donors. -The possibility of transmission of tumors and infections via the transplanted organ. -The inability to completely test for all potential harmful tumors or infectious agents. -The possibility of listing at multiple locations. Surgical complications including need for reoperation(s) including but not limited to: -Bleeding. -Repair of leaks. -Control of infection. -Blood clots in the transplant vessels. -Possible kidney transplant removal. The medical complications including but not limited to: -. -Cardiac. -Pulmonary. -Infectious. -Neurologic. -Other Complications. We also discussed how the kidney transplant could function: -Non-function and possible kidney transplant removal within the first 3 to 6 months. -Delayed graft function (dialysis needed after transplant). -The potential of recurrence of kidney disease leading to kidney transplant graft loss. Time Attestation: I spent 60 minutes with the patient, over 50 minutes in counseling and education as outlined above. documented in this [facility] Work Phone: 1(142) 955-999806-25-2024 History of Present illness Narrative* Liliana Padilla MD - 12/30/2023 12:30 PM EDT Transplant Nephrology Evaluation : Jv Petty is a 23 y.o. came for Kidney transplant Evaluation . History in detail : Mr. Powell is a 23-year-old male with a history of ESRD secondary to hypertension been on dialysis since that 2 and half years at [facility] order [facility] through right upper extremity AV fistula. His primary assistant professor of economics is Violeta Silveira . -He was diagnosed with hypertension at the time when he had kidney failure and underwent 2 biopsieswhich are inconclusive at [facility]. He did genetic testing which was also inconclusive. -Been on dialysis through right upper extremity AV fistula at in center no history of kidney stones, he got transfusion of the blood 1 year ago ,otherwise barely urinates little bit. His dry weight is around 53 kg. -Denied any psychiatric issues. -Denied any recent hospitalizations -Denied any coronary artery disease or stroke Past Medical History : History of hypertension and kidney failure Surgical History: History of fistula placement Family HX: Mom have kidney failure secondary to hypertension. But genetic testing was negative Social Connections: Not on file Lives with his mom and his brothers. No potential living donors. He is a high school graduate. Denied any drinking alcohol or cigarette use or drug use. He is currently on Social Security PROBLEM LIST: Active Problems: There are no active Hospital Problems. ALLERGIES: Allergies Allergen Reactions Versed [Midazolam] Agitation CURRENT MEDICATIONS: Scheduled medications Continuous medications PRN medications OBJECTIVE: VITALS: Visit Vitals BP 97/50 Pulse 80 Temp 36.6 C (97.9 F) (Temporal) Ht 1.702 m (5' 7 ) Wt 52.3 kg (115 lb 3.2 oz) SpO2 98% BMI 18.04 kg/m Smoking Status Never BSA 1.57 m General: No distress Mucosa moist AI, AC, AF HEENT: PEERLA CVS: S1 S2 no murmurs RESP: Lungs clear to auscultation ABDO: Soft, non-tender Neuro: A + O x 3 Skin: No rash Extremities: No edema, right upper extremity AV fistula with good thrill LABS: No lab exists for component: SODIUM , POTASSIUM , CHLORIDE , BICARBONATE , MAGNESIUM , PHOSPHOROUS @[email or web address]@ ASSESSMENT AND PLAN: Jv Petty is a 23 y.o. male with a history of ESRD secondary to hypertension been on dialysis since that 2 and half years at will order [facility] through right upper extremity AV fistula. His primary assistant professor of economics is Violeta Silveira . -Seems to be a good candidate for kidney transplant evaluation -Karnofsky score is a greater than 80. -His blood pressures are soft he will need dialysis unit records to evaluate for any hypotension -Need biopsy reports and genetic testing to evaluate any potential recurrence of the disease -Will get standard echocardiogram and stress test. -Will discuss in the committee for further evaluation process After reviewing the records on [facility] , -he does not qualify for GFR modification I had a discussion with this patient regarding 1 year graft and patient survival statistics following renal transplantation for both living and donor allograft recipients. [facility] data compared to National data readily available for review on https://www.SRTR.org. The patient also had attended the kidney transplant education class provided by the transplant institute. Further discussion included: -The transplant selection committee process. -The need for lifelong immunosuppressive therapy, and the side effects of these medications including the risk of infections, cancer, and lymphoma. -The wait list time approximately is 5 years or more for donor transplants and the statistical superiority of a living donor. -The patient was re-educated regarding the responsibilities of being listed on the transplant waitlist. - Patient encouraged to avoid blood transfusion unless it's deemed a medically necessary. -Educated patient on the current allocation policy per [facility] regarding kidney and/or kidney-pancreas/pancreas transplant. - Education covered the need for monthly serum samples to be drawn and sent to the [facility] while actively listed. - The patient was told to inform the Pre Transplant office if there are any changes in their medical condition, demographics, insurance coverage ( including medication coverage) and or dialysis units. - The patient was reminded to fax test results of studies that were obtained outside [facility] facility. - Using identified donors with risk criteria for transmission of infection -Potential transmission of infectious disease from any donors, as well as living donors. -The possibility of transmission of tumors and infections via the transplanted organ. -The inability to completely test for all potential harmful tumors or infectious agents. -The possibility of listing at multiple locations. Surgical complications including need for reoperation(s) including but not limited to: -Bleeding. -Repair of leaks. -Control of infection. -Possible kidney transplant removal. The medical complications including but not limited to: -. -Cardiac. -Pulmonary. -Infectious. -Neurologic. -Other Complications. We also discussed how the kidney transplant could function: -Non-function and possible kidney transplant removal within the first 3 to 6 months. -Delayed graft function (dialysis needed after transplant). -The potential of recurrence of kidney disease leading to kidney transplant graft loss. Thank you for consulting : Randy Jacinto MD Notes created by Eloisa -Please excuse the Typos . documented in this [facility] Work Phone: [phone]) 245-870406-25-2024 Instructions* Patient Instructions* Carmen Do RN - 12/30/2023 12:30 PM EDT Thank You for coming to [facility] [place]. You are currently in evaluation for kidney transplant. In order to be eligible to be placed on the wait list you must complete certain tests and appointments. The following tests/appointments will be scheduled for you: -EKG -Echocardiogram -Stress test -Chest x-ray -Financial counselor phone consultation -Nutrition Consultation Please call [phone] with any questions or if you need assistance. Carmen Do RN Pre-KidneyTransplant Coordinator documented in this [facility] Work Phone: [phone]) 591-914110-26-2023 History of Present illness Narrative* Travis Bey MD - 05/01/2023 1:59 PM EDT [facility]OLOGY [facility] Patient Name: Jv Petty Admit Date: [id number] MR #: [id number] : 2000 Perpetual Assessment: Jv Petty is a 22 y.o. male on hospital day 1 admitted for We are asked to evaluate and manage . Impression and Plan: 1. ESRD: HD at [place] under direction of Dr Sarina Mcdaniel on MWF schedule. Inpatient EDW: 57.5 Tolerated HD well yesterday Plan for HD tomorrow. Access: right upper arm AVF. The patient denies any recent complications with this access. 2. HTN - Uncontrolled here and in the outpatient setting in part due to noncompliance with anti-hypertensives and runs out of refills, calls have been made to pharmacy on his behalf to help with auto-refills and coordination of medications. -Increase Coreg to 25mg BID and doxazosin to 4mg at bedtime. Continue hydralazine 50mg TID, Losartan 100mg daily, and nifedipine 60mg daily -Patient is near euvolemic at this time. Patient is compliant with he dialysis treatments and does have appropriate IDWG. 3. Anemia - Hgb prior to admit at outpatient HD was 10.3 on 04/16/2023 - Receives Venofer and PARIS per protocol at outpatient HD - Will provide PARIS needed during this hospitalization, Goal Hgb for ESRD 04-16 4. Secondary hyperparathyroidism - outpatient HD medications: Patient will continue on Calcitriol 0.5mcg with his dialysis treatments -continue with Auryxia 2 tablet with meals and Renvela 2 tablets with meals, adjusting as needed for goal phos 3.0-5.5 in ESRD. We have ordered periodic checks of phosphorous level. 5. Protein calorie malnutrition -Patients with ESRD are at risk. We have ordered an oral nutritional supplement three times a day. 6. Abdominal pain: CT finding of terminal ileitis prior to hospitalization. Stool cx with C. Diff. Being discharged on Po vancomycin. Unfortunately colonoscopy not being undertaken for further evaluation. Please arrange for outpatient evaluation by GI for colonoscopy and biopsies (for evaluation if necessary) Subjective: No events overnight. Doing well. Review of Systems: ROS otherwise reviewed and negative Physical Examination: Vitals: Vitals: 05/01/23 0509 05/01/23 0558 05/01/23 0724 05/01/23 0839 BP: (!) 179/102 (!) 179/103 (!) 187/100 Pulse: 79 84 88 Resp: 14 16 18 Temp: 98.7 F (37.1 C) 99.4 F (37.4 C) TempSrc: Oral Oral SpO2: 94% 95% Weight: Height: Intake/Output last 3 shifts:No intake or output data in the 24 hours ending 05/01/23 1359No intake/output data recorded. General: No acute distress HEENT: Anicteric Neck: Supple CV: Regular rate, no murmurs or rubs. No lower extremity edema Lungs: CTA B Abd: Soft, nontender, bowel sounds present Extr: good LE perfusion, no cyanosis Neuro: No myoclonus, alert and oriented x 3 Skin : No new rashes Dialysis access: AVF + Results/Medications Reviewed 05/01/23 1:59 PM: Laboratory, Microbiology, Pathology, Radiology, Cardiology, Medications and Transcriptions reviewed Scheduled Meds: calcitrioL 0.5 mcg Oral Once per day on Fri carvediloL 12.5 mg Oral BID doxazosin 2 mg Oral Nightly epoetin 10,000 Units Intravenous Once per day on Fri ferric citrate 420 mg Oral TID with meals furosemide 40 mg Oral Daily hydrALAZINE 50 mg Oral TID losartan 100 mg Oral Daily with lunch NIFEdipine 60 mg Oral Daily pantoprazole 40 mg Oral Daily predniSONE 5 mg Oral Daily sevelamer 1,600 mg Oral TID with meals sodium chloride (PF) 5 mL Intravenous Q8H LEIGH ANN vancomycin 125 mg Oral 4x daily Continuous Infusions: sodium chloride 0.9 % Results from last 7 days Lab Units 04/30/23 0435 WBC K/mcL 5.82 HGB g/dL 9.1* HCT % 29.6* PLT K/mcL 135* Results from last 7 days Lab Units 05/01/23 0757 04/30/23 0435 SODIUM mmol/L 140 140 POTASSIUM mmol/L 4.3 6.0* CHLORIDE mmol/L 104 109* BICARB mmol/L 28 26 BUN mg/dL 25 38* CREATININE mg/dL 8.52* 12.00* EGFR mL/min/1.73 m2 8* 6* GLUCOSE mg/dL 97 91 CALCIUM mg/dL 9.1 8.8 PHOSPHORUS mg/dL 5.3* -- Potential limitations of the note: Parts of this note were created by dictation via voice recognition software ([email or web address]). The completed note was reviewed for accuracy. However, there may be subtle errors that were not found during the review. If such errors are discovered, or if there are any questions or concerns regarding the recommendations/plan of care, please contact the author of the note prior to undertaking the recommendations/plan of care. * Cassia Ha, JC - 04/30/2023 5:46 PM EDT Hemodialysis x 3 hours completed. Pt tolerated tx well. Fluid balance -500ml. Dickens pulled. Hemostasis achieved. Dressing applied. Pre wt: 58.1kg Post wt: 57.5kg * Ranjan Carlos RD - 04/30/2023 12:04 PM EDT Nutrition Care Initial Assessment Reason for visit: Nursing Referral for PO Nutrition Diagnosis: Inadequate oral intake related to abdominal pain as evidenced by clear liquids. 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 Weight hx: fluid+- Wt Readings from Last 5 Encounters: 04/30/23 58.2 kg (128 lb 4.9 oz) 04/23/23 56.6 kg (124 lb 12.5 oz) 01/15/23 61.2 kg (135 lb) 10/18/21 56.2 kg (124 lb) (7 %, Z= -1.51)* 09/18/21 56.7 kg (125 lb) (8 %, Z= -1.43)* * Growth percentiles are based on CDC (Boys, 2-20 Years) data. Current diet order: clear liquids Recent intake: 25%. Current intake does not meet estimated needs. Patient/family comments: receptive to try nutritional supplements Difficulty Chewing/Swallowing: No Skin Integrity: Intact GI Function: abdominal pain Physical Appearance: ANNABELLE Labs: Recent Labs 04/30/23 0435 NA 140 K 6.0* BICARB 26 CL 109* GLUCOSE 91 BUN 38* CREATININE 12.00* Scheduled Meds: calcitrioL 0.5 mcg Oral Once per day on Fri carvediloL 12.5 mg Oral BID docusate sodium 100 mg Oral Daily docusate sodium 100 mg Oral Daily doxazosin 2 mg Oral Nightly epoetin 10,000 Units Intravenous Once per day on Fri ferric citrate 420 mg Oral TID with meals furosemide 40 mg Oral Daily hydrALAZINE 50 mg Oral TID losartan 100 mg Oral Daily with lunch NIFEdipine 60 mg Oral Daily pantoprazole 40 mg Oral Daily predniSONE 5 mg Oral Daily sevelamer 1,600 mg Oral TID with meals sodium chloride (PF) 5 mL Intravenous Q8H LEIGH ANN Continuous Infusions: sodium chloride 0.9 % Estimated Energy Needs Total Energy Estimated Needs: 2000kcal Method for Estimating Needs: 35kcal/kg Total Protein Estimated Needs: 80gm Method for Estimating Needs: 1.4gm/kg Ed MS Breanna, RDN, LD Dietitian Office documented in this [id number] Hospital course Narrative* Jayce Herman MD - 05/01/2023 1:07 PM EDT [facility] -- [facility] Jv Petty Admitted: 04/30/2023 Discharge Date: 05/01/23 PCP Handoff Recommended Outpatient Testing None Results Pending At Discharge None Clinical Summary Jv Petty is a 22 y.o. male patient of Inocencio villalobos MD with history of ESRD on HD, HTN,who presented to [facility] with abdominal pain. Abdominal pain Recent Terminal ileitis: Patient transferred from [facility] with recurrent abdominal pain he was just discharged 04/24 with the same where CT w/o shows suspected terminal ileitis and associated free peritoneal fluid in the pelvis, Seen by gastroenterology C. difficile infection, presenting with heavy diarrhea which resolved on the quickly second day of presentation after 2 doses of vancomycin, had no bowel movement since 16 hours, no vomiting tolerating diet, no abdominal pain. Treating for 10 days of vancomycin but possible colonization too. Cannotwithdraw antibiotics either as the patient presenting with diarrhea and he has positive C. difficile test ESRD on HD MWF: Nephrology consult HTN, uncontrolled Continue home meds and compliance with medication, Cardura was added by nephrology, provided at on discharge Anemia of CKD: Discharge Medications Discharge Medications New Medications Details doxazosin 2 MG tablet Commonly known as: CARDURA Take 1 (one) tablet (2 mg total) by mouth nightly . Quantity: 30 tablet vancomycin 125 MG capsule Commonly known as: VANCOCIN Take 1 (one) capsule (125 mg total) by mouth 4 (four) times a day for 10 days . Quantity: 40 capsule Medications To Continue Details acetaminophen 160 mg/5 mL solution Commonly known as: TYLENOL Take 225 mg by mouth every 4 (four) hours as needed . calcium acetate(phosphat bind) 667 mg capsule Commonly known as: PHOSLO Take 3 (three) capsules (2,001 mg total) by mouth 3 (three) times a day with meals . carvediloL 6.25 MG tablet Commonly known as: COREG Take 1 (one) tablet (6.25 mg total) by mouth 2 (two) times a day . docusate sodium 100 MG capsule Commonly known as: COLACE Take 1 (one) capsule (100 mg total) by mouth daily . EPINEPHrine 0.3 mg/0.3 mL Atin Commonly known as: EPIPEN Inject 0.3 mL (0.3 mg total) into the shoulder, thigh, or buttocks once Inject 0.3 mL (0.3 mg total) into the mid-thigh as needed for severe allergic reaction. . ergocalciferol 1,250 mcg (50,000 unit) capsule Commonly known as: ERGOCALCIFEROL Take 1 (one) capsule (50,000 Units total) by mouth over 168 hr . furosemide 40 MG tablet Commonly known as: LASIX Take 1 (one) tablet (40 mg total) by mouth 40 mg in am; 40 mg in pm . hydrALAZINE 25 MG tablet Commonly known as: APRESOLINE Take 1 (one) tablet (25 mg total) by mouth 3 (three) times a day Reasons: high blood pressure. hyoscyamine 0.125 mg SL tablet Commonly known as: LEVSIN/SL Place 1 (one) tablet (0.125 mg total) under the tongue 3 (three) times a day before meals Not taking . LABETALOL ORAL Take 400 mg by mouth 2 (two) times a day . losartan 50 MG tablet Commonly known as: COZAAR Take 1 (one) tablet (50 mg total) by mouth daily . NIFEdipine 60 MG 24 hr tablet Commonly known as: PROCARDIA XL Take 1 (one) tablet (60 mg total) by mouth 2 (two) times a day . omeprazole 20 MG capsule Commonly known as: PRILOSEC Take 1 (one) capsule (20 mg total) by mouth daily . polyethylene glycol 17 gram powder Commonly known as: MIRALAX Take 17 (seventeen) g by mouth daily as needed . predniSONE 10 MG tablet Commonly known as: DELTASONE Take 0.5 (one-half) tablet (5 mg total) by mouth daily . promethazine 25 MG tablet Commonly known as: PHENERGAN Take 1 (one) tablet (25 mg total) by mouth every 6 (six) hours as needed for nausea . simethicone 40 mg/0.6 mL drops Commonly known as: MYLICON Take 1.2 mL (80 mg total) by mouth 4 (four) times a day as needed . Physician(s) Follow Up: No follow-up provider specified. Condition at Discharge: Stable Disposition: Home I reviewed discharge recommendations with the patient in person. Patient instructions, including activity, were given to the patient/family at discharge. On day of discharge I saw Jv Petty and spent: > 30 minutes on discharge. Completed by: Jayce Herman on 05/01/23, 1:07 PM documented in this [id number] Note* Plan of Care - Subhash Gaona RN - 05/01/2023 1:22 AM EDT Problem: Actual or potential alteration in health Goal: Absence of healthcare acquired conditions Outcome: Partially Met Goal: Knowledge of Interdisciplinary Plan of Care Outcome: Partially Met Goal: Knowledge of Enviroment Outcome: Partially Met Problem: Pain Goal: Manage acute pain Outcome: Partially Met Goal: Manage chronic pain Outcome: Partially Met Goal: Reduced pain sensation Outcome: Partially Met Goal: Achievement of comfort function goal Outcome: Partially Met [id number] Miscellaneous Notes* Plan of Care - Subhash Gaona RN - 05/01/2023 1:22 AM EDT Problem: Actual or potential alteration in health Goal: Absence of healthcare acquired conditions Outcome: Partially Met Goal: Knowledge of Interdisciplinary Plan of Care Outcome: Partially Met Goal: Knowledge of Enviroment Outcome: Partially Met Problem: Pain Goal: Manage acute pain Outcome: Partially Met Goal: Manage chronic pain Outcome: Partially Met Goal: Reduced pain sensation Outcome: Partially Met Goal: Achievement of comfort function goal Outcome: Partially Met * Sign Off Note - Teagan Jha CNP - 04/30/2023 5:39 PM EDT Gastroenterology Sign-Off Discharge Medications: Antibiotics vancomycin 125 mg p.o. 4 times daily for 10 days total Diet N/A Follow-up Procedures/Testing: N/A Follow-up Imaging: N/A Follow-up Labs: N/A Follow-up Appointment: As needed. * Quick Note - Teagan Jha CNP - 04/30/2023 2:44 PM EDT Stool PCR positive for C. difficile, start vancomycin 125 mg p.o. 4 times daily for 10 days. * Plan of Care - Karyn Christiansen RN - 04/30/2023 9:12 AM EDT POC reviewed and continues Problem: Actual or potential alteration in health Goal: Absence of healthcare acquired conditions Outcome: Partially Met Goal: Knowledge of Interdisciplinary Plan of Care Outcome: Partially Met Goal: Knowledge of Enviroment Outcome: Partially Met Problem: Pain Goal: Manage acute pain Outcome: Partially Met Goal: Manage chronic pain Outcome: Partially Met Goal: Reduced pain sensation Outcome: Partially Met Goal: Achievement of comfort function goal Outcome: Partially Met * Plan of Care - Subhash Gaona RN - 04/30/2023 2:21 AM EDT Problem: Actual or potential alteration in health Goal: Absence of healthcare acquired conditions 04/30/2023221 by Subhash Gaona, RN Outcome: Partially Met 04/30/2023220 by Subhash Gaona, JC Outcome: Partially Met Goal: Knowledge of Interdisciplinary Plan of Care 04/30/2023221 by Subhash Gaona RN Outcome: Partially Met 04/30/2023220 by Subhash Gaona RN Outcome: Partially Met Goal: Knowledge of Enviroment 04/30/2023221 by Subhash Gaona RN Outcome: Partially Met 04/30/2023220 by Subhash Gaona RN Outcome: Partially Met documented in this [id number] Note* Sign Off Note - Teagan Jha CNP - 04/30/2023 5:39 PM EDT Gastroenterology Sign-Off Discharge Medications: Antibiotics vancomycin 125 mg p.o. 4 times daily for 10 days total Diet N/A Follow-up Procedures/Testing: N/A Follow-up Imaging: N/A Follow-up Labs: N/A Follow-up Appointment: As needed. [id number] Note* Quick Note - Teagan Jha CNP - 04/30/2023 2:44 PM EDT Stool PCR positive for C. difficile, start vancomycin 125 mg p.o. 4 times daily for 10 days. [id number] Consult note* Travis Bey MD - 04/30/2023 11:56 AM EDT NEPHROLOGY CONSULTATION [facility] Patient Name: Jv Petty MR #: [id number] : 2000 Requesting physician: Dr. Katie CARBONE Reason for consult: ESRD on hemodialysis Impression/Plan: 1. ESRD: HD at [place] under direction of Dr Sarina Mcdaniel on MWF schedule. Inpatient EDW: 57.5 Next iHD is planned: Today per his chronic orders. Access: right upper arm AVF. The patient denies any recent complications with this access. 2. HTN - Uncontrolled in the outpatient setting in part due to noncompliance with anti- hypertensives and runs out of refills, calls have been made to pharmacy on his behalf to help with auto-refills and coordination of medications. -Currently he is on Coreg 12.5mg BID, hydralazine 50mg TID, Losartan 100mg daily, nifedipine 60mg daily, we will add Cardura 2mg at bedtime as he is on this in the OP setting. -Volume status: -Patient is near euvolemic at this time. Patient is compliant with he dialysis treatments and does have appropriate fluid gains. 3. Anemia - Hgb prior to admit at outpatient HD was 10.3 on 04/16/2023 - Receives Venofer and PARIS per protocol at outpatient HD - Will provide PARIS needed during this hospitalization, Goal Hgb for ESRD 10-11 4. Secondary hyperparathyroidism - outpatient HD medications: Patient will continue on Calcitriol 0.5mcg with his dialysis treatments -continue with Auryxia 2 tablet with meals and Renvela 2 tablets with meals, adjusting as needed for goal phos 3.0-5.5 in ESRD. We have ordered periodic checks of phosphorous level. 5. Protein calorie malnutrition -Patients with ESRD are at risk. We have ordered an oral nutritional supplement three times a day. 6. Abdominal pain: management per primary team. GI has been consulted. Patient was recently seen byGI who made the recommendation for colonoscopy Previous finding of terminal ileitis. History of Presenting Illness: Jv Petty is a 22 y.o. male on hospital day 0 with a history of ESRD on HD, anemia of CKD, dysphonia, HTN, terminal ileitis. Who presented to outlying ER ([place]) with complaints of worsening abdominal pain. Patient was transferred to [place] for further evaluation of his abdominal pain. Wehave been consulted for ESRD on HD. 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, on HD since 2018 Helicobacter pylori gastritis Hyperphosphatemia Hypertension Hypotension Immunocompromised (HCC) Malnutrition (HCC) BMI 18.43 on 04/23/2023 Respiratory failure (HCC) Secondary hyperparathyroidism (HCC) Septic shock (HCC) Terminal ileitis (HCC) 04/2023 Past Surgical History: Procedure Laterality Date CV IR INTERVENTIONAL RADIOLOGY N/A 10/19/2021 DIALYSIS CATHETER REPLACEMENT TUNNELED/NONTUNNELED; Surgeon: Maddie Hancock MD CV IR INTERVENTIONAL RADIOLOGY N/A 02/05/2022 DIALYSIS CATHETER REMOVAL; Surgeon: Kailash Lackey PA-C CV IR INTERVENTIONAL RADIOLOGY N/A 06/13/2022 FISTULA INTERVENTION; Surgeon: Caden Davsion, CV IR INTERVENTIONAL RADIOLOGY N/A 01/15/2023 Fistulagram w/Intervention; Surgeon: Merrill Escobar MD; Location DIALYSIS CATHETER PLACEMENT/ANNMARIE CATH Right 10/19/2021 replacement FISTULA ARTERIOVENOUS Right 08/28/2021 FISTULA ARTERIOVENOUS-RIGHT UPPER ARM CEPHALIC VEIN A-V FISTULA; Surgeon: Elisabeth Peña III, DO RENAL BIOPSY 12/18/2017 temporary dialysis catheter Right UPPER GASTROINTESTINAL ENDOSCOPY 2018 with biopsy X 2 Family History: Family History Problem Relation Age of Onset Asthma Mother Other (CKD) Mother stage 3 Heart disease Father Diabetes Maternal Grandmother Sleep apnea Maternal Grandmother Diabetes Maternal Grandfather Other (blood clots) Maternal Grandfather Other (blood clots) Paternal Grandmother Other (blood clots) Paternal Grandfather Heart disease Brother Tracheoesophageal fistual Brother [] Unable to obtain due to ventilated and/or neurologic status Social History Socioeconomic History Marital status: Single Occupational History Occupation: Disabled Tobacco Use Smoking status: Never Smokeless tobacco: Never Vaping Use Vaping Use: Never used Substance and Sexual Activity Alcohol use: Never Drug use: Never [] Unable to obtain due to ventilated and/or neurologic status Living Arrangements: Family members Support Systems: Parent Home Medications: Outpatient Medications as of 04/30/2023 Medication Sig carvediloL (COREG) 6.25 MG tablet Take 1 (one) tablet (6.25 mg total) by mouth 2 (two) times a day . furosemide (LASIX) 40 MG tablet Take 1 (one) tablet (40 mg total) by mouth 40 mg in am; 40 mg in pm. hydrALAZINE (APRESOLINE) 25 MG tablet Take 1 (one) tablet (25 mg total) by mouth 3 (three) times a day Reasons: high blood pressure. hyoscyamine (LEVSIN/SL) 0.[address] 1 (one) tablet (0.125 mg total) under the tongue 3(three) times a day before meals Not taking . labetalol HCl (LABETALOL ORAL) Take 400 mg by mouth 2 (two) times a day . losartan (COZAAR) 50 MG tablet Take 1 (one) tablet (50 mg total) by mouth daily . NIFEdipine (PROCARDIA XL) 60 MG 24 hr tablet Take 1 (one) tablet (60 mg total) by mouth 2 (two) times a day . omeprazole (PRILOSEC) 20 MG capsule Take 1 (one) capsule (20 mg total) by mouth daily . predniSONE (DELTASONE) 10 MG tablet Take 0.5 (one-half) tablet (5 mg total) by mouth daily . acetaminophen (TYLENOL) 160 mg/5 mL solution Take 225 mg by mouth every 4 (four) hours as needed . calcium acetate,phosphat bind, (PHOSLO) 667 mg capsule Take 3 (three) capsules (2,001 mg total) by mouth 3 (three) times a day with meals . docusate sodium (COLACE) 100 MG capsule Take 1 (one) capsule (100 mg total) by mouth daily . EPINEPHrine (EPIPEN) 0.3 mg/0.3 mL AtIn Inject 0.3 mL (0.3 mg total) into the shoulder, thigh, or buttocks once Inject 0.3 mL (0.3 mg total) into the mid- thigh as needed for severe allergic reaction.. ergocalciferol (ERGOCALCIFEROL) 1,250 mcg (50,000 unit) capsule Take 1 (one) capsule (50,000 Units total) by mouth over 168 hr . polyethylene glycol (MIRALAX) 17 gram powder Take 17 (seventeen) g by mouth daily as needed . promethazine (PHENERGAN) 25 MG tablet Take 1 (one) tablet (25 mg total) by mouth every 6 (six) hours as needed for nausea . simethicone (MYLICON) 40 mg/0.6 mL drops Take 1.2 mL (80 mg total) by mouth 4 (four) times a day asneeded . Current Hospital Medications: Scheduled Meds: calcitrioL 0.5 mcg Oral Once per day on Fri carvediloL 12.5 mg Oral BID docusate sodium 100 mg Oral Daily docusate sodium 100 mg Oral Daily doxazosin 2 mg Oral Nightly epoetin 10,000 Units Intravenous Once per day on Fri ferric citrate 420 mg Oral TID with meals furosemide 40 mg Oral Daily hydrALAZINE 50 mg Oral TID losartan 100 mg Oral Daily with lunch NIFEdipine 60 mg Oral Daily pantoprazole 40 mg Oral Daily predniSONE 5 mg Oral Daily sevelamer 1,600 mg Oral TID with meals sodium chloride (PF) 5 mL Intravenous Q8H LEIGH ANN Continuous Infusions: sodium chloride 0.9 % PRN Meds:.aluminum-magnesium hydroxide-simethicone, melatonin, morphine injection, nalOXone ANDNotify physician AND naloxone, nitroGLYCERIN, ondansetron, promethazine, senna, simethicone, Saline lock IV AND sodium chloride (PF) AND sodium chloride (PF) AND sodium chloride 0.9 % sodium chloride 0.9 % Allergies: I have reviewed the patient's allergies. Midazolam Review of Systems: [x] CV, Resp, GI, Neuro, and all other systems reviewed and negative other than listed in HPI. [] Unable to obtain due to intubation and/or neurologic status. Objective Findings: Vitals:BP (!) 179/92 Pulse 92 Temp 98.2 F (36.8 C) (Oral) Resp 18 Ht 5' 9 Wt 58.2 kg (128 lb 4.9 oz) SpO2 94% BMI 18.95 kg/m Intake/Output last 3 shifts:No intake or output data in the 24 hours ending 04/30/23 1156No intake/output data recorded. Physical Examination: General: Age appropriate, NAD. HEENT: Normocephalic, no scleral icterus. Neck: No JVD. Heart: Regular, no murmur, no rub/gallop. Lungs: Clear to ascultation, no rales/wheezing/rhonchi. Good chest wall excursion. Abdomen: Soft, nontender, no supra-public fullness or tenderness. Extremities: No clubbing/cyanosis, no edema. Skin: Warm, dry, normal turgor, no rash, no bruise, no petichiae. Neuro: No myoclonus or tremor. Psych: Normal affect. Dialysis Access: [x] AVF right upper arm +thrill and bruit Results/Medications Reviewed: 04/30/23 11:56 AM: Laboratory, Microbiology, Pathology, Radiology, Cardiology, Medications and Transcriptions reviewed Laboratory: Results from last 7 days Lab Units 04/30/23 0435 04/24/23 0853 04/24/23 0017 WBC K/mcL 5.82 6.32 -- HGB g/dL 9.1* 9.0* 9.5* HCT % 29.6* 29.0* 30.1* PLT K/mcL 135* 143* -- Results from last 7 days Lab Units 04/30/23 0435 04/24/23 0853 SODIUM mmol/L 140 137 POTASSIUM mmol/L 6.0* 5.0 CHLORIDE mmol/L 109* 102 BICARB mmol/L 26 23 BUN mg/dL 38* 27* CREATININE mg/dL 12.00* 8.82* EGFR mL/min/1.73 m2 6* 8* GLUCOSE mg/dL 91 103* CALCIUM mg/dL 8.8 9.0 PHOSPHORUS mg/dL -- 5.9* Urinalysis Comments: Thank you for allowing us to participate in the care of this patient. We will continue to follow. Please call if questions or concerns arise. Potential limitations of the note: Parts of this note were created by dictation via voice recognition software ([email or web address]). The completed note was reviewed for accuracy. However, there may be subtle errors that were not found during the review. If such errors are discovered, or if there are any questions or concerns regarding the recommendations/plan of care, please contact the author of the note prior to undertaking the recommendations/plan of care. [id number] Consult note* Travis Bey MD - 04/30/2023 11:56 AM EDT NEPHROLOGY CONSULTATION NOTE [facility] Patient Name: Jv Petty MR #: [id number] : 2000 Requesting physician: Dr. Katie CARBONE Reason for consult: ESRD on hemodialysis Impression/Plan: 1. ESRD: HD at [place] under direction of Dr Sarina Mcdaniel on MWF schedule. Inpatient EDW: 57.5 Next iHD is planned: Today per his chronic orders. Access: right upper arm AVF. The patient denies any recent complications with this access. 2. HTN - Uncontrolled in the outpatient setting in part due to noncompliance with anti- hypertensives and runs out of refills, calls have been made to pharmacy on his behalf to help with auto-refills and coordination of medications. -Currently he is on Coreg 12.5mg BID, hydralazine 50mg TID, Losartan 100mg daily, nifedipine 60mg daily, we will add Cardura 2mg at bedtime as he is on this in the OP setting. -Volume status: -Patient is near euvolemic at this time. Patient is compliant with he dialysis treatments and does have appropriate fluid gains. 3. Anemia - Hgb prior to admit at outpatient HD was 10.3 on 04/16/2023 - Receives Venofer and PARIS per protocol at outpatient HD - Will provide PARIS needed during this hospitalization, Goal Hgb for ESRD 10-11 4. Secondary hyperparathyroidism - outpatient HD medications: Patient will continue on Calcitriol 0.5mcg with his dialysis treatments -continue with Auryxia 2 tablet with meals and Renvela 2 tablets with meals, adjusting as needed for goal phos 3.0-5.5 in ESRD. We have ordered periodic checks of phosphorous level. 5. Protein calorie malnutrition -Patients with ESRD are at risk. We have ordered an oral nutritional supplement three times a day. 6. Abdominal pain: management per primary team. GI has been consulted. Patient was recently seen byGI who made the recommendation for colonoscopy Previous finding of terminal ileitis. History of Presenting Illness: Jv Petty is a 22 y.o. male on hospital day 0 with a history of ESRD on HD, anemia of CKD, dysphonia, HTN, terminal ileitis. Who presented to outlying ER ([place]) with complaints of worsening abdominal pain. Patient was transferred to [facility] for further evaluation of his abdominal pain. Wehave been consulted for ESRD on HD. 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, on HD since 2018 Helicobacter pylori gastritis Hyperphosphatemia Hypertension Hypotension Immunocompromised (HCC) Malnutrition (HCC) BMI 18.43 on 04/23/2023 Respiratory failure (HCC) Secondary hyperparathyroidism (HCC) Septic shock (HCC) Terminal ileitis (HCC) 04/2023 Past Surgical History: Procedure Laterality Date CV IR INTERVENTIONAL RADIOLOGY N/A 10/19/2021 DIALYSIS CATHETER REPLACEMENT TUNNELED/NONTUNNELED; Surgeon: Maddie Hancock MD CV IR INTERVENTIONAL RADIOLOGY N/A 02/05/2022 DIALYSIS CATHETER REMOVAL; Surgeon: Kailash Lackey PA-C CV IR INTERVENTIONAL RADIOLOGY N/A 06/13/2022 FISTULA INTERVENTION; Surgeon: Caden Davison, CV IR INTERVENTIONAL RADIOLOGY N/A 01/15/2023 Fistulagram w/Intervention; Surgeon: Merrill Escobar MD; Location DIALYSIS CATHETER PLACEMENT/ANNMARIE CATH Right 10/19/2021 replacement FISTULA ARTERIOVENOUS Right 08/28/2021 FISTULA ARTERIOVENOUS-RIGHT UPPER ARM CEPHALIC VEIN A-V FISTULA; Surgeon: Elisabeth Peña III, DO RENAL BIOPSY 12/18/2017 temporary dialysis catheter Right UPPER GASTROINTESTINAL ENDOSCOPY 2018 with biopsy X 2 Family History: Family History Problem Relation Age of Onset Asthma Mother Other (CKD) Mother stage 3 Heart disease Father Diabetes Maternal Grandmother Sleep apnea Maternal Grandmother Diabetes Maternal Grandfather Other (blood clots) Maternal Grandfather Other (blood clots) Paternal Grandmother Other (blood clots) Paternal Grandfather Heart disease Brother Tracheoesophageal fistual Brother [] Unable to obtain due to ventilated and/or neurologic status Social History Socioeconomic History Marital status: Single Occupational History Occupation: Disabled Tobacco Use Smoking status: Never Smokeless tobacco: Never Vaping Use Vaping Use: Never used Substance and Sexual Activity Alcohol use: Never Drug use: Never [] Unable to obtain due to ventilated and/or neurologic status Living Arrangements: Family members Support Systems: Parent Home Medications: Outpatient Medications as of 04/30/2023 Medication Sig carvediloL (COREG) 6.25 MG tablet Take 1 (one) tablet (6.25 mg total) by mouth 2 (two) times a day . furosemide (LASIX) 40 MG tablet Take 1 (one) tablet (40 mg total) by mouth 40 mg in am; 40 mg in pm. hydrALAZINE (APRESOLINE) 25 MG tablet Take 1 (one) tablet (25 mg total) by mouth 3 (three) times a day Reasons: high blood pressure. hyoscyamine (LEVSIN/SL) 0.[address] 1 (one) tablet (0.125 mg total) under the tongue 3(three) times a day before meals Not taking . labetalol HCl (LABETALOL ORAL) Take 400 mg by mouth 2 (two) times a day . losartan (COZAAR) 50 MG tablet Take 1 (one) tablet (50 mg total) by mouth daily . NIFEdipine (PROCARDIA XL) 60 MG 24 hr tablet Take 1 (one) tablet (60 mg total) by mouth 2 (two) times a day . omeprazole (PRILOSEC) 20 MG capsule Take 1 (one) capsule (20 mg total) by mouth daily . predniSONE (DELTASONE) 10 MG tablet Take 0.5 (one-half) tablet (5 mg total) by mouth daily . acetaminophen (TYLENOL) 160 mg/5 mL solution Take 225 mg by mouth every 4 (four) hours as needed . calcium acetate,phosphat bind, (PHOSLO) 667 mg capsule Take 3 (three) capsules (2,001 mg total) by mouth 3 (three) times a day with meals . docusate sodium (COLACE) 100 MG capsule Take 1 (one) capsule (100 mg total) by mouth daily . EPINEPHrine (EPIPEN) 0.3 mg/0.3 mL AtIn Inject 0.3 mL (0.3 mg total) into the shoulder, thigh, or buttocks once Inject 0.3 mL (0.3 mg total) into the mid- thigh as needed for severe allergic reaction.. ergocalciferol (ERGOCALCIFEROL) 1,250 mcg (50,000 unit) capsule Take 1 (one) capsule (50,000 Units total) by mouth over 168 hr . polyethylene glycol (MIRALAX) 17 gram powder Take 17 (seventeen) g by mouth daily as needed . promethazine (PHENERGAN) 25 MG tablet Take 1 (one) tablet (25 mg total) by mouth every 6 (six) hours as needed for nausea . simethicone (MYLICON) 40 mg/0.6 mL drops Take 1.2 mL (80 mg total) by mouth 4 (four) times a day asneeded . Current Hospital Medications: Scheduled Meds: calcitrioL 0.5 mcg Oral Once per day on Fri carvediloL 12.5 mg Oral BID docusate sodium 100 mg Oral Daily docusate sodium 100 mg Oral Daily doxazosin 2 mg Oral Nightly epoetin 10,000 Units Intravenous Once per day on Fri ferric citrate 420 mg Oral TID with meals furosemide 40 mg Oral Daily hydrALAZINE 50 mg Oral TID losartan 100 mg Oral Daily with lunch NIFEdipine 60 mg Oral Daily pantoprazole 40 mg Oral Daily predniSONE 5 mg Oral Daily sevelamer 1,600 mg Oral TID with meals sodium chloride (PF) 5 mL Intravenous Q8H LEIGH ANN Continuous Infusions: sodium chloride 0.9 % PRN Meds:.aluminum-magnesium hydroxide-simethicone, melatonin, morphine injection, nalOXone ANDNotify physician AND naloxone, nitroGLYCERIN, ondansetron, promethazine, senna, simethicone, Saline lock IV AND sodium chloride (PF) AND sodium chloride (PF) AND sodium chloride 0.9 % sodium chloride 0.9 % Allergies: I have reviewed the patient's allergies. Midazolam Review of Systems: [x] CV, Resp, GI, Neuro, and all other systems reviewed and negative other than listed in HPI. [] Unable to obtain due to intubation and/or neurologic status. Objective Findings: Vitals:BP (!) 179/92 Pulse 92 Temp 98.2 F (36.8 C) (Oral) Resp 18 Ht 5' 9 Wt 58.2 kg (128 lb 4.9 oz) SpO2 94% BMI 18.95 kg/m Intake/Output last 3 shifts:No intake or output data in the 24 hours ending 04/30/23 1156No intake/output data recorded. Physical Examination: General: Age appropriate, NAD. HEENT: Normocephalic, no scleral icterus. Neck: No JVD. Heart: Regular, no murmur, no rub/gallop. Lungs: Clear to ascultation, no rales/wheezing/rhonchi. Good chest wall excursion. Abdomen: Soft, nontender, no supra-public fullness or tenderness. Extremities: No clubbing/cyanosis, no edema. Skin: Warm, dry, normal turgor, no rash, no bruise, no petichiae. Neuro: No myoclonus or tremor. Psych: Normal affect. Dialysis Access: [x] AVF right upper arm +thrill and bruit Results/Medications Reviewed: 04/30/23 11:56 AM: Laboratory, Microbiology, Pathology, Radiology, Cardiology, Medications and Transcriptions reviewed Laboratory: Results from last 7 days Lab Units 04/30/23 0435 04/24/23 0853 04/24/23 0017 WBC K/mcL 5.82 6.32 -- HGB g/dL 9.1* 9.0* 9.5* HCT % 29.6* 29.0* 30.1* PLT K/mcL 135* 143* -- Results from last 7 days Lab Units 04/30/23 0435 04/24/23 0853 SODIUM mmol/L 140 137 POTASSIUM mmol/L 6.0* 5.0 CHLORIDE mmol/L 109* 102 BICARB mmol/L 26 23 BUN mg/dL 38* 27* CREATININE mg/dL 12.00* 8.82* EGFR mL/min/1.73 m2 6* 8* GLUCOSE mg/dL 91 103* CALCIUM mg/dL 8.8 9.0 PHOSPHORUS mg/dL -- 5.9* Urinalysis Comments: Thank you for allowing us to participate in the care of this patient. We will continue to follow. Please call if questions or concerns arise. Potential limitations of the note: Parts of this note were created by dictation via voice recognition software ([email or web address]). The completed note was reviewed for accuracy. However, there may be subtle errors that were not found during the review. If such errors are discovered, or if there are any questions or concerns regarding the recommendations/plan of care, please contact the author of the note prior to undertaking the recommendations/plan of care. * Teagan Jha CNP - 04/30/2023 9:20 AM EDTAssociated Order(s): IP CONSULT TO GASTROENTEROLOGY Gastroenterology Inpatient Consult 04/30/2023 Teagan Jha CNP [facility] Patient: Jv Petty Date of : 2000 (22 y.o.) Referring Provider: Refer to consult order in electronic medical record PCP: Inocencio Avendano MD SUBJECTIVE: Chief Complaint/Reason for Consult: Abdominal pain ASSESSMENT/PLAN: 22 y.o. male with history of rapidly progressive glomerulonephritis and ESRD on HD Fri, Fri, Fri; HYPERTENSION, anemia presented to ER yesterday with recurrent abdominal pain and diarrhea. Generalized abdominal pain, ? Terminal ileitis on recent CT- Diarrhea- Abdominal pain is resolved this morning, diarrhea ongoing Denies any upper GI symptoms such as nausea, vomiting, epigastric pain Obtain stool studies PCR/C. Difficile, stool studies were not completed during last visit PPI p.o. daily for prophylaxis while on prednisone and history of gastritis CT abdomen pelvis noncontrast from 1 week ago completed at [facility] show suspected terminal ileitis andassociated free peritoneal fluid in the pelvis Was treated with antibiotics during hospitalization, did not discharge home on any antibiotics, stool PCR not completed Never had a colonoscopy, denies any known family history of colon cancer or inflammatory bowel disease. Denies any blood in the stool, hemoglobin 9.1, 6 days ago hemoglobin 9, 9.5 Tolerating clear liquid diet, denies any current abdominal pain or tenderness ongoing diarrhea, will wait for stool studies. Patient will need colonoscopy, work-up to determine inpatient versus outpatient Will discuss with Dr Quezada and update with further recommendations or plans for endoscopy. History of Present Illness: Jv Petty is a 22 y.o. male with history of rapidly progressive glomerulonephritis and ESRD onHD Fri, Fri, Fri; HYPERTENSION, anemia presented to ER yesterday with abdominal pain and diarrhea. Friday night started with a dull abdominal pain which worsened as well as diarrhea onset Friday and p ersisted until coming to the emergency room late yesterday evening. No leukocytosis denies fever orchills. GI consulted for abdominal pain and diarrhea. Stool studies not completed last admission due to diarrhea symptoms resolved. On antibiotics during last visit, but denies any recent travel or kn own sick contacts. Diarrhea episodes about 8-10 times a day, loose watery, denies any blood or mucus in the stool. He has never had a colonoscopy. Denies any family history of colon cancer or inflammatory bowel disease. Discharged from the hospital 6 days ago after being admitted for similar complaints, was transferred [facility], noncontrast noncontrast noncontrast CT abdomen and pelvis completed there showed suspected terminal ileitis and associated free peritoneal fluid in the pelvis. He was tr eated with IV antibiotics his symptoms improved, he was discharged home 04/24, recommended colonoscopy as outpatient. 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, on HD since 2018 Helicobacter pylori gastritis Hyperphosphatemia Hypertension Hypotension Immunocompromised (HCC) Malnutrition (HCC) BMI 18.43 on 04/23/2023 Respiratory failure (HCC) Secondary hyperparathyroidism (HCC) Septic shock (HCC) Terminal ileitis (HCC) 04/2023 Past Surgical History: Procedure Laterality Date CV IR INTERVENTIONAL RADIOLOGY N/A 10/19/2021 DIALYSIS CATHETER REPLACEMENT TUNNELED/NONTUNNELED; Surgeon: Maddie Hancock MD CV IR INTERVENTIONAL RADIOLOGY N/A 02/05/2022 DIALYSIS CATHETER REMOVAL; Surgeon: Kailash Lackey PA-C CV IR INTERVENTIONAL RADIOLOGY N/A 06/13/2022 FISTULA INTERVENTION; Surgeon: Caden Davison CV IR INTERVENTIONAL RADIOLOGY N/A 01/15/2023 Fistulagram w/Intervention; Surgeon: Merrill Escobar MD; Location DIALYSIS CATHETER PLACEMENT/ANNMARIE CATH Right 10/19/2021 replacement FISTULA ARTERIOVENOUS Right 08/28/2021 FISTULA ARTERIOVENOUS-RIGHT UPPER ARM CEPHALIC VEIN A-V FISTULA; Surgeon: Elisabeth Peña III, DO RENAL BIOPSY 12/18/2017 temporary dialysis catheter Right UPPER GASTROINTESTINAL ENDOSCOPY 2018 with biopsy X 2 Family History Problem Relation Age of Onset Asthma Mother Other (CKD) Mother stage 3 Heart disease Father Diabetes Maternal Grandmother Sleep apnea Maternal Grandmother Diabetes Maternal Grandfather Other (blood clots) Maternal Grandfather Other (blood clots) Paternal Grandmother Other (blood clots) Paternal Grandfather Heart disease Brother Tracheoesophageal fistual Brother Social History Tobacco Use Smoking Status Never Smokeless Tobacco Never Additional History Comments: None Allergies: Midazolam Current HOME Medications: Outpatient Medications Marked as Taking for the 04/30/23 encounter (Hospital Encounter): carvediloL (COREG) 6.25 MG tablet, Take 1 (one) tablet (6.25 mg total) by mouth 2 (two) times a day. furosemide (LASIX) 40 MG tablet, Take 1 (one) tablet (40 mg total) by mouth 40 mg in am; 40 mg in pm . hydrALAZINE (APRESOLINE) 25 MG tablet, Take 1 (one) tablet (25 mg total) by mouth 3 (three) times aday Reasons: high blood pressure. hyoscyamine (LEVSIN/SL) 0.125 mg SL tablet, Place 1 (one) tablet (0.125 mg total) under the tongue 3 (three) times a day before meals Not taking . labetalol HCl (LABETALOL ORAL), Take 400 mg by mouth 2 (two) times a day . losartan (COZAAR) 50 MG tablet, Take 1 (one) tablet (50 mg total) by mouth daily . NIFEdipine (PROCARDIA XL) 60 MG 24 hr tablet, Take 1 (one) tablet (60 mg total) by mouth 2 (two) times a day . omeprazole (PRILOSEC) 20 MG capsule, Take 1 (one) capsule (20 mg total) by mouth daily . predniSONE (DELTASONE) 10 MG tablet, Take 0.5 (one-half) tablet (5 mg total) by mouth daily . Current HOSPITAL Medications: aluminum-magnesium hydroxide-simethicone (MAALOX PLUS) 200-200-20 mg/5 mL suspension 30 mL, 30 mL, Oral, Q4H PRN calcitrioL (ROCALTROL) capsule 0.5 mcg, 0.5 mcg, Oral, Once per day on Fri carvediloL (COREG) tablet 12.5 mg, 12.5 mg, Oral, BID docusate sodium (COLACE) capsule 100 mg, 100 mg, Oral, Daily docusate sodium (COLACE) capsule 100 mg, 100 mg, Oral, Daily doxazosin (CARDURA) tablet 2 mg, 2 mg, Oral, Nightly epoetin ashley (PROCRIT) injection 10,000 Units, 10,000 Units, Intravenous, Once per day on Fri ferric citrate (AURYXIA) tablet 420 mg, 420 mg, Oral, TID with meals furosemide (LASIX) tablet 40 mg, 40 mg, Oral, Daily hydrALAZINE (APRESOLINE) tablet 50 mg, 50 mg, Oral, TID losartan (COZAAR) tablet 100 mg, 100 mg, Oral, Daily with lunch melatonin Tab 5 mg, 5 mg, Oral, Nightly PRN morphine injection 4 mg, 4 mg, Intravenous, Q4H PRN naloxone (NARCAN) injection 0.1 mg, 0.1 mg, Intravenous, PRN AND Notify physician, , , Until Discontinued AND naloxone (NARCAN) injection 0.4 mg, 0.4 mg, Intravenous, PRN NIFEdipine (ADALAT CC) 24 hr tablet 60 mg, 60 mg, Oral, Daily nitroGLYCERIN (NITROSTAT) SL tablet 0.4 mg, 0.4 mg, Sublingual, Q5 Min PRN ondansetron (ZOFRAN-ODT) disintegrating tablet 4 mg, 4 mg, Oral, Q6H PRN pantoprazole (PROTONIX) EC tablet 40 mg, 40 mg, Oral, Daily predniSONE (DELTASONE) tablet 5 mg, 5 mg, Oral, Daily promethazine (PHENERGAN) tablet 25 mg, 25 mg, Oral, Q6H PRN senna (SENOKOT) tablet 8.6 mg, 1 tablet, Oral, BID PRN sevelamer (RENVELA) tablet 1,600 mg, 1,600 mg, Oral, TID with meals simethicone (MYLICON) chewable tablet 80 mg, 80 mg, Oral, 4x Daily PRN Saline lock IV, , , Continuous AND sodium chloride (PF) (NS) flush 5 mL, 5 mL, Intravenous, PRNAND sodium chloride (PF) (NS) flush 5 mL, 5 mL, Intravenous, Q8H LEIGH ANN AND sodium chloride 0.9% (NS), 0-150 mL/hr, Intravenous, PRN OBJECTIVE: Physical Examination: BP (!) 179/92 Pulse 92 Temp 98.2 F (36.8 C) (Oral) Resp 18 Ht 5' 9 Wt 58.2 kg (128 lb 4.9 oz) SpO2 94% BMI 18.95 kg/m General Appearance: Alert, chronically ill appearing, no acute distress HEENT: Head- Normocephalic, atraumatic. Eyes: No scleral icterus, normal conjunctive. Ears: Normal appearance, hearing intact. Nares: Normal pink mucosa, no exudate. Throat: Mucus membranes moist, noerythema. Neck: Supple, trachea midline. Cardiovascular: Regular rate and rhythm Respiratory: Respirations unlabored on room air Abdomen: Soft, flat, non distended, active bowel sounds, non- tender to palpation Extremities: No clubbing, cyanosis or edema. Musculoskeletal: No joint deformity, swelling or tenderness Neurological: Alert and oriented, no focal deficits, grossly normal motor and sensory Skin: Normal color and turgor, no jaundice or rashes. Psych: Normal mood and affect. Laboratory and Additional Data Reviewed: Reviewed 04/30/23 11:00 AM: Laboratory, Radiology, Medications, and Transcriptions Please note: Portions of this chart may have been created with Melon [email or web address] voice recognition software. Occasional wrong-word or sound-like substitutions may have occurred due to inherent limitations of the voice recognition software. Please read the chart carefully and recognize, using context, where the substitutions have occurred. Associated attestation - Spencer Quezada MD - 04/30/2023 5:48 PM EDT I personally interviewed and examined the patient. I review Psychiatric nurse practitioner consultationreport and agree with her documented history physical exam assessment and plan. 22 y.o. male with history of rapidly progressive glomerulonephritis and ESRD on HD Mon, Wed, Fri; HYPERTENSION, anemia presented to ER yesterday with recurrent abdominal pain and diarrhea. Abdominal pain is resolved this morning, diarrhea ongoing Denies any upper GI symptoms such as nausea, vomiting, epigastric pain CT abdomen pelvis noncontrast from 1 week ago completed at [facility] show suspected terminal ileitis andassociated free peritoneal fluid in the pelvis Was treated with antibiotics during hospitalization, did not discharge home on any antibiotics, stool PCR not completed Never had a colonoscopy, denies any known family history of colon cancer or inflammatory bowel disease. Denies any blood in the stool, hemoglobin 9.1, 6 days ago hemoglobin 9, 9.5 Patient had stool test for C. difficile which came out positive will treat it. No need for any colonoscopy. * Nichole Torres CNP - 04/30/2023 6:57 AM EDTAssociated Order(s): IP CONSULT TO NEPHROLOGY NEPH[facility]OLOGY CONSULTATION [facility] Patient Name: Jv Petty MR #: [id number] : 2000 Requesting physician: Dr. Katie CARBONE Reason for consult: ESRD on hemodialysis Impression/Plan: 1. ESRD: HD at [place] under direction of Dr Sarina Mcdaniel on MWF schedule. Inpatient EDW: 57.5 Next iHD is planned: Today per his chronic orders. Access: right upper arm AVF. The patient denies any recent complications with this access. 2. HTN - Uncontrolled -BP is noted to be elevated, upon review with OP setting he tends to be noncompliance with anti-hypertensives and runs out of refills, calls have been made to pharmacy on his behalf to help with auto-refills and coordination of medications. -Currently he is on Coreg 12.5mg BID, Apresoline 50mg TID, Losartan 100mg daily, nifedipine 60mg daily, we will add Cardura 2mg at bedtime as he is on this in the OP setting. -Volume status: -Patient is near euvolemic at this time. Patient is compliant with he dialysis treatments and does have appropriate fluid gains. 3. Anemia - Hgb prior to admit at outpatient HD was 10.3 on 04/16/2023 - Receives Venofer and PARIS per protocol at outpatient HD - Will provide PARIS needed during this hospitalization, Goal Hgb for ESRD 10-11 4. Secondary hyperparathyroidism - outpatient HD medications: Patient will continue on Calcitriol 0.5mcg with his dialysis treatments -continue with Auryxia 2 tablet with meals and Renvela 2 tablets with meals, adjusting as needed for goal phos 3.0-5.5 in ESRD. We have ordered periodic checks of phosphorous level. 5. Protein calorie malnutrition -Patients with ESRD are at risk. We have ordered an oral nutritional supplement three times a day. 6. Abdominal pain: management per primary team. GI has been consulted. Patient was recently seen byGI who made the recommendation for colonoscopy History of Presenting Illness: Jv Petty is a 22 y.o. male on hospital day 0 with a history of ESRD on HD, anemia of CKD, dysphonia, HTN, terminal ileitis. Who presented to outlying ER ([place]) with complaints of worsening abdominal pain. Patient was transferred to [facility] for further evaluation of his abdominal pain. Wehave been consulted for ESRD on HD. 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, on HD since 2018 Helicobacter pylori gastritis Hyperphosphatemia Hypertension Hypotension Immunocompromised (HCC) Malnutrition (HCC) BMI 18.43 on 04/23/2023 Respiratory failure (HCC) Secondary hyperparathyroidism (HCC) Septic shock (HCC) Terminal ileitis (HCC) 04/2023 Past Surgical History: Procedure Laterality Date CV IR INTERVENTIONAL RADIOLOGY N/A 10/19/2021 DIALYSIS CATHETER REPLACEMENT TUNNELED/NONTUNNELED; Surgeon: Maddie Hancock MD CV IR INTERVENTIONAL RADIOLOGY N/A 02/05/2022 DIALYSIS CATHETER REMOVAL; Surgeon: Kailash Lackey PA-C CV IR INTERVENTIONAL RADIOLOGY N/A 06/13/2022 FISTULA INTERVENTION; Surgeon: Caden Davison CV IR INTERVENTIONAL RADIOLOGY N/A 01/15/2023 Fistulagram w/Intervention; Surgeon: Merrill Escobar MD; Location DIALYSIS CATHETER PLACEMENT/ANNMARIE CATH Right 10/19/2021 replacement FISTULA ARTERIOVENOUS Right 08/28/2021 FISTULA ARTERIOVENOUS-RIGHT UPPER ARM CEPHALIC VEIN A-V FISTULA; Surgeon: Elisabeth Peña III, DO RENAL BIOPSY 12/18/2017 temporary dialysis catheter Right UPPER GASTROINTESTINAL ENDOSCOPY 2018 with biopsy X 2 Family History: Family History Problem Relation Age of Onset Asthma Mother Other (CKD) Mother stage 3 Heart disease Father Diabetes Maternal Grandmother Sleep apnea Maternal Grandmother Diabetes Maternal Grandfather Other (blood clots) Maternal Grandfather Other (blood clots) Paternal Grandmother Other (blood clots) Paternal Grandfather Heart disease Brother Tracheoesophageal fistual Brother [] Unable to obtain due to ventilated and/or neurologic status Social History Socioeconomic History Marital status: Single Occupational History Occupation: Disabled Tobacco Use Smoking status: Never Smokeless tobacco: Never Vaping Use Vaping Use: Never used Substance and Sexual Activity Alcohol use: Never Drug use: Never [] Unable to obtain due to ventilated and/or neurologic status Living Arrangements: Family members Support Systems: Parent Home Medications: Outpatient Medications as of 04/30/2023 Medication Sig carvediloL (COREG) 6.25 MG tablet Take 1 (one) tablet (6.25 mg total) by mouth 2 (two) times a day . furosemide (LASIX) 40 MG tablet Take 1 (one) tablet (40 mg total) by mouth 40 mg in am; 40 mg in pm. hydrALAZINE (APRESOLINE) 25 MG tablet Take 1 (one) tablet (25 mg total) by mouth 3 (three) times a day Reasons: high blood pressure. hyoscyamine (LEVSIN/SL) 0.[address] 1 (one) tablet (0.125 mg total) under the tongue 3(three) times a day before meals Not taking . labetalol HCl (LABETALOL ORAL) Take 400 mg by mouth 2 (two) times a day . losartan (COZAAR) 50 MG tablet Take 1 (one) tablet (50 mg total) by mouth daily . NIFEdipine (PROCARDIA XL) 60 MG 24 hr tablet Take 1 (one) tablet (60 mg total) by mouth 2 (two) times a day . omeprazole (PRILOSEC) 20 MG capsule Take 1 (one) capsule (20 mg total) by mouth daily . predniSONE (DELTASONE) 10 MG tablet Take 0.5 (one-half) tablet (5 mg total) by mouth daily . acetaminophen (TYLENOL) 160 mg/5 mL solution Take 225 mg by mouth every 4 (four) hours as needed . calcium acetate,phosphat bind, (PHOSLO) 667 mg capsule Take 3 (three) capsules (2,001 mg total) by mouth 3 (three) times a day with meals . docusate sodium (COLACE) 100 MG capsule Take 1 (one) capsule (100 mg total) by mouth daily . EPINEPHrine (EPIPEN) 0.3 mg/0.3 mL AtIn Inject 0.3 mL (0.3 mg total) into the shoulder, thigh, or buttocks once Inject 0.3 mL (0.3 mg total) into the mid- thigh as needed for severe allergic reaction.. ergocalciferol (ERGOCALCIFEROL) 1,250 mcg (50,000 unit) capsule Take 1 (one) capsule (50,000 Units total) by mouth over 168 hr . polyethylene glycol (MIRALAX) 17 gram powder Take 17 (seventeen) g by mouth daily as needed . promethazine (PHENERGAN) 25 MG tablet Take 1 (one) tablet (25 mg total) by mouth every 6 (six) hours as needed for nausea . simethicone (MYLICON) 40 mg/0.6 mL drops Take 1.2 mL (80 mg total) by mouth 4 (four) times a day asneeded . Current Hospital Medications: Scheduled Meds: carvediloL 12.5 mg Oral BID docusate sodium 100 mg Oral Daily docusate sodium 100 mg Oral Daily epoetin 10,000 Units Intravenous Once per day on Fri furosemide 40 mg Oral Daily hydrALAZINE 50 mg Oral TID losartan 100 mg Oral Daily with lunch NIFEdipine 60 mg Oral Daily pantoprazole 40 mg Oral Daily predniSONE 5 mg Oral Daily sevelamer 1,600 mg Oral TID with meals sodium chloride (PF) 5 mL Intravenous Q8H LEIGH ANN Continuous Infusions: sodium chloride 0.9 % PRN Meds:.aluminum-magnesium hydroxide-simethicone, melatonin, morphine injection, nalOXone ANDNotify physician AND naloxone, nitroGLYCERIN, ondansetron, promethazine, senna, simethicone, Saline lock IV AND sodium chloride (PF) AND sodium chloride (PF) AND sodium chloride 0.9 % sodium chloride 0.9 % Allergies: I have reviewed the patient's allergies. Midazolam Review of Systems: [x] CV, Resp, GI, Neuro, and all other systems reviewed and negative other than listed in HPI. [] Unable to obtain due to intubation and/or neurologic status. Objective Findings: Vitals:BP (!) 160/89 Pulse 95 Temp 99.2 F (37.3 C) (Oral) Resp 14 Ht 5' 9 Wt 58.2 kg (128 lb 4.9 oz) SpO2 94% BMI 18.95 kg/m Intake/Output last 3 shifts:No intake or output data in the 24 hours ending 04/30/23 0658No intake/output data recorded. Physical Examination: General: Age appropriate, NAD. HEENT: Normocephalic, no scleral icterus. Neck: No JVD. Heart: Regular, no murmur, no rub/gallop. Lungs: Clear to ascultation, no rales/wheezing/rhonchi. Good chest wall excursion. Abdomen: Soft, nontender, no supra-public fullness or tenderness. Extremities: No clubbing/cyanosis, no edema. Skin: Warm, dry, normal turgor, no rash, no bruise, no petichiae. Neuro: No myoclonus or tremor. Psych: Normal affect. Dialysis Access: [x] AVF right upper arm +thrill and bruit Results/Medications Reviewed: 04/30/23 6:58 AM: Laboratory, Microbiology, Pathology, Radiology, Cardiology, Medications and Transcriptions reviewed Laboratory: Results from last 7 days Lab Units 04/30/23 0435 04/24/23 0853 04/24/23 0017 WBC K/mcL 5.82 6.32 -- HGB g/dL 9.1* 9.0* 9.5* HCT % 29.6* 29.0* 30.1* PLT K/mcL 135* 143* -- Results from last 7 days Lab Units 04/30/235 04/24/23 0853 SODIUM mmol/L 140 137 POTASSIUM mmol/L 6.0* 5.0 CHLORIDE mmol/L 109* 102 BICARB mmol/L 26 23 BUN mg/dL 38* 27* CREATININE mg/dL 12.00* 8.82* EGFR mL/min/1.73 m2 6* 8* GLUCOSE mg/dL 91 103* CALCIUM mg/dL 8.8 9.0 PHOSPHORUS mg/dL -- 5.9* Urinalysis Comments: Thank you for allowing us to participate in the care of this patient. We will continue to follow. Please call if questions or concerns arise. Potential limitations of the note: Parts of this note were created by dictation via voice recognition software ([email or web address]). The completed note was reviewed for accuracy. However, there may be subtle errors that were not found during the review. If such errors are discovered, or if there are any questions or concerns regarding the recommendations/plan of care, please contact the author of the note prior to undertaking the recommendations/plan of care. documented in this [id number] Consult note* Teagan Jha CNP - 04/30/2023 9:20 AM EDTAssociated Order(s): IP CONSULT TO GASTROENTEROLOGY Gastroenterology Inpatient Consult 04/30/2023 Teagan Jha CNP [facility] Patient: Jv Petty Date of : 2000 (22 y.o.) Referring Provider: Refer to consult order in electronic medical record PCP: Inocencio Avendano MD SUBJECTIVE: Chief Complaint/Reason for Consult: Abdominal pain ASSESSMENT/PLAN: 22 y.o. male with history of rapidly progressive glomerulonephritis and ESRD on HD Fri, Fri, Fri; HYPERTENSION, anemia presented to ER yesterday with recurrent abdominal pain and diarrhea. Generalized abdominal pain, ? Terminal ileitis on recent CT- Diarrhea- Abdominal pain is resolved this morning, diarrhea ongoing Denies any upper GI symptoms such as nausea, vomiting, epigastric pain Obtain stool studies PCR/C. Difficile, stool studies were not completed during last visit PPI p.o. daily for prophylaxis while on prednisone and history of gastritis CT abdomen pelvis noncontrast from 1 week ago completed at [facility] show suspected terminal ileitis andassociated free peritoneal fluid in the pelvis Was treated with antibiotics during hospitalization, did not discharge home on any antibiotics, stool PCR not completed Never had a colonoscopy, denies any known family history of colon cancer or inflammatory bowel disease. Denies any blood in the stool, hemoglobin 9.1, 6 days ago hemoglobin 9, 9.5 Tolerating clear liquid diet, denies any current abdominal pain or tenderness ongoing diarrhea, will wait for stool studies. Patient will need colonoscopy, work-up to determine inpatient versus outpatient Will discuss with Dr Quezada and update with further recommendations or plans for endoscopy. History of Present Illness: Jv Petty is a 22 y.o. male with history of rapidly progressive glomerulonephritis and ESRD onHD Fri, Fri, Fri; HYPERTENSION, anemia presented to ER yesterday with abdominal pain and diarrhea. Friday night started with a dull abdominal pain which worsened as well as diarrhea onset Friday and p ersisted until coming to the emergency room late yesterday evening. No leukocytosis denies fever orchills. GI consulted for abdominal pain and diarrhea. Stool studies not completed last admission due to diarrhea symptoms resolved. On antibiotics during last visit, but denies any recent travel or kn own sick contacts. Diarrhea episodes about 8-10 times a day, loose watery, denies any blood or mucus in the stool. He has never had a colonoscopy. Denies any family history of colon cancer or inflammatory bowel disease. Discharged from the hospital 6 days ago after being admitted for similar complaints, was transferred from [facility], noncontrast noncontrast noncontrast CT abdomen and pelvis completed there showed suspected terminal ileitis and associated free peritoneal fluid in the pelvis. He was tr eated with IV antibiotics his symptoms improved, he was discharged home 04/24, recommended colonoscopy as outpatient. 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, on HD since 2018 Helicobacter pylori gastritis Hyperphosphatemia Hypertension Hypotension Immunocompromised (HCC) Malnutrition (HCC) BMI 18.43 on 04/23/2023 Respiratory failure (HCC) Secondary hyperparathyroidism (HCC) Septic shock (HCC) Terminal ileitis (HCC) 04/2023 Past Surgical History: Procedure Laterality Date CV IR INTERVENTIONAL RADIOLOGY N/A 10/19/2021 DIALYSIS CATHETER REPLACEMENT TUNNELED/NONTUNNELED; Surgeon: Maddie Hancock MD CV IR INTERVENTIONAL RADIOLOGY N/A 02/05/2022 DIALYSIS CATHETER REMOVAL; Surgeon: Kailash Lackey PA-C CV IR INTERVENTIONAL RADIOLOGY N/A 06/13/2022 FISTULA INTERVENTION; Surgeon: Caden Davison CV IR INTERVENTIONAL RADIOLOGY N/A 01/15/2023 Fistulagram w/Intervention; Surgeon: Merrill Escobar MD; Location DIALYSIS CATHETER PLACEMENT/ANNMARIE CATH Right 10/19/2021 replacement FISTULA ARTERIOVENOUS Right 08/28/2021 FISTULA ARTERIOVENOUS-RIGHT UPPER ARM CEPHALIC VEIN A-V FISTULA; Surgeon: Elisabeth Peña III, DO RENAL BIOPSY 12/18/2017 temporary dialysis catheter Right UPPER GASTROINTESTINAL ENDOSCOPY 2018 with biopsy X 2 Family History Problem Relation Age of Onset Asthma Mother Other (CKD) Mother stage 3 Heart disease Father Diabetes Maternal Grandmother Sleep apnea Maternal Grandmother Diabetes Maternal Grandfather Other (blood clots) Maternal Grandfather Other (blood clots) Paternal Grandmother Other (blood clots) Paternal Grandfather Heart disease Brother Tracheoesophageal fistual Brother Social History Tobacco Use Smoking Status Never Smokeless Tobacco Never Additional History Comments: None Allergies: Midazolam Current HOME Medications: Outpatient Medications Marked as Taking for the 04/30/23 encounter (Hospital Encounter): carvediloL (COREG) 6.25 MG tablet, Take 1 (one) tablet (6.25 mg total) by mouth 2 (two) times a day. furosemide (LASIX) 40 MG tablet, Take 1 (one) tablet (40 mg total) by mouth 40 mg in am; 40 mg in pm . hydrALAZINE (APRESOLINE) 25 MG tablet, Take 1 (one) tablet (25 mg total) by mouth 3 (three) times aday Reasons: high blood pressure. hyoscyamine (LEVSIN/SL) 0.125 mg SL tablet, Place 1 (one) tablet (0.125 mg total) under the tongue 3 (three) times a day before meals Not taking . labetalol HCl (LABETALOL ORAL), Take 400 mg by mouth 2 (two) times a day . losartan (COZAAR) 50 MG tablet, Take 1 (one) tablet (50 mg total) by mouth daily . NIFEdipine (PROCARDIA XL) 60 MG 24 hr tablet, Take 1 (one) tablet (60 mg total) by mouth 2 (two) times a day . omeprazole (PRILOSEC) 20 MG capsule, Take 1 (one) capsule (20 mg total) by mouth daily . predniSONE (DELTASONE) 10 MG tablet, Take 0.5 (one-half) tablet (5 mg total) by mouth daily . Current HOSPITAL Medications: aluminum-magnesium hydroxide-simethicone (MAALOX PLUS) 200-200-20 mg/5 mL suspension 30 mL, 30 mL, Oral, Q4H PRN calcitrioL (ROCALTROL) capsule 0.5 mcg, 0.5 mcg, Oral, Once per day on Fri carvediloL (COREG) tablet 12.5 mg, 12.5 mg, Oral, BID docusate sodium (COLACE) capsule 100 mg, 100 mg, Oral, Daily docusate sodium (COLACE) capsule 100 mg, 100 mg, Oral, Daily doxazosin (CARDURA) tablet 2 mg, 2 mg, Oral, Nightly epoetin ashley (PROCRIT) injection 10,000 Units, 10,000 Units, Intravenous, Once per day on Fri ferric citrate (AURYXIA) tablet 420 mg, 420 mg, Oral, TID with meals furosemide (LASIX) tablet 40 mg, 40 mg, Oral, Daily hydrALAZINE (APRESOLINE) tablet 50 mg, 50 mg, Oral, TID losartan (COZAAR) tablet 100 mg, 100 mg, Oral, Daily with lunch melatonin Tab 5 mg, 5 mg, Oral, Nightly PRN morphine injection 4 mg, 4 mg, Intravenous, Q4H PRN naloxone (NARCAN) injection 0.1 mg, 0.1 mg, Intravenous, PRN AND Notify physician, , , Until Discontinued AND naloxone (NARCAN) injection 0.4 mg, 0.4 mg, Intravenous, PRN NIFEdipine (ADALAT CC) 24 hr tablet 60 mg, 60 mg, Oral, Daily nitroGLYCERIN (NITROSTAT) SL tablet 0.4 mg, 0.4 mg, Sublingual, Q5 Min PRN ondansetron (ZOFRAN-ODT) disintegrating tablet 4 mg, 4 mg, Oral, Q6H PRN pantoprazole (PROTONIX) EC tablet 40 mg, 40 mg, Oral, Daily predniSONE (DELTASONE) tablet 5 mg, 5 mg, Oral, Daily promethazine (PHENERGAN) tablet 25 mg, 25 mg, Oral, Q6H PRN senna (SENOKOT) tablet 8.6 mg, 1 tablet, Oral, BID PRN sevelamer (RENVELA) tablet 1,600 mg, 1,600 mg, Oral, TID with meals simethicone (MYLICON) chewable tablet 80 mg, 80 mg, Oral, 4x Daily PRN Saline lock IV, , , Continuous AND sodium chloride (PF) (NS) flush 5 mL, 5 mL, Intravenous, PRNAND sodium chloride (PF) (NS) flush 5 mL, 5 mL, Intravenous, Q8H LEIGH ANN AND sodium chloride 0.9% (NS), 0-150 mL/hr, Intravenous, PRN OBJECTIVE: Physical Examination: BP (!) 179/92 Pulse 92 Temp 98.2 F (36.8 C) (Oral) Resp 18 Ht 5' 9 Wt 58.2 kg (128 lb 4.9 oz) SpO2 94% BMI 18.95 kg/m General Appearance: Alert, chronically ill appearing, no acute distress HEENT: Head- Normocephalic, atraumatic. Eyes: No scleral icterus, normal conjunctive. Ears: Normal appearance, hearing intact. Nares: Normal pink mucosa, no exudate. Throat: Mucus membranes moist, noerythema. Neck: Supple, trachea midline. Cardiovascular: Regular rate and rhythm Respiratory: Respirations unlabored on room air Abdomen: Soft, flat, non distended, active bowel sounds, non- tender to palpation Extremities: No clubbing, cyanosis or edema. Musculoskeletal: No joint deformity, swelling or tenderness Neurological: Alert and oriented, no focal deficits, grossly normal motor and sensory Skin: Normal color and turgor, no jaundice or rashes. Psych: Normal mood and affect. Laboratory and Additional Data Reviewed: Reviewed 04/30/23 11:00 AM: Laboratory, Radiology, Medications, and Transcriptions Please note: Portions of this chart may have been created with [email or web address] [email or web address] voice recognition software. Occasional wrong-word or sound-like substitutions may have occurred due to inherent limitations of the voice recognition software. Please read the chart carefully and recognize, using context, where the substitutions have occurred. Associated attestation - Spencer Quezada MD - 04/30/2023 5:48 PM EDT I personally interviewed and examined the patient. I review Psychiatric nurse practitioner consultationreport and agree with her documented history physical exam assessment and plan. 22 y.o. male with history of rapidly progressive glomerulonephritis and ESRD on HD Mon, Wed, Fri; HYPERTENSION, anemia presented to ER yesterday with recurrent abdominal pain and diarrhea. Abdominal pain is resolved this morning, diarrhea ongoing Denies any upper GI symptoms such as nausea, vomiting, epigastric pain CT abdomen pelvis noncontrast from 1 week ago completed at [facility] show suspected terminal ileitis andassociated free peritoneal fluid in the pelvis Was treated with antibiotics during hospitalization, did not discharge home on any antibiotics, stool PCR not completed Never had a colonoscopy, denies any known family history of colon cancer or inflammatory bowel disease. Denies any blood in the stool, hemoglobin 9.1, 6 days ago hemoglobin 9, 9.5 Patient had stool test for C. difficile which came out positive will treat it. No need for any colonoscopy. [facility] Work Phone: [phone] Note* Plan of Care - Karyn Christiansen RN - 04/30/2023 9:12 AM EDT POC reviewed and continues Problem: Actual or potential alteration in health Goal: Absence of healthcare acquired conditions Outcome: Partially Met Goal: Knowledge of Interdisciplinary Plan of Care Outcome: Partially Met Goal: Knowledge of Enviroment Outcome: Partially Met Problem: Pain Goal: Manage acute pain Outcome: Partially Met Goal: Manage chronic pain Outcome: Partially Met Goal: Reduced pain sensation Outcome: Partially Met Goal: Achievement of comfort function goal Outcome: Partially Met [id number] Consult note* Nichole Torres CNP - 04/30/2023 6:57 AM EDTAssociated Order(s): IP CONSULT TO NEPHROLOGY NEPHROLOGY CONSULTATION [facility] Patient Name: Jv Petty MR #: [id number] : 2000 Requesting physician: Dr. Katie CARBONE Reason for consult: ESRD on hemodialysis Impression/Plan: 1. ESRD: HD at [place] under direction of Dr Sarina Mcdaniel on MWF schedule. Inpatient EDW: 57.5 Next iHD is planned: Today per his chronic orders. Access: right upper arm AVF. The patient denies any recent complications with this access. 2. HTN - Uncontrolled -BP is noted to be elevated, upon review with OP setting he tends to be noncompliance with anti-hypertensives and runs out of refills, calls have been made to pharmacy on his behalf to help with auto-refills and coordination of medications. -Currently he is on Coreg 12.5mg BID, Apresoline 50mg TID, Losartan 100mg daily, nifedipine 60mg daily, we will add Cardura 2mg at bedtime as he is on this in the OP setting. -Volume status: -Patient is near euvolemic at this time. Patient is compliant with he dialysis treatments and does have appropriate fluid gains. 3. Anemia - Hgb prior to admit at outpatient HD was 10.3 on 04/16/2023 - Receives Venofer and PARIS per protocol at outpatient HD - Will provide PARIS needed during this hospitalization, Goal Hgb for ESRD 10-11 4. Secondary hyperparathyroidism - outpatient HD medications: Patient will continue on Calcitriol 0.5mcg with his dialysis treatments -continue with Auryxia 2 tablet with meals and Renvela 2 tablets with meals, adjusting as needed for goal phos 3.0-5.5 in ESRD. We have ordered periodic checks of phosphorous level. 5. Protein calorie malnutrition -Patients with ESRD are at risk. We have ordered an oral nutritional supplement three times a day. 6. Abdominal pain: management per primary team. GI has been consulted. Patient was recently seen byGI who made the recommendation for colonoscopy History of Presenting Illness: Jv Petty is a 22 y.o. male on hospital day 0 with a history of ESRD on HD, anemia of CKD, dysphonia, HTN, terminal ileitis. Who presented to [facility] ER ([place]) with complaints of worsening abdominal pain. Patient was transferred to [facility] for further evaluation of his abdominal pain. Wehave been consulted for ESRD on HD. 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, on HD since 2018 Helicobacter pylori gastritis Hyperphosphatemia Hypertension Hypotension Immunocompromised (HCC) Malnutrition (HCC) BMI 18.43 on 04/23/2023 Respiratory failure (HCC) Secondary hyperparathyroidism (HCC) Septic shock (HCC) Terminal ileitis (HCC) 04/2023 Past Surgical History: Procedure Laterality Date CV IR INTERVENTIONAL RADIOLOGY N/A 10/19/2021 DIALYSIS CATHETER REPLACEMENT TUNNELED/NONTUNNELED; Surgeon: Maddie Hancock MD CV IR INTERVENTIONAL RADIOLOGY N/A 02/05/2022 DIALYSIS CATHETER REMOVAL; Surgeon: Kailash Lackey PA-C CV IR INTERVENTIONAL RADIOLOGY N/A 06/13/2022 FISTULA INTERVENTION; Surgeon: Caden Davison CV IR INTERVENTIONAL RADIOLOGY N/A 01/15/2023 Fistulagram w/Intervention; Surgeon: Merrill Escobar MD; Location DIALYSIS CATHETER PLACEMENT/ANNMARIE CATH Right 10/19/2021 replacement FISTULA ARTERIOVENOUS Right 08/28/2021 FISTULA ARTERIOVENOUS-RIGHT UPPER ARM CEPHALIC VEIN A-V FISTULA; Surgeon: Elisabeth Peña III, DO RENAL BIOPSY 12/18/2017 temporary dialysis catheter Right UPPER GASTROINTESTINAL ENDOSCOPY 2018 with biopsy X 2 Family History: Family History Problem Relation Age of Onset Asthma Mother Other (CKD) Mother stage 3 Heart disease Father Diabetes Maternal Grandmother Sleep apnea Maternal Grandmother Diabetes Maternal Grandfather Other (blood clots) Maternal Grandfather Other (blood clots) Paternal Grandmother Other (blood clots) Paternal Grandfather Heart disease Brother Tracheoesophageal fistual Brother [] Unable to obtain due to ventilated and/or neurologic status Social History Socioeconomic History Marital status: Single Occupational History Occupation: Disabled Tobacco Use Smoking status: Never Smokeless tobacco: Never Vaping Use Vaping Use: Never used Substance and Sexual Activity Alcohol use: Never Drug use: Never [] Unable to obtain due to ventilated and/or neurologic status Living Arrangements: Family members Support Systems: Parent Home Medications: Outpatient Medications as of 04/30/2023 Medication Sig carvediloL (COREG) 6.25 MG tablet Take 1 (one) tablet (6.25 mg total) by mouth 2 (two) times a day . furosemide (LASIX) 40 MG tablet Take 1 (one) tablet (40 mg total) by mouth 40 mg in am; 40 mg in pm. hydrALAZINE (APRESOLINE) 25 MG tablet Take 1 (one) tablet (25 mg total) by mouth 3 (three) times a day Reasons: high blood pressure. hyoscyamine (LEVSIN/SL) 0.[address] 1 (one) tablet (0.125 mg total) under the tongue 3(three) times a day before meals Not taking . labetalol HCl (LABETALOL ORAL) Take 400 mg by mouth 2 (two) times a day . losartan (COZAAR) 50 MG tablet Take 1 (one) tablet (50 mg total) by mouth daily . NIFEdipine (PROCARDIA XL) 60 MG 24 hr tablet Take 1 (one) tablet (60 mg total) by mouth 2 (two) times a day . omeprazole (PRILOSEC) 20 MG capsule Take 1 (one) capsule (20 mg total) by mouth daily . predniSONE (DELTASONE) 10 MG tablet Take 0.5 (one-half) tablet (5 mg total) by mouth daily . acetaminophen (TYLENOL) 160 mg/5 mL solution Take 225 mg by mouth every 4 (four) hours as needed . calcium acetate,phosphat bind, (PHOSLO) 667 mg capsule Take 3 (three) capsules (2,001 mg total) by mouth 3 (three) times a day with meals . docusate sodium (COLACE) 100 MG capsule Take 1 (one) capsule (100 mg total) by mouth daily . EPINEPHrine (EPIPEN) 0.3 mg/0.3 mL AtIn Inject 0.3 mL (0.3 mg total) into the shoulder, thigh, or buttocks once Inject 0.3 mL (0.3 mg total) into the mid- thigh as needed for severe allergic reaction.. ergocalciferol (ERGOCALCIFEROL) 1,250 mcg (50,000 unit) capsule Take 1 (one) capsule (50,000 Units total) by mouth over 168 hr . polyethylene glycol (MIRALAX) 17 gram powder Take 17 (seventeen) g by mouth daily as needed . promethazine (PHENERGAN) 25 MG tablet Take 1 (one) tablet (25 mg total) by mouth every 6 (six) hours as needed for nausea . simethicone (MYLICON) 40 mg/0.6 mL drops Take 1.2 mL (80 mg total) by mouth 4 (four) times a day asneeded . Current Hospital Medications: Scheduled Meds: carvediloL 12.5 mg Oral BID docusate sodium 100 mg Oral Daily docusate sodium 100 mg Oral Daily epoetin 10,000 Units Intravenous Once per day on Fri furosemide 40 mg Oral Daily hydrALAZINE 50 mg Oral TID losartan 100 mg Oral Daily with lunch NIFEdipine 60 mg Oral Daily pantoprazole 40 mg Oral Daily predniSONE 5 mg Oral Daily sevelamer 1,600 mg Oral TID with meals sodium chloride (PF) 5 mL Intravenous Q8H LEIGH ANN Continuous Infusions: sodium chloride 0.9 % PRN Meds:.aluminum-magnesium hydroxide-simethicone, melatonin, morphine injection, nalOXone ANDNotify physician AND naloxone, nitroGLYCERIN, ondansetron, promethazine, senna, simethicone, Saline lock IV AND sodium chloride (PF) AND sodium chloride (PF) AND sodium chloride 0.9 % sodium chloride 0.9 % Allergies: I have reviewed the patient's allergies. Midazolam Review of Systems: [x] CV, Resp, GI, Neuro, and all other systems reviewed and negative other than listed in HPI. [] Unable to obtain due to intubation and/or neurologic status. Objective Findings: Vitals:BP (!) 160/89 Pulse 95 Temp 99.2 F (37.3 C) (Oral) Resp 14 Ht 5' 9 Wt 58.2 kg (128 lb 4.9 oz) SpO2 94% BMI 18.95 kg/m Intake/Output last 3 shifts:No intake or output data in the 24 hours ending 04/30/23 0658No intake/output data recorded. Physical Examination: General: Age appropriate, NAD. HEENT: Normocephalic, no scleral icterus. Neck: No JVD. Heart: Regular, no murmur, no rub/gallop. Lungs: Clear to ascultation, no rales/wheezing/rhonchi. Good chest wall excursion. Abdomen: Soft, nontender, no supra-public fullness or tenderness. Extremities: No clubbing/cyanosis, no edema. Skin: Warm, dry, normal turgor, no rash, no bruise, no petichiae. Neuro: No myoclonus or tremor. Psych: Normal affect. Dialysis Access: [x] AVF right upper arm +thrill and bruit Results/Medications Reviewed: 04/30/23 6:58 AM: Laboratory, Microbiology, Pathology, Radiology, Cardiology, Medications and Transcriptions reviewed Laboratory: Results from last 7 days Lab Units 04/30/235 04/24/23 0853 04/24/23 0017 WBC K/mcL 5.82 6.32 -- HGB g/dL 9.1* 9.0* 9.5* HCT % 29.6* 29.0* 30.1* PLT K/mcL 135* 143* -- Results from last 7 days Lab Units 04/30/2343404/24/23 0853 SODIUM mmol/L 140 137 POTASSIUM mmol/L 6.0* 5.0 CHLORIDE mmol/L 109* 102 BICARB mmol/L 26 23 BUN mg/dL 38* 27* CREATININE mg/dL 12.00* 8.82* EGFR mL/min/1.73 m2 6* 8* GLUCOSE mg/dL 91 103* CALCIUM mg/dL 8.8 9.0 PHOSPHORUS mg/dL -- 5.9* Urinalysis Comments: Thank you for allowing us to participate in the care of this patient. We will continue to follow. Please call if questions or concerns arise. Potential limitations of the note: Parts of this note were created by dictation via voice recognition software ([email or web address] [email or web address]). The completed note was reviewed for accuracy. However, there may be subtle errors that were not found during the review. If such errors are discovered, or if there are any questions or concerns regarding the recommendations/plan of care, please contact the author of the note prior to undertaking the recommendations/plan of care. [id number] History and physical note* Jayna Anderson MD - 04/30/2023 3:23 AM EDT [facility] Patient Name: Jv Petty : 2000 MR #: [id number] Admit Date: 04/30/2023 Physicians: nIocencio Avendano MD (Family); System, Provider Not In (Referring) Jv Petty is a 22 y.o. male patient of Inocnecio Avendano MD with history of ESRD on HD, HTN,who presented to [facility] with abdominal pain. Abdominal pain Recent Terminal ileitis: Patient transferred from [facility] with recurrent abdominal pain he was just discharged 04/24 with the same where CT w/o shows suspected terminal ileitis and associated free peritoneal fluid in the pelvis, Both surgical and GI srvices saw him colonoscopy was recommended Will GI consult ESRD on HD MWF: Nephrology consult HTN: Continue home meds Anemia of CKD: Recheck CBC in AM Residence prior to admission: house or apartment Was patient transferred from outlying hospital or ED yes -- care site [place] ED Quality Measures DVT Prophylaxis: heparin subcutaneous Dodge Catheter: absent Medication Reconciliation: Verified Risk variables present on admission: Chronic Kidney Disease. Please see assessment and plan for further details. Estimated Date of Discharge greater than 2 midnights Code Status Full Code; code status verified on 04/30/2023 with patient (capacity intact) Chief Complaint abdominal pain History of Present Illness Jv Petty is a 22 y.o. male patient of [facility], Inocencio Medeiros MD with history of ESRD on HD, HTN,who presented to [facility] with abdominal pain. He was transferred from [facility] for GI consultation He was just discharged 04-24, admitted for the same He said he felt ok for 3 days or so but Friday pain recurrent epigastric pain rated 7/10 associated with nausea and one episode of loose stool. No fever, he had diminished po intake to avoid pain Couldn't see any work up done in [facility]. At thetime of my evaluation, he is sleeping in bed, no pain. 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, on HD since 2017 Helicobacter pylori gastritis Hyperphosphatemia Hypertension Hypotension Immunocompromised (HCC) Malnutrition (HCC) BMI 18.43 on 04/23/2023 Respiratory failure (HCC) Secondary hyperparathyroidism (HCC) Septic shock (HCC) Terminal ileitis (HCC) 04/2023 Past Surgical History Past Surgical History: Procedure Laterality Date CV IR INTERVENTIONAL RADIOLOGY N/A 10/19/2021 DIALYSIS CATHETER REPLACEMENT TUNNELED/NONTUNNELED; Surgeon: Maddie Hancock MD CV IR INTERVENTIONAL RADIOLOGY N/A 02/05/2022 DIALYSIS CATHETER REMOVAL; Surgeon: Kailash Lackey PA-C CV IR INTERVENTIONAL RADIOLOGY N/A 06/13/2022 FISTULA INTERVENTION; Surgeon: Cadne Davison CV IR INTERVENTIONAL RADIOLOGY N/A 01/15/2023 Fistulagram w/Intervention; Surgeon: Merrill Escobar MD; Location DIALYSIS CATHETER PLACEMENT/ANNMARIE CATH Right 10/19/2021 replacement FISTULA ARTERIOVENOUS Right 08/28/2021 FISTULA ARTERIOVENOUS-RIGHT UPPER ARM CEPHALIC VEIN A-V FISTULA; Surgeon: Elisabeth Peña III, DO RENAL BIOPSY 12/18/2017 temporary dialysis catheter Right UPPER GASTROINTESTINAL ENDOSCOPY 2017 with biopsy X 2 Family History Family History Problem Relation Age of Onset Asthma Mother Other (CKD) Mother stage 3 Heart disease Father Diabetes Maternal Grandmother Sleep apnea Maternal Grandmother Diabetes Maternal Grandfather Other (blood clots) Maternal Grandfather Other (blood clots) Paternal Grandmother Other (blood clots) Paternal Grandfather Heart disease Brother Tracheoesophageal fistual Brother Social History Social History Tobacco Use Smoking Status Never Smokeless Tobacco Never Social History Substance and Sexual Activity Alcohol Use Never Social History Substance and Sexual Activity Drug Use Never Allergy Information I have reviewed the patient's allergies. Midazolam Home Medications Home medications were reviewed. Review Of Systems All relevant systems have been reviewed and are negative except as noted in HPI or below Physical Examination BP (!) 196/118 Pulse 89 Temp 98.7 F (37.1 C) (Oral) Resp 14 Ht 5' 9 Wt 58.2 kg (128 lb 4.9 oz) SpO2 97% BMI 18.95 kg/m General Appearance: somnolent; chronically ill appearing; in mild acute distress HEENT: Head- normocephalic; Eyes- EOMI, sclera anicteric; Throat- mucous membranes moist Cardiovascular: regular rate and rhythm; normal S1, S2; no murmurs, rubs, clicks or gallops; peripheral edema absent Respiratory: lungs clear to auscultation; without wheezes, rales or rhonchi; on room air Abdomen: soft, mild generalized tender, non-distended no rigidity or rebound Neurological: oriented x 3; normal speech; no focal findings or movement disorder noted Musculoskeletal: no significant deformity or tenderness to palpation Skin: normal coloration Psych: normal mood and affect [id number] History and physical note* Jayna Anderson MD - 04/30/2023 3:23 AM EDT [facility] Patient Name: Jv Petty : 2000 MR #: [id number] Admit Date: 04/30/2023 Physicians: Inocencio Avendano MD (Family); System, Provider Not In (Referring) Jv Petty is a 22 y.o. male patient of Inocencoi Avendano MD with history of ESRD on HD, HTN,who presented to [facility] with abdominal pain. Abdominal pain Recent Terminal ileitis: Patient transferred from [facility] with recurrent abdominal pain he was just discharged 04/24 with the same where CT w/o shows suspected terminal ileitis and associated free peritoneal fluid in the pelvis, Both surgical and GI srvices saw him colonoscopy was recommended Will GI consult ESRD on HD MWF: Nephrology consult HTN: Continue home meds Anemia of CKD: Recheck CBC in AM Residence prior to admission: house or apartment Was patient transferred from outlying hospital or ED yes -- care site [place] ED Quality Measures DVT Prophylaxis: heparin subcutaneous Dodge Catheter: absent Medication Reconciliation: Verified Risk variables present on admission: Chronic Kidney Disease. Please see assessment and plan for further details. Estimated Date of Discharge greater than 2 midnights Code Status Full Code; code status verified on 04/30/2023 with patient (capacity intact) Chief Complaint abdominal pain History of Present Illness Jv Petty is a 22 y.o. male patient of Inocencio Avendano MD with history of ESRD on HD, HTN,who presented to [facility] with abdominal pain. He was transferred from [facility] for GI consultation He was just discharged 04-24, admitted for the same He said he felt ok for 3 days or so but Friday pain recurrent epigastric pain rated 7/10 associated with nausea and one episode of loose stool. No fever, he had diminished po intake to avoid pain Couldn't see any work up done in [facility]. At thetime of my evaluation, he is sleeping in bed, no pain. 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, on HD since 2018 Helicobacter pylori gastritis Hyperphosphatemia Hypertension Hypotension Immunocompromised (HCC) Malnutrition (HCC) BMI 18.43 on 04/23/2023 Respiratory failure (HCC) Secondary hyperparathyroidism (HCC) Septic shock (HCC) Terminal ileitis (HCC) 04/2023 Past Surgical History Past Surgical History: Procedure Laterality Date CV IR INTERVENTIONAL RADIOLOGY N/A 10/19/2021 DIALYSIS CATHETER REPLACEMENT TUNNELED/NONTUNNELED; Surgeon: Maddie Hancock MD CV IR INTERVENTIONAL RADIOLOGY N/A 02/05/2022 DIALYSIS CATHETER REMOVAL; Surgeon: Kailash Lackey PA-C CV IR INTERVENTIONAL RADIOLOGY N/A 06/13/2022 FISTULA INTERVENTION; Surgeon: Caden Davison, CV IR INTERVENTIONAL RADIOLOGY N/A 01/15/2023 Fistulagram w/Intervention; Surgeon: Merrill Escobar MD; Location DIALYSIS CATHETER PLACEMENT/ANNMARIE CATH Right 10/19/2021 replacement FISTULA ARTERIOVENOUS Right 08/28/2021 FISTULA ARTERIOVENOUS-RIGHT UPPER ARM CEPHALIC VEIN A-V FISTULA; Surgeon: Elisabeth Peña III, DO RENAL BIOPSY 12/18/2017 temporary dialysis catheter Right UPPER GASTROINTESTINAL ENDOSCOPY 2018 with biopsy X 2 Family History Family History Problem Relation Age of Onset Asthma Mother Other (CKD) Mother stage 3 Heart disease Father Diabetes Maternal Grandmother Sleep apnea Maternal Grandmother Diabetes Maternal Grandfather Other (blood clots) Maternal Grandfather Other (blood clots) Paternal Grandmother Other (blood clots) Paternal Grandfather Heart disease Brother Tracheoesophageal fistual Brother Social History Social History Tobacco Use Smoking Status Never Smokeless Tobacco Never Social History Substance and Sexual Activity Alcohol Use Never Social History Substance and Sexual Activity Drug Use Never Allergy Information I have reviewed the patient's allergies. Midazolam Home Medications Home medications were reviewed. Review Of Systems All relevant systems have been reviewed and are negative except as noted in HPI or below Physical Examination BP (!) 196/118 Pulse 89 Temp 98.7 F (37.1 C) (Oral) Resp 14 Ht 5' 9 Wt 58.2 kg (128 lb 4.9 oz) SpO2 97% BMI 18.95 kg/m General Appearance: somnolent; chronically ill appearing; in mild acute distress HEENT: Head- normocephalic; Eyes- EOMI, sclera anicteric; Throat- mucous membranes moist Cardiovascular: regular rate and rhythm; normal S1, S2; no murmurs, rubs, clicks or gallops; peripheral edema absent Respiratory: lungs clear to auscultation; without wheezes, rales or rhonchi; on room air Abdomen: soft, mild generalized tender, non-distended no rigidity or rebound Neurological: oriented x 3; normal speech; no focal findings or movement disorder noted Musculoskeletal: no significant deformity or tenderness to palpation Skin: normal coloration Psych: normal mood and affect documented in this [id number] Note* Plan of Care - Subhash Gaona RN - 04/30/2023 2:21 AM EDT Problem: Actual or potential alteration in health Goal: Absence of healthcare acquired conditions 04/30/2023221 by Subhash Gaona RN Outcome: Partially Met 04/30/2023220 by Subhash Gaona RN Outcome: Partially Met Goal: Knowledge of Interdisciplinary Plan of Care 04/30/2023221 by Subhash Gaona RN Outcome: Partially Met 04/30/2023220 by Subhash Gaona RN Outcome: Partially Met Goal: Knowledge of Enviroment 04/30/2023221 by Subhash Gaona RN Outcome: Partially Met 04/30/2023220 by Subhash Gaona RN Outcome: Partially Met [id number] Note* Quick Note - Sara Potter RN - 04/24/2023 3:18 PM EDT Discharge instructions reviewed with patient including medications, states understanding. Aware of need to call Dr. Burroughs for follow up . Denied further needs. Discharged to home with mother. [id number] Miscellaneous Notes* Quick Note - Sara Potter RN - 04/24/2023 3:18 PM EDT Discharge instructions reviewed with patient including medications, states understanding. Aware of need to call Dr. Burroughs for follow up . Denied further needs. Discharged to home with mother. * Plan of Care - Sara Potter RN - 04/24/2023 3:15 PM EDT POC reviewed. Problem: Actual or potential alteration in health Goal: Absence of healthcare acquired conditions Outcome: Completed Goal: Knowledge of Interdisciplinary Plan of Care Outcome: Completed Goal: Knowledge of Enviroment Outcome: Completed Problem: Pain Goal: Manage acute pain Outcome: Completed Goal: Manage chronic pain Outcome: Completed Goal: Reduced pain sensation Outcome: Completed Goal: Achievement of comfort function goal Outcome: Completed * Quick Note - Brian Dietz MD - 04/23/2023 1:45 PM EDT Jv Petty is a 22 y.o. male patient of Inocencio Avendano MD with history of ESRD on HD, HTN,who presented to [facility] with joann-umbilical abdominal pain. Terminal ileitis: CT w/o shows suspected terminal ileitis and associated free peritoneal fluid in the pelvis, normal appearing appendix, and bladder wall thickening (correlate for cystitis). Zosyn GI consult Advance diet ESRD on HD MWF: Nephrology consult HTN: Continue home meds Anemia of CKD: Recheck CBC in AM * Plan of Care - Sara Potter RN - 04/23/2023 11:37 AM EDT POC reviewed. Problem: Actual or potential alteration in health Goal: Absence of healthcare acquired conditions Outcome: Partially Met Goal: Knowledge of Interdisciplinary Plan of Care Outcome: Partially Met Goal: Knowledge of Enviroment Outcome: Partially Met Problem: Pain Goal: Manage acute pain Outcome: Partially Met Goal: Manage chronic pain Outcome: Partially Met Goal: Reduced pain sensation Outcome: Partially Met Goal: Achievement of comfort function goal Outcome: Partially Met documented in this [id number] Note* Plan of Care - Sara Potter RN - 04/24/2023 3:15 PM EDT POC reviewed. Problem: Actual or potential alteration in health Goal: Absence of healthcare acquired conditions Outcome: Completed Goal: Knowledge of Interdisciplinary Plan of Care Outcome: Completed Goal: Knowledge of Enviroment Outcome: Completed Problem: Pain Goal: Manage acute pain Outcome: Completed Goal: Manage chronic pain Outcome: Completed Goal: Reduced pain sensation Outcome: Completed Goal: Achievement of comfort function goal Outcome: Completed [id number] History of Present illness Narrative* Clement Dover MD - 04/24/2023 12:49 PM EDT [facility]ROLOGY PROGR[facility] Patient Name: Jv Petty Admit Date: [id number] MR #: [id number] : 2000 Perpetual Assessment: Jv Petty is a 22 y.o. male on hospital day 1 admitted for terminal ilietus. We are asked to evaluate and manage ESRD. Impression and Plan: 1. ESRD: HD at [facility] under direction of Dr. Johanny Mcdaniel on MWF schedule for 3 hours. Inpatient EDW: 57.5kg Tolerate HD yesterday and able to get to [facility]. No need for HD today. Plan on next HD for tomorrow. Access: Right upper arm AVF. The patient denies any recent complications with this access. Patient is complaint with HD and does not have high intradialytic weight gain outpatient. 2. HTN - controlled. As an outpatient BP slightly elevated prior to HD and improved with treatment. -Volume status: Euvolemic -Continue on Coreg 12.5 mg BID, Hydralazine 25 mg TID, Losartan 100 mg tab daily, Nifedipine 60mg BID, doxazosin 2 mg daily, Lasix 40 mg BID. 3. Anemia - Hgb prior to admit at outpatient HD was 10.3 on 04/16/23 - Receives Venofer and PARIS per protocol at outpatient HD - Will provide PARIS needed during this hospitalization, Goal Hgb for ESRD 04-16 4. Secondary hyperparathyroidism - outpatient HD medications: Calcitriol 0.5 mcg MWF with Treatment. Auryxia 210 mg 2 tab TID. -continue phosphate binders and adjust as needed for goal phos 3.0-5.5 in ESRD. Phos improving. 5. Protein calorie malnutrition -Patients with ESRD are at risk. We have ordered an oral nutritional supplement three times a day. 6. Terminal ilietus: Ct from outside facility suspected terminal ileitis and associated free peritoneal fluid in the pelvis. Bladder wall thickening, correlate for cystitis. -GI following. Will do workup as outpt. -C-diff, Stool PCR pending 7. Hyperkalemia: resolve with HD.. Subjective: Denies any new complaint Review of Systems: ROS otherwise reviewed and negative Physical Examination: Vitals: Vitals: 04/24/23 0536 04/24/23 0743 04/24/23 0900 04/24/23 1223 BP: (!) 161/85 (!) 156/82 (!) 179/94 BP Location: Patient Position: Pulse: 71 70 71 Resp: 17 14 18 16 Temp: 99 F (37.2 C) 98.5 F (36.9 C) TempSrc: Oral Oral SpO2: 95% 94% 94% Weight: Height: Intake/Output last 3 shifts: Intake/Output Summary (Last 24 hours) at 04/24/2023 1249 Last data filed at 04/24/2023 1000 Gross per 24 hour Intake 770 ml Output 50 ml Net 720 ml I/O last 3 completed shifts: In: 650 [P.O.:600; IV Piggyback:50] Out: 50 [Urine:50] General: No acute distress HEENT: Anicteric Neck: Supple CV: Regular rate, no murmurs or rubs. No lower extremity edema Lungs: CTA B Abd: Soft, nontender, bowel sounds present Extr: good LE perfusion, no cyanosis Results/Medications Reviewed 04/24/23 12:49 PM: Laboratory, Microbiology, Pathology, Radiology, Cardiology, Medications and Transcriptions reviewed Scheduled Meds: calcitrioL 0.25 mcg Oral Once per day on Fri carvediloL 12.5 mg Oral BID ferric citrate 420 mg Oral TID with meals furosemide 40 mg Oral BID heparin (porcine) 5,000 Units Subcutaneous Q8H LEIGH ANN hydrALAZINE 25 mg Oral TID hyoscyamine 125 mcg Sublingual TID AC losartan 100 mg Oral Daily NIFEdipine 60 mg Oral BID pantoprazole 40 mg Intravenous BID piperacillin-tazobactam (ZOSYN) extended infusion 3.375 g Intravenous Q12H LEIGH ANN predniSONE 5 mg Oral Daily senna-docusate 1 tablet Oral BID sodium chloride (PF) 5 mL Intravenous Q8H LEIGH ANN Continuous Infusions: sodium chloride 0.9 % sodium chloride 0.9 % Results from last 7 days Lab Units 04/24/23 0853 04/24/23 0017 04/23/23 1427 04/23/23 0214 WBC K/mcL 6.32 -- -- 7.70 HGB g/dL 9.0* 9.5* 9.0* 8.8* HCT % 29.0* 30.1* 29.2* 28.6* PLT K/mcL 143* -- -- 176 Results from last 7 days Lab Units 04/24/23 0853 04/23/23 0214 SODIUM mmol/L 137 139 POTASSIUM mmol/L 5.0 5.2* CHLORIDE mmol/L 102 104 BICARB mmol/L 23 25 BUN mg/dL 27* 35* CREATININE mg/dL 8.82* 12.40* EGFR mL/min/1.73 m2 8* 5* GLUCOSE mg/dL 103* 129* CALCIUM mg/dL 9.0 9.3 MAGNESIUM mg/dL -- 2.7* PHOSPHORUS mg/dL 5.9* 6.6* Urinalysis * Luna Navarro CNP - 04/24/2023 10:18 AM EDT Gastroenterology Inpatient Follow-up 04/24/2023 Luna Navarro CNP [facility] Patient: Jv Petty Date of : 2000 (22 y.o.) PCP: Inocencio Avendano MD SUBJECTIVE: History Since Last Visit: No further episodes of diarrhea nausea or vomiting tolerating regular diet abdominal pain is improving, minimal, anemia stable ASSESSMENT/PLAN: Acute on chronic anemia- Terminal ileitis- Nausea vomiting and diarrhea have resolved Abdominal pain improving Stool PCR not collected as no further episodes of diarrhea Hemoglobin remaining stable 9.0 Likely infectious enteritis given symptom onset Patient is stable, would favor he can follow-up with Dr. Burroughs as outpatient No new Assessment & Plan notes have been filed under this hospital service since the last note was generated. Service: Gastroenterology Interpretation of Testing: I personally reviewed the labs Review of Systems: All other systems reviewed and negative other than HPI OBJECTIVE: Physical Examination: BP (!) 156/82 Pulse 70 Temp 99 F (37.2 C) (Oral) Resp 14 Ht 5' 9 Wt 56.6 kg (124 lb 12.5oz) SpO2 94% BMI 18.43 kg/m Alert and oriented no acute distress respirations even and unlabored abdomen soft nontender nondistended Laboratory and Additional Data Reviewed: Reviewed 04/24/23 10:18 AM: Laboratory, Medications, and Transcriptions Associated attestation - Lencho Burroughs MD - 04/24/2023 1:45 PM EDT Denies diarrhea, nausea, emesis. Abd: soft, NT, ND A/P: Terminal ileitis - suspect infectious etiology. Clinically improved. Stool studies not available. Signing off. Please call if we can be of further assistance. * Lani Aquino MSW LSW - 04/24/2023 9:32 AM EDT Care Management Consult Note Date: 04/24/2023 Time: 9:32 AM Patient Name: Jv Petty Date of : 2000 Reason for Consult: Discharge Plan: Discharging Transportation Plan: Discharge Plan Status: Assessment complete. Patient is from home with his mom and states he feels safe. Patient reports not using any dme and not having hhc. Patient states he does not have any support outside of his mom. Patient's mom drives him to doctor appointments and he states his insurance covers everything he needs. Patient denies any discharge needs and will go home at discharge. Assessment and Background Information: Living Arrangements: Parent Support Systems: Parent Assistance Needed: Independent prior Type of Residence: Private residence Prior to Admission Home Care Services: No documented in this [id number] Hospital course Narrative* Brian Dietz MD - 04/24/2023 11:27 AM EDT [facility] [place] -- [facility] Jv Petty Admitted: 04/23/2023 Discharge Date: 04/24/23 PCP Handoff Recommended Outpatient Testing None Results Pending At Discharge None Clinical Summary Jv Petty is a 22 y.o. male patient of Inocencoi villalobos MD with history of ESRD on HD, HTN,who presented to [facility] with joann-umbilical abdominal pain. Terminal ileitis: CT w/o shows suspected terminal ileitis and associated free peritoneal fluid in the pelvis, normal appearing appendix, and bladder wall thickening (correlate for cystitis). GI consult Advance diet can follow-up with Dr. Burroughs as outpatient ESRD on HD MWF: HTN: Continue home meds Anemia of CKD: Stable Discharge Medications Discharge Medications Medications To Continue Details acetaminophen 160 mg/5 mL solution Commonly known as: TYLENOL Take 225 mg by mouth every 4 (four) hours as needed . calcium acetate(phosphat bind) 667 mg capsule Commonly known as: PHOSLO Take 3 (three) capsules (2,001 mg total) by mouth 3 (three) times a day with meals . carvediloL 6.25 MG tablet Commonly known as: COREG Take 1 (one) tablet (6.25 mg total) by mouth 2 (two) times a day . docusate sodium 100 MG capsule Commonly known as: COLACE Take 1 (one) capsule (100 mg total) by mouth daily . EPINEPHrine 0.3 mg/0.3 mL Atin Commonly known as: EPIPEN Inject 0.3 mL (0.3 mg total) into the shoulder, thigh, or buttocks once Inject 0.3 mL (0.3 mg total) into the mid-thigh as needed for severe allergic reaction. . ergocalciferol 1,250 mcg (50,000 unit) capsule Commonly known as: ERGOCALCIFEROL Take 1 (one) capsule (50,000 Units total) by mouth over 168 hr . furosemide 40 MG tablet Commonly known as: LASIX Take 1 (one) tablet (40 mg total) by mouth 40 mg in am; 40 mg in pm . hydrALAZINE 25 MG tablet Commonly known as: APRESOLINE Take 1 (one) tablet (25 mg total) by mouth 3 (three) times a day Reasons: high blood pressure. hyoscyamine 0.125 mg SL tablet Commonly known as: LEVSIN/SL Place 1 (one) tablet (0.125 mg total) under the tongue 3 (three) times a day before meals Not taking . LABETALOL ORAL Take 400 mg by mouth 2 (two) times a day . losartan 50 MG tablet Commonly known as: COZAAR Take 1 (one) tablet (50 mg total) by mouth daily . NIFEdipine 60 MG 24 hr tablet Commonly known as: PROCARDIA XL Take 1 (one) tablet (60 mg total) by mouth 2 (two) times a day . omeprazole 20 MG capsule Commonly known as: PRILOSEC Take 1 (one) capsule (20 mg total) by mouth daily . polyethylene glycol 17 gram powder Commonly known as: MIRALAX Take 17 (seventeen) g by mouth daily as needed . predniSONE 10 MG tablet Commonly known as: DELTASONE Take 0.5 (one-half) tablet (5 mg total) by mouth daily . promethazine 25 MG tablet Commonly known as: PHENERGAN Take 1 (one) tablet (25 mg total) by mouth every 6 (six) hours as needed for nausea . simethicone 40 mg/0.6 mL drops Commonly known as: MYLICON Take 1.2 mL (80 mg total) by mouth 4 (four) times a day as needed . Physician(s) Follow Up: No follow-up provider specified. Condition at Discharge: Stable Disposition: Home I reviewed discharge recommendations with the patient in person. Patient instructions, including activity, were given to the patient/family at discharge. On day of discharge I saw Jv Petty and spent: > 30 minutes on discharge. Completed by: Brian Dietz on 04/24/23, 11:27 AM documented in this [id number] Consult note* Lencho Burroughs MD - 04/23/2023 2:58 PM EDT PATIENT: Jv Petty : 2000 AGE: 22 y.o. SEX: male RACE: Declined to Specify [10] PCP: Inocencio Avendano MD REFERRAL: No ref. provider found GENERAL SURGERY VIZIENT CRITERIA: Admitted with these risk variables:Coagulation Defect, Chronic Kidney Disease, Hyperkalemia, and Protein Calorie Malnutrition, Cachexia. Please see assessment and plan for further details. 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 CC / SUBJECTIVE Patient is inpatient for abdominal pain, diarrhea, nausea, and vomiting since 4 days ago. He has not vomited since yesterday. The diarrhea is watery but without blood. He has epigastric abdominal pain. He is on Prednisone daily. He has a history of H. Pylori gastritis treated in the past. A CT scan shows terminal ileitis. Stool studies are pending. Last EGD was in 2018. Has never had a colonoscopy. No family history of GI malignancy. 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, on HD since 2018 Helicobacter pylori gastritis Hyperphosphatemia Hypertension Hypotension Immunocompromised (HCC) Malnutrition (HCC) BMI 18.43 on 04/23/2023 Respiratory failure (HCC) Secondary hyperparathyroidism (HCC) Septic shock (HCC) Terminal ileitis (HCC) 04/2023 , Past Surgical History: Procedure Laterality Date CV IR INTERVENTIONAL RADIOLOGY N/A 10/19/2021 DIALYSIS CATHETER REPLACEMENT TUNNELED/NONTUNNELED; Surgeon: Maddie Hancock MD CV IR INTERVENTIONAL RADIOLOGY N/A 02/05/2022 DIALYSIS CATHETER REMOVAL; Surgeon: Kailash Lackey PA-C CV IR INTERVENTIONAL RADIOLOGY N/A 06/13/2022 FISTULA INTERVENTION; Surgeon: Caden Davison CV IR INTERVENTIONAL RADIOLOGY N/A 01/15/2023 Fistulagram w/Intervention; Surgeon: Merrill Escobar MD; Location DIALYSIS CATHETER PLACEMENT/ANNMARIE CATH Right 10/19/2021 replacement FISTULA ARTERIOVENOUS Right 08/28/2021 FISTULA ARTERIOVENOUS-RIGHT UPPER ARM CEPHALIC VEIN A-V FISTULA; Surgeon: Elisabeth Peña III, DO RENAL BIOPSY 12/18/2017 temporary dialysis catheter Right UPPER GASTROINTESTINAL ENDOSCOPY 2018 with biopsy X 2 , Family History Problem Relation Age of Onset Asthma Mother Other (CKD) Mother stage 3 Heart disease Father Diabetes Maternal Grandmother Sleep apnea Maternal Grandmother Diabetes Maternal Grandfather Other (blood clots) Maternal Grandfather Other (blood clots) Paternal Grandmother Other (blood clots) Paternal Grandfather Heart disease Brother Tracheoesophageal fistual Brother , Social History Occupational History Occupation: Disabled Tobacco Use Smoking status: Never Smokeless tobacco: Never Vaping Use Vaping Use: Never used Substance and Sexual Activity Alcohol use: Never Drug use: Never Sexual activity: Not on file OBJECTIVE Vitals BP (!) 121/52 Pulse 66 Temp 97.3 F (36.3 C) (Oral) Resp 18 Ht 5' 9 Wt 56.6 kg (124 lb 12.5 oz) SpO2 95% BMI 18.43 kg/m Alert, NAD, cooperative Abd: mild epigastric tenderness, ND, no masses, no peritoneal signs LABS / PATH / RADIOLOGY Results from last 7 days Lab Units 04/23/23 1427 04/23/23 0214 WBC K/mcL -- 7.70 HGB g/dL 9.0* 8.8* HCT % 29.2* 28.6* PLT K/mcL -- 176 SODIUM mmol/L -- 139 POTASSIUM mmol/L -- 5.2* BUN mg/dL -- 35* CREATININE mg/dL -- 12.40* GLUCOSE mg/dL -- 129* AST U/L -- 6 ALTR U/L -- 15 ALK PHOS U/L -- 74* BILIRUBIN TOTAL mg/dL -- 0.3 CALCIUM mg/dL -- 9.3 ALBUMIN g/dL -- 3.7 PROTIME seconds -- 16.1* INR -- 1.3* PTT seconds -- 30 CT reportedly shows (I am unable to find it in our system): terminal ileitis and free peritoneal fluid in the pelvis, urinary bladder wall thickening. ASSESSMENT / PLAN Terminal ileitis - ? Infectious vs. Inflammatory in origin. Awaiting stool studies. May need colonoscopy and ileoscopy if persists. Acute on Chronic anemia of uncertain etiology. Epigastric abdominal pain. ? Anemia of chronic disease. Possible gastritis since he is on Prednisone. Continue PPI. Monitor anemia. Mild elevation of INR - recheck if anemia worsens. Hyperkalemia - being corrected by Primary Service. Malnutrition with BMI 18. Multifactorial, chronic. ESRF - continue dialysis per nephrology. In regards to endoscopic workup, I suspect this can be done as an outpatient since he is very stable. CODING SOLUTIONS PROBLEMS ADDRESSED & THEIR COMPLEXITY New undiagnosed with uncertain prognosis (OP 4_IP 2_ER 4). *For select categories, select higher level if ?2 problems addressed Documentation: Terminal ileitis, anemia DATA REVIEWED & ANALYZED *3 Points from External Notes reviewed from each unique source, Each unique test ordered, Each unique test reviewed (if not previously ordered), Assessment requiring an independent historian (OP 4,5_IP 2,3_ER 4,5). *For select categories, select higher level if 2 of 3 categories satisfied Documentation: Reviewed labs above RISK OF MANAGEMENT / TREATMENT MODERATE (e.g. Rx Drug management; Shared decision making regarding a) minor surgery with identified patient / procedure risk factors, b) elective major surgery without identified patient / procedurerisk factors; Diagnosis / Treatment significantly limited by SDOH) (OP 4_IP 2_ER 4). Documentation: See plan above [employer] Work Phone: [phone] Consult note* Lencho Burroughs MD - 04/23/2023 2:58 PM EDT PATIENT: Jv Petty : 2000 AGE: 22 y.o. SEX: male RACE: Declined to Specify [10] PCP: Inocencio Avendano MD REFERRAL: No ref. provider found GENERAL SURGERY VIZIENT CRITERIA: Admitted with these risk variables:Coagulation Defect, Chronic Kidney Disease, Hyperkalemia, and Protein Calorie Malnutrition, Cachexia. Please see assessment and plan for further details. 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 CC / SUBJECTIVE Patient is inpatient for abdominal pain, diarrhea, nausea, and vomiting since 4 days ago. He has not vomited since yesterday. The diarrhea is watery but without blood. He has epigastric abdominal pain. He is on Prednisone daily. He has a history of H. Pylori gastritis treated in the past. A CT scan shows terminal ileitis. Stool studies are pending. Last EGD was in 2018. Has never had a colonoscopy. No family history of GI malignancy. 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, on HD since 2018 Helicobacter pylori gastritis Hyperphosphatemia Hypertension Hypotension Immunocompromised (HCC) Malnutrition (HCC) BMI 18.43 on 04/23/2023 Respiratory failure (HCC) Secondary hyperparathyroidism (HCC) Septic shock (HCC) Terminal ileitis (HCC) 04/2023 , Past Surgical History: Procedure Laterality Date CV IR INTERVENTIONAL RADIOLOGY N/A 10/19/2021 DIALYSIS CATHETER REPLACEMENT TUNNELED/NONTUNNELED; Surgeon: Maddie Hancock MD CV IR INTERVENTIONAL RADIOLOGY N/A 02/05/2022 DIALYSIS CATHETER REMOVAL; Surgeon: Kailash Lackey PA-C CV IR INTERVENTIONAL RADIOLOGY N/A 06/13/2022 FISTULA INTERVENTION; Surgeon: Caden Davison CV IR INTERVENTIONAL RADIOLOGY N/A 01/15/2023 Fistulagram w/Intervention; Surgeon: Merrill Escobar MD; Location DIALYSIS CATHETER PLACEMENT/ANNMARIE CATH Right 10/19/2021 replacement FISTULA ARTERIOVENOUS Right 08/28/2021 FISTULA ARTERIOVENOUS-RIGHT UPPER ARM CEPHALIC VEIN A-V FISTULA; Surgeon: Elisabeth Peña III, DO RENAL BIOPSY 12/18/2017 temporary dialysis catheter Right UPPER GASTROINTESTINAL ENDOSCOPY 2018 with biopsy X 2 , Family History Problem Relation Age of Onset Asthma Mother Other (CKD) Mother stage 3 Heart disease Father Diabetes Maternal Grandmother Sleep apnea Maternal Grandmother Diabetes Maternal Grandfather Other (blood clots) Maternal Grandfather Other (blood clots) Paternal Grandmother Other (blood clots) Paternal Grandfather Heart disease Brother Tracheoesophageal fistual Brother , Social History Occupational History Occupation: Disabled Tobacco Use Smoking status: Never Smokeless tobacco: Never Vaping Use Vaping Use: Never used Substance and Sexual Activity Alcohol use: Never Drug use: Never Sexual activity: Not on file OBJECTIVE Vitals BP (!) 121/52 Pulse 66 Temp 97.3 F (36.3 C) (Oral) Resp 18 Ht 5' 9 Wt 56.6 kg (124 lb 12.5 oz) SpO2 95% BMI 18.43 kg/m Alert, NAD, cooperative Abd: mild epigastric tenderness, ND, no masses, no peritoneal signs LABS / PATH / RADIOLOGY Results from last 7 days Lab Units 04/23/23 1427 04/23/23 0214 WBC K/mcL -- 7.70 HGB g/dL 9.0* 8.8* HCT % 29.2* 28.6* PLT K/mcL -- 176 SODIUM mmol/L -- 139 POTASSIUM mmol/L -- 5.2* BUN mg/dL -- 35* CREATININE mg/dL -- 12.40* GLUCOSE mg/dL -- 129* AST U/L -- 6 ALTR U/L -- 15 ALK PHOS U/L -- 74* BILIRUBIN TOTAL mg/dL -- 0.3 CALCIUM mg/dL -- 9.3 ALBUMIN g/dL -- 3.7 PROTIME seconds -- 16.1* INR -- 1.3* PTT seconds -- 30 CT reportedly shows (I am unable to find it in our system): terminal ileitis and free peritoneal fluid in the pelvis, urinary bladder wall thickening. ASSESSMENT / PLAN Terminal ileitis - ? Infectious vs. Inflammatory in origin. Awaiting stool studies. May need colonoscopy and ileoscopy if persists. Acute on Chronic anemia of uncertain etiology. Epigastric abdominal pain. ? Anemia of chronic disease. Possible gastritis since he is on Prednisone. Continue PPI. Monitor anemia. Mild elevation of INR - recheck if anemia worsens. Hyperkalemia - being corrected by Primary Service. Malnutrition with BMI 18. Multifactorial, chronic. ESRF - continue dialysis per nephrology. In regards to endoscopic workup, I suspect this can be done as an outpatient since he is very stable. CODING SOLUTIONS PROBLEMS ADDRESSED & THEIR COMPLEXITY New undiagnosed with uncertain prognosis (OP 4_IP 2_ER 4). *For select categories, select higher level if ?2 problems addressed Documentation: Terminal ileitis, anemia DATA REVIEWED & ANALYZED *3 Points from External Notes reviewed from each unique source, Each unique test ordered, Each unique test reviewed (if not previously ordered), Assessment requiring an independent historian (OP 4,5_IP 2,3_ER 4,5). *For select categories, select higher level if 2 of 3 categories satisfied Documentation: Reviewed labs above RISK OF MANAGEMENT / TREATMENT MODERATE (e.g. Rx Drug management; Shared decision making regarding a) minor surgery with identified patient / procedure risk factors, b) elective major surgery without identified patient / procedurerisk factors; Diagnosis / Treatment significantly limited by SDOH) (OP 4_IP 2_ER 4). Documentation: See plan above [employer] * Lani Aquino MSW LSW - 04/23/2023 12:14 PM EDTAssociated Order(s): IP CONSULT TO CARE MANAGEMENT Care Management Consult Note Date: 04/23/2023 Time: 12:14 PM Patient Name: Jv Petty Date of : 2000 Reason for Consult: Discharge Needs Discharge Plan: Discharging Transportation Plan: Discharge Plan Status: Consult received. Patient currently in dialysis. Will follow up to complete assessment. Assessment and Background Information: Living Arrangements: Family members Support Systems: Parent, Family members, Friends/neighbors Assistance Needed: None Type of Residence: Private residence Prior to Admission Home Care Services: No * Ranjan Carlos RD - 04/23/2023 10:23 AM EDTAssociated Order(s): IP CONSULT TO DIETITIAN Nutrition Care Initial Assessment Suspected ileitis; clear liquids Reason for visit: Physician Consult for PO Nutrition Diagnosis: Inadequate oral intake related to increased needs as evidenced by ESRD on HD(currently on clear liquids). Nutrition Intervention: Initiate Medical Food Supplement Nutrition Prescription: Diet: renal clear Oral nutrition supplement: BOOST BREEZE and [id number] Nutrition Goals: Tolerate diet advancement Start Date:04/23/2023 Expected End Date:04/29/2023 Nutrition Education: No needs at this time Assessment: Pertinent clinical information: admitted R/O ileitis Past Medical History: Diagnosis Date Anemia Chronic kidney disease (CKD) Chronic kidney disease, stage IV (severe) (HCC) Dense deposit disease Dysphonia History of blood transfusion History of Helicobacter pylori infection History of hypotension History of nephrotic syndrome History of respiratory failure History of septic shock Hyperphosphatemia Hypertension Immunocompromised (HCC) Proteinuria RPGN (rapidly progressive glomerulonephritis) 2018 Was initially dialysis dependent 2017 Height: 5' 9 Current weight: 56.6 kg (124 lb 12.5 oz) BMI Body mass index is 18.43 kg/m . Weight hx: fluid+- Wt Readings from Last 5 Encounters: 04/23/23 56.6 kg (124 lb 12.5 oz) 01/15/23 61.2 kg (135 lb) 10/18/21 56.2 kg (124 lb) (7 %, Z= -1.51)* 09/18/21 56.7 kg (125 lb) (8 %, Z= -1.43)* 08/28/21 53.5 kg (117 lb 15.1 oz) (3 %, Z= -1.88)* * Growth percentiles are based on CDC (Boys, 2-20 Years) data. Current diet order: renal clear Recent intake: 50%. Current intake does not meet estimated needs. Difficulty Chewing/Swallowing: No Skin Integrity: Intact GI Function: WNL Physical Appearance: ANNABELLE Labs: Recent Labs 04/23/23 0214 NA 139 K 5.2* BICARB 25 CL 104 GLUCOSE 129* BUN 35* CREATININE 12.40* MG 2.7* PHOS 6.6* Scheduled Meds: calcium acetate(phosphat bind) 2,001 mg Oral TID with meals carvediloL 12.5 mg Oral BID furosemide 40 mg Oral BID heparin (porcine) 5,000 Units Subcutaneous Q8H LEIGH ANN hydrALAZINE 25 mg Oral TID hyoscyamine 125 mcg Sublingual TID AC losartan 100 mg Oral Daily NIFEdipine 60 mg Oral BID pantoprazole 40 mg Oral Daily piperacillin-tazobactam (ZOSYN) extended infusion 3.375 g Intravenous Q12H LEIGH ANN predniSONE 5 mg Oral Daily senna-docusate 1 tablet Oral BID sodium chloride (PF) 5 mL Intravenous Q8H LEIGH ANN Continuous Infusions: sodium chloride 0.9 % sodium chloride 0.9 % Estimated Energy Needs Total Energy Estimated Needs: 1999-2200kcal Method for Estimating Needs: 35-40kcal/kg Total Protein Estimated Needs: 80gm Method for Estimating Needs: 1.4gm/kg Ed MS Breanna, RDN, LD Dietitian Office * Yudelka, Teagan Morales CNP - 04/23/2023 8:50 AM EDTAssociated Order(s): IP CONSULT TO GASTROENTEROLOGY Gastroenterology Inpatient Consult 04/23/2023 Teagan Jha CNP [facility] Patient: Jv Petty Date of : 2000 (22 y.o.) Referring Provider: Refer to consult order in electronic medical record PCP: Inocencio Avendano MD SUBJECTIVE: Chief Complaint/Reason for Consult: terminal ileitis ASSESSMENT/PLAN: Terminal ilietus- Nausea/Vomiting/Diarrhea- Epigastric abdominal Pain- Afebrile, HDS Hgb 8.8, per nephrology notes patient was 10.3 on 04/16/2023 Denies hematemesis, hematochezia or melena CRP/Sed rate normal, no leukocytosis Symptoms have improved, denies any nausea or vomiting, no diarrhea in 2 days Stool studies pending Cdiff/PCR CLD, antiemetics PRN Pantoprazole 40mg po daily Takes prednisone 5mg daily EGD 2017 erythematous mucosa in the esophagus,Erythematous mucosa in the esophagus. Decreased vascular pattern mucosa in the esophagus. Erythematous mucosa in the greater curvature and antrum. No gross lesions in the stomach. Mucosal changes in the duodenum. No gross lesions in duodenum. Positive for H.pylori Never had colonoscopy Monitor H&H, increase PPI to IV twice daily, tolerating clear liquid diet, continue antiemeticsas needed. We will follow-up on stool studies, chest positive treat as appropriate, otherwise if negative consider Imodium if ongoing diarrhea. Will discuss with Dr Burroughs and update with further recommendations or plans for endoscopy. History of Present Illness: Jv Petty is a 22 y.o. male with history of rapidly progressive glomerulonephritis and ESRD onHD Mon, Wed, Fri; HYPERTENSION, anemia presented to ER yesterday with abdominal pain. Also with acute nausea, vomiting, diarrhea that started about [address] a/p without contrast suspected terminal ileitis and associated free peritoneal fluid in the pelvis, normal appearing appendix, and bladder wall thickening (correlate for cystitis). CRP less than 2.9, sed rate less than 1, WBC 7.7. Denies hematemesis, hematochezia, or melena. Denies fever or chills. Denies recent travel, known sick contacts, or recent antibiotic use. No diarrhea since yesterday, described as dark green in color. Denies personal or family history of IBD or PUD. Did have EGD in 2018 showing esophagitis and gastritis, positive for H.pylori. Takes omeprazole daily. Has never had a colonoscopy. Denies family historyof known colon cancer. Takes p.o. prednisone daily, denies NSAID use. Denies any dysphagia, odynophagia, or heartburn symptoms. Pending Lab and Radiology Results Order Current Status Hemoglobin A1c In process Interpretation of Testing: I personally reviewed the labds, notes, imaging, procedures Review of Systems: All other systems reviewed and negative other than HPI Past Medical History: Diagnosis Date Anemia Chronic kidney disease (CKD) Chronic kidney disease, stage IV (severe) (HCC) Dense deposit disease Dysphonia History of blood transfusion History of Helicobacter pylori infection History of hypotension History of nephrotic syndrome History of respiratory failure History of septic shock Hyperphosphatemia Hypertension Immunocompromised (HCC) Proteinuria RPGN (rapidly progressive glomerulonephritis) 2018 Was initially dialysis dependent 2018 Past Surgical History: Procedure Laterality Date CV IR INTERVENTIONAL RADIOLOGY N/A 10/19/2021 Procedure: IR DIALYSIS CATHETER REPLACEMENT TUNNELED/NONTUNNELED; Surgeon: Maddie Hancock MD;Location: IR LAB; Service: Interventional Radiology CV IR INTERVENTIONAL RADIOLOGY N/A 02/05/2022 Procedure: IR DIALYSIS CATHETER REMOVAL; Surgeon: Kailash Lackey PA-C; Location: IR LAB; Service: Interventional Radiology CV IR INTERVENTIONAL RADIOLOGY N/A 06/13/2022 Procedure: IR AV FISTULA INTERVENTION; Surgeon: Caden Davison DO; Location: IR LAB; Service: Interventional Radiology CV IR INTERVENTIONAL RADIOLOGY N/A 01/15/2023 Procedure: VR Fistulagram w/Intervention; Surgeon: Merrill Escobar MD; Location: IR LAB; Service: Interventional Radiology DIALYSIS CATHETER PLACEMENT/ANNMARIE CATH Right 10/19/2021 replacement FISTULA ARTERIOVENOUS Right 08/28/2021 Procedure: FISTULA ARTERIOVENOUS-RIGHT UPPER ARM CEPHALIC VEIN A-V FISTULA; Surgeon: Elisabeth Peña III, DO; Location: Main OR; Service: Gen-Vascular RENAL BIOPSY 12/18/2017 temporary dialysis catheter Right UPPER GASTROINTESTINAL ENDOSCOPY 2018 with biopsy X 2 Family History Problem Relation Age of Onset Asthma Mother Other (renal disease) Mother stage 3 Heart disease Father Heart disease Brother Tracheoesophageal fistual Brother Diabetes Maternal Grandmother Sleep apnea Maternal Grandmother Diabetes Maternal Grandfather Other (blood clots) Maternal Grandfather Other (blood clots) Paternal Grandmother Other (blood clots) Paternal Grandfather Social History Tobacco Use Smoking Status Never Smokeless Tobacco Never Additional History Comments: None Allergies: Midazolam Current HOME Medications: No outpatient medications have been marked as taking for the 04/23/23 encounter (Hospital Encounter). Current HOSPITAL Medications: acetaminophen (TYLENOL) tablet 650 mg, 650 mg, Oral, Q4H PRN aluminum-magnesium hydroxide-simethicone (MAALOX PLUS) 200-200-20 mg/5 mL suspension 30 mL, 30 mL, Oral, Q4H PRN bisacodyL (DULCOLAX) suppository 10 mg, 10 mg, Rectal, Daily PRN calcium acetate(phosphat bind) (PHOSLO) capsule 2,001 mg, 2,001 mg, Oral, TID with meals carvediloL (COREG) tablet 12.5 mg, 12.5 mg, Oral, BID furosemide (LASIX) tablet 40 mg, 40 mg, Oral, BID heparin (porcine) injection 5,000 Units, 5,000 Units, Subcutaneous, Q8H LEIGH ANN hydrALAZINE (APRESOLINE) tablet 25 mg, 25 mg, Oral, TID HYDROmorphone (DILAUDID) injection 0.25-0.5 mg, 0.25-0.5 mg, Intravenous, Q3H PRN HYDROmorphone (DILAUDID) tablet 2-4 mg, 2-4 mg, Oral, Q4H PRN hyoscyamine (LEVSIN/SL) SL tablet 125 mcg, 125 mcg, Sublingual, TID AC lidocaine-prilocaine (EMLA) cream, , Topical, PRN losartan (COZAAR) tablet 100 mg, 100 mg, Oral, Daily magnesium hydroxide (MOM) 400 mg/5 mL suspension 2,400 mg, 30 mL, Oral, Daily PRN melatonin Tab 5 mg, 5 mg, Oral, Nightly PRN naloxone (NARCAN) injection 0.1 mg, 0.1 mg, Intravenous, PRN AND Notify physician, , , Until Discontinued AND naloxone (NARCAN) injection 0.4 mg, 0.4 mg, Intravenous, PRN NIFEdipine (ADALAT CC) 24 hr tablet 60 mg, 60 mg, Oral, BID ondansetron (ZOFRAN-ODT) disintegrating tablet 4 mg, 4 mg, Oral, Q6H PRN OR ondansetron (ZOFRAN) injection 4 mg, 4 mg, Intravenous, Q6H PRN pantoprazole (PROTONIX) EC tablet 40 mg, 40 mg, Oral, Daily piperacillin-tazobactam (ZOSYN) IVPB 3.375 g (premix), 3.375 g, Intravenous, Q12H LEIGH ANN predniSONE (DELTASONE) tablet 5 mg, 5 mg, Oral, Daily promethazine (PHENERGAN) tablet 25 mg, 25 mg, Oral, Q6H PRN senna (SENOKOT) tablet 8.6 mg, 1 tablet, Oral, BID PRN senna-docusate (SENNA-S) 8.6-50 mg per tablet 1 tablet, 1 tablet, Oral, BID simethicone (MYLICON) chewable tablet 80 mg, 80 mg, Oral, 4x Daily PRN Saline lock IV, , , Continuous AND sodium chloride (PF) (NS) flush 5 mL, 5 mL, Intravenous, PRNAND sodium chloride (PF) (NS) flush 5 mL, 5 mL, Intravenous, Q8H LEIGH ANN AND sodium chloride 0.9% (NS), 0-150 mL/hr, Intravenous, PRN sodium chloride 0.9% (NS), 1,000-3,000 mL, Hemodialysis, PRN traZODone (DESYREL) tablet 50 mg, 50 mg, Oral, Nightly PRN OBJECTIVE: Physical Examination: BP 106/61 Pulse 69 Temp 97.3 F (36.3 C) (Oral) Resp 18 Ht 5' 9 Wt 56.6 kg (124 lb 12.5 oz) SpO2 92% BMI 18.43 kg/m General Appearance: Alert, well appearing, no acute distress HEENT: Head- Normocephalic, atraumatic. Eyes: No scleral icterus, normal conjunctive. Ears: Normal appearance, hearing intact. Nares: Normal pink mucosa, no exudate. Throat: Mucus membranes moist, noerythema. Neck: Supple, trachea midline. Cardiovascular: Regular rate and rhythm Respiratory: Respirations unlabored, Lungs clear to auscultation Abdomen: Soft, flat, non distended, active bowel sounds, epigastric abdomen tender to palpation Extremities: No clubbing, cyanosis or edema. Musculoskeletal: No joint deformity, swelling or tenderness Neurological: Alert and oriented, no focal deficits, grossly normal motor and sensory Skin: Normal color and turgor, no jaundice or rashes. Psych: Normal mood and affect. Laboratory and Additional Data Reviewed: Reviewed 04/23/23 9:38 AM: Laboratory, Pathology, Radiology, Medications, and Transcriptions Please note: Portions of this chart may have been created with Melon [email or web address] voice recognition software. Occasional wrong-word or sound-like substitutions may have occurred due to inherent limitations of the voice recognition software. Please read the chart carefully and recognize, using context, where the substitutions have occurred. Associated attestation - Lencho Burroughs MD - 04/23/2023 2:49 PM EDT C my note * Sarina Pérez CNP - 04/23/2023 8:09 AM EDTAssociated Order(s): IP CONSULT TO NEPHROLOGY NEPHROLOGY CONSULTATION NOTE [facility] Patient Name: Jv Petty MR #: [id number] : 2000 Requesting physician: Hospitalist Reason for consult: ESRD on hemodialysis Impression/Plan: 1. ESRD: HD at [facility] under direction of Dr. Johanny Mcdaniel on MWF schedule for 3 hours. Inpatient EDW: 57.5kg Next iHD is planned: Today, patient seen and examined on hemodialysis today, tolerating well. Access: Right upper arm AVF. The patient denies any recent complications with this access. Patient is complaint with HD and does not have high intradialytic weight gain outpatient. 2. HTN - controlled. As an outpatient BP slightly elevated prior to HD and improved with treatment. -Volume status: Euvolemic -Continue on Coreg 12.5 mg BID, Hydralazine 25 mg TID, Losartan 100 mg tab daily, Nifedipine 60mg BID, doxazosin 2 mg daily, Lasix 40 mg BID. 3. Anemia - Hgb prior to admit at outpatient HD was 10.3 on 04/16/23 - Receives Venofer and PARIS per protocol at outpatient HD - Will provide PARIS needed during this hospitalization, Goal Hgb for ESRD 04-16 4. Secondary hyperparathyroidism - outpatient HD medications: Calcitriol 0.5 mcg MWF with Treatment. Auryxia 210 mg 2 tab TID. -continue phosphate binders and adjust as needed for goal phos 3.0-5.5 in ESRD. We have ordered periodic checks of phosphorous level. 5. Protein calorie malnutrition -Patients with ESRD are at risk. We have ordered an oral nutritional supplement three times a day. 6. Terminal ilietus: Ct from outside facility suspected terminal ileitis and associated free peritoneal fluid in the pelvis. Bladder wall thickening, correlate for cystitis. -GI following -C-diff, Stool PCR pending 7. Hyperkalemia: Potassium at outside facility 6.2, treated with calcium gluconate dextrose insulin, repeat potassium 4.7. Repeat potassium today prior to HD 5.2, will run patient on 2K bath today. History of Presenting Illness: Jv Petty is a 22 y.o. male on hospital day 0 with a history of ESRD on HD dependent since 2018, hypertension, anemia, Nephrotic syndrome, glomerulonephritis on maintenance dose prednisone. Patient presented to outside facility due to nausea vomiting and diarrhea for 5 days, patient presented once abdominal pain continued to worsen. Patient reports he had not been eating or drinking much prior to admission patient was then transferred to [facility] for further evaluation. CT at outside facility suspected terminal ileitis with associated free peritoneal fluid in the pelvis as well as bladder wall thickening. GI was consulted on arrival. We are consulted for ESRD on HD. Labs as noted: Component Latest Ref Rng 04/23/2023 Potassium 3.5 - 5.1 mmol/L 5.2 (H) Sodium 135 - 145 mmol/L 139 Chloride 98 - 108 mmol/L 104 Bicarbonate 21 - 32 mmol/L 25 Anion Gap 10 - 20 mmol/L 15 Glucose 65 - 99 mg/dL 129 (H) BUN 8 - 25 mg/dL 35 (H) Creatinine 0.50 - 1.30 mg/dL 12.40 (HH) eGFR >=60 mL/min/1.73 m2 5 (L) BUN/Creatinine Ratio 10.0 - 20.0 2.8 (L) Calcium 8.4 - 10.2 mg/dL 9.3 History: Past Medical History: Diagnosis Date Anemia Chronic kidney disease (CKD) Chronic kidney disease, stage IV (severe) (HCC) Dense deposit disease Dysphonia History of blood transfusion History of Helicobacter pylori infection History of hypotension History of nephrotic syndrome History of respiratory failure History of septic shock Hyperphosphatemia Hypertension Immunocompromised (HCC) Proteinuria RPGN (rapidly progressive glomerulonephritis) 2018 Was initially dialysis dependent 2018 Past Surgical History: Procedure Laterality Date CV IR INTERVENTIONAL RADIOLOGY N/A 10/19/2021 Procedure: IR DIALYSIS CATHETER REPLACEMENT TUNNELED/NONTUNNELED; Surgeon: Maddie Hancock MD;Location: IR LAB; Service: Interventional Radiology CV IR INTERVENTIONAL RADIOLOGY N/A 02/05/2022 Procedure: IR DIALYSIS CATHETER REMOVAL; Surgeon: Kailash Lackey PA-C; Location: IR LAB; Service: Interventional Radiology CV IR INTERVENTIONAL RADIOLOGY N/A 06/13/2022 Procedure: IR AV FISTULA INTERVENTION; Surgeon: Caden Davison DO; Location: IR LAB; Service: Interventional Radiology CV IR INTERVENTIONAL RADIOLOGY N/A 01/15/2023 Procedure: VR Fistulagram w/Intervention; Surgeon: Merrill Escobar MD; Location: IR LAB; Service: Interventional Radiology DIALYSIS CATHETER PLACEMENT/ANNMARIE CATH Right 10/19/2021 replacement FISTULA ARTERIOVENOUS Right 08/28/2021 Procedure: FISTULA ARTERIOVENOUS-RIGHT UPPER ARM CEPHALIC VEIN A-V FISTULA; Surgeon: Elisabeth Peña III, DO; Location: Main OR; Service: Gen-Vascular RENAL BIOPSY 12/18/2017 temporary dialysis catheter Right UPPER GASTROINTESTINAL ENDOSCOPY 2018 with biopsy X 2 Family History: Family History Problem Relation Age of Onset Asthma Mother Other (renal disease) Mother stage 3 Heart disease Father Heart disease Brother Tracheoesophageal fistual Brother Diabetes Maternal Grandmother Sleep apnea Maternal Grandmother Diabetes Maternal Grandfather Other (blood clots) Maternal Grandfather Other (blood clots) Paternal Grandmother Other (blood clots) Paternal Grandfather [] Unable to obtain due to ventilated and/or neurologic status Social History Socioeconomic History Marital status: Single Tobacco Use Smoking status: Never Smokeless tobacco: Never Vaping Use Vaping Use: Never used Substance and Sexual Activity Alcohol use: Never Drug use: Never [] Unable to obtain due to ventilated and/or neurologic status Living Arrangements: Family members Support Systems: Parent, Family members, Friends/neighbors Home Medications: Outpatient Medications as of 04/23/2023 Medication Sig acetaminophen (TYLENOL) 160 mg/5 mL solution Take 225 mg by mouth every 4 (four) hours as needed . calcium acetate,phosphat bind, (PHOSLO) 667 mg capsule Take 3 (three) capsules (2,001 mg total) by mouth 3 (three) times a day with meals . carvediloL (COREG) 6.25 MG tablet Take 1 (one) tablet (6.25 mg total) by mouth 2 (two) times a day . docusate sodium (COLACE) 100 MG capsule Take 1 (one) capsule (100 mg total) by mouth daily . EPINEPHrine (EPIPEN) 0.3 mg/0.3 mL AtIn Inject 0.3 mL (0.3 mg total) into the shoulder, thigh, or buttocks once Inject 0.3 mL (0.3 mg total) into the mid- thigh as needed for severe allergic reaction.. ergocalciferol (ERGOCALCIFEROL) 1,250 mcg (50,000 unit) capsule Take 1 (one) capsule (50,000 Units total) by mouth over 168 hr . furosemide (LASIX) 40 MG tablet Take 1 (one) tablet (40 mg total) by mouth 40 mg in am; 40 mg in pm. hydrALAZINE (APRESOLINE) 25 MG tablet Take 1 (one) tablet (25 mg total) by mouth 3 (three) times a day Reasons: high blood pressure. hyoscyamine (LEVSIN/SL) 0.[address] 1 (one) tablet (0.125 mg total) under the tongue 3(three) times a day before meals Not taking . labetalol HCl (LABETALOL ORAL) Take 400 mg by mouth 2 (two) times a day . losartan (COZAAR) 50 MG tablet Take 1 (one) tablet (50 mg total) by mouth daily . NIFEdipine (PROCARDIA XL) 60 MG 24 hr tablet Take 1 (one) tablet (60 mg total) by mouth 2 (two) times a day . omeprazole (PRILOSEC) 20 MG capsule Take 1 (one) capsule (20 mg total) by mouth daily . polyethylene glycol (MIRALAX) 17 gram powder Take 17 (seventeen) g by mouth daily as needed . predniSONE (DELTASONE) 10 MG tablet Take 0.5 (one-half) tablet (5 mg total) by mouth daily . promethazine (PHENERGAN) 25 MG tablet Take 1 (one) tablet (25 mg total) by mouth every 6 (six) hours as needed for nausea . simethicone (MYLICON) 40 mg/0.6 mL drops Take 1.2 mL (80 mg total) by mouth 4 (four) times a day asneeded . Current Hospital Medications: Scheduled Meds: calcium acetate(phosphat bind) 2,001 mg Oral TID with meals carvediloL 12.5 mg Oral BID furosemide 40 mg Oral BID heparin (porcine) 5,000 Units Subcutaneous Q8H LEIGH ANN hydrALAZINE 25 mg Oral TID hyoscyamine 125 mcg Sublingual TID AC losartan 100 mg Oral Daily NIFEdipine 60 mg Oral BID pantoprazole 40 mg Oral Daily piperacillin-tazobactam (ZOSYN) extended infusion 3.375 g Intravenous Q12H LEIGH ANN predniSONE 5 mg Oral Daily senna-docusate 1 tablet Oral BID sodium chloride (PF) 5 mL Intravenous Q8H LEIGH ANN Continuous Infusions: sodium chloride 0.9 % PRN Meds:.acetaminophen, aluminum-magnesium hydroxide-simethicone, bisacodyL, HYDROmorphone, HYDROmorphone, magnesium hydroxide, melatonin, nalOXone AND Notify physician AND naloxone, ondansetron OR ondansetron, promethazine, senna, simethicone, Saline lock IV AND sodium chloride (PF) AND sodium chloride (PF) AND sodium chloride 0.9 %, traZODone sodium chloride 0.9 % Allergies: I have reviewed the patient's allergies. Midazolam Review of Systems: [x] CV, Resp, GI, Neuro, and all other systems reviewed and negative other than listed in HPI. [] Unable to obtain due to intubation and/or neurologic status. Objective Findings: Vitals:BP 106/61 Pulse 69 Temp 97.3 F (36.3 C) (Oral) Resp 18 Ht 5' 9 Wt 56.6 kg (124 lb12.5 oz) SpO2 92% BMI 18.43 kg/m Intake/Output last 3 shifts:No intake or output data in the 24 hours ending 04/23/23 0809No intake/output data recorded. Physical Examination: General: Age appropriate, NAD. HEENT: Normocephalic, no scleral icterus. Neck: No JVD. Heart: Regular, no murmur, no rub/gallop. Lungs: Clear to ascultation, no rales/wheezing/rhonchi. Good chest wall excursion. Abdomen: Soft, nontender, no supra-public fullness or tenderness. Extremities: No clubbing/cyanosis, no edema. Skin: Warm, dry, normal turgor, no rash, no bruise, no petichiae. Neuro: No myoclonus or tremor. Psych: Normal affect. Dialysis Access: [x] AVF right upper arm, accessed on HD [] AVG [] Permacath Results/Medications Reviewed: 04/23/23 8:09 AM: Laboratory, Microbiology, Pathology, Radiology, Cardiology, Medications and Transcriptions reviewed Laboratory: Results from last 7 days Lab Units 04/23/23 0214 WBC K/mcL 7.70 HGB g/dL 8.8* HCT % 28.6* PLT K/mcL 176 Results from last 7 days Lab Units 04/23/23 0214 SODIUM mmol/L 139 POTASSIUM mmol/L 5.2* CHLORIDE mmol/L 104 BICARB mmol/L 25 BUN mg/dL 35* CREATININE mg/dL 12.40* EGFR mL/min/1.73 m2 5* GLUCOSE mg/dL 129* CALCIUM mg/dL 9.3 MAGNESIUM mg/dL 2.7* PHOSPHORUS mg/dL 6.6* Urinalysis Comments: Thank you for allowing us to participate in the care of this patient. We will continue to follow. Please call if questions or concerns arise. Potential limitations of the note: Parts of this note were created by dictation via voice recognition software ([email or web address]). The completed note was reviewed for accuracy. However, there may be subtle errors that were not found during the review. If such errors are discovered, or if there are any questions or concerns regarding the recommendations/plan of care, please contact the author of the note prior to undertaking the recommendations/plan of care. Associated attestation - Clement Dover MD - 04/23/2023 11:31 AM EDT I personally performed a tynf-by-ysej encounter and discussed in detail with the REBEKAH on this encounter today as the REBEKAH's evaluation. I have completed the substantive portion of the visit (greater than 50% of total time) which includes but is not limited to reviewing the chart, obtaining history, performing physical exam, reviewingrelevant data, medical decision making, and coordination with the care team. Pt seen on HD. I agree with the care plan documented by the REBEKAH with the following additions/comments: Physical examination General: Age appropriate, NAD. HEENT: Normocephalic, no scleral icterus. Neck: No JVD. Heart: Regular, no murmur, no rub/gallop. Lungs: Clear to ascultation, no rales/wheezing/rhonchi. Good chest wall excursion. Abdomen: Soft, nontender, no supra-public fullness or tenderness. Extremities: No clubbing/cyanosis, no edema. Results from last 7 days Lab Units 04/23/23 0214 WBC K/mcL 7.70 HGB g/dL 8.8* HCT % 28.6* PLT K/mcL 176 Results from last 7 days Lab Units 04/23/23 0214 SODIUM mmol/L 139 POTASSIUM mmol/L 5.2* CHLORIDE mmol/L 104 BICARB mmol/L 25 BUN mg/dL 35* CREATININE mg/dL 12.40* EGFR mL/min/1.73 m2 5* GLUCOSE mg/dL 129* CALCIUM mg/dL 9.3 MAGNESIUM mg/dL 2.7* PHOSPHORUS mg/dL 6.6* Laboratory, Microbiology, Pathology, Radiology, Cardiology, Medications and Transcriptions reviewed Medical Decision Making: ESRD - tolerating HD today. Should be able to get to [facility]. Plan on next HD for Friday. Hyperkalemia - should resolve with HD. Keep on 2K bath HTN - continue on home BP medications Anemia - will give PARIS with HD Secondary HPT - continue on calcitriol and auryxia. Please contact us with any questions or concerns. documented in this [id number] Note* Quick Note - Brian Dietz MD - 04/23/2023 1:45 PM EDT Jv Petty is a 22 y.o. [facility] with [facility] of [facility]D on HD, HTN,who presented to [facility] with joann-umbilical abdominal pain. Terminal ileitis: CT w/o shows suspected terminal ileitis and associated free peritoneal fluid in the pelvis, normal appearing appendix, and bladder wall thickening (correlate for cystitis). Zosyn GI consult Advance diet ESRD on HD MWF: Nephrology consult HTN: Continue home meds Anemia of CKD: Recheck CBC in AM [id number] Consult note* Lani Aquino MSW LSW - 04/23/2023 12:14 PM EDTAssociated Order(s): IP CONSULT TO CARE MANAGEMENT Care Management Consult Note Date: 04/23/2023 Time: 12:14 PM Patient Name: Jv Petty Date of : 2000 Reason for Consult: Discharge Needs Discharge Plan: Discharging Transportation Plan: Discharge Plan Status: Consult received. Patient currently in dialysis. Will follow up to complete assessment. Assessment and Background Information: Living Arrangements: Family members Support Systems: Parent, Family members, Friends/neighbors Assistance Needed: None Type of Residence: Private residence Prior to Admission Home Care Services: No [id number] Note* Plan of Care - Sara Potter RN - 04/23/2023 11:37 AM EDT POC reviewed. Problem: Actual or potential alteration in health Goal: Absence of healthcare acquired conditions Outcome: Partially Met Goal: Knowledge of Interdisciplinary Plan of Care Outcome: Partially Met Goal: Knowledge of Enviroment Outcome: Partially Met Problem: Pain Goal: Manage acute pain Outcome: Partially Met Goal: Manage chronic pain Outcome: Partially Met Goal: Reduced pain sensation Outcome: Partially Met Goal: Achievement of comfort function goal Outcome: Partially Met [id number] Consult note* Ranjan Carlos, RD - 04/23/2023 10:23 AM EDT Associated Order(s): IP CONSULT TO DIETITIAN Nutrition Care Initial Assessment Suspected ileitis; clear liquids Reason for visit: Physician Consult for PO Nutrition Diagnosis: Inadequate oral intake related to increased needs as evidenced by ESRD on HD(currently on clear liquids). Nutrition Intervention: Initiate Medical Food Supplement Nutrition Prescription: Diet: renal clear Oral nutrition supplement: BOOST BREEZE and [id number] Nutrition Goals: Tolerate diet advancement Start Date:04/23/2023 Expected End Date:04/29/2023 Nutrition Education: No needs at this time Assessment: Pertinent clinical information: admitted R/O ileitis Past Medical History: Diagnosis Date Anemia Chronic kidney disease (CKD) Chronic kidney disease, stage IV (severe) (HCC) Dense deposit disease Dysphonia History of blood transfusion History of Helicobacter pylori infection History of hypotension History of nephrotic syndrome History of respiratory failure History of septic shock Hyperphosphatemia Hypertension Immunocompromised (HCC) Proteinuria RPGN (rapidly progressive glomerulonephritis) 2018 Was initially dialysis dependent 2017 Height: 5' 9 Current weight: 56.6 kg (124 lb 12.5 oz) BMI Body mass index is 18.43 kg/m . Weight hx: fluid+- Wt Readings from Last 5 Encounters: 04/23/23 56.6 kg (124 lb 12.5 oz) 01/15/23 61.2 kg (135 lb) 10/18/21 56.2 kg (124 lb) (7 %, Z= -1.51)* 09/18/21 56.7 kg (125 lb) (8 %, Z= -1.43)* 08/28/21 53.5 kg (117 lb 15.1 oz) (3 %, Z= -1.88)* * Growth percentiles are based on [facility] (Boys, 2-20 Years) data. Current diet order: renal clear Recent intake: 50%. Current intake does not meet estimated needs. Difficulty Chewing/Swallowing: No Skin Integrity: Intact GI Function: WNL Physical Appearance: ANNABELLE Labs: Recent Labs 04/23/23 0214 NA 139 K 5.2* BICARB 25 CL 104 GLUCOSE 129* BUN 35* CREATININE 12.40* MG 2.7* PHOS 6.6* Scheduled Meds: calcium acetate(phosphat bind) 2,001 mg Oral TID with meals carvediloL 12.5 mg Oral BID furosemide 40 mg Oral BID heparin (porcine) 5,000 Units Subcutaneous Q8H LEIGH ANN hydrALAZINE 25 mg Oral TID hyoscyamine 125 mcg Sublingual TID AC losartan 100 mg Oral Daily NIFEdipine 60 mg Oral BID pantoprazole 40 mg Oral Daily piperacillin-tazobactam (ZOSYN) extended infusion 3.375 g Intravenous Q12H LEIGH ANN predniSONE 5 mg Oral Daily senna-docusate 1 tablet Oral BID sodium chloride (PF) 5 mL Intravenous Q8H LEIGH ANN Continuous Infusions: sodium chloride 0.9 % sodium chloride 0.9 % Estimated Energy Needs Total Energy Estimated Needs: 2000-2200kcal Method for Estimating Needs: 35-40kcal/kg Total Protein Estimated Needs: 80gm Method for Estimating Needs: 1.4gm/kg Blaze Carlos MS, EMILYN, LD Dietitian Office [id number] Consult note* Teagan Jah CNP - 04/23/2023 8:50 AM EDTAssociated Order(s): IP CONSULT TO GASTROENTEROLOGY Gastroenterology Inpatient Consult 04/23/2023 Teagan Jha CNP [facility] Patient: Jv Petty Date of : 2000 (22 y.o.) Referring Provider: Refer to consult order in electronic medical record PCP: Inocencio Avendano MD SUBJECTIVE: Chief Complaint/Reason for Consult: terminal ileitis ASSESSMENT/PLAN: Terminal ilietus- Nausea/Vomiting/Diarrhea- Epigastric abdominal Pain- Afebrile, HDS Hgb 8.8, per nephrology notes patient was 10.3 on 04/16/2023 Denies hematemesis, hematochezia or melena CRP/Sed rate normal, no leukocytosis Symptoms have improved, denies any nausea or vomiting, no diarrhea in 2 days Stool studies pending Cdiff/PCR CLD, antiemetics PRN Pantoprazole 40mg po daily Takes prednisone 5mg daily EGD 2018 erythematous mucosa in the esophagus,Erythematous mucosa in the esophagus. Decreased vascular pattern mucosa in the esophagus. Erythematous mucosa in the greater curvature and antrum. No gross lesions in the stomach. Mucosal changes in the duodenum. No gross lesions in duodenum. Positive for H.pylori Never had colonoscopy Monitor H&H, increase PPI to IV twice daily, tolerating clear liquid diet, continue antiemeticsas needed. We will follow-up on stool studies, chest positive treat as appropriate, otherwise if negative consider Imodium if ongoing diarrhea. Will discuss with Dr Burroughs and update with further recommendations or plans for endoscopy. History of Present Illness: Jv Petty is a 22 y.o. male with history of rapidly progressive glomerulonephritis and ESRD onHD Mon, Wed, Fri; HYPERTENSION, anemia presented to ER yesterday with abdominal pain. Also with acute nausea, vomiting, diarrhea that started about [address] a/p without contrast suspected terminal ileitis and associated free peritoneal fluid in the pelvis, normal appearing appendix, and bladder wall thickening (correlate for cystitis). CRP less than 2.9, sed rate less than 1, WBC 7.7. Denies hematemesis, hematochezia, or melena. Denies fever or chills. Denies recent travel, known sick contacts, or recent antibiotic use. No diarrhea since yesterday, described as dark green in color. Denies personal or family history of IBD or PUD. Did have EGD in 2018 showing esophagitis and gastritis, positive for H.pylori. Takes omeprazole daily. Has never had a colonoscopy. Denies family historyof known colon cancer. Takes p.o. prednisone daily, denies NSAID use. Denies any dysphagia, odynophagia, or heartburn symptoms. Pending Lab and Radiology Results Order Current Status Hemoglobin A1c In process Interpretation of Testing: I personally reviewed the labds, notes, imaging, procedures Review of Systems: All other systems reviewed and negative other than HPI Past Medical History: Diagnosis Date Anemia Chronic kidney disease (CKD) Chronic kidney disease, stage IV (severe) (HCC) Dense deposit disease Dysphonia History of blood transfusion History of Helicobacter pylori infection History of hypotension History of nephrotic syndrome History of respiratory failure History of septic shock Hyperphosphatemia Hypertension Immunocompromised (HCC) Proteinuria RPGN (rapidly progressive glomerulonephritis) 2018 Was initially dialysis dependent 2018 Past Surgical History: Procedure Laterality Date CV IR INTERVENTIONAL RADIOLOGY N/A 10/19/2021 Procedure: IR DIALYSIS CATHETER REPLACEMENT TUNNELED/NONTUNNELED; Surgeon: Maddie Hancock MD;Location: IR LAB; Service: Interventional Radiology CV IR INTERVENTIONAL RADIOLOGY N/A 02/05/2022 Procedure: IR DIALYSIS CATHETER REMOVAL; Surgeon: Kailash Lackey PA-C; Location: IR LAB; Service: Interventional Radiology CV IR INTERVENTIONAL RADIOLOGY N/A 06/13/2022 Procedure: IR AV FISTULA INTERVENTION; Surgeon: Caden Davison DO; Location: IR LAB; Service: Interventional Radiology CV IR INTERVENTIONAL RADIOLOGY N/A 01/15/2023 Procedure: VR Fistulagram w/Intervention; Surgeon: Merrill Escoabr MD; Location: IR LAB; Service: Interventional Radiology DIALYSIS CATHETER PLACEMENT/ANNMARIE CATH Right 10/19/2021 replacement FISTULA ARTERIOVENOUS Right 08/28/2021 Procedure: FISTULA ARTERIOVENOUS-RIGHT UPPER ARM CEPHALIC VEIN A-V FISTULA; Surgeon: Elisabeth Peña III, DO; Location: Main OR; Service: Gen-Vascular RENAL BIOPSY 12/18/2017 temporary dialysis catheter Right UPPER GASTROINTESTINAL ENDOSCOPY 2018 with biopsy X 2 Family History Problem Relation Age of Onset Asthma Mother Other (renal disease) Mother stage 3 Heart disease Father Heart disease Brother Tracheoesophageal fistual Brother Diabetes Maternal Grandmother Sleep apnea Maternal Grandmother Diabetes Maternal Grandfather Other (blood clots) Maternal Grandfather Other (blood clots) Paternal Grandmother Other (blood clots) Paternal Grandfather Social History Tobacco Use Smoking Status Never Smokeless Tobacco Never Additional History Comments: None Allergies: Midazolam Current HOME Medications: No outpatient medications have been marked as taking for the 04/23/23 encounter (Hospital Encounter). Current HOSPITAL Medications: acetaminophen (TYLENOL) tablet 650 mg, 650 mg, Oral, Q4H PRN aluminum-magnesium hydroxide-simethicone (MAALOX PLUS) 200-200-20 mg/5 mL suspension 30 mL, 30 mL, Oral, Q4H PRN bisacodyL (DULCOLAX) suppository 10 mg, 10 mg, Rectal, Daily PRN calcium acetate(phosphat bind) (PHOSLO) capsule 2,001 mg, 2,001 mg, Oral, TID with meals carvediloL (COREG) tablet 12.5 mg, 12.5 mg, Oral, BID furosemide (LASIX) tablet 40 mg, 40 mg, Oral, BID heparin (porcine) injection 5,000 Units, 5,000 Units, Subcutaneous, Q8H LEIGH ANN hydrALAZINE (APRESOLINE) tablet 25 mg, 25 mg, Oral, TID HYDROmorphone (DILAUDID) injection 0.25-0.5 mg, 0.25-0.5 mg, Intravenous, Q3H PRN HYDROmorphone (DILAUDID) tablet 2-4 mg, 2-4 mg, Oral, Q4H PRN hyoscyamine (LEVSIN/SL) SL tablet 125 mcg, 125 mcg, Sublingual, TID AC lidocaine-prilocaine (EMLA) cream, , Topical, PRN losartan (COZAAR) tablet 100 mg, 100 mg, Oral, Daily magnesium hydroxide (MOM) 400 mg/5 mL suspension 2,400 mg, 30 mL, Oral, Daily PRN melatonin Tab 5 mg, 5 mg, Oral, Nightly PRN naloxone (NARCAN) injection 0.1 mg, 0.1 mg, Intravenous, PRN AND Notify physician, , , Until Discontinued AND naloxone (NARCAN) injection 0.4 mg, 0.4 mg, Intravenous, PRN NIFEdipine (ADALAT CC) 24 hr tablet 60 mg, 60 mg, Oral, BID ondansetron (ZOFRAN-ODT) disintegrating tablet 4 mg, 4 mg, Oral, Q6H PRN OR ondansetron (ZOFRAN) injection 4 mg, 4 mg, Intravenous, Q6H PRN pantoprazole (PROTONIX) EC tablet 40 mg, 40 mg, Oral, Daily piperacillin-tazobactam (ZOSYN) IVPB 3.375 g (premix), 3.375 g, Intravenous, Q12H LEIGH ANN predniSONE (DELTASONE) tablet 5 mg, 5 mg, Oral, Daily promethazine (PHENERGAN) tablet 25 mg, 25 mg, Oral, Q6H PRN senna (SENOKOT) tablet 8.6 mg, 1 tablet, Oral, BID PRN senna-docusate (SENNA-S) 8.6-50 mg per tablet 1 tablet, 1 tablet, Oral, BID simethicone (MYLICON) chewable tablet 80 mg, 80 mg, Oral, 4x Daily PRN Saline lock IV, , , Continuous AND sodium chloride (PF) (NS) flush 5 mL, 5 mL, Intravenous, PRNAND sodium chloride (PF) (NS) flush 5 mL, 5 mL, Intravenous, Q8H LEIGH ANN AND sodium chloride 0.9% (NS), 0-150 mL/hr, Intravenous, PRN sodium chloride 0.9% (NS), 1,000-3,000 mL, Hemodialysis, PRN traZODone (DESYREL) tablet 50 mg, 50 mg, Oral, Nightly PRN OBJECTIVE: Physical Examination: BP 106/61 Pulse 69 Temp 97.3 F (36.3 C) (Oral) Resp 18 Ht 5' 9 Wt 56.6 kg (124 lb 12.5 oz) SpO2 92% BMI 18.43 kg/m General Appearance: Alert, well appearing, no acute distress HEENT: Head- Normocephalic, atraumatic. Eyes: No scleral icterus, normal conjunctive. Ears: Normal appearance, hearing intact. Nares: Normal pink mucosa, no exudate. Throat: Mucus membranes moist, noerythema. Neck: Supple, trachea midline. Cardiovascular: Regular rate and rhythm Respiratory: Respirations unlabored, Lungs clear to auscultation Abdomen: Soft, flat, non distended, active bowel sounds, epigastric abdomen tender to palpation Extremities: No clubbing, cyanosis or edema. Musculoskeletal: No joint deformity, swelling or tenderness Neurological: Alert and oriented, no focal deficits, grossly normal motor and sensory Skin: Normal color and turgor, no jaundice or rashes. Psych: Normal mood and affect. Laboratory and Additional Data Reviewed: Reviewed 04/23/23 9:38 AM: Laboratory, Pathology, Radiology, Medications, and Transcriptions Please note: Portions of this chart may have been created with [email or web address] [email or web address] voice recognition software. Occasional wrong-word or sound-like substitutions may have occurred due to inherent limitations of the voice recognition software. Please read the chart carefully and recognize, using context, where the substitutions have occurred. Associated attestation - Lencho Burroughs MD - 04/23/2023 2:49 PM EDT C my note [employer] Work Phone: [phone] Consult note* Sarina Pérez CNP - 04/23/2023 8:09 AM EDTAssociated Order(s): IP CONSULT TO NEPHROLOGY NEPHROLOGY CONSULTATION [facility] Patient Name: Jv Petty MR #: [id number] : 2000 Requesting physician: Hospitalist Reason for consult: ESRD on hemodialysis Impression/Plan: 1. ESRD: HD at [facility] under direction of Dr. Johanny Mcdaniel on MWF schedule for 3 hours. Inpatient EDW: 57.5kg Next iHD is planned: Today, patient seen and examined on hemodialysis today, tolerating well. Access: Right upper arm AVF. The patient denies any recent complications with this access. Patient is complaint with HD and does not have high intradialytic weight gain outpatient. 2. HTN - controlled. As an outpatient BP slightly elevated prior to HD and improved with treatment. -Volume status: Euvolemic -Continue on Coreg 12.5 mg BID, Hydralazine 25 mg TID, Losartan 100 mg tab daily, Nifedipine 60mg BID, doxazosin 2 mg daily, Lasix 40 mg BID. 3. Anemia - Hgb prior to admit at outpatient HD was 10.3 on 04/16/23 - Receives Venofer and PARIS per protocol at outpatient HD - Will provide PARIS needed during this hospitalization, Goal Hgb for ESRD 10-11 4. Secondary hyperparathyroidism - outpatient HD medications: Calcitriol 0.5 mcg MWF with Treatment. Auryxia 210 mg 2 tab TID. -continue phosphate binders and adjust as needed for goal phos 3.0-5.5 in ESRD. We have ordered periodic checks of phosphorous level. 5. Protein calorie malnutrition -Patients with ESRD are at risk. We have ordered an oral nutritional supplement three times a day. 6. Terminal ilietus: Ct from outside facility suspected terminal ileitis and associated free peritoneal fluid in the pelvis. Bladder wall thickening, correlate for cystitis. -GI following -C-diff, Stool PCR pending 7. Hyperkalemia: Potassium at outside facility 6.2, treated with calcium gluconate dextrose insulin, repeat potassium 4.7. Repeat potassium today prior to HD 5.2, will run patient on 2K bath today. History of Presenting Illness: Jv Petty is a 22 y.o. male on hospital day 0 with a history of ESRD on HD dependent since 2018, hypertension, anemia, Nephrotic syndrome, glomerulonephritis on maintenance dose prednisone. Patient presented to outside facility due to nausea vomiting and diarrhea for 5 days, patient presented once abdominal pain continued to worsen. Patient reports he had not been eating or drinking much prior to admission patient was then transferred to [facility] for further evaluation. CT at outside facility suspected terminal ileitis with associated free peritoneal fluid in the pelvis as well as bladder wall thickening. GI was consulted on arrival. We are consulted for ESRD on HD. Labs as noted: Component Latest Ref Rng 04/23/2023 Potassium 3.5 - 5.1 mmol/L 5.2 (H) Sodium 135 - 145 mmol/L 139 Chloride 98 - 108 mmol/L 104 Bicarbonate 21 - 32 mmol/L 25 Anion Gap 10 - 20 mmol/L 15 Glucose 65 - 99 mg/dL 129 (H) BUN 8 - 25 mg/dL 35 (H) Creatinine 0.50 - 1.30 mg/dL 12.40 (HH) eGFR >=60 mL/min/1.73 m2 5 (L) BUN/Creatinine Ratio 10.0 - 20.0 2.8 (L) Calcium 8.4 - 10.2 mg/dL 9.3 History: Past Medical History: Diagnosis Date Anemia Chronic kidney disease (CKD) Chronic kidney disease, stage IV (severe) (HCC) Dense deposit disease Dysphonia History of blood transfusion History of Helicobacter pylori infection History of hypotension History of nephrotic syndrome History of respiratory failure History of septic shock Hyperphosphatemia Hypertension Immunocompromised (HCC) Proteinuria RPGN (rapidly progressive glomerulonephritis) 2018 Was initially dialysis dependent 2018 Past Surgical History: Procedure Laterality Date CV IR INTERVENTIONAL RADIOLOGY N/A 10/19/2021 Procedure: IR DIALYSIS CATHETER REPLACEMENT TUNNELED/NONTUNNELED; Surgeon: Maddie Hancock MD;Location: IR LAB; Service: Interventional Radiology CV IR INTERVENTIONAL RADIOLOGY N/A 02/05/2022 Procedure: IR DIALYSIS CATHETER REMOVAL; Surgeon: Kailash Lackey PA-C; Location: IR LAB; Service: Interventional Radiology CV IR INTERVENTIONAL RADIOLOGY N/A 06/13/2022 Procedure: IR AV FISTULA INTERVENTION; Surgeon: Caden Davison DO; Location: IR LAB; Service: Interventional Radiology CV IR INTERVENTIONAL RADIOLOGY N/A 01/15/2023 Procedure: VR Fistulagram w/Intervention; Surgeon: Merrill Escobar MD; Location: IR LAB; Service: Interventional Radiology DIALYSIS CATHETER PLACEMENT/ANNMARIE CATH Right 10/19/2021 replacement FISTULA ARTERIOVENOUS Right 08/28/2021 Procedure: FISTULA ARTERIOVENOUS-RIGHT UPPER ARM CEPHALIC VEIN A-V FISTULA; Surgeon: Elisabeth Peña III, DO; Location: Main OR; Service: Gen-Vascular RENAL BIOPSY 12/18/2017 temporary dialysis catheter Right UPPER GASTROINTESTINAL ENDOSCOPY 2018 with biopsy X 2 Family History: Family History Problem Relation Age of Onset Asthma Mother Other (renal disease) Mother stage 3 Heart disease Father Heart disease Brother Tracheoesophageal fistual Brother Diabetes Maternal Grandmother Sleep apnea Maternal Grandmother Diabetes Maternal Grandfather Other (blood clots) Maternal Grandfather Other (blood clots) Paternal Grandmother Other (blood clots) Paternal Grandfather [] Unable to obtain due to ventilated and/or neurologic status Social History Socioeconomic History Marital status: Single Tobacco Use Smoking status: Never Smokeless tobacco: Never Vaping Use Vaping Use: Never used Substance and Sexual Activity Alcohol use: Never Drug use: Never [] Unable to obtain due to ventilated and/or neurologic status Living Arrangements: Family members Support Systems: Parent, Family members, Friends/neighbors Home Medications: Outpatient Medications as of 04/23/2023 Medication Sig acetaminophen (TYLENOL) 160 mg/5 mL solution Take 225 mg by mouth every 4 (four) hours as needed . calcium acetate,phosphat bind, (PHOSLO) 667 mg capsule Take 3 (three) capsules (2,001 mg total) by mouth 3 (three) times a day with meals . carvediloL (COREG) 6.25 MG tablet Take 1 (one) tablet (6.25 mg total) by mouth 2 (two) times a day . docusate sodium (COLACE) 100 MG capsule Take 1 (one) capsule (100 mg total) by mouth daily . EPINEPHrine (EPIPEN) 0.3 mg/0.3 mL AtIn Inject 0.3 mL (0.3 mg total) into the shoulder, thigh, or buttocks once Inject 0.3 mL (0.3 mg total) into the mid- thigh as needed for severe allergic reaction.. ergocalciferol (ERGOCALCIFEROL) 1,250 mcg (50,000 unit) capsule Take 1 (one) capsule (50,000 Units total) by mouth over 168 hr . furosemide (LASIX) 40 MG tablet Take 1 (one) tablet (40 mg total) by mouth 40 mg in am; 40 mg in pm. hydrALAZINE (APRESOLINE) 25 MG tablet Take 1 (one) tablet (25 mg total) by mouth 3 (three) times a day Reasons: high blood pressure. hyoscyamine (LEVSIN/SL) 0.[address] 1 (one) tablet (0.125 mg total) under the tongue 3(three) times a day before meals Not taking . labetalol HCl (LABETALOL ORAL) Take 400 mg by mouth 2 (two) times a day . losartan (COZAAR) 50 MG tablet Take 1 (one) tablet (50 mg total) by mouth daily . NIFEdipine (PROCARDIA XL) 60 MG 24 hr tablet Take 1 (one) tablet (60 mg total) by mouth 2 (two) times a day . omeprazole (PRILOSEC) 20 MG capsule Take 1 (one) capsule (20 mg total) by mouth daily . polyethylene glycol (MIRALAX) 17 gram powder Take 17 (seventeen) g by mouth daily as needed . predniSONE (DELTASONE) 10 MG tablet Take 0.5 (one-half) tablet (5 mg total) by mouth daily . promethazine (PHENERGAN) 25 MG tablet Take 1 (one) tablet (25 mg total) by mouth every 6 (six) hours as needed for nausea . simethicone (MYLICON) 40 mg/0.6 mL drops Take 1.2 mL (80 mg total) by mouth 4 (four) times a day asneeded . Current Hospital Medications: Scheduled Meds: calcium acetate(phosphat bind) 2,001 mg Oral TID with meals carvediloL 12.5 mg Oral BID furosemide 40 mg Oral BID heparin (porcine) 5,000 Units Subcutaneous Q8H LEIGH ANN hydrALAZINE 25 mg Oral TID hyoscyamine 125 mcg Sublingual TID AC losartan 100 mg Oral Daily NIFEdipine 60 mg Oral BID pantoprazole 40 mg Oral Daily piperacillin-tazobactam (ZOSYN) extended infusion 3.375 g Intravenous Q12H LEIGH ANN predniSONE 5 mg Oral Daily senna-docusate 1 tablet Oral BID sodium chloride (PF) 5 mL Intravenous Q8H LEIGH ANN Continuous Infusions: sodium chloride 0.9 % PRN Meds:.acetaminophen, aluminum-magnesium hydroxide-simethicone, bisacodyL, HYDROmorphone, HYDROmorphone, magnesium hydroxide, melatonin, nalOXone AND Notify physician AND naloxone, ondansetron OR ondansetron, promethazine, senna, simethicone, Saline lock IV AND sodium chloride (PF) AND sodium chloride (PF) AND sodium chloride 0.9 %, traZODone sodium chloride 0.9 % Allergies: I have reviewed the patient's allergies. Midazolam Review of Systems: [x] CV, Resp, GI, Neuro, and all other systems reviewed and negative other than listed in HPI. [] Unable to obtain due to intubation and/or neurologic status. Objective Findings: Vitals:BP 106/61 Pulse 69 Temp 97.3 F (36.3 C) (Oral) Resp 18 Ht 5' 9 Wt 56.6 kg (124 lb12.5 oz) SpO2 92% BMI 18.43 kg/m Intake/Output last 3 shifts:No intake or output data in the 24 hours ending 04/23/23 0809No intake/output data recorded. Physical Examination: General: Age appropriate, NAD. HEENT: Normocephalic, no scleral icterus. Neck: No JVD. Heart: Regular, no murmur, no rub/gallop. Lungs: Clear to ascultation, no rales/wheezing/rhonchi. Good chest wall excursion. Abdomen: Soft, nontender, no supra-public fullness or tenderness. Extremities: No clubbing/cyanosis, no edema. Skin: Warm, dry, normal turgor, no rash, no bruise, no petichiae. Neuro: No myoclonus or tremor. Psych: Normal affect. Dialysis Access: [x] AVF right upper arm, accessed on HD [] AVG [] Permacath Results/Medications Reviewed: 04/23/23 8:09 AM: Laboratory, Microbiology, Pathology, Radiology, Cardiology, Medications and Transcriptions reviewed Laboratory: Results from last 7 days Lab Units 04/23/23 0214 WBC K/mcL 7.70 HGB g/dL 8.8* HCT % 28.6* PLT K/mcL 176 Results from last 7 days Lab Units 04/23/23 0214 SODIUM mmol/L 139 POTASSIUM mmol/L 5.2* CHLORIDE mmol/L 104 BICARB mmol/L 25 BUN mg/dL 35* CREATININE mg/dL 12.40* EGFR mL/min/1.73 m2 5* GLUCOSE mg/dL 129* CALCIUM mg/dL 9.3 MAGNESIUM mg/dL 2.7* PHOSPHORUS mg/dL 6.6* Urinalysis Comments: Thank you for allowing us to participate in the care of this patient. We will continue to follow. Please call if questions or concerns arise. Potential limitations of the note: Parts of this note were created by dictation via voice recognition software ([email or web address]). The completed note was reviewed for accuracy. However, there may be subtle errors that were not found during the review. If such errors are discovered, or if there are any questions or concerns regarding the recommendations/plan of care, please contact the author of the note prior to undertaking the recommendations/plan of care. Associated attestation - Clement Dover MD - 04/23/2023 11:31 AM EDT I personally performed a [id number] encounter and discussed in detail with the REBEKAH on this encounter today as the REBEKAH's evaluation. I have completed the substantive portion of the visit (greater than 50% of total time) which includes but is not limited to reviewing the chart, obtaining history, performing physical exam, reviewingrelevant data, medical decision making, and coordination with the care team. Pt seen on HD. I agree with the care plan documented by the REBEKAH with the following additions/comments: Physical examination General: Age appropriate, NAD. HEENT: Normocephalic, no scleral icterus. Neck: No JVD. Heart: Regular, no murmur, no rub/gallop. Lungs: Clear to ascultation, no rales/wheezing/rhonchi. Good chest wall excursion. Abdomen: Soft, nontender, no supra-public fullness or tenderness. Extremities: No clubbing/cyanosis, no edema. Results from last 7 days Lab Units 04/23/23 0214 WBC K/mcL 7.70 HGB g/dL 8.8* HCT % 28.6* PLT K/mcL 176 Results from last 7 days Lab Units 04/23/23 0214 SODIUM mmol/L 139 POTASSIUM mmol/L 5.2* CHLORIDE mmol/L 104 BICARB mmol/L 25 BUN mg/dL 35* CREATININE mg/dL 12.40* EGFR mL/min/1.73 m2 5* GLUCOSE mg/dL 129* CALCIUM mg/dL 9.3 MAGNESIUM mg/dL 2.7* PHOSPHORUS mg/dL 6.6* Laboratory, Microbiology, Pathology, Radiology, Cardiology, Medications and Transcriptions reviewed Medical Decision Making: ESRD - tolerating HD today. Should be able to get to [facility]. Plan on next HD for Friday. Hyperkalemia - should resolve with HD. Keep on 2K bath HTN - continue on home BP medications Anemia - will give PARIS with HD Secondary HPT - continue on calcitriol and auryxia. Please contact us with any questions or concerns. [employer] Work Phone: [phone] History and physical note* Clifford Ramirez MD - 04/23/2023 1:08 AM EDT [facility] Patient Name: Jv Petty : 2000 MR #: [id number] Admit Date: 04/23/2023 Physicians: Inocencio Avendano MD (Family); System, Provider Not In (Referring) Jv Petty is a 22 y.o. male patient of Inocencio Avendano MD with history of ESRD on HD, HTN,who presented to [facility] with joann-umbilical abdominal pain. Terminal ileitis: CT w/o shows suspected terminal ileitis and associated free peritoneal fluid in the pelvis, normal appearing appendix, and bladder wall thickening (correlate for cystitis). Zosyn GI consult ESRD on HD MWF: Nephrology consult HTN: Continue home meds Anemia of CKD: Recheck CBC in AM Residence prior to admission: house or apartment [facility] care [facility] [place] [facility] Quality Measures DVT Prophylaxis: heparin subcutaneous Dodge Catheter: absent Medication Reconciliation: Verified Risk variables present on admission: Chronic Kidney Disease. Please see assessment and plan for further details. Estimated Date of Discharge greater than 2 midnights Code Status Full Code; code status verified on 04/23/2023 with patient (capacity intact) Chief Complaint Abdominal pain History of Present Illness Jv Petty is a 22 y.o. male patient of Inocencio Avendano MD with history of ESRD on HD, HTN,who presented to [facility] with joann-umbilical abdominal pain. Abdominal pain for the past4 days ago (Friday04/19/23). Associated with nausea, vomiting, and diarrhea. No hematochezia or melena. No fever, chills, cough, rash. Nothing makes it better or worse. Past Medical History Past Medical History: Diagnosis Date Anemia Chronic kidney disease (CKD) Chronic kidney disease, stage IV (severe) (HCC) Dense deposit disease Dysphonia History of blood transfusion History of Helicobacter pylori infection History of hypotension History of nephrotic syndrome History of respiratory failure History of septic shock Hyperphosphatemia Hypertension Immunocompromised (HCC) Proteinuria RPGN (rapidly progressive glomerulonephritis) 2018 Was initially dialysis dependent 2018 Past Surgical History Past Surgical History: Procedure Laterality Date CV IR INTERVENTIONAL RADIOLOGY N/A 10/19/2021 Procedure: IR DIALYSIS CATHETER REPLACEMENT TUNNELED/NONTUNNELED; Surgeon: Maddie Hancock MD;Location: IR LAB; Service: Interventional Radiology CV IR INTERVENTIONAL RADIOLOGY N/A 02/05/2022 Procedure: IR DIALYSIS CATHETER REMOVAL; Surgeon: Kailash Lackey PA-C; Location: IR LAB; Service: Interventional Radiology CV IR INTERVENTIONAL RADIOLOGY N/A 06/13/2022 Procedure: IR AV FISTULA INTERVENTION; Surgeon: Caden Davison DO; Location: IR LAB; Service: Interventional Radiology CV IR INTERVENTIONAL RADIOLOGY N/A 01/15/2023 Procedure: VR Fistulagram w/Intervention; Surgeon: Merrill Escobar MD; Location: IR LAB; Service: Interventional Radiology DIALYSIS CATHETER PLACEMENT/ANNMARIE CATH Right 10/19/2021 replacement FISTULA ARTERIOVENOUS Right 08/28/2021 Procedure: FISTULA ARTERIOVENOUS-RIGHT UPPER ARM CEPHALIC VEIN A-V FISTULA; Surgeon: Elisabeth Peña III, DO; Location: Main OR; Service: Gen-Vascular RENAL BIOPSY 12/18/2017 temporary dialysis catheter Right UPPER GASTROINTESTINAL ENDOSCOPY 2018 with biopsy X 2 Family History Family History Problem Relation Age of Onset Asthma Mother Other (renal disease) Mother stage 3 Heart disease Father Heart disease Brother Tracheoesophageal fistual Brother Diabetes Maternal Grandmother Sleep apnea Maternal Grandmother Diabetes Maternal Grandfather Other (blood clots) Maternal Grandfather Other (blood clots) Paternal Grandmother Other (blood clots) Paternal Grandfather Social History Social History Tobacco Use Smoking Status Never Smokeless Tobacco Never Social History Substance and Sexual Activity Alcohol Use Never Social History Substance and Sexual Activity Drug Use Never Allergy Information I have reviewed the patient's allergies. Midazolam Home Medications Home medications were reviewed. Review Of Systems All relevant systems have been reviewed and are negative except as noted in HPI or below Physical Examination There were no vitals taken for this visit. General Appearance: alert; well appearing; in no acute distress HEENT: Head- normocephalic; Eyes- EOMI, sclera anicteric; Throat- mucous membranes moist Cardiovascular: regular rate and rhythm; normal S1, S2; no murmurs, rubs, clicks or gallops; peripheral edema absent; RUE AV fistula Respiratory: lungs clear to auscultation; without wheezes, rales or rhonchi; on room air Abdomen: soft, RLQ tenderness, no rebound or guarding, non-distended Neurological: oriented x 3; normal speech; no focal findings or movement disorder noted Musculoskeletal: no significant deformity or tenderness to palpation Skin: normal coloration Psych: normal mood and affect [id number] History and physical note* Clifford Ramirez MD - 04/23/2023 1:08 AM EDT [facility] Patient Name: Jv Petty : 2000 MR #: [id number] Admit Date: 04/23/2023 Physicians: Inocencio Avendano MD (Family); System, Provider Not In (Referring) Jv Petty is a 22 y.o. male patient of Inocencio Avendano MD with history of ESRD on HD, HTN,who presented to [facility] with joann-umbilical abdominal pain. Terminal ileitis: CT w/o shows suspected terminal ileitis and associated free peritoneal fluid in the pelvis, normal appearing appendix, and bladder wall thickening (correlate for cystitis). Zosyn GI consult ESRD on HD MWF: Nephrology consult HTN: Continue home meds Anemia of CKD: Recheck CBC in AM Residence prior to admission: house or apartment [facility] [place] [facility] Quality Measures DVT Prophylaxis: heparin subcutaneous Dodge Catheter: absent Medication Reconciliation: Verified Risk variables present on admission: Chronic Kidney Disease. Please see assessment and plan for further details. Estimated Date of Discharge greater than 2 midnights Code Status Full Code; code status verified on 04/23/2023 with patient (capacity intact) Chief Complaint Abdominal pain History of Present Illness Jv Petty is a 22 y.o. male patient of Inocencio Avendano MD with history of ESRD on HD, HTN,who presented to [facility] with joann-umbilical abdominal pain. Abdominal pain for the past4 days ago (Friday04/19/23). Associated with nausea, vomiting, and diarrhea. No hematochezia or melena. No fever, chills, cough, rash. Nothing makes it better or worse. Past Medical History Past Medical History: Diagnosis Date Anemia Chronic kidney disease (CKD) Chronic kidney disease, stage IV (severe) (HCC) Dense deposit disease Dysphonia History of blood transfusion History of Helicobacter pylori infection History of hypotension History of nephrotic syndrome History of respiratory failure History of septic shock Hyperphosphatemia Hypertension Immunocompromised (HCC) Proteinuria RPGN (rapidly progressive glomerulonephritis) 2018 Was initially dialysis dependent 2018 Past Surgical History Past Surgical History: Procedure Laterality Date CV IR INTERVENTIONAL RADIOLOGY N/A 10/19/2021 Procedure: IR DIALYSIS CATHETER REPLACEMENT TUNNELED/NONTUNNELED; Surgeon: Maddie Hancock MD;Location: IR LAB; Service: Interventional Radiology CV IR INTERVENTIONAL RADIOLOGY N/A 02/05/2022 Procedure: IR DIALYSIS CATHETER REMOVAL; Surgeon: Kailash Lackey PA-C; Location: IR LAB; Service: Interventional Radiology CV IR INTERVENTIONAL RADIOLOGY N/A 06/13/2022 Procedure: IR AV FISTULA INTERVENTION; Surgeon: Caden Davison DO; Location: IR LAB; Service: Interventional Radiology CV IR INTERVENTIONAL RADIOLOGY N/A 01/15/2023 Procedure: VR Fistulagram w/Intervention; Surgeon: Merrill Escobar MD; Location: IR LAB; Service: Interventional Radiology DIALYSIS CATHETER PLACEMENT/ANNMARIE CATH Right 10/19/2021 replacement FISTULA ARTERIOVENOUS Right 08/28/2021 Procedure: FISTULA ARTERIOVENOUS-RIGHT UPPER ARM CEPHALIC VEIN A-V FISTULA; Surgeon: Elisabeth Peña III, DO; Location: Main OR; Service: Gen-Vascular RENAL BIOPSY 12/18/2017 temporary dialysis catheter Right UPPER GASTROINTESTINAL ENDOSCOPY 2018 with biopsy X 2 Family History Family History Problem Relation Age of Onset Asthma Mother Other (renal disease) Mother stage 3 Heart disease Father Heart disease Brother Tracheoesophageal fistual Brother Diabetes Maternal Grandmother Sleep apnea Maternal Grandmother Diabetes Maternal Grandfather Other (blood clots) Maternal Grandfather Other (blood clots) Paternal Grandmother Other (blood clots) Paternal Grandfather Social History Social History Tobacco Use Smoking Status Never Smokeless Tobacco Never Social History Substance and Sexual Activity Alcohol Use Never Social History Substance and Sexual Activity Drug Use Never Allergy Information I have reviewed the patient's allergies. Midazolam Home Medications Home medications were reviewed. Review Of Systems All relevant systems have been reviewed and are negative except as noted in HPI or below Physical Examination There were no vitals taken for this visit. General Appearance: alert; well appearing; in no acute distress HEENT: Head- normocephalic; Eyes- EOMI, sclera anicteric; Throat- mucous membranes moist Cardiovascular: regular rate and rhythm; normal S1, S2; no murmurs, rubs, clicks or gallops; peripheral edema absent; RUE AV fistula Respiratory: lungs clear to auscultation; without wheezes, rales or rhonchi; on room air Abdomen: soft, RLQ tenderness, no rebound or guarding, non-distended Neurological: oriented x 3; normal speech; no focal findings or movement disorder noted Musculoskeletal: no significant deformity or tenderness to palpation Skin: normal coloration Psych: normal mood and affect documented in this [id number] Note [id number]:[address] [place] [address] 09-06-2022 Hospital Discharge instructions* Discharge Instructions* Marilu Gonzalez MD - 09/06/2022 3:23 PM EST Use Tylenol for fever. Increase fluids at home. Take penicillin as prescribed twice a day. Penicillin treats strep throat, sinus infections, bronchitis and ear infections related to bacteria. Follow-up with primary care. * Attachments The following attachments cannot be sent through Care Everywhere. * Sore Throat ([place]se) documented in this [facility] [employer] Phone: 1(848) 420-316803-03-2023 History of Present illness Narrative* Merle Colby RN - 09/06/2022 2:20 PM EST Ticket to ride completed. The following information was reported off: Name Allergies Orientation Level Destination Safety Issues Code Status Oxygen Requirements Special needs including mobility, language, communication [email or web address] Phone: 1(319) 710-594812-10-2022 Note [id number]#1.00CD:127[facility] 01-07-2022 Hospital Discharge instructions* Instructions* Marilu Gonzalez MD - 01/07/2022 Continue home medications including your regular dose of blood pressure medication tonight. Stay leandra cool dry environment. Call your primary care doctor this week for close follow-up. Get dialysis as scheduled this week. * Attachments The following attachments cannot be sent through Care Everywhere. * Hypertension: General Info ([place]orese) documented in this [email or web address] Phone: 1(700) 412-982103-15-2022 Evaluation + Plan note* Assessment & Plan Note - Bowen Bar CNP - 09/18/2021 1:02 PM EDTAssociated Problem(s): ESRD (end stage renal disease) on dialysis (HCC) Also has known ESRD as a result of his glomerulonephrtis. He receives hemodialysis on M-W-F throughright chest dialysis catheter. His ESRD is managed by Dr Mcdaniel. [id number] Miscellaneous Notes* Assessment & Plan Note - Bowen Bar CNP - 09/18/2021 1:02 PM EDTAssociated Problem(s): ESRD (end stage renal disease) on dialysis (HCC) Also has known ESRD as a result of his glomerulonephrtis. He receives hemodialysis on M-W-F throughright chest dialysis catheter. His ESRD is managed by Dr Mcdaniel. * Assessment & Plan Note - Bowen Bar CNP - 09/18/2021 1:01 PM EDT Associated Problem(s): Hypertension Slightly elevated per JNC 8 guidelines at 159/95 -Managed by PCP * Assessment & Plan Note - Bowen Bar CNP - 09/18/2021 1:00 PM EDT Associated Problem(s): S/P arteriovenous (AV) fistula creation Also has known ESRD. He is currently receiving dialysis through right chest post catheter 3 times weekly. He is approximately 3 weeks post creation of right upper arm AV fistula. He denies all symptoms of steal syndrome including numbness, tingling, weakness. He has easily palpable right radial pulse. Incision to the right upper arm is healing well. There is good thrill and bruit present to the right upper arm AV fistula. 08/28/2021 Creation of Right upper extremity primary cephalic vein AV fistula by Dr Peña -Cedric will obtain ultrasound of hemodialysis access in 4 weeks and see him back in the office at thattime documented in this [id number] Evaluation + Plan note* Assessment & Plan Note - Bowen Bar CNP - 09/18/2021 1:01 PM EDT Associated Problem(s): Hypertension Slightly elevated per JNC 8 guidelines at 159/95 -Managed by PCP [id number] Evaluation + Plan note* Assessment & Plan Note - Bowen Bar CNP - 09/18/2021 1:00 PM EDTAssociated Problem(s): S/P arteriovenous (AV) fistula creation Also has known ESRD. He is currently receiving dialysis through right chest post catheter 3 times weekly. He is approximately 3 weeks post creation of right upper arm AV fistula. He denies all symptoms of steal syndrome including numbness, tingling, weakness. He has easily palpable right radial pulse. Incision to the right upper arm is healing well. There is good thrill and bruit present to the right upper arm AV fistula. 08/28/2021 Creation of Right upper extremity primary cephalic vein AV fistula by Dr Peña -We will obtain ultrasound of hemodialysis access in 4 weeks and see him back in the office at thattime [id number] History of Present illness Narrative* Bowen Bar CNP - 09/18/2021 12:59 PM EDT Images from the original note were not included. VASCULAR MEDICINE CLINIC NOTE Patient Name: Jv Petty MR #: [id number] : 2000 Physicians: Inocencio Avendano MD (Family); No ref. provider found (Referring) Assessment and Plan: S/P arteriovenous (AV) fistula creation Also has known ESRD. He is currently receiving dialysis through right chest post catheter 3 times weekly. He is approximately 3 weeks post creation of right upper arm AV fistula. He denies all symptoms of steal syndrome including numbness, tingling, weakness. He has easily palpable right radial pulse. Incision to the right upper arm is healing well. There is good thrill and bruit present to the right upper arm AV fistula. 08/28/2021 Creation of Right upper extremity primary cephalic vein AV fistula by Dr Peña -We will obtain ultrasound of hemodialysis access in 4 weeks and see him back in the office at thattime Hypertension Slightly elevated per JNC 8 guidelines at 159/95 -Managed by PCP ESRD (end stage renal disease) on dialysis (HCC) Also has known ESRD as a result of his glomerulonephrtis. He receives hemodialysis on throughright chest dialysis catheter. His ESRD is managed by Dr Mcdaniel. History of Present Illness: I had the pleasure to see Jv Petty who is a 21 y.o. male with a past medical history as outlined below. Jv Petty presents today on 09/18/2021 in the Vascular clinic for postoperative follow-up. Jv has known ESRD and is currently receiving hemodialysis through right chest dialysis catheter 3 times weekly. He is now approximately 3 weeks post right upper arm AV fistula creation. He is stable and asymptomatic at this time. Patient denies complaints of chest pain, SOB, abdominal pain, lightheadedness, dizziness. They have had no syncope or TIA/CVA type symptoms. Patient denies claudication or BLE rest pain. History: Past Medical History: Diagnosis Date Anemia Chronic kidney disease (CKD) Chronic kidney disease, stage IV (severe) (HCC) Dense deposit disease Dysphonia History of blood transfusion History of Helicobacter pylori infection History of hypotension History of nephrotic syndrome History of respiratory failure History of septic shock Hyperphosphatemia Hypertension Immunocompromised (HCC) Proteinuria RPGN (rapidly progressive glomerulonephritis) 2018 Was initially dialysis dependent 2017 Past Surgical History: Procedure Laterality Date FISTULA ARTERIOVENOUS Right 08/28/2021 Procedure: FISTULA ARTERIOVENOUS-RIGHT UPPER ARM CEPHALIC VEIN A-V FISTULA; Surgeon: Elisabeth Peña III, DO; Location: Main OR; Service: Gen-Vascular RENAL BIOPSY 12/18/2017 UPPER GASTROINTESTINAL ENDOSCOPY 2018 with biopsy X 2 Family History Problem Relation Age of Onset Asthma Mother Other (renal disease) Mother stage 3 Heart disease Father Heart disease Brother Tracheoesophageal fistual Brother Diabetes Maternal Grandmother Sleep apnea Maternal Grandmother Diabetes Maternal Grandfather Other (blood clots) Maternal Grandfather Other (blood clots) Paternal Grandmother Other (blood clots) Paternal Grandfather Social History Socioeconomic History Marital status: Single Tobacco Use Smoking status: Never Smoker Smokeless tobacco: Never Used Vaping Use Vaping Use: Never used Substance and Sexual Activity Alcohol use: Never Drug use: Never Allergy Information: I have reviewed the patient's allergies. Midazolam Home Medications: Current Outpatient Medications Medication Sig Dispense Refill acetaminophen (TYLENOL) 160 mg/5 mL solution Take 225 mg by mouth every 4 (four) hours as needed . calcium acetate,phosphat bind, (PHOSLO) 667 mg capsule Take 2,001 mg by mouth 3 (three) times a daywith meals . carvediloL (COREG) 6.25 MG tablet Take 6.25 mg by mouth 2 (two) times a day . cloNIDine (CATAPRES-TTS) 0.2 mg/[address] 1 patch on the skin once a week . docusate sodium (COLACE) 100 MG capsule Take 100 mg by mouth daily . EPINEPHrine (EPIPEN) 0.3 mg/0.3 mL AtIn Inject 0.3 mg into the shoulder, thigh, or buttocks once Inject 0.3 mL (0.3 mg total) into the mid-thigh as needed for severe allergic reaction. . ergocalciferol (ERGOCALCIFEROL) 1,250 mcg (50,000 unit) capsule Take 50,000 Units by mouth over 168hr . furosemide (LASIX) 40 MG tablet Take 40 mg by mouth 60 mg in am; 40 mg in pm . hyoscyamine (LEVSIN/SL) 0.[address] 0.125 mg under the tongue 3 (three) times a day before meals . losartan (COZAAR) 50 MG tablet Take 50 mg by mouth daily . NIFEdipine (PROCARDIA XL) 60 MG 24 hr tablet Take 60 mg by mouth 2 (two) times a day . omeprazole (PRILOSEC) 20 MG capsule Take 20 mg by mouth daily . polyethylene glycol (MIRALAX) 17 gram powder Take 17 g by mouth daily as needed . predniSONE (DELTASONE) 10 MG tablet Take 5 mg by mouth daily . promethazine (PHENERGAN) 25 MG tablet Take 25 mg by mouth every 6 (six) hours as needed for nausea . simethicone (MYLICON) 40 mg/0.6 mL drops Take 80 mg by mouth 4 (four) times a day as needed . labetalol HCl (LABETALOL ORAL) Take 400 mg by mouth 2 (two) times a day . penicillin v potassium (VEETID) 250 MG tablet Take 250 mg by mouth 4 (four) times a day 1 tablet twice a day; Prophylaxis for infections - Immunosuppressed . No current facility-administered medications for this visit. Review of Systems: Review of Systems Constitutional: Negative for diaphoresis, malaise/fatigue, weight gain and weight loss. HENT: Negative for hearing loss, nosebleeds and tinnitus. Eyes: Negative for blurred vision and visual disturbance. Cardiovascular: Negative for chest pain, claudication, cyanosis, dyspnea on exertion, irregular heartbeat, leg swelling, near-syncope, orthopnea, palpitations, paroxysmal nocturnal dyspnea and syncope. Respiratory: Negative for hemoptysis, shortness of breath and snoring. Endocrine: Negative for cold intolerance and heat intolerance. Hematologic/Lymphatic: Bruises/bleeds easily. Skin: Negative for flushing, poor wound healing and rash. Musculoskeletal: Positive for joint pain. Negative for back pain, muscle weakness and myalgias. Gastrointestinal: Negative for abdominal pain, change in bowel habit, melena, nausea and vomiting. Genitourinary: Positive for nocturia (occasioanlly). Negative for decreased libido and hematuria. Neurological: Positive for headaches. Negative for dizziness, light-headedness, loss of balance, numbness and paresthesias. Psychiatric/Behavioral: Positive for substance abuse. Negative for depression and memory loss. The patient is not nervous/anxious. Physical Examination: Vital Signs: BP (!) 159/95 (BP Location: Left arm, Patient Position: Sitting) Pulse 79 Ht 5' 8 Wt 56.7 kg(125 lb) BMI 19.01 kg/m Physical Exam Physical Exam Vitals and nursing note reviewed. Constitutional: Appearance: Normal appearance. HENT: Head: Normocephalic. Eyes: General: Lids are normal. Cardiovascular: Rate and Rhythm: Normal rate and regular rhythm. Pulses: Radial pulses are 2+ on the right side. Heart sounds: No murmur heard. Pulmonary: Effort: No respiratory distress. Breath sounds: No decreased breath sounds, wheezing, rhonchi or rales. Skin: General: Skin is warm and dry. Neurological: Mental Status: He is alert and oriented to person, place, and time. Psychiatric: Behavior: Behavior is not agitated. Thank you for allowing me to participate in Jv Petty's care. Should you have any questions regarding their management please do not hesitate to contact me. documented in this [id number] Instructions* Patient Instructions* Carmen Bautista MA - 09/18/2021 12:45 PM EDT How to contact your Care Team: Providers: DO Bowen Posada III, CNP Jill Bender, PA Nurse: Tram Souza RN To reschedule office appointments call Scheduling [phone] In case of an emergency please call 911. When in need of refills please call the phone number listed above. Please include medication name, pharmacy name and specify 30 or 90 day supply Please check with your pharmacy within 24 hours of your request for refill. You must follow up as directed to continue current refills. Thank you! documented in this [id number] Instructions* Patient Instructions* Carmen Bautista MA - 08/16/2021 1:18 PM EST How to contact your Care Team: Providers: DO Bowen Posada III, CNP Jill Bender, PA Nurse: Tram Souza RN To reschedule office appointments call Scheduling [phone] In case of an emergency please call 911. When in need of refills please call the phone number listed above. Please include medication name, pharmacy name and specify 30 or 90 day supply Please check with your pharmacy within 24 hours of your request for refill. You must follow up as directed to continue current refills. Thank you! documented in this [id number] History of Present illness Narrative* Elisabeth Peña III, DO - 08/16/2021 12:06 PM EST Assessment & Plan: 1. ESRD (end stage renal disease) on dialysis ([facility]) Ambulatory referral to Cardiology 2. RPGN (rapidly progressive glomerulonephritis) Plan: At the present time, Mr. Petty is getting dialysis with his tunneled catheter at the [facility]. He is predominantly left-handed, and denies any pacemaker or Port-A-Cath insertions. I reviewed his vein mapping which show that he has marginal right upper arm cephalic vein and satisfactory right upper arm basilic vein for primary fistula creation. I discussed at length with the patientand his family regarding risks potential complications, benefits and drawbacks, advantages and disadvantages of AV fistula versus AV graft versus tunnel catheter access. The patient and his family understand these particular issues and are willing to move ahead with surgery. I feel based upon his mapping that he warrants exploration of the right upper arm cephalic vein with attempted creation of the cephalic vein AV fistula though may warrant a basilic vein AV fistula right upper arm if the cephalic vein is not satisfactory under surgical evaluation. We will tentatively plan for surgery on August 28, 2021 as an outpatient. We will keep you informed, and we appreciate the opportunity to consult on his care. Follow Up Ordered: Return for Rt. Upper Am Cephalic AVF on August 28, 2021. Subjective: Jv Petty is a 21 y.o. male seen in the office today for consultation regarding dialysis access. Mr. Petty (birthday 2000) was seen in the office on 2021. This pleasant 21-year-old male has end-stage renal failure, and is getting dialysis with a tunneled catheter. It was placed approximately 2 months ago, and he is now getting dialysis at the [facility] under Dr. Sarina Mcdaniel's care on a Friday/Friday/Friday routine (second shift). He states he is predominantly left-handed, though he does sign his name with his right hand. He denies any pacemaker or Port-A-Cath insertions. He presently is on dialysis secondary to end-stage renal failure as result of rapidly progressive glomerulonephritis and other medical issues. He did undergo an upper extremity arterial and venous mapping in the office today prior to seeing me. He is rather anxious regarding dialysis issues and treatments, though he is hopeful and eager to have his tunneled catheter removed in the future. He denies any diabetes mellitus. Histories: Past Medical History: Diagnosis Date Anemia Chronic kidney disease, stage IV (severe) (HCC) Dense deposit disease Dysphonia History of Helicobacter pylori infection History of hypotension History of nephrotic syndrome History of respiratory failure History of septic shock Hyperphosphatemia Hypertension Immunocompromised (HCC) Proteinuria RPGN (rapidly progressive glomerulonephritis) 2018 Was initially dialysis dependent 2018 Past Surgical History: Procedure Laterality Date RENAL BIOPSY 12/18/2017 UPPER GASTROINTESTINAL ENDOSCOPY 2018 with biopsy X 2 Family History Problem Relation Age of Onset Asthma Mother Other (renal disease) Mother stage 3 Heart disease Father Heart disease Brother Tracheoesophageal fistual Brother Diabetes Maternal Grandmother Sleep apnea Maternal Grandmother Diabetes Maternal Grandfather Other (blood clots) Maternal Grandfather Other (blood clots) Paternal Grandmother Other (blood clots) Paternal Grandfather Social History Tobacco Use Smoking status: Never Smoker Smokeless tobacco: Never Used Substance Use Topics Alcohol use: Never Drug use: Never Current Outpatient Medications Medication Sig Dispense Refill acetaminophen (TYLENOL) 160 mg/5 mL solution Take 225 mg by mouth every 4 (four) hours as needed . calcium acetate,phosphat bind, (PHOSLO) 667 mg capsule Take 2,001 mg by mouth 3 (three) times a daywith meals . carvediloL (COREG) 6.25 MG tablet Take 6.25 mg by mouth 2 (two) times a day . cloNIDine (CATAPRES-TTS) 0.2 mg/[address] 1 patch on the skin once a week . docusate sodium (COLACE) 100 MG capsule Take 100 mg by mouth daily . EPINEPHrine (EpiPen) 0.3 mg/0.3 mL AtIn Inject 0.3 mg into the shoulder, thigh, or buttocks once Inject 0.3 mL (0.3 mg total) into the mid-thigh as needed for severe allergic reaction. . ergocalciferol (ERGOCALCIFEROL) 1,250 mcg (50,000 unit) capsule Take 50,000 Units by mouth over 168hr . furosemide (LASIX) 40 MG tablet Take 40 mg by mouth 60 mg in am; 40 mg in pm . hyoscyamine (LEVSIN/SL) 0.[address] 0.125 mg under the tongue 3 (three) times a day before meals . labetalol HCl (LABETALOL ORAL) Take 400 mg by mouth 2 (two) times a day . losartan (COZAAR) 50 MG tablet Take 50 mg by mouth daily . NIFEdipine (PROCARDIA XL) 60 MG 24 hr tablet Take 60 mg by mouth 2 (two) times a day . omeprazole (PRILOSEC) 20 MG capsule Take 20 mg by mouth daily . penicillin v potassium (VEETID) 250 MG tablet Take 250 mg by mouth 4 (four) times a day 1 tablet twice a day; Prophylaxis for infections - Immunosuppressed . polyethylene glycol (MIRALAX) 17 gram powder Take 17 g by mouth daily as needed . predniSONE (DELTASONE) 10 MG tablet Take 5 mg by mouth daily . promethazine (PHENERGAN) 25 MG tablet Take 25 mg by mouth every 6 (six) hours as needed for nausea . simethicone (MYLICON) 40 mg/0.6 mL drops Take 80 mg by mouth 4 (four) times a day as needed . No current facility-administered medications for this visit. Allergies Allergen Reactions Midazolam Other (See Comments) Review of Systems Constitutional: Positive for malaise/fatigue. Negative for chills, decreased appetite, fever, nightsweats, weight gain and weight loss. HENT: Negative. Negative for hoarse voice and sore throat. Eyes: Negative for vision loss in left eye, vision loss in right eye and visual disturbance. Cardiovascular: Negative for chest pain, claudication, cyanosis, dyspnea on exertion, irregular heartbeat, leg swelling, palpitations and paroxysmal nocturnal dyspnea. Respiratory: Negative for cough, hemoptysis, shortness of breath, sleep disturbances due to breathing and wheezing. Endocrine: Negative. Negative for cold intolerance. Hematologic/Lymphatic: Negative for bleeding problem. Does not bruise/bleed easily. Skin: Negative. Negative for color change, dry skin, nail changes and poor wound healing. Musculoskeletal: Positive for myalgias and stiffness. Negative for arthritis, back pain, falls, gout, joint pain and muscle weakness. Gastrointestinal: Negative for abdominal pain, constipation, diarrhea, heartburn, jaundice, melena,nausea and vomiting. Genitourinary: Negative for dysuria, flank pain, frequency, hematuria and nocturia. Neurological: Positive for weakness. Negative for brief paralysis, dizziness, focal weakness, headaches, light-headedness, loss of balance, numbness and paresthesias. Psychiatric/Behavioral: Positive for depression. Negative for altered mental status, memory loss and substance abuse. The patient is nervous/anxious. Allergic/Immunologic: Negative. Negative for hives and persistent infections. Objective: Vitals: Vitals: 08/16/21 1319 08/16/21 1328 BP: 117/69 113/68 BP Location: Right arm Left arm Patient Position: Sitting Pulse: 89 Weight: 54.9 kg (121 lb) Height: 5' 8 Physical Exam Vitals reviewed. Constitutional: General: He is awake and active. Vital signs are normal. Appearance: Normal appearance. He is well-developed, normal weight and well-nourished. HENT: Head: Normocephalic and atraumatic. Eyes: General: Lids are normal. Extraocular Movements: Extraocular movements intact and EOM normal. Conjunctiva/sclera: Conjunctivae normal. Neck: Thyroid: No thyromegaly. Vascular: Normal carotid pulses. No JVD. Trachea: Trachea normal. Comments: Right neck tunneled dialysis catheter shows no signs of infection or cellulitis. Cardiovascular: Rate and Rhythm: Normal rate and regular rhythm. Pulses: Carotid pulses are 2+ on the right side and 2+ on the left side. Radial pulses are 2+ on the right side and 2+ on the left side. Popliteal pulses are 2+ on the right side and 2+ on the left side. Dorsalis pedis pulses are 2+ on the right side and 2+ on the left side. Posterior tibial pulses are 2+ on the right side and 2+ on the left side. Heart sounds: Normal heart sounds. No murmur heard. Comments: Bilateral forearm venous structures and upper arm cephalic vein structures are unsatisfactory though the right upper arm cephalic vein appears a marginal at best. Pulmonary: Effort: Pulmonary effort is normal. Breath sounds: Normal breath sounds. No decreased breath sounds, wheezing, rhonchi or rales. Chest: Comments: Right chest tunneled dialysis catheter exit site shows no signs of infection or cellulitis. Abdominal: General: Abdomen is flat. Bowel sounds are normal. There is no abdominal bruit. Palpations: Abdomen is soft. Abdomen is not rigid. There is no hepatosplenomegaly. Tenderness: There is no abdominal tenderness. There is no guarding or rebound. Musculoskeletal: General: Normal range of motion. Right wrist: Normal pulse. Left wrist: Normal pulse. Cervical back: Full passive range of motion without pain, normal range of motion and neck supple. Right foot: Normal capillary refill. Normal pulse. Left foot: Normal capillary refill. Normal pulse. Skin: General: Skin is cool, dry and intact. Capillary Refill: Capillary refill takes less than 2 seconds. Coloration: Skin is sallow. Nails: There is no clubbing or cyanosis. Neurological: General: No focal deficit present. Mental Status: He is alert and oriented to person, place, and time. Cranial Nerves: Cranial nerves are intact. Sensory: Sensation is intact. Motor: Motor function is intact. Coordination: He displays a negative Romberg sign. Coordination is intact. Gait: Gait is intact. Deep Tendon Reflexes: Strength normal. Psychiatric: Attention and Perception: Attention and perception normal. Mood and Affect: Affect normal. Mood is depressed. Speech: Speech normal. Behavior: Behavior normal. Behavior is cooperative. Thought Content: Thought content normal. Cognition and Memory: Cognition, memory and cognition and memory normal. Judgment: Judgment normal. Lab Review: The following labs were reviewed and within the chart Bilateral upper extremity arterial and venous mapping performed in the office on August 16, 2021 indicates unsatisfactory bilateral forearm and left upper arm cephalic veins for primary fistula creation. Right upper arm cephalic vein appears to be marginal to fair. Bilateral upper arm basilic veins appear to be satisfactory for primary fistula creation. Arterial structures are adequate bilaterally for inflow. Clinical correlation advised. documented in this [id number] History of Present illness Narrative* Flavia Aburto RN - 12/11/2020 11:47 PM EDT Spoke to mom Karen on phone. Updated on pt condition, and plan of care. Mom states that she does not have a vehicle right now. She can't even find a ride to bring her here tonight. Aware that patient needs to have an US of ABD. This nurse will be sending home a number for central scheduling to schedule appointment. All questions answered at this time. [facility] Phone: evaluation + Plan note No data available for this section [facility] Evaluation note* Diagnosis Pain in both knees, unspecified chronicity documented in this encounter [employer] Phone: evalpeumzi note* Diagnosis Chronic left shoulder pain Pain in joint, shoulder region documented in this encounter [employer] Phone: evallnlqkw note* Diagnosis Scoliosis, unspecified scoliosis type, unspecified spinal region Chronic low back pain, unspecified back pain laterality, unspecified whether sciatica present documented in this encounter [employer] Phone: evalckberd note* Diagnosis Periumbilical abdominal pain- Primary Abdominal pain, periumbilic documented in this encounter [employer] Phone: evaluation note* Diagnosis Encounter for preprocedure screening laboratory testing for COVID-19- Primary [facility] Diagnosis ESRD (end stage renal disease) on dialysis ([facility])- Primary End stage renal disease RPGN (rapidly progressive glomerulonephritis) Nephritis and nephropathy, not specified as acute or chronic, with lesion of rapidly progressive glomerulonephritis Essential hypertension, benign ESRD (end stage renal disease) on dialysis ([facility]) End stage renal disease RPGN (rapidly progressive glomerulonephritis) Nephritis and nephropathy, not specified as acute or chronic, with lesion of rapidly progressive glomerulonephritis documented in this encounter [facility] Diagnosis ESRD (end stage renal disease) on dialysis ([facility])- Primary End stage renal disease RPGN (rapidly progressive glomerulonephritis) Nephritis and nephropathy, not specified as acute or chronic, with lesion of rapidly progressive glomerulonephritis ESRD (end stage renal disease) on dialysis ([facility]) End stage renal disease RPGN (rapidly progressive glomerulonephritis) Nephritis and nephropathy, not specified as acute or chronic, with lesion of rapidly progressive glomerulonephritis documented in this encounter [facility] Diagnosis S/P arteriovenous (AV) fistula creation Hypertension, unspecified type ESRD (end stage renal disease) on dialysis ([facility]) End stage renal disease documented in this encounter [facility]* Diagnosis Episode of hypertension- Primary Altered mental status, unspecified altered mental status type documented in this encounter [employer] Phone: evalknoxhh note* Diagnosis Postural dizziness with near syncope- Primary [facility] Phone: evaluation note* Diagnosis Shortness of breath- Primary Chronic renal failure, stage 5 (HCC) [facility] Phone: evaluation note* Diagnosis Shortness of breath documented in this [facility] Phone: evaluation note* Diagnosis Acute streptococcal pharyngitis- Primary Streptococcal sore throat documented in this encounter [facility] Phone: evaluation note* Diagnosis Abdominal pain- Primary Abdominal pain, unspecified site Abdominal pain Abdominal pain, unspecified site [facility] Diagnosis Terminal ileitis of small intestine, without complications (HCC)- Primary Terminal ileitis of small intestine, without complications (HCC) [facility]* Diagnosis Pre-transplant evaluation for kidney transplant- Primary documented in this encounter [facility] Work Phone: Evaluation note* Diagnosis ESRD (end stage renal disease) (Multi)- Primary End stage renal disease documented in this encounter [facility] Work Phone: Evaluation note* Diagnosis S/P arteriovenous (AV) fistula creation Hypertension, unspecified type ESRD (end stage renal disease) on dialysis (HCC) End stage renal disease Aneurysm of arteriovenous dialysis fistula (HCC)- Primary [facility]No assessment information availableOhio[facility] Work Phone: Hospital Discharge instructions* Attachments The following attachments cannot be sent through Care Everywhere. * Abdominal Pain ([place]) [facility] Phone: Hospital Discharge instructions* Attachments The following attachments cannot be sent through Care Everywhere. * Dizziness ([place]) documented in [facility] Work Phone: Hospital Discharge instructions* Attachments The following attachments cannot be sent through Care Everywhere. * SOB (Shortness of Breath) ([place]) documented in [facility] Work Phone: Hospital Discharge instructions* Attachments The following attachments cannot be sent through Care Everywhere. * Colitis: General Info ([place]) documented in this encounterOhioHealthHospital Discharge instructions No data available for this section [facility] Progress note No data available for this section [facility] Reason for referral (narrative)No reason for referral information availableOhiohealth [facility] Work Phone: Reason for visit Narrative* Auth/Cert Specialty Diagnoses / Procedures Referred By Contac t Referred To Contact Diagnoses Terminal ileitis of small intestine, without complications (HCC) Chronic Renal Failure, Abdominal pain Referral ID Status Reason Start Date Expiration Date Visits Re quested Visits Authorized [id number] 1 1 [facility] Family History No Family History Records FoundNo Family History Records FoundNo Family History Records FoundNo Family History Records FoundNo Family History Records FoundNo Family History Records FoundNo Family History Records FoundNo Family History Records FoundNo Family History Records Found No data available for this section No Family History Records FoundNo Family History Records Found Advance Directives No Advanced Directives Records FoundDocuments on File Type Date Recorded Patient Manager Agricultural Expl anation Advance Directives and Living Will Power of Social Science Professor Documents on File Type Date Recorded Patient Manager Agricultural Expl anation ACP-Advance Directive ACP-Power of Social Science Professor Documents on File Type Date Recorded Patient Manager Agricultural Expl anation Advance Directives and Livin g Will 07/25/2021 12:00 AM Documents on File Type Date Recorded Patient Manager Agricultural Expl anation Advance Directives and Livin g Will 08/16/2021 12:03 PM Documents on File Type Date Recorded Patient Manager Agricultural Expl anation Advance Directives and Livin g Will 08/28/2021 12:03 PM Latest Code Status on File Code Status Date Activated Date Inactivated Comments Full Code 04/30/2023 3:30 AM 05/01/2023 5:49 PM Code Status History Code Status Date Activated Date Inactivated Comments Full Code 04/23/2023 1:16 AM 04/24/2023 5:27 PM Full Code 01/15/2023 2:54 PM 01/15/2023 6:31 PM Full Code - Unverified 06/13/2022 7:29 AM 06/13/2022 3:4 8 PM Full Code 10/19/2021 9:27 AM 10/19/2021 2:20 PM Date Activated Date Inactivated Comments 04/30/2023 3:30 AM 05/01/2023 5:49 PM Date Activated Date Inactivated Comments 04/23/2023 1:16 AM 04/24/2023 5:27 PM Date Activated Date Inactivated Comments 01/15/2023 2:54 PM 01/15/2023 6:31 PM Date Activated Date Inactivated Comments 06/13/2022 7:29 AM 06/13/2022 3:48 PM Date Activated Date Inactivated Comments 10/19/2021 9:27 AM 10/19/2021 2:20 PM Advance Directive Response Recorded Date/ Time Advance Directives No March 4:14pm Discharge Instructions * Attachments The following attachments cannot be sent through Care Everywhere. * Head or Face Pain: Pediatric ([place]se) documented in this encounter Assessments Diagnosis Intractable headache, unspecified chronicity pattern, unspecified headache type Hypertensive urgency Unspecified essential hypertension History of chronic renal failure Reason for Referral Specialty Diagnoses / Procedures Referred By Jacy t Referred To Contact Cardiology Diagnoses S/P arteriovenous (AV) fistula creation ESRD (end stage renal disease) on dialysis (HCC) Procedures Ultrasound hemodialysis access Fauser, [address], [address] [place] [address] Referral ID Status Reason Start Date Expiration Date V isits Requested Visits Authorized [id number] Authorized 10/19/2021 10/19/2022 1 1 Chief Complaint and Reason for Visit Chief Complaint Admit Date ANEURYSMS ON ACCESS March 15, 2025 12:03pm Chief Complaint Admit Date ANEURYSMS ON ACCESS March 15, 2025 12:03pm Dialysis Labels March 16, 2025 2:46pm Reason for Visit Admit Date S/P arteriovenous (AV) fistula creation March 15, 2025 12:03pm Chief Complaint Admit Date ANEURYSMS ON ACCESS March 15, 2025 12:03pm Dialysis Labels March 16, 2025 2:46pm esrd March 22, 2025 12:55pm Additional Source Comments (unrecognized sect ion and content) No Status Records FoundNo Status Records FoundNo Status Records FoundNo Status Records FoundNo Status Records FoundNo Status Records FoundNo Status Records FoundNo Status Records FoundNo Status Records FoundNo Status Records FoundNo Status Records Found INFORMATION SOURCE (unrecogn ized section and content) DATE CREATED AUTHOR 11/02/2018 [facility] DATE CREATED AUTHOR AUTHOR'S ORGANIZ ATION 08/01/2021 [facility] DATE CREATED AUTHOR AUTHOR'S ORGANIZ ATION 08/28/2021 [facility] DATE CREATED AUTHOR AUTHOR'S ORGANIZ ATION 10/19/2021 [facility] DATE CREATED AUTHOR AUTHOR'S ORGANIZ ATION 12/18/2022 [facility] DATE CREATED AUTHOR AUTHOR'S ORGANIZ ATION 01/24/2023 [facility] DATE CREATED AUTHOR AUTHOR'S ORGANIZ ATION 02/07/2023 [facility] DATE CREATED AUTHOR AUTHOR'S ORGANIZ ATION 07/13/2023 [facility] DATE CREATED AUTHOR AUTHOR'S ORGANIZ ATION 04/25/2024 [facility] DATE CREATED AUTHOR AUTHOR'S ORGANIZ ATION 03/13/2025 [facility] DATE CREATED AUTHOR AUTHOR'S ORGANIZ ATION 03/23/2025 [facility] Reason for Visit (unrecogniz ed section and content) Reason Comments Headache Pt C/O headache and hypertension. Reason Comments Abdominal Pain umbilical pain that started suddenly. Pt reports it as a sharp pain. Reason Comments Evaluate Specialty Diagnoses / Procedures Referred By Contac t Referred To Contact Cardiology Diagnoses Chronic kidney disease (CKD), stage IV (severe) ([facility]) Nino Espinosa MD [address] [place] [address] [facility] [address] [place], [place] [address] [address] Referral ID Status Reason Start Date Expiration Date V isits Requested Visits Authorized [id number] Closed Specialty Services Required/Dalia ent's Best Interest 07/20/2021 07/20/2022 1 1 Reason Comments Follow-up Reason Comments Altered Mental Status Pt here mine ibaenzus after getting his dialysis treatment today. Per María he became confused and lethargic after his treatment Specialty Diagnoses / Procedures Referred By Jacy kearns Referred To Contact [facility] [address] [place] [address] [facility] [address] [place] [address] Referral ID Status Reason Start Date Expiration Date Visits Re quested Visits Authorized [id number] 1 1 Reason Comments Loss of Consciousness Pt states passed out for a little bit during dialysis Reason Comments Shortness of Breath Started last night, got worse today during dialysis Reason Comments Pharyngitis Patient came from di alysis. Cough and sore throat x 2 weeks. Reports dizziness started 2 days ago. Specialty Diagnoses / Procedures Referred By Jacy kearns Referred To Contact Diagnoses Abdominal pain epigastric pain Referral ID Status Reason Start Date Expiration Date Visits Re quested Visits Authorized [id number] 1 1 Scheduled Active and Recently Administ ered Medications (unrecognized section and content) Medication Order 12/10/2020 12/11/2020 12/12/2020 cloNIDine (CATAPRES) tablet 0.1 mg (COMPLETED) 0.1 mg, Oral, ONCE, On Fri12/11/20 at 2345, For 1 dose 2342 (Given - Provider: Jared Buckner RN) Scheduled Medication Order 01/05/2022 01/06/2022 01/07/2022 labetalol (NORMODYNE;TRANDATE) injection 10 mg (COMPLETED) 10 mg, IntraVENous, ONCE, 1 dose, On Fri01/07/22 at 1330 1329 (Given - Provid er: Catie Landeros RN) Scheduled Medication Order 04/29/2023 04/30/2023 05/01/2023 calcitrioL (ROCALTROL) capsule 0.5 mcg 0.5 mcg, Oral, 3 times weekly (Once per day on Fri), First dose on Fri04/30/23 at 1300, Give on Friday, Friday and Friday with dialysis 1614 (Given - Provider: Karyn Christiansen RN) carvediloL (COREG) tablet 12.5 mg (CANCELED) 12.5 mg, Oral, 2 times daily, First dose on Fri04/30/23 at 0900, Give carvedilol with food to reduce risk of hypotension / dizziness. Separate from admin of LEONIDES inhibitors by two hours. 0907 (Given - Provider: Karny Christiansen RN)2143 (Given - Provider: Subhash Gaona, JC) 0841 (Given - Provider: Caren Silva, JC) carvediloL (COREG) tablet 25 mg 25 mg, Oral, 2 times daily, First dose (after last modification) on Teri 05/01/23 at 2100, Give carvedilol with food to reduce risk of hypotension / dizziness. Separate from admin of LEONIDES inhibitors by two hours. doxazosin (CARDURA) tablet 2 mg (CANCELED) 2 mg, Oral, Nightly, First dose on Fri04/30/23 at 2100 2143 (Given - Provider: Subhash Gaona RN) doxazosin (CARDURA) tablet 4 mg 4 mg, Oral, Nightly, First dose (after last modification) on Teri 05/01/23 at 2100 epoetin ashley (PROCRIT) injection 10,000 Units 10,000 Units, Intravenous, 3 times weekly (Once per day on Fri), First dose on Fri04/30/23 at 1400, Give with dialysis 1356 (Given - Provider: Cassia Ha RN - Comment: Given with HD) ferric citrate (AURYXIA) tablet 420 mg 420 mg, Oral, 3 times daily with meals, First dose on Fri04/30/23 at 1230, Administer with meals DO NOT CHEW OR CRUSH TABLETS, Ordering restricted to: Continuation of home medication 1230 (Not Given - Provider: Karyn Christiansen RN - Reason: Patient/family refused)1614 (Given - Provider: Karyn Christiansen RN) 0841 (Given - Provider: Caren Silva, JC)1352 (Given - Provider: Caren Silva, JC) furosemide (LASIX) tablet 40 mg 40 mg, Oral, Daily, First dose on Fri04/30/23 at 0900 0906 (Given - Provider: Karyn Christiansen RN) 0841 (Given - Provider: Caren Silva, JC) hydrALAZINE (APRESOLINE) injection 20 mg (COMPLETED) 20 mg, Intravenous, Once, On Fri04/30/23 at 0415, For 1 dose 0343 (Given - Provider: Subhash Gaona RN) hydrALAZINE (APRESOLINE) tablet 50 mg 50 mg, Oral, 3 times daily, First dose on Fri04/30/23 at 0900 0906 (Given - Provider: Karyn Christiansen RN)1614 (Given - Provider: Karyn Christiansen RN)2143 (Given - Provider: Subhash Gaona RN) 0841 (Given - Provider: Caren Silva RN)1500 (Due) labetaloL (NORMODYNE) injection 10 mg (COMPLETED) 10 mg, Intravenous, Once, On Teri 05/01/23 at 0615, For 1 dose 0557 (Given - Provid er: Subhash Gaona RN) losartan (COZAAR) tablet 100 mg 100 mg, Oral, Daily with lunch, First dose on Fri04/30/23 at 1200 1614 (Given - Provider: Karyn Christiansen RN) 1352 (Given - Provider: Caren Silva RN) NIFEdipine (ADALAT CC) 24 hr tablet 60 mg 60 mg, Oral, Daily, First dose on Fri04/30/23 at 0900, DO NOT CRUSH OR CHEW. 0906 (Given - Provider: Karyn Christiansen RN) 0841 (Given - Provider: Caren Silva RN) pantoprazole (PROTONIX) EC tablet 40 mg 40 mg, Oral, Daily, First dose on Fri04/30/23 at 0900, DO NOT CRUSH OR CHEW. 0906 (Not Given - Provider: Karyn Christiansen RN - Reason: Patient/family refused)1615 (Given - Provider: Karyn Christiansen RN - Comment: patient has agreed to take the protonix) 0841 (Given - Provider: Caren Silva RN) predniSONE (DELTASONE) tablet 5 mg 5 mg, Oral, Daily, First dose on Fri04/30/23 at 0900 0906 (Given - Provider: Karyn Christiansen RN) 0841 (Given - Provider: Caren Silva RN) sevelamer (RENVELA) tablet 1,600 mg 1,600 mg, Oral, 3 times daily with meals, First dose on Fri04/30/23 at 0800, DO NOT CRUSH OR CHEW. 0905 (Not Given - Provider: Karyn Christiansen RN - Reason: Patient/family refused)1200 (Not Given - Provider: Karyn Christiansen RN - Reason: Patient/family refused)1615 (Given - Provider: Karyn Christiansen RN) 0840 (Given - Provider: Caren Silva, JC)1349 (Given - Provider: Caren Silva RN) sodium chloride (PF) (NS) flush 5 mL(Linked Group 1) 5 mL, Intravenous, Every 8 hours scheduled, First dose on Fri04/30/23 at 0600, Saline lock 0600 (Not Given - Provider: Subhash Gaona RN - Reason: Other - Comment: ivf)1400 (Given - Provider: Karyn Christiansen RN)2145 (Given - Provider: Subhash Gaona RN) 0512 (Given - Provider: Subhash Gaona RN)1400 (Canceled Entry - Provider: Caren Silva RN) vancomycin (VANCOCIN) capsule 125 mg 125 mg, Oral, 4 times daily, First dose on Fri04/30/23 at 1700, Indication: C. difficile 1614 (Given - Provider: Karyn Christiansen RN)2143 (Given - Provider: Subhash Gaona, JC) 0842 (Given - Provider: Caren Silva, JC)1350 (Given - Provider: Caren Silva, JC) PRN Medication Order 04/29/2023 04/30/2023 05/01/2023 aluminum-magnesium hydroxide-simethicone (MAALOX PLUS) 200-200-20 mg/5 mL suspension 30 mL 30 mL, Oral, Every 4 hours PRN, indigestion, Starting on Fri04/30/23 at 0328 melatonin Tab 5 mg 5 mg, Oral, Nightly PRN, Sleep, Starting on Fri04/30/23 at 0328 morphine injection 4 mg 4 mg, Intravenous, Every 4 hours PRN, moderate to severe pain, Starting on Fri04/30/23 at 0330 1837 (Given - Provider: Karyn Christiansen RN) 0839 (Given - Provider: Caren Silva, JC) naloxone (NARCAN) injection 0.1 mg(Linked Group 2) 0.1 mg, Intravenous, As needed, opioid reversal, For respiratory rate less than or equal to 8 per minute., Starting on Fri04/30/23 at 0329, Mix nalOXone (NARCAN) 0.4 mg (1mL) with 9 mL of Normal Saline to total 10 mL. Administer 0.1 mg (2.5mL) IV Push every 2 minutes until respiratory rate is 10 or greater. naloxone (NARCAN) injection 0.4 mg(Linked Group 2) 0.4 mg, Intravenous, As needed, opioid reversal, patient is pulseless, breathless, and unresponsive, Starting on Fri04/30/23 at 0329, Call a code first, then administer naloxone dose undiluted IV Push over 30 seconds. nitroGLYCERIN (NITROSTAT) SL tablet 0.4 mg 0.4 mg, Sublingual, Every 5 min PRN, chest pain, Starting on Fri04/30/23 at 0328, For chest pain. May give up to 3 doses. Call physician for chest pain unrelieved by Nitroglycerin, or recurrent chest pain. DO NOT CRUSH OR CHEW. ondansetron (ZOFRAN-ODT) disintegrating tablet 4 mg 4 mg, Oral, Every 6 hours PRN, nausea, vomiting, Starting on Fri04/30/23 at 0328, Orally disintegrating tablet: Open blister pack and place tablet on the tongue; tablet is formulated to dissolve on the tongue without water; do not split tablet. Formulation requires tablet remain in sealed package until immediately prior to dose being administered. promethazine (PHENERGAN) tablet 25 mg 25 mg, Oral, Every 6 hours PRN, nausea, Starting on Fri04/30/23 at 0328 senna (SENOKOT) tablet 8.6 mg 8.6 mg (1 tablet), Oral, 2 times daily PRN, constipation, Starting on Fri04/30/23 at 0328 simethicone (MYLICON) chewable tablet 80 mg 80 mg, Oral, 4 times daily PRN, flatulence, Starting on Fri04/30/23 at 0327 sodium chloride (PF) (NS) flush 5 mL(Linked Group 1) 5 mL, Intravenous, As needed, line care, Starting on Fri04/30/23 at 0328 0449 (Given - Provider: Subhash Gaona RN) sodium chloride 0.9% (NS)(Linked Group 1) 0-150 mL/hr, Intravenous, As needed, To flush line after IV infusions when no maintenance IV ordered or a compatibility issue. Infuse 20ml at the same rate as the secondary infusion, Starting on Fri04/30/23 at 0328, Run as Primary IV. NOT intended for KVO. Linked Groups Order Group 1: Saline lock IV (CANCELED) Routine, Continuous, Starting on Fri04/30/23 at 0329, Until Specified And sodium chloride (PF) (NS) flush 5 mLJump to med 5 mL, Intravenous, As needed, line care, Starting on Fri04/30/23 at 0328 And sodium chloride (PF) (NS) flush 5 mLJump to med 5 mL, Intravenous, Every 8 hours scheduled, First dose on Fri04/30/23 at 0600
Saline lock
And sodium chloride 0.9% (NS)Jump to med 0-150 mL/hr, Intravenous, As needed, To flush line after IV infusions when no maintenance IV ordered or a compatibility issue. Infuse 20ml at the same rate as the secondary infusion, Starting on Fri04/30/23 at 0328
Run as Primary IV. NOT intended for KVO.
Group 2: naloxone (NARCAN) injection 0.1 mgJump to med 0.1 mg, Intravenous, As needed, opioid reversal, For respiratory rate less than or equal to 8 per minute., Starting on Fri04/30/23 at 0329
Mix nalOXone (NARCAN) 0.4 mg (1mL) with 9 mL of Normal Saline to total 10 mL. Administer 0.1 mg (2.5mL) IV Push every 2 minutes until respiratory rate is 10 or greater.
And Notify physician (CANCELED) STAT, Until discontinued, Starting on Fri04/30/23 at 0330, Until Specified
Respiratory rate less than: 8
For respiratory rate less than or equal to 8, notify physician and/or appropriate staff for additional orders. And naloxone (NARCAN) injection 0.4 mgJump to med 0.4 mg, Intravenous, As needed, opioid reversal, patient is pulseless, breathless, and unresponsive, Starting on Fri04/30/23 at 0329
Call a code first, then administer naloxone dose undiluted IV Push over 30 seconds.
Scheduled Medication Order 04/22/2023 04/23/2023 04/24/2023 calcitrioL (ROCALTROL) capsule 0.25 mcg 0.25 mcg, Oral, 3 times weekly (Once per day on Fri), First dose on Fri04/23/23 at 1300, continuation of outpatient dialysis medication and do not discharge patient on this medication 1343 (Given - Provider: Sara Potter RN) carvediloL (COREG) tablet 12.5 mg 12.5 mg, Oral, 2 times daily, First dose on Fri04/23/23 at 0230, Give carvedilol with food to reduce risk of hypotension / dizziness. Separate from admin of LEONIDES inhibitors by two hours. 0253 (Given - Provider: Mireya Gross RN)0900 (Not Given - Provider: Sara Potter RN - Reason: Contraindicated - Comment: HD)2148 (Given - Provider: Mireya Gross RN) 0839 (Given - Provider: Danitza Horne, JC) ferric citrate (AURYXIA) tablet 420 mg 420 mg, Oral, 3 times daily with meals, First dose on Fri04/23/23 at 1200, Administer with meals DO NOT CHEW OR CRUSH TABLETS, Ordering restricted to: Continuation of home medication 1343 (Given - Provider: Sara Potter RN - Comment: late lunch)1736 (Given - Provider: Sara Potter RN) 0839 (Given - Provider: Danitza Horne, JC)1224 (Given - Provider: Sara Potter RN) furosemide (LASIX) tablet 40 mg 40 mg, Oral, 2 times daily, First dose on Fri04/23/23 at 0900 0900 (Not Given - Provider: Sara Potter RN - Reason: Contraindicated - Comment: NPO)1736 (Given - Provider: Sara Potter RN) 0839 (Given - Provider: Danitza Horne, JC) heparin (porcine) injection 5,000 Units 5,000 Units, Subcutaneous, Every 8 hours scheduled, First dose on Fri04/23/23 at 0600, Notify physician if patient refuses. 0600 (Due)1400 (Not Given - Provider: Sara Potter RN - Reason: Patient/family refused)2200 (Not Given - Provider: Mireya Gross RN - Reason: Patient/family refused) 0600 (Not Given - Provider: Danitza Horne RN - Reason: Patient/family refused)1400 (Not Given - Provider: Sara Potter RN - Reason: Patient/family refused) hydrALAZINE (APRESOLINE) tablet 25 mg 25 mg, Oral, 3 times daily, First dose on Fri04/23/23 at 0230 0253 (Given - Provider: Mireya Gross RN)0900 (Not Given - Provider: Sara Potter RN - Reason: Contraindicated - Comment: HD)1735 (Given - Provider: Sara Potter RN)2148 (Given - Provider: Mireya Gross RN) 0840 (Given - Provider: Danitza Horne RN)1507 (Given - Provider: Sara Potter RN) hyoscyamine (LEVSIN/SL) SL tablet 125 mcg 125 mcg, Sublingual, 3 times daily before meals, First dose on Fri04/23/23 at 0730 0625 (Not Given - Provider: Mireya Gross RN - Reason: Patient/family refused - Comment: Patient states he does not take these medications.)1342 (Given - Provider: Sara Potter RN - Comment: late lunch)1735 (Given - Provider: Sara Potter RN - Comment: late supper) 0730 (Not Given - Provider: Danitza Horne RN - Reason: Patient/family refused)1130 (Not Given - Provider: Sara Potter RN - Reason: Patient/family refused) losartan (COZAAR) tablet 100 mg 100 mg, Oral, Daily, First dose on Fri04/23/23 at 1200 1342 (Given - Provider: Sara Potter RN - Comment: hd) 1224 (Given - Provider: Sara Potter RN) NIFEdipine (ADALAT CC) 24 hr tablet 60 mg 60 mg, Oral, 2 times daily, First dose on Fri04/23/23 at 0230, DO NOT CRUSH OR CHEW. 0253 (Given - Provider: Mireya Gross RN)2148 (Given - Provider: Mireya Gross RN) 0600 (Hold - Provider: Mireya Gross RN - Reason: Other - Comment: Patient wanted to wait until 8 am.) pantoprazole (PROTONIX) injection 40 mg 40 mg, Intravenous, 2 times daily, First dose on Fri04/23/23 at 1330, Dilute each vial with 10 mL of 0.9% NaCl. 1343 (Given - Provider: Sara Potter RN)2237 (Given - Provider: Mireya Gross RN - Comment: infusion running) 0840 (Given - Provider: Danitza Horne, JC) piperacillin-tazobactam (ZOSYN) IVPB 3.375 g (premix) 3.375 g, Intravenous, at 12.5 mL/hr, Every 12 hours scheduled, First dose on Fri04/23/23 at 0230, VESICANT, Indication: Intra-abdominal Infection 0336 (New Bag - Provider: Mireya Gross RN)0736 (Stopped - Provider: Sara Potter RN)1752 (New Bag - Provider: Sara Potter RN) 0534 (New Bag - Provider: Mireya Gross RN) predniSONE (DELTASONE) tablet 5 mg 5 mg, Oral, Daily, First dose on Fri04/23/23 at 0900 1342 (Given - Provider: Sara Potter RN - Comment: hd) 0839 (Given - Provider: Danitza Horne, JC) senna-docusate (SENNA-S) 8.6-50 mg per tablet 1 tablet 1 tablet, Oral, 2 times daily, First dose on Fri04/23/23 at 0900, NOT for abdominal surgery patients. Hold for loose stools. Do Not Crush or Chew if administering orally due to bitter taste. May be crushed if given via tube. 0900 (Not Given - Provider: Sara Potter RN - Reason: Patient/family refused)2148 (Given - Provider: Mireya Gross RN) 0839 (Given - Provider: Danitza Horne, JC) sodium chloride (PF) (NS) flush 5 mL(Linked Group 1) 5 mL, Intravenous, Every 8 hours scheduled, First dose on Fri04/23/23 at 0600, Saline lock 0600 (Due)1400 (Given - Provider: Sara Potter RN)2237 (Given - Provider: Mireya Gross RN) 0600 (Not Given - Provider: Danitza Horne RN - Reason: Other - Comment: IV infusing)1400 (Due) PRN Medication Order 04/22/2023 04/23/2023 04/24/2023 acetaminophen (TYLENOL) tablet 650 mg 650 mg, Oral, Every 4 hours PRN, headaches, mild pain, fever 100.4 F or greater, infusion related reactions, Starting on Fri04/23/23 at 0111 aluminum-magnesium hydroxide-simethicone (MAALOX PLUS) 200-200-20 mg/5 mL suspension 30 mL 30 mL, Oral, Every 4 hours PRN, indigestion, Starting on Fri04/23/23 at 0114 bisacodyL (DULCOLAX) suppository 10 mg 10 mg, Rectal, Daily PRN, constipation, Starting on Fri04/23/23 at 0114, Try oral medications first for constipation. Try rectal medication if oral meds are ineffective, not tolerated, or not ordered. HYDROmorphone (DILAUDID) injection 0.25-0.5 mg 0.25-0.5 mg, Intravenous, Every 3 hours PRN (may repeat), moderate to severe pain, Starting on Fri04/23/23 at 0114, Initiate with 0.25 mg IV every 3 hours prn moderate to severe pain. For unrelieved pain, may repeat 0.25 mg within 30 minutes of initial dose. If pain is RELIEVED after repeat dose, change to 0.5 mg every 3 hours prn moderate to severe pain. If pain is UNrelieved after repeat dose, or patient requires dose reduction, call physician. May use IV for breakthrough pain or if unable to tolerate enteral routes. 0253 (Given - Provider: Mireya Gross RN)0651 (Given - Provider: Mireya Gross RN) HYDROmorphone (DILAUDID) tablet 2-4 mg 2-4 mg, Oral, Every 4 hours PRN (may repeat), moderate to severe pain, Starting on Fri04/23/23 at 0115, Initiate with 2 mg oral every 4 hours prn moderate to severe pain. For unrelieved pain, may repeat 2 mg within 60 minutes of initial dose. If pain is RELIEVED after repeat dose, change to 4 mg every 4 hours prn moderate to severe pain. If pain is UNrelieved after repeat dose, or patient requires dose reduction, call physician. 1342 (Given - Provider: Anil Potter RN) lidocaine-prilocaine (EMLA) cream Topical, As needed, mild pain, Starting on Fri04/23/23 at 0821, For 24 hours, Dialysis Release, Apply to dialysis site 30-60 minutes prior to needle insertion, and cover with plastic wrap. magnesium hydroxide (MOM) 400 mg/5 mL suspension 2,400 mg 2,400 mg (30 mL), Oral, Daily PRN, constipation, Starting on Fri04/23/23 at 0114, If no bowel movement in 24 hours after Sennosides (SENNA) administration. melatonin Tab 5 mg 5 mg, Oral, Nightly PRN, Sleep, Starting on Fri04/23/23 at 0114, If still awake in 1 hour proceed to trazodone (Desyrel) naloxone (NARCAN) injection 0.1 mg(Linked Group 2) 0.1 mg, Intravenous, As needed, opioid reversal, For respiratory rate less than or equal to 8 per minute., Starting on Fri04/23/23 at 0114, Mix nalOXone (NARCAN) 0.4 mg (1mL) with 9 mL of Normal Saline to total 10 mL. Administer 0.1 mg (2.5mL) IV Push every 2 minutes until respiratory rate is 10 or greater. naloxone (NARCAN) injection 0.4 mg(Linked Group 2) 0.4 mg, Intravenous, As needed, opioid reversal, patient is pulseless, breathless, and unresponsive, Starting on Fri04/23/23 at 0114, Call a code first, then administer naloxone dose undiluted IV Push over 30 seconds. ondansetron (ZOFRAN) injection 4 mg(Linked Group 3) 4 mg, Intravenous, Every 6 hours PRN, nausea, vomiting, Starting on Fri04/23/23 at 0114, Use oral route first, if tolerated. 1344 (Given - Provider: Anil Potter RN) ondansetron (ZOFRAN-ODT) disintegrating tablet 4 mg(Linked Group 3) 4 mg, Oral, Every 6 hours PRN, nausea, vomiting, Starting on Fri04/23/23 at 0114, Use oral route first, if tolerated. Formulation requires tablet remain in sealed package until immediately prior to dose being administered. 1344 (See Alternative - Provider: Sara Potter RN) promethazine (PHENERGAN) tablet 25 mg 25 mg, Oral, Every 6 hours PRN, nausea, Starting on Fri04/23/23 at 0110 senna (SENOKOT) tablet 8.6 mg 8.6 mg (1 tablet), Oral, 2 times daily PRN, constipation, Starting on Fri04/23/23 at 0114 simethicone (MYLICON) chewable tablet 80 mg 80 mg, Oral, 4 times daily PRN, flatulence, Starting on Fri04/23/23 at 0110 sodium chloride (PF) (NS) flush 5 mL(Linked Group 1) 5 mL, Intravenous, As needed, line care, Starting on Fri04/23/23 at 0112 sodium chloride 0.9% (NS) bolus 200 mL 200 mL, Intravenous, As needed, hypotension management during hemodialysis, Starting on Teri 04/24/23 at 0642, For 1 dose, Dialysis Hold sodium chloride 0.9% (NS)(Linked Group 1) 0-150 mL/hr, Intravenous, As needed, To flush line after IV infusions when no maintenance IV ordered or a compatibility issue. Infuse 20ml at the same rate as the secondary infusion, Starting on Fri04/23/23 at 0112, Run as Primary IV. NOT intended for KVO. sodium chloride 0.9% (NS) 1,000-3,000 mL, Hemodialysis, As needed, other, Priming solution for HD system, Starting on Fri04/23/23 at 0821, Dialysis Release traZODone (DESYREL) tablet 50 mg 50 mg, Oral, Nightly PRN, sleep, Starting on Fri04/23/23 at 0114, To be administered 1 hour after melatonin if still awake. May repeat x 1 dose in 30 minutes if still awake. Linked Groups Order Group 1: Saline lock IV (CANCELED) Routine, Continuous, Starting on Fri04/23/23 at 0113, Until Specified And sodium chloride (PF) (NS) flush 5 mLJump to med 5 mL, Intravenous, As needed, line care, Starting on Fri04/23/23 at 0112 And sodium chloride (PF) (NS) flush 5 mLJump to med 5 mL, Intravenous, Every 8 hours scheduled, First dose on Fri04/23/23 at 0600
Saline lock
And sodium chloride 0.9% (NS)Jump to med 0-150 mL/hr, Intravenous, As needed, To flush line after IV infusions when no maintenance IV ordered or a compatibility issue. Infuse 20ml at the same rate as the secondary infusion, Starting on Fri04/23/23 at 0112
Run as Primary IV. NOT intended for KVO.
Group 2: naloxone (NARCAN) injection 0.1 mgJump to med 0.1 mg, Intravenous, As needed, opioid reversal, For respiratory rate less than or equal to 8 per minute., Starting on Fri04/23/23 at 0114
Mix nalOXone (NARCAN) 0.4 mg (1mL) with 9 mL of Normal Saline to total 10 mL. Administer 0.1 mg (2.5mL) IV Push every 2 minutes until respiratory rate is 10 or greater.
And Notify physician (CANCELED) STAT, Until discontinued, Starting on Fri04/23/23 at 0115, Until Specified
Respiratory rate less than: 8
For respiratory rate less than or equal to 8, notify physician and/or appropriate staff for additional orders. And naloxone (NARCAN) injection 0.4 mgJump to med 0.4 mg, Intravenous, As needed, opioid reversal, patient is pulseless, breathless, and unresponsive, Starting on Fri04/23/23 at 0114
Call a code first, then administer naloxone dose undiluted IV Push over 30 seconds.
Group 3: ondansetron (ZOFRAN-ODT) disintegrating tablet 4 mgJump to med 4 mg, Oral, Every 6 hours PRN, nausea, vomiting, Starting on Fri04/23/23 at 0114
Use oral route first, if tolerated. Formulation requires tablet remain in sealed package until immediately prior to dose being administered.
Or ondansetron (ZOFRAN) injection 4 mgJump to med 4 mg, Intravenous, Every 6 hours PRN, nausea, vomiting, Starting on Fri04/23/23 at 0114
Use oral route first, if tolerated.
Care Teams (unrecognized sec tion and content) Team Status: Active Member Role Status Dates PHYSICIAN NO FAMILY Primary Care Provider Active Team Status: Active Member Role Status Dates NON STAFF Primary Care Provider Active Start: December 28, 2024 Bennie Cary MD Attending Provider Active Star t: December 28, 2024 Team Status: Active Member Role Status Dates NON STAFF Primary Care Provider Active Start: January 28, 2025 Garrett Acosta MD Attending Provider Active Star t: January 28, 2025 Team Status: Inactive Member Role Status Dates NON STAFF Primary Care Provider Active Start: March 15, 2025 End: March 15, 2025 Arturo Piedra MD Attending Provider Active S tart: March 15, 2025 End: March 15, 2025 Team Status: Inactive Member Role Status Dates NON STAFF Primary Care Provider Active Start: March 16, 2025 End: March 16, 2025 Garrett Acosta MD Attending Provider Active Star t: March 16, 2025 End: March 16, 2025 Team Status: Inactive Member Role Status Dates Arturo Piedra MD Attending Provider Active S tart: March 22, 2025 End: March 22, 2025 PHYSICIAN NO FAMILY Primary Care Provider Active Start: March 22, 2025 End: March 22, 2025 Policy Cancellation Clerk Relationship Specialty Start Date End Date Nino Espinosa MD [address] [place] [address] PCP - General Pediatric Nephrology 07/20/21 Catalina Muse 07/27/21 Policy Cancellation Clerk Relationship Specialty Start Date End Date Nino Espinosa MD [address] [place] [address] PCP - General Pediatric Nephrology 07/20/21 Elisabeth Peña III, DO [address] [place] [address] Consulting Physician Vascular Surgery 08/16/21 Sarina Mcdaniel MD [address] [place] [address] Consulting Physician Nephrology 08/16/21 Catalina Muse 07/27/21 Policy Cancellation Clerk Relationship Specialty Start Date End Date Nino Espinosa MD [address] [place] [address] PCP - General Pediatric Nephrology 07/20/21 Elisabeth Peña III, DO [address] [facility] [place] [address] Consulting Physician Vascular Surgery 08/16/21 Sarina Mcdaniel MD [address] [place] [address] Consulting Physician Nephrology 08/16/21 Catalina Muse 07/27/21 Policy Cancellation Clerk Relationship Specialty Start Date End Date Nino Espinosa MD [address] [place] [address] PCP - General Pediatric Nephrology 07/20/21 Elisabeth Peña III, DO [address] [facility] [place] [address] Consulting Physician Vascular Surgery 08/16/21 Sarina Mcdaniel MD [address] [place] [address] Consulting Physician Nephrology 08/16/21 Catalina Muse 07/27/21 Policy Cancellation Clerk Relationship Specialty Start Date End Date Inocencio Avendano MD [address] [place] [address] PCP - General Pediatrics 09/18/21 Elisabeth Peña III, DO [address] [place] [address] Consulting Physician Vascular Surgery 08/16/21 Sarina Mcdaniel MD [address] [place] [address] Consulting Physician Nephrology 08/16/21 Bowen Bar, [employer]AT ENGINEER [address] [place] [address] Nurse Practitioner Nurse Practitioner 09/18/21 Catalina Muse 07/27/21 Policy Cancellation Clerk Relationship Specialty Start Date End Date Wnek, Inocencio [place] [address] [place] [address] [place] [address] PCP - General 11/03/13 Policy Cancellation Clerk Relationship Specialty Start Date End Date Wnek, Inocencio [place] [address] [address] [place] [address] PCP - General 11/03/13 Policy Cancellation Clerk Relationship Specialty Start Date End Date Wnek, Inocencio [place] [address] [address] [place] [address] PCP - General 11/03/13 Policy Cancellation Clerk Relationship Specialty Start Date End Date Wnek, Inocencio [place] [address] [address] [place] [address] PCP - General 11/03/13 Policy Cancellation Clerk Relationship Specialty Start Date End Date Wnek, Inocencio [place] [address] [address] PCP - General 11/03/13 Policy Cancellation Clerk Relationship Specialty Start Date End Date Wnek, Inocencio [place] [address] [address] [place] [address] PCP - General 11/03/13 Policy Cancellation Clerk Relationship Specialty Start Date End Date Wnek, Inocencio Medeiros MD [address] [place] [address] PCP - General Pediatrics 09/18/21 Elisabeth Peña III, DO [address] [place] [address] Consulting Physician Vascular Surgery 08/16/21 Sarina Mcdaniel MD [address] [place] [address] Consulting Physician Nephrology 08/16/21 Bowen Bar CNP [address] [place] [address] Nurse Practitioner Nurse Practitioner 09/18/21 Catalina Muse 07/27/21 Policy Cancellation Clerk Relationship Specialty Start Date End Date Inocencio Avendano MD [facility] [address] [address] PCP - General Pediatrics 09/18/21 Elisabeth Peña III, DO [address] [place] [address] Consulting Physician Vascular Surgery 08/16/21 Sarina Mcdaniel MD [address] [place] [address] Consulting Physician Nephrology 08/16/21 Bowen Bar CNP [address] [place] [address] Nurse Practitioner Nurse Practitioner 09/18/21 Catalina Muse 07/27/21 Policy Cancellation Clerk Relationship Specialty Start Date End Date Inocencio Avendano MD [address] [place] [address] PCP - General Pediatrics 09/18/21 Elisabeth Peña III, DO [address] [place] [address] Consulting Physician Vascular Surgery 08/16/21 Sarina Mcdaniel MD [address] [place] [address] Consulting Physician Nephrology 08/16/21 Bowen Bar CNP [address] [place] [address] Nurse Practitioner Nurse Practitioner 09/18/21 Catalina Muse 07/27/21 Team Status: Active Member Role Status Dates NON STAFF Primary Care Provider Active Ordered Prescriptions (unrec ognized section and content) Prescription Sig Dispensed Refills Start Date End Da te penicillin v potassium (VEETID) 500 MG tablet Take 1 tablet by mouth in the morning and at bedtime for 10 days 20 tablet 0 09/06/2022 09/16/2022 Goals (unrecognized section and content) Goals may be documented in a n alternate section FOR RECORDS PERTAINING TO PATIENTS WHO ARE OR HAVE BEEN ENROLLED IN A CHEMICAL DEPENDENCY/SUBSTANCEABUSE PROGRAM, SOME INFORMATION MAY BE OMITTED. This clinical summary was aggregated from multiple sources. Caution should be exercised in using it in the provision of clinical care. This summary normalizes information from multiple sources, and as a consequence, information in this document may materially change the coding, format and clinical context of patient data. In addition, data may be omitted in some cases. CLINICAL DECISIONS SHOULD BE BASED ON THE PRIMARY CLINICAL RECORDS. [facility] [facility]. provides no warranty or guarantee of the accuracy or completeness of information in this document.
[2025-03-25 13:04] LABS: Potassium 5.0 mmol/L (3.5-5.1)
== END 2025-03-25 12:53 | disposition home or self-care (01) ==
LOC: LAB 12:52
PROVIDERS: Visit Provider Internal Medicine
DX: E87.5 Hyperkalemia (principal)
CPT/HCPCS: 36415; 84132